=== PATIENT | female | born 1950 | race Two or more races ===

== ENCOUNTER 2023-06-07 13:20 | Outpatient (OUT) | payer MEDICARE, OTHER, SELFPAY ==
--- NOTE | 2023-06-07 13:23 | MM_ITS ---
Patient: [place] NGO Exam Date: 06/07/2023 : 1950 Gender:F Ordering : DR SUHAS RAMSAY Admission #: [id number] Family : Order #: [id number] CLICK HERE TO VIEW EXAM RADIOLOGY REPORT PROCEDURE: MM TOMOSYNTHESIS SCREENING BI COMPARISON: MG MAMM SCREEN 3D REINA CAD, 11/13/2020. MG MAMM SCREEN 3D REINA CAD, 11/16/2021. INDICATIONS: Screening Calculator Name NCI Breast Cancer Risk Assessment Tool 5 Year Breast Cancer Risk Not Reported. Lifetime Breast Cancer Risk Not Reported. Personal Breast Cancer No Personal Ovarian Cancer No Treatments None Family Cancers None LOCATION: [facility] BREAST COMPOSITION: Extremely dense, which lowers the sensitivity of mammography. FINDINGS: DIAGNOSTIC CATEGORY 1--NEGATIVE. NO CHANGE FROM COMPARISON ASSESSMENT. Scattered benign-appearing calcifications are present. Scattered benign-appearing lymph nodes are present. RIGHT BREAST: No significant suspicious finding. LEFT BREAST: No significant suspicious finding. RECOMMENDATIONS: ROUTINE MAMMOGRAM AND CLINICAL EVALUATION IN 12 MONTHS. PLEASE NOTE: A NORMAL MAMMOGRAM DOES NOT EXCLUDE THE POSSIBILITY OF BREAST CANCER. A CLINICALLY SUSPICIOUS PALPABLE LUMP SHOULD BE BIOPSIED. Dictated by: Martín Pop MD on 06/07/2023 at 15:38 Approved by: Martín Pop MD on 06/07/2023 at 15:39
--- NOTE | 2023-06-07 13:23 | XR_ITS ---
The [address] [address] Patient Name: FLOR[place] NGO MRN: [id number] date: 1950 Sex: F Assigned Patient Location: [facility] Current Patient Location: [facility] Accession/Order Number: [id number] Exam Date: 06/07/2023 13:38 Report Date: 06/07/2023 16:16 At the request of: SUHAS PURI Procedure: XR DEXA axial skeleton EXAM: XR DEXA axial skeleton HISTORY: Estrogen Deficiency E28.39 COMPARISON: 05/07/2020 and 10/06/2016. TECHNIQUE: Routine DEXA scan lumbar spine and bilateral hips. FINDINGS: L1-L4: 1. Bone mineral density 1.164 g/sq cm and T score -0.1 2. Percent change versus previous 11.3% (statistically significant change) Left femoral neck: 1. Bone mineral density 0.810 g/sq cm and T score -1.6 Left hip total: 1. Bone mineral density 0.794 g/sq cm and T score -1.7 Right femoral neck: 1. Bone mineral density 0.828 g/sq cm and T score -1.5 Right hip total: 1. Bone mineral density 0.814 g/sq cm and T score -1.5 Dual femur, Neck mean: 1. Persistent change versus previous -4.4% Dual femur, Trochanter mean: 1. Percent change versus previous 1.5% Dual femur, Total mean: 1. Percent change versus previous 0.8% XR/XR DEXA axial skeleton IMPRESSION: Osteopenia. Electronically authenticated by: GARDENIA COVINGTON Date: 06/07/2023 16:16
== END 2023-06-07 13:21 | disposition home or self-care (01) ==
LOC: MAMMO 13:20
PROVIDERS: PCP Physician Assistant; Visit Provider Physician Assistant
DX: Z12.31 Encounter for screening mammogram for malignant neoplasm of breast (principal); E28.39 Other primary ovarian failure; M85.80 Other specified disorders of bone density and structure, unspecified site
CPT/HCPCS: 77063; 77067; 77080

== ENCOUNTER 2025-03-29 08:25 | Outpatient (OUT) | payer MEDICARE, OTHER, SELFPAY ==
--- NOTE | 2025-03-29 08:31 | MM_ITS ---
Patient Name: FLOR[place] NGO MR#: [id number] : 1950 Exam Date: 03/29/2025 Ordering Doctor: DR SUHAS RAMSAY RADIOLOGY REPORT PROCEDURE: MM TOMOSYNTHESIS SCREENING BI COMPARISON: MM TOMOSYNTHESIS SCREENING BI, 06/07/2023. MG MAMM SCREEN 3D REINA CAD, 11/16/2021. MG MAMM SCREEN 3D REINA CAD, 11/13/2020. MG MAMM SCREEN REINA W CAD, 10/05/2016. INDICATIONS: Screening Calculator Name NCI Breast Cancer Risk Assessment Tool 5 Year Breast Cancer Risk Not Reported. Lifetime Breast Cancer Risk Not Reported. Personal Breast Cancer No Personal Ovarian Cancer No Treatments None Family Cancers None LOCATION: [facility] BREAST COMPOSITION: The breasts are extremely dense, which lowers the sensitivity of mammography. FINDINGS: DIAGNOSTIC CATEGORY 1--NEGATIVE. RIGHT BREAST: No significant suspicious finding. LEFT BREAST: No significant suspicious finding. RECOMMENDATIONS: ROUTINE MAMMOGRAM AND CLINICAL EVALUATION IN 12 MONTHS. Dictated by: Haile Pearson DO on 03/29/2025 at 15:38 Approved by: Haile Pearson DO on 03/29/2025 at 15:40
--- OUTSIDE RECORDS SUMMARY | 2025-03-29 08:31 | XMS_ITS | CCD ---
Author Organization [facility] Care Team Providers Care Business Intelligence Engineer Name Role Phone JAXSON, DR PERLA Chiu Admitting Unavailable HEMMER, DR PERLA Chiu Attending Unavailable ZIEBER, DR JARON Miramontes Consulting Unavailable HEMMER, DR PERLA Chiu Consulting Unavailable RANDY RICHARD Primary Care Physician [phone] Jose, Paulino Leos Attending Unavailable Garcia, Paulino Leos Referring Unavailable Garcia, Paulino Leos Admitting Unavailable Garcia, Paulino Leos Admitting Unavailable Garcia, Paulino Leos Attending Unavailable Garcia, Paulino Leos Attending Unavailable Garcia, Paulino Leos Referring Unavailable Garcia, Paulino Leos Admitting Unavailable Garcia, Paulino Leos Referring Unavailable Garcia, Paulino Leos Admitting Unavailable Garcia, Paulino Leos Attending Unavailable Randy Richard MD Primary Care Provider [phone] Zay INSPECTOR SEMICONDUCTOR WAFER, Christine Unavailable Randy Richard MD Unavailable Charlotte INSPECTOR SEMICONDUCTOR WAFER, Regina Unavailable Unavailable Charlotte INSPECTOR SEMICONDUCTOR WAFER, Regina Unavailable HAZEL FALLON Attending Unavailable HEMNATALEE, PERLA Chiu Attending Unavailable JOSE, PAULINO Leos Referring Unavailable HAZEL FALLON Attending Unavailable HAZEL FALLON Attending Unavailable JOSE, PAULINO Leos Attending Unavailable HEMNATALEE, PERLA Chiu Attending Unavailable HEMNATALEE, PERLA Chiu Attending Unavailable HAZEL FALLON Attending Unavailable JOSE, PAULINO Leos Referring Unavailable JOSE, PAULINO Leos Attending Unavailable Allergies Allergy Classification Reported Allergen(s) Allergy Type Date of Onset Reaction(s) Facility (5 sources) Sulfonamides (Antibiotic); Translations: [sulfa drugs] Drug allergy bad headache [facility] (20 sources) Sulfonamides (Antibiotic) Drug Allergy 02-02-2023 Other [facility] Medications Current Medications Medication Drug Class(es) Dates Sig (Normalized) Sig (Original) acetaminophen 500 mg oral tablet (20 sources) take 1 tablet by mouth every four hours as needed for pain acetaminophen (Tylenol Extra Strength) 500 MG tablet Take 1 tablet by mouth every 4 (four) hours if needed for mild pain. Active acetaminophen 500 mg / diphenhydrAMINE hydrochloride 25 mg oral tablet (4 sources) Histamine-1 Receptor Antagonist Start: 12-30-2021 take 1 tablet by mouth once daily at bedtime as needed for sleep Tylenol Extra Strength PM oral tablet 1 tab(s), Oral, Once a day (at bedtime) as needed for sleep Start Date: 12/30/21 Status: Ordered alendronic acid 70 mg oral tablet (20 sources) Bisphosphonate Start: 03-21-2024 End: 02-25-2026 alendronate (Fosamax) 70 MG tablet Indications: Osteopenia of multiple sites Take 1 tablet (70 mg) by mouth every 7 (seven) days 12 tablet 3 02/25/2025 02/25/2026 Active Start: 12-30-2021 take 1 tablet by cora th every week alendronate 70 mg Tab 70 mg = 1 tab(s), Oral, qWeek, Refills(s) 0, Other (see comment) Start Date: 12/30/21 Status: Ordered amLODIPine 5 mg oral tablet (20 sources) Dihydropyridine Calcium Channel Tara Start: 03-21-2024 End: 03-21-2025 take 1 tablet by mouth once daily amLODIPine (Norvasc) 5 MG tablet Indications: Benign hypertension Take 1 tablet (5 mg) by mouth Daily 90 tablet 3 03/21/2024 03/21/2025 Active Start: 12-30-2021 take 1 tablet by cora th once daily amLODIPine 5 mg Tab 5 mg = 1 tab(s), Oral, Daily, Refills(s) 0, High blood pressure Start Date: 12/30/21 Status: Ordered ascorbic acid 500 mg oral capsule (20 sources) Vitamin C take 1 capsule by mouth once daily Ascorbic Acid (Vitamin C) 500 MG capsule Take 1 capsule by mouth 1 (one) time each day. Active aspirin 325 mg oral tablet (20 sources) Platelet Aggregation Inhibitor, Nonsteroidal Anti-inflammatory Drug Start: 07-29-2022 End: 08-28-2022 take 1 tablet by mouth twice daily aspirin 325 mg Tab 325 mg = 1 tab(s), Oral, BID, X 30 day(s), # 60 tab(s), Refills(s) 0, Pharmacy: [id number], 160, cm, 12/30/21 12:25:00 EDT, Height/Length Dosing, 81.5, kg, 12/30/21 12:25:00 EDT, Weight Dosing Start Date: 07/29/22 Stop Date: 08/28/22 Status: Ordered Start: 01-15-2022 End: 02-14-2022 take 1 tablet by mouth once daily aspirin 325 mg Tab 325 mg = 1 tab(s), Oral, Daily, X 30 day(s), # 30 tab(s), Refills(s) 0 Start Date: 01/15/22 Stop Date: 02/14/22 Status: Ordered Start: 12-30-2021 take 1 capsule by mo [facility] once daily aspirin 81 mg oral capsule 81 mg = 1 cap(s), Oral, Daily, Blood Thinner Start Date: 12/30/21 Status: Ordered take 1 tablet by cora once daily BABY ASPIRIN PO Take 1 tablet by mouth 1 (one) time each day. Active calcium carbonate 1500 mg / cholecalciferol 200 unt oral tablet (6 sources) Vitamin D take 1 tablet by mouth every twelve hours calcium citrate 600 mg and vitamin D3 (Citrical & Minerals + Vit D) 600-200 MG-UNIT tablet Take 1 tablet by mouth every 12 (twelve) hours. Active calcium citrate 950 mg / cholecalciferol 250 unt oral tablet (4 sources) Vitamin D Start: 12-31-19 take 1 tablet by mouth once daily calcium-vitamin D 200 mg-250 intl units oral tablet 1 tab(s), Oral, Daily, Prophylaxis Start Date: 12/30/21 Status: Ordered calcium citrate 600 mg and vitamin D3 (Citrical & Minerals + Vit D) 600-200 MG-UNIT tablet (18 sources) take 1 tablet by mouth every twelve hours calcium citrate 600 mg and vitamin D3 (Citrical & Minerals + Vit D) 600-200 MG-UNIT tablet Take 1 tablet by mouth every 12 (twelve) hours. Active Celebrate Multivitamin oral capsule (4 sources) Start: 12-31-19 take 1 tablet by mouth once daily Celebrate Multivitamin oral capsule 1 tab, Oral, Daily, Prophylaxis Start Date: 12/30/21 Status: Ordered cephalexin 500 mg oral capsule (20 sources) Cephalosporin Antibacterial Start: 11-13-19 cephalexin (Keflex) 500 MG capsule Indications: Presence of both artificial knee joints Take two caps evening prior to appointment, take two caps one hour prior to appointment 4 capsule 2 11/12/2024 Active Start: 03-20-2024 End: 10-29-2024 cephalexin (Keflex) 500 MG c apsule Indications: Presence of both artificial knee joints Take two caps evening prior to appointment, take two caps one hour prior to appointment 4 capsule 2 03/20/2024 10/29/2024 Discontinued (Therapy completed) Start: 07-29-2022 End: 08-08-2022 take 1 capsule by mouth four times daily Keflex 500 mg Cap 500 mg = 1 cap(s), Oral, QID, X 10 day(s), # 40 cap(s), Refills(s) 0, Pharmacy: [id number], 160, cm, 12/30/21 12:25:00 EDT, Height/Length Dosing, 81.5, kg, 12/30/21 12:25:00 EDT, Weight Dosing Start Date: 07/29/22 Stop Date: 08/08/22 Status: Ordered Start: 01-15-2022 End: 01-20-2022 take 1 capsule by mouth four times daily Keflex 500 mg Cap 500 mg = 1 cap(s), Oral, QID, X 5 day(s), # 20 cap(s), Refills(s) 0 Start Date: 01/15/22 Stop Date: 01/20/22 Status: Ordered docosahexaenoic acid 120 mg / eicosapentaenoic acid 180 mg oral capsule (20 sources) take 2 capsules by mouth once daily omega-3 (Fish Oil) 1000 MG capsule Take 2 capsules by mouth 1 (one) time each day at the same time. Active docusate sodium 100 mg oral capsule (3 sources) Start: 07-29-2022 take 1 capsule by mouth twice daily Colace 100 mg Cap 100 mg = 1 cap(s), Oral, BID, # 20 cap(s), Refills(s) 0, Pharmacy: [id number], 160, cm, 12/30/21 12:25:00 EDT, Height/Length Dosing, 81.5, kg, 12/30/21 12:25:00 EDT, Weight Dosing Start Date: 07/29/22 Status: Ordered Start: 01-15-2022 take 1 capsule by mo [facility] twice daily Colace 100 mg Cap 100 mg = 1 cap(s), Oral, BID, Refills(s) 0 Start Date: 01/15/22 Status: Ordered Fish Oils (4 sources) Start: 12-30-2021 take 1 capsule by mouth once daily Fish Oil 1000 mg oral capsule 1,000 mg = 1 cap(s), Oral, Daily, Prophylaxis Start Date: 12/30/21 Status: Ordered lisinopril 10 mg oral tablet (20 sources) Angiotensin Converting Enzyme Inhibitor Start: 04-16-2024 take 1 tablet by mouth once daily lisinopril 10 MG tablet Indications: Benign hypertension Take 1 tablet (10 mg) by mouth Daily 100 tablet 3 04/16/2024 Active rosuvastatin calcium 20 mg oral tablet (20 sources) HMG-CoA Reductase Inhibitor Start: 04-16-2024 take 1 tablet by mouth once daily rosuvastatin (Crestor) 20 MG tablet Indications: Hypercholesteremia Take 1 tablet (20 mg) by mouth Daily 100 tablet 3 04/16/2024 Active Start: 12-30-2021 take 1 tablet by [facility] once daily rosuvastatin 20 mg Tab 20 mg = 1 tab(s), Oral, Daily, Refills(s) 0, High cholesterol Start Date: 12/30/21 Status: Ordered Vitamin B-12 1000 mcg oral tablet (3 sources) Start: 12-30-2021 take 1 tablet by mouth once daily Vitamin B-12 1000 mcg oral tablet 1,000 mcg = 1 tab(s), Oral, Daily, Prophylaxis Start Date: 12/30/21 Status: Ordered vitamin b12 1 mg oral tablet (20 sources) Vitamin B12 Start: 12-30-2021 take 1 tablet by mouth once daily Vitamin B-12 1000 mcg oral tablet 1,000 mcg = 1 tab(s), Oral, Daily, Prophylaxis Start Date: 12/30/21 Status: Ordered take 1 tablet by mouth once zackary y cyanocobalamin (Vitamin B-12) 100 MCG tablet Take 1 tablet by mouth 1 (one) time each day. Active vitamin b6 100 mg oral tablet (20 sources) take 1 tablet by mouth every twelve hours Pyridoxine HCl (Vitamin B6) 100 MG tablet Take 1 tablet by mouth every 12 (twelve) hours. Active Vitamin B6 100 mg Tab (4 sources) Start: 12-30-2021 take 1 tablet by mouth once daily Vitamin B6 100 mg Tab 100 mg = 1 tab(s), Oral, Daily, Prophylaxis Start Date: 12/30/21 Status: Ordered Vitamin C 1000 mg oral tablet (4 sources) Start: 12-30-2021 take 1 tablet by mouth once daily Vitamin C 1000 mg oral tablet 1,000 mg = 1 tab(s), Oral, Daily, Prophylaxis Start Date: 12/30/21 Status: Ordered vitamin e d-alpha 400 unt oral capsule (20 sources) take 1 capsule by mouth once daily alpha tocopherol (Vitamin E) 400 units capsule Take 1 capsule by mouth 1 (one) time each day at the same time. Active Completed/Discontinued Medications Medication Drug Class(es) Dates Sig (Normalized) Sig (Original) acetaminophen 325 mg / oxyCODONE hydrochloride 5 mg oral tablet (7 sources) Opioid Agonist Start: 07-29-2022 Percocet 5 mg-325 mg oral tablet See Instructions, 50 tab(s), Refill(s) 0, Take one to two every 4 hours for major orthopedic knee replacement surgical pain Z96/M17.11, [id number], 160, cm, 12/30/21 12:25:00 EDT, Height/Length Dosing, 81.5, kg, 12/30/21 12:25:00 EDT, W... Start Date: 07/29/22 Status: Ordered Start: 01-15-2022 Percocet 325 m g-5 mg Tab 1 tab(s), Oral, q4hr Pain 4-7, Refill(s) 0 Start Date: 01/15/22 Status: Ordered Start: 01-15-2022 Percocet 325 m g-5 mg Tab 2 tab(s), Oral, q4hr Pain 4-7, Refill(s) 0 Start Date: 01/15/22 Status: Ordered Start: 01-15-2022 Percocet 325 m g-5 mg Tab 1 tab(s), Oral, q4hr Pain 4-7, Refill(s) 0 Start Date: 01/15/22 Status: Ordered Vitamin E 400 unit(s) Cap (4 sources) Start: 12-30-2021 take 1 capsule by mouth once daily Vitamin E 400 unit(s) Cap 400 International_Unit = 1 cap(s), Oral, Daily, Prophylaxis Start Date: 12/30/21 Status: Ordered Problems Active Problems Problem Classification Problem Date Documented Date Episodic/Chronic Acquired foot deformities (4 sources) Hammer toe; Translations: [Other hammer toe(s) (acquired), right foot] 08-27-2024 Chronic Administrative/soci al admission (2 sources) Patient encounter status; Translations: [Other specified counseling] 04-30-2024 Episodic Disorders of lipid metabolism (20 sources) Hypercholesterolemia; Translations: [Pure hypercholesterolemia, unspecified] Onset: 3 01-18-2022 Chronic Essential hypertension (20 sources) Hypertensive disorder; Translations: [Benign hypertension] Onset: 3 12-30-2021 Chronic Menopausal disorders (20 sources) Primary ovarian failure; Translations: [Other primary ovarian failure] Onset: 3 04-25-2023 Chronic Mycoses (8 sources) Onychomycosis; Translations: [Tinea unguium] 05-24-2024 Episodic Osteoarthritis (20 sources) Osteoarthritis of knee; Translations: [Unilateral primary osteoarthritis, left knee] Onset: Chronic Other connective tissue disease (20 sources) Artificial knee joint present; Translations: [Presence of unspecified artificial knee joint] Onset: 3 04-25-2023 Chronic Other connective tissue disease (8 sources) Pain in both feet; Translations: [Pain in right foot] 05-24-2024 Episodic Other connective tissue disease (2 sources) Capsulitis; Translations: [Other enthesopathies, not elsewhere classified] 08-27-2024 Episodic Other ear and sense organ disorders (4 sources) Impacted cerumen of bilateral ears; Translations: [Impacted cerumen, bilateral] 05-14-2024 Episodic Other nervous system disorders (20 sources) Difficulty walking; Translations: [Difficulty in walking, not elsewhere classified] Onset: 3 04-25-2023 Chronic Other nervous system disorders (20 sources) Chronic pain; Translations: [Other chronic pain] Onset: 3 04-25-2023 Chronic Other nervous system disorders (2 sources) Neuroma; 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] 08-27-2024 Chronic Other nutritional; endocrine; and metabolic disorders (20 sources) Obesity; Translations: [Class 1 obesity without serious comorbidity with body mass index (BMI) of 32.0 to 32.9 in adult] Onset: 10-25-2023 Chronic Other nutritional; endocrine; and metabolic disorders (4 sources) History of hypercholesterolemia 12-30-2021 Episodic Other screening for suspected conditions (not mental disorders or infectious disease) (6 sources) Encounter for screening mammogram for malignant neoplasm of breast; Translations: [Patient encounter status] Onset: 2 Episodic Unclassified (4 sources) Pain of knee region 12-30-2021 Past or Other Problems Problem Classification Problem Date Documented Da te Episodic/Chronic Fever of unknown origin (20 sources) Fever; Translations: [Fever, unspecified] Onset: 01-23-2024 Resolved: 04-30-2024 04-30-2024 Episodic Mood disorders (20 sources) Mood disorders Onset: 04-26-2023 Resolved: 04-30-2024 04-30-2024 Other bone disease and musculoskeletal deformities (20 sources) Osteopenia; Translations: [Other specified disorders of bone density and structure, multiple sites] Onset: 04-25-2023 04-25-2023 Episodic Other nervous system disorders (20 sources) Paresthesia of hand ; Translations: [Paresthesia of skin] Onset: 04-25-2023 04-25-2023 Episodic Other non-traumatic joint disorders (20 sources) Pain in left knee; Translations: [Pain in joint, lower leg] Onset: 04-25-2023 Resolved: 04-26-2023 04-26-2023 Episodic Other non-traumatic joint disorders (20 sources) Pain in right knee; Translations: [Pain in joint, lower leg] Onset: 04-25-2023 Resolved: 04-26-2023 04-26-2023 Episodic Other nutritional; endocrine; and metabolic disorders (20 sources) Body mass index 25-29 - overweight; Translations: [Overweight] Onset: 04-25-2023 Resolved: 10-25-2023 10-25-2023 Episodic Residual codes; unclassified (20 sources) Acquired absence of cervix and uterus; Translations: [Acquired absence of both cervix and uterus] Onset: 04-25-2023 04-25-2023 Episodic Urinary tract infections (20 sources) Acute urinary tract infection; Translations: [Urinary tract infection, site not specified] Onset: 01-23-2024 Resolved: 04-30-2024 04-30-2024 Episodic Results Test Name Value Interpretation Reference Range Facility No Panel Informationon 08-15 Radiology Study observation (narrative) [facility] XR Knee - left 3 [facility] Result: Xrays taken in the office today saved to the permanent record, bilateral AP , sunrise and lateral weightbearing films, show stable position and alignment of the staggered bilateral TKA prosthesis. No sign of loosening, fracture or infection. [facility] XR Knee - right 3 [facility] Result: Xrays taken in the office today saved to the permanent record, bilateral AP , sunrise and lateral weightbearing films, show stable position and alignment of the staggered bilateral TKA prosthesis. No sign of loosening, fracture or infection. [facility] CBC (INCLUDES DIFF/PLT)on Basophils (Bld) [#/Vol] 0.032 10*3/uL Normal 0-200 [facility] Comment on above: Performed By: #### 6 399, [id number] #### [facility] [address] [place], [place] [id number] Auto [employer] Counselor: Indira Chan #### 7600 #### [facility] [address], [address] [place] [address] [employer] Counselor: Hosea Madrigal MD Basophils/100 WBC (Bld) 0.6 % Normal [facility] Comment on above: Performed By: #### 6 399, [id number] #### [facility] [address] [place] [address] [employer] Counselor: Indira Chan #### 7600 #### [facility] [address], [address] [place], [place] [id number] [employer] Counselor: Hosea Madrigal MD Eosinophils (Bld) [#/Vol] 0.117 10*3/uL Normal 15-500 [facility] Comment on above: Performed By: #### 6 399, [id number] #### [facility] [address] [place] [address] Auto [employer] Counselor: Indira Chan #### 7600 #### [facility] [address], [address] [place] [address] [employer] Counselor: Hosea Madrigal MD Eosinophils/100 WBC (Bld) 2.2 % Normal [facility] Comment on above: Performed By: #### 6 399, 64213 #### [facility] [address] [place], [place] [id number] [employer] Counselor: Indira Chan #### 7600 #### [facility] [place] [address] [employer] Counselor: Hosea Madrigal MD Erythrocyte distribution width (RBC) [Ratio] 13.2 % Normal 11.0-15.0 [facility] Comment on above: Performed By: #### 6 399, 91519 #### [facility] [address] [place], [place] [id number] [employer] Counselor: Indira Chan #### 7600 #### [facility] [place] [address] Auto [employer] Counselor: Hosea Madrigal MD Hematocrit (Bld) [Volume fraction] 43.5 % Normal 35.0-45.0 [facility] Comment on above: Performed By: #### 6 399, 30656 #### [facility] [address] [place] [address] Auto [employer] Counselor: Indira Chan #### 7600 #### [facility] [address], [address] [place] [address] Auto Travel Counselor: Hosea Madrigal MD Hemoglobin (Bld) [Mass/Vol] 14.5 g/dL Normal 11.7-15.5 [facility] Comment on above: Performed By: #### 6 399, 50994 #### [facility] [address] [address] Auto Travel Counselor: Indira Chan #### 7600 #### [facility] [address], [address] [place] [address] Auto [employer] Counselor: Hosea Madrigal MD Lymphocytes (Bld) [#/Vol] 1.102 10*3/uL Normal 850-3900 [facility] Comment on above: Performed By: #### 6 399, 79012 #### [facility] [address] [place] [address] Auto Travel Counselor: Indira Chan #### 7600 #### [facility] [address], [address] [place] [address] Auto Travel Counselor: Hosea Madrigal MD Lymphocytes/100 WBC (Bld) 20.8 % Normal [facility] Comment on above: Performed By: #### 6 399, 40982 #### [facility] [address] Auto Travel Counselor: Indira Chan #### 7600 #### [facility] [address], [address] [place] [address] Auto [employer] Counselor: Hosea Madrigal MD MCH (RBC) [Entitic mass] 29.2 pg Normal 27.0-33.0 [facility] Comment on above: Performed By: #### 6 399, 18104 #### [facility] [address] Auto Travel Counselor: Indira Chan #### 7600 #### [facility] of [address], [address] [place] [address] Auto Travel Counselor: Hosea Madrigal MD MCHC (RBC) [Mass/Vol] 33.3 g/dL Normal 32.0-36.0 [facility] Comment on above: Result Comment: For adults, a slight decrease in the calculated MCHC value (in the range of 30 to 32 g/dL) is most likely not clinically significant; however, it should be interpreted with caution in correlation with other red cell parameters and the patient's clinical condition. Performed By: #### 6 399, 26525 #### [facility] [address] [employer] Counselor: Indira Chan #### 7600 #### [facility] [place] [address] Auto Travel Counselor: Hosea Madrigal MD MCV (RBC) [Entitic vol] 87.5 fL Normal 80.0-100.0 [facility] Comment on above: Performed By: #### 6 399, 32447 #### [facility] [address] Auto Travel Counselor: Indira Chan #### 7600 #### [facility] [place] [address] Auto Travel Counselor: Hosea Madrigal MD Monocytes (Bld) [#/Vol] 0.509 10*3/uL Normal 200-950 [facility] Comment on above: Performed By: #### 6 399, 47938 #### [facility] [address] Auto Travel Counselor: Indira Chan #### 7600 #### [facility] [place] [address] Auto Travel Counselor: Hosea Madrigal MD Monocytes/100 WBC (Bld) 9.6 % Normal [facility] Comment on above: Performed By: #### 6 399, 66468 #### [facility] [address] Auto Travel Counselor: Indira Chan #### 7600 #### [facility] [address], [address] [place] [address] Auto Travel Counselor: Hosea Madrigal MD Neutrophils (Bld) [#/Vol] 3.54 10*3/uL Normal 0110-0225 [facility] Comment on above: Performed By: #### 6 399, 96267 #### [facility] [id number] Auto [employer] Counselor: Indira Chan #### 7600 #### [facility] of [place] [address] [place] , [address] [place] [address] Auto Travel Counselor: Hosea Madrigal MD Neutrophils/100 WBC (Bld) 66.8 % Normal [facility] Comment on above: Performed By: #### 6 399, 39542 #### [facility] Auto Travel Counselor: Indira Chan #### 7600 #### [facility] [place] [address] [place] , [address] [place] [address] Auto Travel Counselor: Hosea Madrigal MD Platelet mean volume (Bld) [Entitic vol] 9.9 fL Normal 7.5-12.5 [facility] Comment on above: Performed By: #### 6 399, 90166 #### [facility] [id number] [employer] Counselor: Indira Chan #### 7600 #### [facility] [place] [address] [place] , [address] [place] [address] Auto Travel Counselor: Hosea Madrigal MD Platelets (Bld) [#/Vol] 266 10*3/uL Normal 140-400 [facility] Comment on above: Performed By: #### 6 399, 87850 #### [facility] [address] [place], [place] [address] [employer] Counselor: Indira Chan #### 7600 #### [facility] [place] [address] [place] , [address] [place] [address] Auto Travel Counselor: Hosea Madrigal MD RBC (Bld) [#/Vol] 4.97 10*6/uL Normal 3.80-5.10 [facility] Comment on above: Performed By: #### 6 399, 74120 #### [facility] [address] [place] [address] [employer] Counselor: Indira Chan #### 7600 #### [facility] [place] [address] [place] , [address] [place], [place] [id number] [employer] Counselor: Hosea Madrigal MD WBC (Bld) [#/Vol] 5.3 10*3/uL Normal 3.8-10.8 [facility] Comment on above: Performed By: #### 6 399, 03945 #### [facility] [address] Auto Travel Counselor: Indira Chan #### 7600 #### [facility] [address], [address] [place] [address] [employer] Travel Counselor: Hosea Madrigal MD [facility] 06-02-2024 Albumin [Mass/Vol] 4.2 g/dL Normal 3.6-5.1 [facility] Comment on above: Performed By: #### 6 399, 33535 #### [facility] [address] Auto [employer] Counselor: Indira Chan #### 7600 #### [facility] [address], [address] [place] [address] Auto Travel Counselor: Hosea Madrigal MD Albumin/Globulin [Mass ratio] 1.9 {ratio} Normal 1.0-2.5 [facility] Comment on above: Performed By: #### 6 399, 18782 #### [facility] [address] [employer] Counselor: Indira Chan #### 7600 #### [facility] [address], [address] [place] [address] Auto Travel Counselor: Hosea Madrigal MD ALP [Catalytic activity/Vol] 49 U/L Normal 37-153 [facility] Comment on above: Performed By: #### 6 399, 33015 #### [facility] [address] [place] [address] [employer] Counselor: Indira Chan #### 7600 #### [facility] [address] , [address] [place] [address] Auto Travel Counselor: Hosea Madrigal MD ALT [Catalytic activity/Vol] 20 U/L Normal 6-29 [facility] Comment on above: Performed By: #### 6 399, 82564 #### [facility] [address] [place], [place] [id number] [employer] Counselor: Indira Chan #### 7600 #### [facility] [address], [address] [place] [address] Auto Travel Counselor: Hosea Madrigal MD AST [Catalytic activity/Vol] 23 U/L Normal 10-35 [facility] Comment on above: Performed By: #### 6 399, 82841 #### [facility] Auto Travel Counselor: Indira Chan #### 7600 #### [facility] [place] [address] [employer] Counselor: Hosea Madrigal MD Bilirubin [Mass/Vol] 0.6 mg/dL Normal 0.2-1.2 [facility] Comment on above: Performed By: #### 6 399, 66115 #### [facility] [address] [employer] Travel Counselor: Indira Chan #### 7600 #### [facility] [place] [address] [employer] Counselor: Hosea Madrigal MD BUN/CREATININE RATIO SEE NOTE: Normal 6-22 [facility] Comment on above: Result Comment: Not Reported: BUN and Creatinine are within reference range. Performed By: #### 6 399, 61580 #### [facility] [address] [place], [place] [id number] [employer] Counselor: Indira Chan #### 7600 #### [facility] [place] [address] [employer] Counselor: Hosea Madrigal MD Calcium [Mass/Vol] 9.4 mg/dL Normal 8.6-10.4 [facility] Comment on above: Performed By: #### 6 399, 98350 #### [facility] [address] [place] [address] Auto Travel Counselor: Indira Chan #### 7600 #### [facility] [address], [address] [place] [address] Auto [employer] Counselor: Hosea Madrigal MD Chloride [Moles/Vol] 106 mmol/L Normal 98-110 [facility] Comment on above: Performed By: #### 6 399, 72434 #### [facility] [address] [place] [address] Auto Travel Counselor: Indira Chan #### 7600 #### [facility] [address], [address] [place] [address] Auto Travel Counselor: Hosea Madrigal MD CO2 [Moles/Vol] 28 mmol/L Normal 20-32 [facility] Comment on above: Performed By: #### 6 399, 33688 #### [facility] [address] [employer] Counselor: Indira Chan #### 7600 #### [facility] [address], [address] [place] [address] Auto Travel Counselor: Hosea Madrigal MD Creatinine [Mass/Vol] 0.90 mg/dL Normal 0.60-1.00 [facility] Comment on above: Performed By: #### 6 399, 40069 #### [facility] [address] [employer] Counselor: Indira Chan #### 7600 #### [facility] [address], [address] [place] [address] Auto Travel Counselor: Hosea Madrigal MD GFR/1.73 sq M.predicted among non-blacks MDRD (S/P/Bld) [Vol rate/Area] 68 mL/min/{1.73_m2} Normal > OR = 60 [facility] Comment on above: Performed By: #### 6 399, 13665 #### [facility] [address] [place] [address] [employer] Counselor: Indira Chan #### 7600 #### [facility] of [address], [address] [place], [place] [id number] [employer] Counselor: Hosea Madrigal MD Globulin (S) [Mass/Vol] 2.2 g/dL Normal 1.9-3.7 [facility] Comment on above: Performed By: #### 6 399, 12277 #### [facility] [address] [place] [address] Auto Travel Counselor: Indira Chan #### 7600 #### [facility] [address], [address] [place], [place] [id number] [employer] Counselor: Hosea Madrigal MD Glucose [Mass/Vol] 95 mg/dL Normal 65-99 [facility] Comment on above: Result Comment: Fasting reference interval Performed By: #### 6 399, 77753 #### [facility] [address] [employer] Counselor: Indira Chan #### 7600 #### [facility] [address], [address] [place] [address] Auto Travel Counselor: Hosea Madrigal MD Potassium [Moles/Vol] 4.4 mmol/L Normal 3.5-5.3 [facility] Comment on above: Performed By: #### 6 399, 57454 #### [facility] [address] [place], [place] [id number] Auto [employer] Counselor: Indira Chan #### 7600 #### [facility] [address], [address] [place], [place] [phone] Auto [employer] Counselor: Hosea Madrigal MD Protein [Mass/Vol] 6.4 g/dL Normal 6.1-8.1 [facility] Comment on above: Performed By: #### 6 399, 96725 #### [facility] [address] [place] [id number] [employer] Counselor: Indira Chan #### 7600 #### [facility] [address], [address] [place] [address] Auto Travel Counselor: Hosea Madrigal MD Sodium [Moles/Vol] 140 mmol/L Normal 135-146 [facility] Comment on above: Performed By: #### 6 399, 75265 #### [facility] [address] [place] [address] Auto Travel Counselor: Indira Chan #### 7600 #### [facility] [address], [address] [place] [address] Auto Travel Counselor: Hosea Madrigal MD Urea nitrogen [Mass/Vol] 18 mg/dL Normal 7-25 [facility] Comment on above: Performed By: #### 6 399, 95856 #### [facility] [address] [place] [address] Auto Travel Counselor: Indira Chan #### 7600 #### [facility] [address], [address] [place] [address] Auto Travel Counselor: Hosea Madrigal MD LIPID PANEL, [address] Cholesterol [Mass/Vol] 168 mg/dL Normal <200 [facility] Comment on above: Order Comment: FASTI NG:YES FASTING: YES Performed By: #### 6 399, 11536 #### [facility] [address] [place] [address] Auto Travel Counselor: Indira Chan #### 7600 #### [facility] [address], [address] [place] [address] Auto Travel Counselor: Hosea Madrigal MD Cholesterol in HDL [Mass/Vol] 81 mg/dL Normal > OR = 50 [facility] Comment on above: Order Comment: FASTI NG:YES FASTING: YES Performed By: #### 6 399, 64513 #### [facility] [address] [place] [address] Auto Travel Counselor: Indira Chan #### 7600 #### [facility] [address], [address] [place] [address] Auto Travel Counselor: Hosea Madrigal MD Cholesterol in LDL [Mass/Vol] 69 mg/dL Normal [facility] Comment on above: Order Comment: FASTI NG:YES FASTING: YES Result Comment: Refe rence range: <100 Desirable range <100 mg/dL for primary prevention; <70 mg/dL for patients with CHD or diabetic patients with > or = 2 CHD risk factors. LDL-C is now calculated using the Jm calculation, which is a validated novel method providing better accuracy than the Friedewald equation in the estimation of LDL-C. Kojo SS et al. GEOVANNY. 2013;310(19): 5940-3379 (http://education.Digital Map Products/faq/AHA028) Performed By: #### 6 399, 77583 #### [facility] [address] [place] [address] Auto Travel Counselor: Indira Chan #### 7600 #### [facility] [address], [address] [place] [address] Auto Travel Counselor: Hosea Madrigal MD Cholesterol.total/Ch olesterol in HDL [Mass ratio] 2.1 {ratio} Normal <5.0 [facility] Comment on above: Order Comment: FASTI NG:YES FASTING: YES Performed By: #### 6 399, 80691 #### [facility] [address] [place], [place] [id number] [employer] Counselor: Indira Chan #### 7600 #### [facility] [address], [address] [place] [address] Auto Travel Counselor: Hosea Madrigal MD NON HDL CHOLESTEROL 87 mg/dL (calc) Normal <130 [facility] Comment on above: Order Comment: FASTI NG:YES FASTING: YES Result Comment: For patients with diabetes plus 1 major ASCVD risk factor, treating to a non-HDL-C goal of <100 mg/dL (LDL-C of <70 mg/dL) is considered a therapeutic option. Performed By: #### 6 399, 37509 #### [facility] [address] [place], [place] [id number] Auto [employer] Counselor: Indira Chan #### 7600 #### [facility] [address], [address] [place] [address] [employer] Counselor: Hosea Madrigal MD Triglyceride [Mass/Vol] 92 mg/dL Normal <150 [facility] Comment on above: Order Comment: FASTI NG:YES FASTING: YES Performed By: #### 6 399, 89944 #### [facility] [place] [address] [employer] Counselor: Indira Chan #### 7600 #### [facility] [address], [address] [place] [address] [employer] Counselor: Hosea Madrigal MD No Panel Informationon 05-14 DEVENDRA Castro 05/14/2024 10:03 AM Ear Cerumen Removal Date/Time: 05/14/2024 10:00 AM Performed by: DEVENDRA Castro Authorized by: DEVENDRA Castro Consent: Consent obtained: Verbal Consent given by: Patient Risks, benefits, and alternatives were discussed: yes Risks discussed: Bleeding, dizziness, infection, incomplete removal, pain and TM perforation Alternatives discussed: Alternative treatment and no treatment Procedure details: Location: L ear and R ear Procedure type: curette Procedure type comment: And irrigation with hydrogen peroxide and warm water Procedure outcomes: cerumen removed (Minimal remaining on right) Post-procedure details: Inspection: TM intact Hearing quality: Improved Procedure completion: Tolerated (Had mild pain on right) [facility] Proceduralon 08-11-2022 Operative Report Patient: ABRIL NGO Age: 71 years Sex: Female : 1950 Associated Diagnoses: None Author: Chivo Paredes MD Procedure Nerve Block Block Type: Adductor canal block. Laterality: Right. Informed consent for anesthesia management: Anesthesia options discussed including nerve block, Description of the procedure, risks, benefits, and alternatives was provided, The patient's questions were addressed. Time out. Time: Date/Time 08/02/2022 08:01:00. Indication: Block for postoperative pain management as requested by surgeon. Anesthesia Method: IV Sedation with monitored anesthesia care, The patient remained awake and able to interact in a meaningful way throughout the procedure. Preparation: The patient was placed in the following position Supine, Continuous pulse oximetry applied, Using maximal sterile barrier technique per current [facility] guidelines including hand hygeine, Guidance (Ultrasound used to identify anatomical landmarks, Using sterile gel and probe covers, Permanent image retained), The site was prepped with ChloraPrep. Procedure: Anesthetic Agent ropivicaine 0.5% 20 ml, Needle was inserted without pain or parasthesia in the conscious patient, Number of attempts 1, Medial and lateral spread of the anesthestic was observed, Periodic negative attempts at aspiration of blood were made as the local was injected, No pain or parathesia were elicited with injection of the anesthetic in the conscious patient, It was idetified that the correct anesthetic agent was administered to the correct site. Complications: None, The patient tolerated the procedure as expected. changed to operative note [facility] Comment on above: Result Comment: Elec tronically Signed By: Chivo Paredes MD\.br\Date and Time Signed: 08/11/22 14:14 EST Operative Report Patient: ABRIL NGO Age: 71 years Sex: Female : 1950 Associated Diagnoses: None Author: Chivo Paredes MD Procedure Nerve Block Block Type: Adductor canal block. Informed consent for anesthesia management: Anesthesia options discussed including nerve block, Description of the procedure, risks, benefits, and alternatives was provided, The patient's questions were addressed. Indication: Block for postoperative pain management as requested by surgeon. Anesthesia Method: IV Sedation with monitored anesthesia care, The patient remained awake and able to interact in a meaningful way throughout the procedure. Preparation: The patient was placed in the following position Supine, Continuous pulse oximetry applied, Using maximal sterile barrier technique per current CMS guidelines including hand hygeine, Guidance (Ultrasound used to identify anatomical landmarks, Using sterile gel and probe covers), The site was prepped with ChloraPrep. changed to operative note [facility] Comment on above: Result Comment: Elec tronically Signed By: Chivo Paredes MD\.br\Date and Time Signed: 08/11/22 14:13 EST Progress Note-Physicianon Progress Note-Physician Patient: OSIRIS NGO Age: 71 years Sex: Female : 1950 Associated Diagnoses: None Author: Chivo Paredes MD Postoperative Information Postoperative disposition: Postoperative disposition: To PACU. Anesthetic utilized: General. Health Status Problem list: All Problems Hypercholesteremia / SNOMED CT 32309660 / Confirmed Hypertension / SNOMED CT 6051154220 / Confirmed Knee pain, left / SNOMED CT 3117984487 / Confirmed Resolved: H/O hypercholesterolemia / SNOMED CT 3562284509 Resolved: Hypertension / SNOMED CT 0031955299 Physical Examination VS/Measurements Pain Assessment: Absent facial, vocal or non-verbal evidence of pain, Controlled. General: Awake, Alert, Appropriate. Respiratory: Adequate air exchange. Cardiovascular: Stable. Neurological: Normal sensory function, Normal motor function. Assessment Anesthetic outcome No anesthetic complications noted. Adequate pain relief. Review / Management Condition: Stable. Plan Transfer/Discharge: Transfer/Discharge Discharge when meets criteria ( From PACU to Ambulatory Surgery Unit ). [facility] Comment on above: Result Comment: Elec tronically Signed By: Reggie STEVE, Chivo Perez\.br\Date and Time Signed: 08/10/22 09:51 EST Coding Summary.on 08-05-2022 Coding Summary. CD:[id number] Gh0 bWw+PGhlYWQ+NJ0WLDYeP00 vyAFmfD8TG2dKWO0FSQQJLP GHDD3ZEX2zqLU6IFgfP9Aoe iAv PngvaYUkBJ83VQv6FEX1qWy uZHnxsE5gqQHvL9t6VkYmDA 93hR31TIjhLGZwTgI8RvNls jsgbWFy Z0dxWaSloEWiNnm+PHRhYmx lIHdpZHRoPScxMDAlJyBzdH zlKU6iAp6uZQOpGIBwpWwny HNlOiBj t3eqMLUsAJnjWI5gbFwgD6W ykMW1RDViu6o3Uz57yGM+PH AxMTZ1nKgoFAnri265HfAti 1reZIG1 tAFvBVkcTHP1S65yx7I9VYY sDCBpVRC7eNV5fB8ibJsyuy xiL7VtzIUzGiA2GPJ4kPKmn U3mtGzv zozxeD7pGja+U31NVD6YPEE QMM0EVba2V0LeYepamES+PC 43EVDfJW76cEBfzAOgg1ntd Gm1ZgVu AAIvLYT4zYkyEEfkz9BiUIW oW07krHWiz1L7KMPzsDuzqC NvIeXytDD1wZ2uDHmopdysq 2hvdzsn Hpxyt8jgwr85aM39E99yOZj tWLMoRHL0WRMcILWwbOremq 2uqY6mMa4+IEvkn4ujm3kow Vj2KcUm FDCjmuBemFhpLKB6n1EzVd5 5I3TntAict5GbUze8en76fB Thf5G3mQL3IXfmVJMpqT9pV WxlZnQ6 DAHwZnNfyS03gVPgPKhpDc5 icOdplIfkVQ3bEVPomxaiMS IlvE0gADZqpJIibFzlWG9rG TBpbjtm z839YbSiUFZ0WXFssVHiK0N fvU9sTzImNAHtDYCmS2EnoS WaRCohP171DHcjJaI7ORJyu nFfZ3Vo WFGcnOnzEgU5t0H1Pr0Jj2R ntctqKFJ7GGpyLOBcOqW2Es KuNhD6T9NrElj5OUTciKoxQ C3dK2Of EBThxetnrkolqBQ2WLNoTCO ylK97mZGtVDzvWr9jq5K7b2 53CTDmLTOpgT05Pm9bgXfrG TBwdCBU rJ3rfyscm4nxfuquJeWfOJJ wWVj3IGg5OKRfsLlqIsKcXJ A1SrN5UUI2hFMyjD6fhKbcn ckevL8q Oyc+A90moA8tYRN3AUR0phx xIIQogsHeLC37IJ12U6YyIw wvdGFibGU+PGRpdiBzdHlsZ V8mYxAy f6kee6AxRZcoG1QsNYCeEIa sEce2VVWjAJR7zYK5sF8kKP BdZVjmb4V9eWA2X9DwatEsq w5wv8yd DZQlORnvY52igJHfc8H7UEF tjSL6OKZoeMbyAlSapY41Uk c+TVZkyMnor3TzUuzjt5sci 9xvqPl3 PnRgACSlxkFmoTfsAVO9a7M aTf54Y38yRUcjVMVoPWIyTY KcWVIefCktei4loF2yFj6+P GNvbCB3 kWO2kF1yOOFaYpZ1DZlrO49 9ZoSvhAQyNgnwt6dlg3bwhO j5HaQlPJHjnvBhiTqaFDF6g 6LvWg21 X32zCMfnXTJyGAUtKJNoTTG gcBtqnh3hpB8fYb6+PC9jb2 fxpe68iC23hDT+GSFtATK5p WxlPSdw ZSWnpS4oYLtsYnP9WEYbWeX jvH12iPYdOSsdPb5wlUspdD beHY6sMSQyevjcn001WxCrs 2xkIDEw rDViRKynVKF0X56it0I7ZYA dWDVvDYM8wFC1eV4npPqmlc ogbGVmdDsgdmVydGljYWwtY YonZ684 IHRvcDsnPlBhdGllbnQgTmF fNYm4P5DiHvl6UCVusIlvGQ 0hoSJwJLhaRw8bfZcssSwrS N4dNVJk bxzfw229SpRcx1gyAQOvbOR fBJboAWB5O12ms3F3ONGkII UgDUN2pOK0pR0fqFojngzom GVmdDsg jpWssDkmVLccMDuuG993CVW lvDtgUyRpwzHlGTYmjFE4GG 41LG30kROwi4A5gGI6X8GrT GRpbmct fhckbIH9MGXfVSDpaH68Ze9 xvSeeAq8qPNIgDUO5IRQcdH XbO2MakB7fNaOwAHVqWGSfH 3RleHQt CLrzK556UXevAiN6NDNjejI pS5ImJILbpJopPoY6z7I7Lq 9KY6X1NL19CH44xWYei1X8a DK7C7Nv UFMkkavkbcqreMV4ZSSmRCL hnQ05Ms1jxKibXu7hAETkXJ Q7HUMhdJQjR2SfbP5bEdFgI DAwMDAw D4JsmCZwUSnyZ425WBtbIqK 3JIQolgQuL0BiVUNnkMavIk G0q1I1Nu4OZHi8NZ04YX67b DYok5W4 iZH5X6BpWMAewlvmjcqvwIJ 2VDZkNVGloC50Jr1zhKamYv 2mKLWsBQA4ZJBgvUAjB0Kfq C7mTmUc FKBrLEToQ9OfzEDjIOpxO51 5ISemZhD4NEGcpoRiM7IpYQ MwpLbxPnY2r6T8Yi6PSCKmX K90GJK5 qCT2BT53YC59M2PnZrpkyYD ibGU+PHRhYmxlIHdpZHRoPS gkIEIbFbLezHizEC6wYy2iL GVyLWNv cAoqbYPmYwIry8ewJKXnUKq pEL7orChpG4EmpZV6RDCyy3 m2Qp96T51yX4KgkEG+PGNvb IG7wRX8 lX3pSuNqXiP9TVptA500VuS fnLIgNcite8yxj4djfSg2Kr E2RRJnfaXjhYscPRX8t6ByI k73P81x IHdpZHRoPSIxNSUiIHZhbGl jil8baJ6eVt5+JCLshVU4jV B9wB2oXoCrSaB6GDzmC754Z nRvcCIv Vogui2oat3klzAz0TbZhHUE qfpTyjWplAOF1h8GqQw50N2 KtxVdzc9BkEro1nv86eCJuv 2P7uQN4 Q7JtTPIrqwhmyJXzyKwdQW4 hLRAtezwlVFQmdT4dTGSvW6 u2TwAmKvE9VXyvA3FelgC9K DEwcHQg SCkcVTU5J45dv4D2OBJiWTP oDGK6cNW5jZ6tzCjlfbqbhJ VmdDsgdmVydGljYWwtYWxpZ 246IHRv iVrlBTXvlX7tGVBvvUTcpEb vHF4jLRNrbputKcJAG0aSXc MfFMoTByF4G2DgHty0DIMpx MmpXP2l hTBrECopHz2woLavkOyzAR1 zXHZjdihmQRCfmR1jOQAeeH DayVidKE0uGFUgfkywl257N iAxMHB0 SXNlyKDgR8QmbR4dEuThHBR bHZKpI3ItaNUaZXxqO645RH baOyG0XMKqgcVdU7DyIFBdn WduOiB0 u0J4Yz8yEU3qNM4iRGWaEA1 3FR19rHGno3S9qYR4Y9VoGP UdamfnwmmogON3UKHqTAXbv Y36dGAt OEyvZp9ql4E4v011XDTqZNI irU65Pw9ifCqiMPPvlVFEcN 5fcabxb8tqrndcVkKxAJUqU Zp7KUu3 NOXibAqrIeFtNDI2RkF7PSU 5fENvuN3zwEjetxtmzI6pSa c+LwbhKARlmfP5K8ThReo9Y CBzdHls TR2clTZbFQweRj0wyNckzHv xXX5wHAXqplwmUVUfzG6rCI AiiYPnsYnzUY7fHDXpydbuo 250OiAx AZN5GIXrvNNoU8JgkQ7zHnW fDCQlCLDyE8XgpNDzOGweL8 95JXheEuB0TEWylbZdW8ViR WFsaWdu KwQ0c7B4Xx0GRA1gsFU4D7F oSqs6YWMexKyaUN3otACcLE mnJh6zwOtljXovPE0iTTXzp jtwYWRk cY8rZJIkhXUzdKibXU5fWCC hipxit238FtXxRIH4VYJvzH DaJ7FztD5gKeGdDFQlPCTaO 3RleHQt LSevT982JWmaFuH8KWMaqbB lB4IsTRQopEaaAcS8r7M5Zx 0FhWQ8sBR9n8F9F8UwmZOrN OQ6VYT8 qbwcxgs9K4BnElhhyPQ+PC9 3YKPtMF98uIQeuUAjd9kvlV l1RwMvGLXzBAF1rCseKVxyt 3JkZXIt K72hiOZyj6Z6CZElzQzyhWL pSsGinPA3jI2eZZnlnsdjo1 zulwyyNlenn4asjq38sL32B 29sIHdp ZHRoPSIzMCUiIHZhbGlnbj0 owL2xKf8+KEZzdGZ4kRD1lS 4dFjRtRyA8FQzcY132NpGdq CIvPjxj o9vbj2dzbJt1IyCfOQTymoX rqIjhLBG6h9XaAo29K84oXC dpZHRoPSIyMCUiIHZhbGlnb e2plQ9n Ii8+IV1ad6ninw93lR06jMO +NZFoREC3pNugUJymPEJuvV 2hFXfpQbV0AVMeFfKvnU44o GFkZGlu Fi1gwIcmuIxoCQ6bFJTkktp hi123MpWwn9rbZXLcjJObPS lqUTT5F76zp1V5EPUdPHIvY DR0mQJ8 dX4qvNduytlpiTAppBrrqiA zgSmxLOvaNMeiC506ONVocC gyWjAhqBRoW2rpnoPQPS6uA jwvdGQ+ ZJQiOKL4tWiaRLgwLRVfbH4 pLEVxD9h2TjFcEaU3FTwhZ1 GpsqB5ODZmmCTkHVUeuDHOs A2wugcw z1rkxdteZiCaJGAnEXa0ATd 7ZACcgWvwZqEjGBZ7XnO6HA V2oUVryR9khOivxfwqaQ9tI yc+RklO OjwvdGQ+DKMbWDK0pTfcJVt kTCWcvG0gSJShR1y3YhBnFf H2RFqnH6EsxtP5XWDhwKStY TBwdCBU rC3hunnps9ujdegvGlXhSKV nQHg3FBl7EUQauOnqNcRfSM S9OaY0TMQ3pRSrzE0ugYyub dwvpB9o Oyc+TVJOOjwvdGQ+PHRkIHN 0pOeeLMvjNXHbmA0uXSRnJ0 r6AaPaSdE2XIpaC2XybeP7N GJvbGQg ASWgsPUZhL8kyiszz7kcnwg vKpWeFHUcAYq8MKf2BANklD vdUbUfWNN5HsO0AMX1bCZbn G6ddMfp hixkwG0bBky+WKS9VYT2DS1 6NY90R8SzHakamWBvxSI+PH RhYmxlIHdpZHRoPScxMDAlJ yBzdHls ZT0n (more content not included)... Normal [facility] IntraOperative Documentson 0 08-05-2022 IntraOperative Documents [id number]#1.00C D:[address] [facility] Blood Bank Slipon 08-03-2022 Blood Bank Slip [id number]#1.00 CD:127 [facility] Consent for Anesthesiaon Consent for Anesthesia [id number]#1.00 CD:127 [facility] Discharge Instructionson Discharge Instructions [id number]#1.00 CD:[address] [facility] IntraOperative Documentson 0 08-03-2022 IntraOperative Documents [id number]#1.00 CD:[address] [facility] IntraOperative Documents [id number]#1.00 CD:[address] [facility] Operative Reporton Operative Report SURGERY DATE: 08/02/2022 ZINC FURNACE CHARGER: Rissa Nagel CST PREOPERATIVE DIAGNOSIS: Right knee end-stage osteoarthritis with varus deformity, failure of conservative injection care POSTOPERATIVE DIAGNOSIS: Right knee end-stage osteoarthritis with varus deformity, failure of conservative injection care OPERATION: Right total knee arthroplasty ANESTHESIA: General/block ESTIMATED BLOOD LOSS: Zero SPECIMEN: Bone IMPLANTS: The DePuy PFC Knee System with a #4 narrow cemented right femur, a #3 fixed cemented tray, a 15 mm PS polyethylene, and a 35 mm cemented patellar button HISTORY AND INDICATIONS: Osiris is a 71-year-old female with progressive bilateral knee pain with varus deformity. She is approximately six months out from her contralateral knee replacement, doing much better. She has ytne-lp-kjho disease of the right knee treated today. She has tried conservative care with physical therapy, ice, bracing, Tylenol, aspirin, cortisone as well as viscosupplementation injection with continued activities of daily living as well as night disruption. She has severe grade 4 degenerative changes of the medial patellofemoral joint. The pros, cons, risks, benefits, reasonable expectations of above procedure were discussed. Total knee arthroplasty is indicated. Request to the Anesthesia Department was made for adductor block to help with intraoperative and postoperative pain. Antibiotics provided weight-based per protocol. PROCEDURE: Osiris is taken to the Operating Room and placed in supine position. Anesthesia provided. A well-padded tourniquet was placed on the right upper thigh. The leg was prepped and draped in sterile fashion. A time-out procedure occurred consistent with the consent form, History and Physical, preoperative marked site. Landmarks were identified. The leg was exsanguinated with a sterile Esmarch. Tourniquet was inflated to 300 mmHg. Once time-out was confirmed, midline incision was made of six inches. Medial parapatellar arthrotomy was performed and the patella was everted. End-stage tricompartmental degenerative changes were noted in the medial patellofemoral joint with varus deformity. The patella was appropriately cut and retracted. Irrisept antibiotic solution was allowed to soak per protocol. Copious irrigation was performed throughout the procedure with a pulse lavage director housekeeping. Intramedullary drill and jig device was placed in the femur and a 5 degree valgus cut taking off 11 mm was performed. This was sized at a #4 narrow. Anterior, posterior chamfer cuts as well as posterior stabilized box cut was performed. Anterior cruciate ligament and posterior cruciate ligament were resected. Collateral ligaments were protected and balanced. Meniscal remnants removed. Intramedullary drill and jig device was placed to the tibia. The tibia was cut. Gaps were symmetrical. Posterior gutters were cleaned and free. Tibia was prepared for a #3 fixed tray. Trial components were placed with full extension, excellent flexion. Patellofemoral tracking and height were appropriate with a 15 mm insert. The patella was sized and drilled at a 35. All trial components were removed. The Irrisept was allowed to soak per protocol followed by 100 cc of Exparel along the capsule, gutter and subcutaneous tissues. after pulse lavage irrigation, the [place] Simplex cement was mixed. All components were cemented in place and allowed to harden for 16 minutes. All cement osteophytes were removed. It was taken through an arc of motion and deemed stable. After copious irrigation, 2 gm of tranexamic acid was placed subfascially. The fascial layer was closed with #2 Quill suture in a running fashion, 2-0 Quill suture closed the subcutaneous tissues and mitesh were applied with a 10-inch Mepilex dressing. Soft roll wrap was provided. The tourniquet was deflated. The patient was awakened from anesthesia and transferred to the Recovery Room in stable and satisfactory condition. CASE: Clean and elective COUNTS: Sponge and needle count correct SPECIMEN: Bone CONDITION: The patient's condition satisfactory Isidra Antunez Dictated: 08/02/2022 [id number] Transcribed: 08/03/2022 cc:Randy Richard M.D. [facility] Comment on above: Result Comment: Elec tronically Signed By: Paulino Garcia DO\.br\Date and Time Signed: 08/03/22 17:58 EST Preoperative Documentson Preoperative Documents [id number] CD:[address] [facility] Proceduralon 08-03-2022 Procedural Patient: ABRIL NGO Age: 71 years Sex: Female : 1950 Associated Diagnoses: None Author: Chivo Paredes MD Procedure Nerve Block Block Type: Adductor canal block. Informed consent for anesthesia management: Anesthesia options discussed including nerve block, Description of the procedure, risks, benefits, and alternatives was provided, The patient's questions were addressed. Indication: Block for postoperative pain management as requested by surgeon. Anesthesia Method: IV Sedation with monitored anesthesia care, The patient remained awake and able to interact in a meaningful way throughout the procedure. Preparation: The patient was placed in the following position Supine, Continuous pulse oximetry applied, Using maximal sterile barrier technique per current [facility] guidelines including hand hygeine, Guidance (Ultrasound used to identify anatomical landmarks, Using sterile gel and probe covers), The site was prepped with ChloraPrep. Normal [facility] ABO/Rhon 08-02-2022 ABO/Rh Positive Invalid Interpretation Code [facility] Comment on above: Performed By: #### 1 [id number], [id number], [id number] ####[facility] [address] [place] [address] ABO/Rh History Checkon 08-02 ABO/Rh History Check Verified Hx Blood Type Normal [facility] Comment on above: Performed By: #### 1 [id number] ####[facility] [address] [place] [address] ABSCon 08-02-2022 ABSC Gel Interp Negative Normal [facility] Comment on above: Performed By: #### 1 [id number], [id number], [id number], [id number] ####[facility] [address] [place] [address] BLOOD BANKOrdered By: Elida Thomas on 08-02-2022 ABO/Rh Interp Positive Invalid Interpretation Code [facility] BB Subsection ABSC Gel Interp Negative (08/02/22 6:43 AM) Normal [facility] BB Subsection Blood Bank ID#on 08-02-2022 BBID# [id number] Invalid Interpretation Code [facility] Comment on above: Performed By: #### 1 [id number], [id number], [id number] ####[facility] [address] [place] [address] Consent for Treatmenton Consent for Treatment [id number] D:[address] [facility] H&P Updateon 08-02-2022 H&P Update [id number] CD:[address] [facility] Inpatient Patient Summaryon 08-02-2022 Inpatient Patient Summary [facility] [address], [place] [id number] [facility] Clinical Discharge Instructions PERSON INFORMATION Name: OSIRIS NGO PHYSICIANS Admitting Physician: Paulino Garcia DO Attending Physician: Paulino Garcia DO PCP: RANDY RICHARD MD Discharge Diagnosis: Localized osteoarthritis of right knee Comment: PATIENT EDUCATION INFORMATION Instructions: Knee Cryocuff Patient Instructions - FT (CUSTOM); Post Op Patient Instructions - FT (CUSTOM); How to Use an Incentive Spirometer; Garcia - Total Knee Arthroplasty (CUSTOM) Medication Leaflets: Follow up: With: Address: When: Paulino Garcia [address] [place] [address] [facility] () 09/02/2022 9:00 AM Comments: Keep scheduled appointment Appointment has already been scheduled Call for any problems. MEDICATION LIST Medications [facility] with [facility] [address] [place] [phone], [phone] acetaminophen-oxycodone (Percocet 5 mg-325 mg oral tablet) Take one to two every 4 hours for major orthopedic knee replacement surgical pain Z96/M17.11. Refills: 0. aspirin (aspirin 325 mg Tab) 1 Tablets By Mouth 2 times a day for 30 Days. Refills: 0. cephalexin (Keflex 500 mg Cap) 1 Capsules By Mouth 4 times a day for 10 Days. Refills: 0. docusate (Colace 100 mg Cap) 1 Capsules By Mouth 2 times a day. Refills: 0. Other Medications acetaminophen-diphenhyd rAMINE (Tylenol Extra Strength PM oral tablet) 1 Tablets By Mouth once a day (at bedtime) as needed as needed for sleep. acetaminophen-oxycodone (Percocet 325 mg-5 mg Tab) 2 Tablets By Mouth every 4 hours as needed Pain 4-7. acetaminophen-oxycodone (Percocet 325 mg-5 mg Tab) 1 Tablets By Mouth every 4 hours as needed Pain 4-7. alendronate (alendronate 70 mg Tab) 1 Tablets By Mouth every week., bones amlodipine (amLODIPine 5 mg Tab) 1 Tablets By Mouth every day. ascorbic acid (Vitamin C 1000 mg oral tablet) 1 Tablets By Mouth every day. calcium-vitamin D (calcium-vitamin D 200 mg-250 intl units oral tablet) 1 Tablets By Mouth every day. cyanocobalamin (Vitamin B-12 1000 mcg oral tablet) 1 Tablets By Mouth every day. multivitamin with minerals (Celebrate Multivitamin oral capsule) 1 tab By Mouth every day. omega-3 polyunsaturated fatty acids (Fish Oil 1000 mg oral capsule) 1 Capsules By Mouth every day. pyridoxine (Vitamin B6 100 mg Tab) 1 Tablets By Mouth every day. rosuvastatin (rosuvastatin 20 mg Tab) 1 Tablets By Mouth every day. vitamin E (Vitamin E 400 unit(s) Cap) 1 Capsules By Mouth every day. Comment: Normal [facility] Main OR Intraoperative Recor don 08-02-2022 Main OR Intraoperative Record IntraOp Document Type FT Summary Primary Physician: Paulino Garcia DO Finalized Date/Time: 08/05/22 08:32:59 Pt. Name: OSIRIS NGO/Sex: 1950 Female Med Rec #: [id number] Physician: Paulino Garcia DO Financial #: [id number] Pt. Type: A Room/Bed: 11/29 Admit/Disch: 08/02/22 06:02:31 - 08/02/22 14:15:00 Institution: Case Times FT Entry 1 Patient Times In Room 08/02/22 08:30:00 Out Room 08/02/22 09:58:00 Procedure Times Start 08/02/22 08:54:00 Stop 08/02/22 09:54:00 Anesthesia Times Start 08/02/22 08:30:00 Stop 08/02/22 09:58:00 Block Timeout w08/02/22 07:50:00 Anesthesia Last Modified By: Britt Mccain 08/02/22 09:58:10 General Comments: block time out at 0750 with and supriya garcia,marianna, assisiting, heart rate was 89 bpm and 98% spo2 on room air, patient tolerated well,marianna chu. 08/05/22 Chart opened to review and send charges LRoth CSFA Case Attendance FT Entry 1 Entry 2 Entry 3 Case Attendee Reggie STEVE, Paulino Crawford DO, CST, Rissa Rothman Role Performed Anesthesiologist of Surgeon - Primary CD REACTOR OPERATOR/SA Record Time In 08/02/22 08:30:00 08/02/22 08:30:00 08/02/22 08:30:00 Time Out 08/02/22 09:58:00 08/02/22 09:37:00 08/02/22 09:58:00 Procedure KNEE TOTAL KNEE TOTAL KNEE TOTAL ARTHROPLASTY(Right) ARTHROPLASTY(Right) ARTHROPLASTY(Right) Comments Last Modified By: Britt Mccain Kelsie E Sayler, Kelsie E 08/02/22 09:58:19 08/02/22 09:58:19 08/02/22 09:58:19 Entry 4 Entry 5 Entry 6 Case Attendee Tea Reece CST, Krystal Yates Role Performed Staff - Other Staff - Other Scrub - Primary Time In 08/02/22 08:30:00 08/02/22 08:30:00 08/02/22 08:30:00 Time Out 08/02/22 09:58:00 08/02/22 09:58:00 08/02/22 09:58:00 Procedure KNEE TOTAL KNEE TOTAL KNEE TOTAL ARTHROPLASTY(Right) ARTHROPLASTY(Right) ARTHROPLASTY(Right) Comments 2nd scrub 3rd scrub orientation Last Modified By: Britt Mccain Kelsie E Sayler, Kelsie E 08/02/22 09:58:19 08/02/22 09:58:19 08/02/22 09:58:19 Entry 7 Entry 8 Entry 9 Case Attendee Mireille CARTER, Britt Nava RN, Jayjay Castillo Role Performed Scrub - Primary Mainframe Analyst - Primary Mainframe Analyst - Primary Time In 08/02/22 08:30:00 08/02/22 08:30:00 08/02/22 08:30:00 Time Out 08/02/22 09:58:00 08/02/22 09:58:00 08/02/22 09:58:00 Procedure KNEE TOTAL KNEE TOTAL KNEE TOTAL ARTHROPLASTY(Right) ARTHROPLASTY(Right) ARTHROPLASTY(Right) Comments preceptor orientation Last Modified By: Britt Mccain Kelsie E Sayler, Kelsie E 08/02/22 09:58:19 08/02/22 09:58:19 08/02/22 09:58:19 Entry 10 Case Attendee Osorio CABRAL, Gabrielle Shi Role Performed Mainframe Analyst - Primary Time In 08/02/22 08:30:00 Time Out 08/02/22 09:58:00 Procedure KNEE TOTAL ARTHROPLASTY(Right) Comments preceptor, in and out assisting as needed Last Modified By: Britt Mccain 08/02/22 09:58:19 General Comments: zohra bang rep in attendance.marianna chu. Perioperative Protocols FT Pre-Care Text: Implements protective measures prior to operative or invasive procedure, confirms identity before the operative or invasive procedure, verifies operative procedure, surgical site, and laterality Entry 1 Procedure(s) KNEE TOTAL Patient Identity Birthday, ID Band ARTHROPLASTY(Right) Verified (select at Check, Patient least 2): Participation Consents / H and P Anesthesia Consent, Operative Site Present Verified HandP, Surgery/Procedure Marking Verified Consent, Transfusion Consent Surgical Site Yes Laterality Verified Yes Verified Procedure Verified Yes Correct Patient Yes Position Verified Availability Equipment, Implant, Prep Dry n/a Verified (If Medication Applicable) PreOp Antibiotic Yes Time Out Reggie STEVE, Chivo Perez, Given Participants Paulino Garcia DO, Robe CD REACTOR OPERATOR, Rissa Rothman, Ashtyn CD REACTOR OPERATOR, Shanell Whitehead Shelby R, Kipp, Jessica D, McClain CST, Jessica Castillo, Britt Mccain, Ester CABRAL, Jayjay Castillo Time Out Complete 08/02/22 08:50:00 Outcomes Met? Yes Last Modified By: Britt Mccain 08/02/22 08:59:36 Post-Care Text: The patient is free from signs and symptoms of injury caused by extraneous objects Allergy Information FT Pre-Care Text: Verifies allergies Entry 1 Allergies Reviewed? Yes Allergies Reviewed Self/Patient With Outcomes Met? Yes Last Modified By: Britt Mccain 08/02/22 07:58:56 Post-Care Text: The patient received appropriate medication(s) safely administered during the perioperative period Surgical Procedures FT Entry 1 Procedure Description Procedure KNEE TOTAL ARTHROPLASTY Modifiers Right Surgeon Description RIGHT TOTAL KNEE ARTHROPLASTY Primary Procedure Yes Primary Surgeon Paulino Garcia DO Start 08/02/22 08:54:00 Stop 08/02/22 09:54:00 Anesthesia Type General Surgical Service Orthopedics Wound Class 1 - Clean Last Modified By: Britt Mccain 08/02/22 09:58: (more content not included)... Normal [facility] Main OR PACU I Recordon Main OR PACU I Record PACU Phase I Document Type FT Summary Primary Physician: Paulino Garcia DO Finalized Date/Time: 08/02/22 11:06:52 Pt. Name: OSIRIS NGO/Sex: 1950 Female Med Rec #: [id number] Physician: Paulino Garcia DO Financial #: [id number] Pt. Type: A Room/Bed: Admit/Disch: 08/02/22 06:02:31 - Institution: Case Times PACU I FT Pre-Care Text: Identifies barriers to communication and implements measures to provide psychological support Develops individualized plan of care, and ensures continuity of care Maintains patient's dignity and privacy, and maintains patient confidentiality Identifies and reports philosophical, cultural, and spiritual beliefs and values Identifies individual values and wishes concerning care Implements aseptic technique, and administers prescribed antibiotic therapy and immunizing agents as ordered Evaluates postoperative tissue perfusion Implements thermoregulation measures, and monitors body temperature Evaluates postoperative respiratory status Evaluates postoperative cardiac status Evaluates postoperative neurological status Assesses pain control, collaborated in initiating patient-controlled analgesia and implements alternative methods of pain control Verifies allergies, administers prescribed medications and solutions, evaluates response to medications Entry 1 In PACU I 08/02/22 09:59:00 Discharge from PACU 08/02/22 10:50:00 I Outcomes Met? Yes Last Modified By: Starr Ocampo RN 08/02/22 11:06:26 Post-Care Text: The patient demonstrates knowledge of the expected response to the operative or invasive procedure The patient's care is consistent with the individualized perioperative plan of care The patient's right to privacy is maintained The patient's value system, lifestyle, ethnicity, and culture are considered, respected, and incorporated into the perioperative plan of care The patient participates in decisions affecting his or her perioperative plan of care The patient is free from signs and symptoms of infection The patient has wound/tissue perfusion consistent with or improved from baseline levels established preoperatively The patient is at or returning to normothermia at the conclusion of the immediate postoperative period The patient's respiratory function is consistent with or improved from baseline levels established preoperatively The patient's cardiovascular status is consistent with or improved from baseline levels established preoperatively The patient's cardiovascular status is consistent with or improved from baseline levels established preoperatively The patient demonstrates and/or reports adequate pain control throughout the perioperative period The patient received appropriate medication(s), safely administered during the perioperative period Acuity Level PACU I FT Entry 1 Start Time 08/02/22 09:59:00 Stop Time 08/02/22 10:50:00 Acuity Level Acuity Level I Last Modified By: Starr Ocampo RN 08/02/22 11:06:43 Finalized By: Starr Ocampo RN Document Signatures Signed By: Satrr Ocampo RN 08/02/22 11:06 Starr Ocampo RN 08/02/22 11:06 [facility] Main OR PACU II Recordon Main OR PACU II Record PACU Phase II Document Type FT Summary Primary Physician: Paulino Garcia DO Finalized Date/Time: 08/02/22 14:24:22 Pt. Name: OSIRIS NGO /Sex: 1950 Female Med Rec #: [id number] Physician: Paulino Garcia DO Financial #: [id number] Pt. Type: A Room/Bed: 11/29 Admit/Disch: 08/02/22 06:02:31 - Institution: Case Times PACU II FT Pre-Care Text: Identifies barriers to communication and implements measures to provide psychological support and determines knowledge level Develops individualized plan of care, and ensures continuity of care Maintains patient's dignity and privacy, and maintains patient confidentiality Identifies and reports philosophical, cultural, and spiritual beliefs and values Identifies individual values and wishes concerning care administers prescribed antibiotic therapy and immunizing agents as ordered, Evaluates postoperative tissue perfusion Implements thermoregulation measures, and monitors body temperature Evaluates postoperative respiratory status Evaluates postoperative cardiac status Evaluates postoperative neurological status Assesses pain control, collaborated in initiating patient-controlled analgesia and implements alternative methods of pain control Verifies allergies, administers prescribed medications and solutions, evaluates response to medications Entry 1 In PACU II 08/02/22 10:55:00 Discharge from PACU 08/02/22 14:15:00 II Outcomes Met? Yes Last Modified By: Shayna Arita RN 08/02/22 14:24:17 Post-Care Text: The patient demonstrates knowledge of the expected response to the operative or invasive procedure The patient's care is consistent with the individualized perioperative plan of care The patient's right to privacy is maintained The patient's value system, lifestyle, ethnicity, and culture are considered, respected, and incorporated into the perioperative plan of care The patient participates in decisions affecting his or her perioperative plan of care. The patient is free from signs and symptoms of infection The patient has wound/tissue perfusion consistent with or improved from baseline levels established preoperatively The patient is at or returning to normothermia at the conclusion of the immediate postoperative period The patient's respiratory function is consistent with or improved from baseline levels established preoperatively The patient's cardiovascular status is consistent with or improved from baseline levels established preoperatively The patient's neurological status is consistent with or improved from baseline levels established preoperatively The patient demonstrates and/or reports adequate pain control throughout the perioperative period The patient received appropriate medication(s), safely administered during the perioperative period Finalized By: Shayna Arita RN Document Signatures Signed By: Shayna Arita RN 08/02/22 14:[address] [facility] Main OR Preoperative Recordo n 08-02-2022 Main OR Preoperative Record PreOp Document Type FT Summary Primary Physician: Paulino Garcia DO Finalized Date/Time: 08/02/22 08:58:12 Pt. Name: OSIRIS NGO /Sex: 1950 Female Med Rec #: [id number] Physician: Paulino Garcia DO Financial #: [id number] Pt. Type: A Room/Bed: Admit/Disch: 08/02/22 06:02:31 - Institution: Case Times PreOp FT Pre-Care Text: Verifies consent for planned procedure, identifies individual values and wishes concerning care, includes family members in perioperative teaching Entry 1 Patient Times. In Pre Surgery 08/02/22 06:05:00 Out Pre Surgery 08/02/22 08:28:00 Outcomes Met? Yes Last Modified By: Britt Mccain 08/02/22 08:58:10 Post-Care Text: The patient participates in decisions affecting his or her perioperative plan of care Finalized By: rBitt Mccain Document Signatures Signed By: Britt Mccain 08/02/22 08:[address] [facility] Monitor Recordon 08-02-2022 Monitor Record [id number] CD:[address] [facility] Outpatient Surgery Discharge Instructionon 08-02-2022 Outpatient Surgery Discharge Instruction [address] [address] Patient Discharge Instructions PERSON INFORMATION Name: OSIRIS NGO Date of : 1950 Current Date: 08/02/2022 09:51:55 PHYSICIANS Admitting Physician: Paulino Garcia DO Discharge Diagnosis: Localized osteoarthritis of right knee OSIRIS NGO has been given the following list of follow-up instructions, prescriptions, and patient education materials: PATIENT FOLLOW-UP INFORMATION Diet: Regular, Drink liquids and eat a light meal Discharge Activity: Ambulate as tolerated, Arrange for a responsible adult supervision for 24 hours, Expect mild pain, Expect minimal amount of drainage and/or bleeding, Do not lift more than 5 lbs Discharge Restrictions: No driving, Do not operate machinery or tools, Do not make important decisions for 24 hours, Do not drink alcoholic beverages for 24 hours Call Your Doctor For: Persistent or heavy bleeding, Temperature above 101.5 degrees, Redness, swelling, or pus at operative site, Severe pain at the operative site, Persistent vomiting Wound Care Instructions: Remove dressing as instructed Remove Your Dressing In 10 Days IF UNABLE TO CONTACT YOUR PHYSICIAN AND YOU FEEL IT IS AN EMERGENCY, GO TO THE NEAREST EMERGENCY ROOM OR CALL 911 HUBER Danielson JANE, have received the attached patient education materials/instructions and have verbalized understanding: May we do a follow up call? Yes No I was present when discharge instructions were given Patient Signature Date Clinican/Nurse Signature _ Date Follow up: With: Address: When: Paulino Garcia [address] [place], [place] [id number] [facility] (1) 09/02/2022 9:00 AM Comments: Keep scheduled appointment Appointment has already been scheduled Call for any problems. Pharmacy Information: Other: [facility] You may receive a survey from [employer] asking you to rate your care experience. Your feedback is important and will help us understand what we do well and how we can improve the quality of care we provide to you, your loved ones and our community. It?s an honor to serve you. Thank you for choosing [facility] HERE ARE THE MEDICATION CHANGES THAT OCCURRED DURING YOUR HOSPITAL STAY Medications to Continue with No Changes [facility] [address] [place] [phone], [phone] acetaminophen-oxycodone (Percocet 5 mg-325 mg oral tablet) Take one to two every 4 hours for major orthopedic knee replacement surgical pain Z96/M17.11. Refills: 0. aspirin (aspirin 325 mg Tab) 1 Tablets By Mouth 2 times a day for 30 Days. Refills: 0. cephalexin (Keflex 500 mg Cap) 1 Capsules By Mouth 4 times a day for 10 Days. Refills: 0. docusate (Colace 100 mg Cap) 1 Capsules By Mouth 2 times a day. Refills: 0. Other Medications acetaminophen-diphenhyd rAMINE (Tylenol Extra Strength PM oral tablet) 1 Tablets By Mouth once a day (at bedtime) as needed as needed for sleep. acetaminophen-oxycodone (Percocet 325 mg-5 mg Tab) 2 Tablets By Mouth every 4 hours as needed Pain 4-7. acetaminophen-oxycodone (Percocet 325 mg-5 mg Tab) 1 Tablets By Mouth every 4 hours as needed Pain 4-7. alendronate (alendronate 70 mg Tab) 1 Tablets By Mouth every week., bones amlodipine (amLODIPine 5 mg Tab) 1 Tablets By Mouth every day. ascorbic acid (Vitamin C 1000 mg oral tablet) 1 Tablets By Mouth every day. calcium-vitamin D (calcium-vitamin D 200 mg-250 intl units oral tablet) 1 Tablets By Mouth every day. cyanocobalamin (Vitamin B-12 1000 mcg oral tablet) 1 Tablets By Mouth every day. multivitamin with minerals (Celebrate Multivitamin oral capsule) 1 tab By Mouth every day. omega-3 polyunsaturated fatty acids (Fish Oil 1000 mg oral capsule) 1 Capsules By Mouth every day. pyridoxine (Vitamin B6 100 mg Tab) 1 Tablets By Mouth every day. rosuvastatin (rosuvastatin 20 mg Tab) 1 Tablets By Mouth every day. vitamin E (Vitamin E 400 unit(s) Cap) 1 Capsules By Mouth every day. PATIENT EDUCATION INFORMATION Instructions: How To Use an Incentive Spirometer An incentive spirometer is a tool that measures how well you are filling your lungs with each breath. Learning to take long, deep breaths using this tool can help you keep your lungs clear and active. This may help to reverse or lessen your chance of developing breathing (pulmonary) problems, especially infection. You may be asked to use a spirometer: ? After a surgery. ? If y (more content not included)... Normal [facility] Patient Education - Texton 0 08-02-2022 Patient Education - Text Pulmonary Medicine How To Use an Incentive Spirometer An incentive spirometer is a tool that measures how well you are filling your lungs with each breath. Learning to take long, deep breaths using this tool can help you keep your lungs clear and active. This may help to reverse or lessen your chance of developing breathing (pulmonary) problems, especially infection. You may be asked to use a spirometer: ? After a surgery. ? If you have a lung problem or a history of smoking. ? After a long period of time when you have been unable to move or be active. If the spirometer includes an indicator to show the highest number that you have reached, your health care provider or respiratory therapist will help you set a goal. Keep a list (log) of your progress as told by your health care provider. What are the risks? ? Breathing too quickly may cause dizziness or cause you to pass out. Take your time so you do not get dizzy or light-headed. ? If you are in pain, you may need to take pain medicine before doing incentive spirometry. It is harder to take a deep breath if you are having pain. How to use your incentive spirometer 1. Sit up on the edge of your bed or on a chair. 2. Hold the incentive spirometer so that it is in an upright position. 3. Before you use the spirometer, breathe out normally. 4. Place the mouthpiece in your mouth. Make sure your lips are closed tightly around it. 5. Breathe in slowly and as deeply as you can through your mouth, causing the piston or the ball to rise toward the top of the chamber. 6. Hold your breath for 3?5 seconds, or for as long as possible. ? If the spirometer includes a girls tennis coach indicator, use this to guide you in breathing. Slow down your breathing if the indicator goes above the marked areas. 7. Remove the mouthpiece from your mouth and breathe out normally. The piston or ball will return to the bottom of the chamber. 8. Rest for a few seconds, then repeat the steps 10 or more times. ? Take your time and take a few normal breaths between deep breaths so that you do not get dizzy or light-headed. ? Do this every 1?2 hours when you are awake. 9. If the spirometer includes a goal marker to show the highest number you have reached (best effort), use this as a goal to work toward during each repetition. 10. After each set of 10 deep breaths, cough a few times. This will help to make sure that your lungs are clear. ? If you have an incision on your chest or abdomen from surgery, place a pillow or a rolled-up towel firmly against the incision when you cough. This can help to reduce pain from coughing. General tips ? When you become able to get out of bed, walk around often and continue to cough to help clear your lungs. ? Keep using the incentive spirometer until your health care provider says it is okay to stop using it. If you have been in the hospital, you may be told to keep using the spirometer at home. Contact a health care provider if: ? You are having difficulty using the spirometer. ? You have trouble using the spirometer as often as instructed. ? Your pain medicine is not giving enough relief for you to use the spirometer as told. ? You have a fever. ? You develop shortness of breath. Get help right away if: ? You develop a cough with bloody mucus from the lungs (bloody sputum). ? You have fluid or blood coming from an incision site after you cough. Summary ? An incentive spirometer is a tool that can help you learn to take long, deep breaths to keep your lungs clear and active. ? You may be asked to use a spirometer after a surgery, if you have a lung problem or a history of smoking, or if you have been inactive for a long period of time. ? Use your incentive spirometer as instructed every 1?2 hours while you are awake. ? If you have an incision on your chest or abdomen, place a pillow or a rolled-up towel firmly against your incision when you cough. This will help to reduce pain. This information is not intended to replace advice given to you by your health care provider. Make sure you discuss any questions you have with your health care provider. Document Released: 11/28/2007 Document Revised: 08/10/2018 Document Reviewed: 05/31/2018 [employer] Patient Education ? 2019 [employer] [facility]. [place], [place] [facility] DISCHARGE INSTRUCTIONS TOTAL KNEE ARTHROPLASTY INCISION CARE: Mepilex dressing can get wet with showers. Please remove 10 days after surgery per instruction sheet. If mitesh present, please coordinate removal 21 days after surgery with office staff. Please notify the office if any increase in redness, tenderness, drainage, fever, or wound separation is noted beyond this point. Compression stockings may be helpful if any significant or uncomfor (more content not included)... Normal [facility] Proceduralon 08-02-2022 Progress Note-Physician Patient: OSIRIS NGO Age: 71 years Sex: Female : 1950 Associated Diagnoses: None Author: Chivo Paredes MD Preoperative Information Anesthesia Preop Info: Time patient last ate or drank 08/01/2022 06:54:00. Anesthesia history: Patient history: None. Family history+: Nausea and vomiting with anesthesia. Informed consent: Signed by patient. Including risks, benefits, and alternatives related to the: Anesthetic plan, Postoperative pain management plan. Review of Systems Eye: Negative. Ear/Nose/Mouth/Throat: Negative. Respiratory: Negative. Cardiovascular: Negative. Gastrointestinal: Negative. Genitourinary: Negative. Hematology/Lymphatics: Negative. Endocrine: Negative. Musculoskeletal: Negative. Neurologic: Negative. Health Status Allergies: Allergic Reactions (Selected) Severity Not Documented Sulfa drugs- Bad headache., Allergies (1) Active Reaction sulfa drugs bad headache Current medications: (Selected) Inpatient Medications Ordered Arixtra 2.5 mg/0.5 mL Injection: 2.5 mg = 0.5 mL, Injection, SubCutaneous, qAM for 10 day(s), Stop date 08/13/22 6:29:00 EST, Routine, Start date 08/03/22 6:30:00 EST, Start AM postop day 1, 08/03/22 6:30:00 EST Colace 100 mg Cap: 100 mg = 1 cap(s), Cap, Oral, BID, Routine, Start date 08/02/22 21:00:00 EST Dulcolax 5 mg Tab-EC: 10 mg = 2 tab(s), Tab-EC, Oral, Daily PRN Constipation, Routine, Start date 08/04/22 8:45:00 EST, 08/04/22 8:45:00 EST HYDROmorphone 1 mg/mL injectable solution: 1 mg = 1 mL, Injection, IV Push, q2hr PRN Pain 8-10 for 5 day(s), Stop date 08/07/22 8:44:00 EST, Routine, Start date 08/02/22 8:45:00 EST, 08/02/22 8:45:00 EST Lactated Ringers IV Cate 1000 mL 1,000 mL: 1,000 mL, IV, 150 mL/hr, Routine, Start date 08/02/22 6:00:00 EST, 6.7 hour(s), Total volume (mL): 1,000 Lactated Ringers IV Cate 1000 mL 1,000 mL: 1,000 mL, IV, 80 mL/hr, Routine, Start date 08/02/22 8:45:00 EST, 12.5 hour(s), Total volume (mL): 1,000 Milk of Magnesia 8% Susp-Oral: 30 mL, Susp-Oral, Oral, BID PRN Constipation, Routine, Start date 08/02/22 8:45:00 EST Nozin 62% Bottle - POSTOP: 6 drop(s), Soln-Nasal, Nasal, BID, Routine, Start date 08/02/22 21:00:00 EST Pantoprazole [address] Tab: 40 mg = 1 tab(s), Tab-DR, Oral, Daily, Routine, Start date 08/03/22 9:00:00 EST Zofran 4 mg/2 mL Injection: 4 mg = 2 mL, Injection, IV Push, q6hr PRN Nausea/Vomiting, Routine, Start date 08/02/22 8:45:00 EST, 08/02/22 8:45:00 EST acetaminophen-oxycodone 325 mg-5 mg Tab: 1 tab(s), Tab, Oral, q4hr PRN Pain 4-7 for 5 day(s), Stop date 08/07/22 8:44:00 EST, Routine, Start date 08/02/22 8:45:00 EST acetaminophen-oxycodone 325 mg-5 mg Tab: 2 tab(s), Tab, Oral, q4hr PRN Pain 4-7 for 5 day(s), Stop date 08/07/22 8:44:00 EST, Routine, Start date 08/02/22 8:45:00 EST amLODIPine 5 mg Tab: 5 mg = 1 tab(s), Tab, Oral, Daily, Routine, Start date 08/03/22 9:00:00 EST atorvastatin 40 mg Tab: 40 mg = 1 tab(s), Tab, Oral, Daily, Routine, Start date 08/03/22 9:00:00 EST cefazolin additive + Sodium Chloride 0.9% intravenous solution 50 mL: 2 gram = 1 EA, IV Piggyback, q8hr for 2 dose(s), Stop date 08/03/22 0:59:00 EST, Routine, Start date 08/02/22 9:00:00 EST, 100 mL/hr, Infuse over 30 minute(s), 08/02/22 8:45:00 EST cefazolin additive + Sodium Chloride 0.9% intravenous solution 50 mL: 2 gram = 1 EA, Powder-Inj, IV Piggyback, PREOP, Routine, Start date 08/02/22 6:00:00 EST, 100 mL/hr, Infuse over 30 minute(s) morphine 2 mg/mL Inj: 2 mg = 1 mL, Injection, IV, q4hr PRN Pain 8-10 for 5 day(s), Stop date 08/07/22 8:44:00 EST, Routine, Start date 08/02/22 8:45:00 EST, 08/02/22 8:45:00 EST Prescriptions Prescribed Colace 100 mg Cap: 100 mg = 1 cap(s), Oral, BID, # 20 cap(s), Refills(s) 0, Pharmacy: [id number], 160, cm, 12/30/21 12:25:00 EDT, Height/Length Dosing, 81.5, kg, 12/30/21 12:25:00 EDT, Weight Dosing Keflex 500 mg Cap: 500 mg = 1 cap(s), Oral, QID, X 10 day(s), # 40 cap(s), Refills(s) 0, Pharmacy: [facility], 160, cm, 12/30/21 12:25:00 EDT, Height/Length Dosing, 81.5, kg, 12/30/21 12:25:00 EDT, Weight Dosing Percocet 5 mg-325 mg oral tablet: See Instructions, 50 tab(s), Refill(s) 0, Take one to two every 4 hours for major orthopedic knee replacement surgical pain Z96/M17.11, [facility], 160, cm, 12/30/21 12:25:00 EDT, Height/Length Dosing, 81.5, kg, 12/30/21 12:25:00 EDT, W... aspirin 325 mg Tab: 325 mg = 1 tab(s), Oral, BID, X 30 day(s), # 60 tab(s), Refills(s) 0, Pharmacy: [facility], 160, cm, 12/30/21 12:25:00 EDT, Height/Length Dosing, 81.5, kg, 12/30/21 12:25:00 EDT, Weight Dosing Documented Medications Documented Celebrate Multivitamin oral capsule: 1 tab, Oral, Daily, Prophylaxis Colace 100 mg Cap: 100 mg = 1 cap(s), Oral, BID, Refills(s) 0 Fish Oil 1000 mg oral capsule: 1,000 mg = 1 cap(s), Oral, Daily, Prophylaxis Percocet 325 mg-5 mg Tab: 1 tab(s), Oral, q4hr Pain 4-7, Refill(s) 0 Percocet (more content not included)... Normal [facility] Comment on above: Result Comment: Elec tronically Signed By: Chivo Paredes MD\.br\Date and Time Signed: 08/02/22 15:33 EST Procedural Patient: ABRIL NGO Age: 71 years Sex: Female : 1950 Associated Diagnoses: None Author: Chivo Paredes MD Procedure Nerve Block Block Type: Adductor canal block. Laterality: Right. Informed consent for anesthesia management: Anesthesia options discussed including nerve block, Description of the procedure, risks, benefits, and alternatives was provided, The patient's questions were addressed. Time out. Time: Date/Time 08/02/2022 08:01:00. Indication: Block for postoperative pain management as requested by surgeon. Anesthesia Method: IV Sedation with monitored anesthesia care, The patient remained awake and able to interact in a meaningful way throughout the procedure. Preparation: The patient was placed in the following position Supine, Continuous pulse oximetry applied, Using maximal sterile barrier technique per current [facility] guidelines including hand hygeine, Guidance (Ultrasound used to identify anatomical landmarks, Using sterile gel and probe covers, Permanent image retained), The site was prepped with ChloraPrep. Procedure: Anesthetic Agent ropivicaine 0.5% 20 ml, Needle was inserted without pain or parasthesia in the conscious patient, Number of attempts 1, Medial and lateral spread of the anesthestic was observed, Periodic negative attempts at aspiration of blood were made as the local was injected, No pain or parathesia were elicited with injection of the anesthetic in the conscious patient, It was idetified that the correct anesthetic agent was administered to the correct site. Complications: None, The patient tolerated the procedure as expected. Normal [facility] Procedural Patient: ABRIL NGO Age: 71 years Sex: Female : 1950 Associated Diagnoses: None Author: Chivo Paredes MD Preoperative Information Anesthesia Preop Info: Time patient last ate or drank 08/01/2022 06:54:00. Anesthesia history: Patient history: None. Family history+: Nausea and vomiting with anesthesia. Informed consent: Signed by patient. Including risks, benefits, and alternatives related to the: Anesthetic plan, Postoperative pain management plan. Review of Systems Eye: Negative. Ear/Nose/Mouth/Throat: Negative. Respiratory: Negative. Cardiovascular: Negative. Gastrointestinal: Negative. Genitourinary: Negative. Hematology/Lymphatics: Negative. Endocrine: Negative. Musculoskeletal: Negative. Neurologic: Negative. Health Status Allergies: Allergic Reactions (Selected) Severity Not Documented Sulfa drugs- Bad headache., Allergies (1) Active Reaction sulfa drugs bad headache Current medications: (Selected) Inpatient Medications Ordered Arixtra 2.5 mg/0.5 mL Injection: 2.5 mg = 0.5 mL, Injection, SubCutaneous, qAM for 10 day(s), Stop date 08/13/22 6:29:00 EST, Routine, Start date 08/03/22 6:30:00 EST, Start AM postop day 1, 08/03/22 6:30:00 EST Colace 100 mg Cap: 100 mg = 1 cap(s), Cap, Oral, BID, Routine, Start date 08/02/22 21:00:00 EST Dulcolax 5 mg Tab-EC: 10 mg = 2 tab(s), Tab-EC, Oral, Daily PRN Constipation, Routine, Start date 08/04/22 8:45:00 EST, 08/04/22 8:45:00 EST HYDROmorphone 1 mg/mL injectable solution: 1 mg = 1 mL, Injection, IV Push, q2hr PRN Pain 8-10 for 5 day(s), Stop date 08/07/22 8:44:00 EST, Routine, Start date 08/02/22 8:45:00 EST, 08/02/22 8:45:00 EST Lactated Ringers IV Cate 1000 mL 1,000 mL: 1,000 mL, IV, 150 mL/hr, Routine, Start date 08/02/22 6:00:00 EST, 6.7 hour(s), Total volume (mL): 1,000 Lactated Ringers IV Cate 1000 mL 1,000 mL: 1,000 mL, IV, 80 mL/hr, Routine, Start date 08/02/22 8:45:00 EST, 12.5 hour(s), Total volume (mL): 1,000 Milk of Magnesia 8% Susp-Oral: 30 mL, Susp-Oral, Oral, BID PRN Constipation, Routine, Start date 08/02/22 8:45:00 EST Nozin 62% Bottle - POSTOP: 6 drop(s), Soln-Nasal, Nasal, BID, Routine, Start date 08/02/22 21:00:00 EST Pantoprazole [address] Tab: 40 mg = 1 tab(s), Tab-DR, Oral, Daily, Routine, Start date 08/03/22 9:00:00 EST Zofran 4 mg/2 mL Injection: 4 mg = 2 mL, Injection, IV Push, q6hr PRN Nausea/Vomiting, Routine, Start date 08/02/22 8:45:00 EST, 08/02/22 8:45:00 EST acetaminophen-oxycodone 325 mg-5 mg Tab: 1 tab(s), Tab, Oral, q4hr PRN Pain 4-7 for 5 day(s), Stop date 08/07/22 8:44:00 EST, Routine, Start date 08/02/22 8:45:00 EST acetaminophen-oxycodone 325 mg-5 mg Tab: 2 tab(s), Tab, Oral, q4hr PRN Pain 4-7 for 5 day(s), Stop date 08/07/22 8:44:00 EST, Routine, Start date 08/02/22 8:45:00 EST amLODIPine 5 mg Tab: 5 mg = 1 tab(s), Tab, Oral, Daily, Routine, Start date 08/03/22 9:00:00 EST atorvastatin 40 mg Tab: 40 mg = 1 tab(s), Tab, Oral, Daily, Routine, Start date 08/03/22 9:00:00 EST cefazolin additive + Sodium Chloride 0.9% intravenous solution 50 mL: 2 gram = 1 EA, IV Piggyback, q8hr for 2 dose(s), Stop date 08/03/22 0:59:00 EST, Routine, Start date 08/02/22 9:00:00 EST, 100 mL/hr, Infuse over 30 minute(s), 08/02/22 8:45:00 EST cefazolin additive + Sodium Chloride 0.9% intravenous solution 50 mL: 2 gram = 1 EA, Powder-Inj, IV Piggyback, PREOP, Routine, Start date 08/02/22 6:00:00 EST, 100 mL/hr, Infuse over 30 minute(s) morphine 2 mg/mL Inj: 2 mg = 1 mL, Injection, IV, q4hr PRN Pain 8-10 for 5 day(s), Stop date 08/07/22 8:44:00 EST, Routine, Start date 08/02/22 8:45:00 EST, 08/02/22 8:45:00 EST Prescriptions Prescribed Colace 100 mg Cap: 100 mg = 1 cap(s), Oral, BID, # 20 cap(s), Refills(s) 0, Pharmacy: [facility], 160, cm, 12/30/21 12:25:00 EDT, Height/Length Dosing, 81.5, kg, 12/30/21 12:25:00 EDT, Weight Dosing Keflex 500 mg Cap: 500 mg = 1 cap(s), Oral, QID, X 10 day(s), # 40 cap(s), Refills(s) 0, Pharmacy: [facility], 160, cm, 12/30/21 12:25:00 EDT, Height/Length Dosing, 81.5, kg, 12/30/21 12:25:00 EDT, Weight Dosing Percocet 5 mg-325 mg oral tablet: See Instructions, 50 tab(s), Refill(s) 0, Take one to two every 4 hours for major orthopedic knee replacement surgical pain Z96/M17.11, [facility], 160, cm, 12/30/21 12:25:00 EDT, Height/Length Dosing, 81.5, kg, 12/30/21 12:25:00 EDT, W... aspirin 325 mg Tab: 325 mg = 1 tab(s), Oral, BID, X 30 day(s), # 60 tab(s), Refills(s) 0, Pharmacy: [facility], 160, cm, 12/30/21 12:25:00 EDT, Height/Length Dosing, 81.5, kg, 12/30/21 12:25:00 EDT, Weight Dosing Documented Medications Documented Celebrate Multivitamin oral capsule: 1 tab, Oral, Daily, Prophylaxis Colace 100 mg Cap: 100 mg = 1 cap(s), Oral, BID, Refills(s) 0 Fish Oil 1000 mg oral capsule: 1,000 mg = 1 cap(s), Oral, Daily, Prophylaxis Percocet 325 mg-5 mg Tab: 1 tab(s), Oral, q4hr Pain 4-7, Refill(s) 0 Percocet (more content not included)... [facility] XR Knee 1 or 2 Views Righton 08-02-2022 XR Knee 1 or 2 Views Right Exam Date/Time: 08/02/2022 10:17 EST Reason for Exam: Post-op evaluation;Other (please specify) Report IMPRESSION: Postoperative changes without complication. EXAMINATION/TECHNIQUE: XR Knee 1 or 2 Views Right HISTORY: Postop right knee COMPARISON: 05/19/2022. RESULT: Interval right total knee arthroplasty with patellar resurfacing. Hardware appears intact. Soft tissue gas and edema about the knee from the recent procedure. Skin mitesh anteriorly. No other significant abnormality. FINAL REPORT Dictated: 08/02/2022 10:38 am Vinny Barfield MD Signed (Electronic Signature): 08/02/2022 10:38 am Signed by: Vinny Barfield MD Transcribed by: WENDY Technologist: [facility] Consent for Procedure/Surger yon 07-28-2022 Consent for Procedure/Surgery [id number]#1.00C D:127 [facility] Immunization Recordson 07-28 Immunization Records [id number]#1.00C D:127 [facility] Coding Summary.on 06-30-2022 Coding Summary. [id number] Gh0 bWw+PGhlYWQ+ES5JTPNuQ42 rmXZrqO8UA3wCXI3JVWRKFM PEBR1NHG7zsHV3YWzjN8Efz iAv SrccaNCySH84IIr8NPX5dHo jVQqgyT3kfHLcM7a9FaTeYK 51pL28WVeiITUlKtE6QrAwk jsgbWFy A1xjPzNgcESuAhx+PHRhYmx lIHdpZHRoPScxMDAlJyBzdH doMY8lRc2vZSWrIBQtfWxij HNlOiBj n6gpPXEwIPuoDZ4syYoqF2X nhGL6GQPtt3h6Hf06zLH+PH PcVBQ7iXfsSYsyq561UzKuq 7erINJ6 bASgMNxrELR6N64qe2K5VXX pWRTzSNF9bAO2rL5bbAknix ycU0GbjKPaRmR2OQS1oKPsm I2hmFqb mfuqhS0hKov+G54OWV1FBRX OMI6YBwl9R2TgHnxrxNH+PC 43QBDhQD03dHUoiHJma5gwy Vi0FoEg CMWvYJH5zNckQGrmi2MyEDS pV71amVQsc0G1GKCthCjmtX CoUmJpjGP4vT2fXIyldolpx 2hvdzsn Biihz6hzho75dH63D75wGNh vCOMaLBC2GDHsCCIcdRgcei 8huS9pCo1+YYxhv1fpm9hpn Bm8TsSi GLQtczKxsZjkJKW2p9HzUr0 8X9QwvBopj0FpKey7wu48vG Nkr2H1rMF5VUxfTZRevJ4xE WxlZnQ6 MXWfMhIleY17nZMgWNlkSa3 cgGagdSfeQB9cHRKdzychTE RmaT2kNVWspUHxfRqhXX5vF TBpbjtm v346KjXsPXR7JBBliNHaR2F ojA4fYzGzDLJiINSpM6PtiF WxENlmT866NHbmSjA1MVGwn jSiE6Zt ETWhcOdhOiM9z4O3Yf0Fi1X efymkYZN1EGsjGTYmShEgOg WdJyS0F2XyDup7FLMczLgoI J9rO2Ei OXVjtwlnicispKH1CGLrQJG rxC02nLJsHAmuKn3rc3B6m6 25VBEePJRtgH90Bv1svJjaZ TBwdCBU lR1mlfphg0dsmoghRbObIQT yJWm9AZo5HLSvxNoqKoNmJG Y7WmB9CJF4cRKiuA2eoKonc twpfN8o Oyc+H26meX7eHKR4GJR9qca hRJMfzhYyUM16UP32X0JgAn wvdGFibGU+PGRpdiBzdHlsZ K6qGaLk s7cea0TcPPumY9YwRFHbMNp zFqu8WTNtLCI2iXS5aM9qGM EhLMajw5P8iGF9Y1JhexIys a4pl6jp PDYyOSyvT46dhGGrd3W3MEO hsSQ2FKKpkPyiXoXkhT79Yy c+QAPygXqzt8BdMueiz0mbf 6srmZq5 XbCsKDQqjzKumFdtUBB9r5F uQl12H17jNUjxLJDiGWJoLY VuLIDliNpbfy7wxX9mRt1+P GNvbCB3 tEG7cQ6pMZXzTfO2FYmtT29 5ZyLeoYWaOrxmy3pvg1zydT n7AbJuQLOmngFpuYzhSPE8h 1ZiDm66 V01oVIunICSpPFZlSZDyLCO oaPwdvy0ulW1nVu9+PC9jb2 exlc53kR81sOC+ODAtEKS4u WxlPSdw NDHmjN6wIIyeRjZ4JARrTnM qvR50zPKvPWtfOe3pgUxvlJ nzGS8fJYEepqgpb560JuMig 2xkIDEw gNSlQCbvKTS7L60pa8J7FVJ lWDTdFYL1dPC4nF3awAafqu ogbGVmdDsgdmVydGljYWwtY MogZ248 IHRvcDsnPlBhdGllbnQgTmF sQDx7F7HqUsv8DYBkgGfmRK 4cgMWuMYpsUn9jdSrlaYxkF C2yYSCy vgpuv073JeBrq4qvLSClzBQ wNPmnRKR3M41my7Z8FDJoUZ ImPJO4rBK6cF3mqJjpldlsr GVmdDsg cxThmZuiAJewZTyhP349JCH pqXruPnIjjcYyTGMfzCE4EI 14GQ16dMFvm6B8aQP0M7KlG GRpbmct esltvEC8PHFaNCPqyX23Ag7 lvXhoMy9aLNHlSPN2RSAwfL HvP0CyoZ0nVbEtQTFiRUQtW 3RleHQt EXacY020LNuoQeC5AKKnqeU iV6YcAHJhdZoeDqY0e8X5Wc 5YZ4T6TZ92WY05mKXmv0Z2e XQ7N3Pq VXAccdrwfbdgbEU6VSHjOWZ vbS77Dl4fwQqhBe5yOZKxSA M8TCPzlBOuA0OyhG8tZdFpS DAwMDAw S3YxzVFyRLqoM550AHzmYnV 9RFBxlzGtY4HiSXTnkPciFa R6t6T9Fn0SDEb2ZF64ID76q KNtq0G3 nJV8S2DxDQDfuvdnktrvhJZ 1LOYlBNLfzG17Ri2dlTxbHo 6cZFOcFVN6VXWvkGLuL2Sza B2kUhOe QYDpSRMoP1NtnWEcMAsfF98 5ONseCnH4ZHGrglAxU7GfRL WdtEjqQyK2n5C2Fq8UOFXbO X30HUM9 uCG3IK07WZ25N0EbMdllpZP ibGU+PHRhYmxlIHdpZHRoPS ddLKVsGqWweYjmVW2xRf0dG GVyLWNv vAgmgCJeXjQju1lbQFOpQEf hJL7tdNmvL4RtnDI0KZMlx9 j9Sh55Q06qP7UksZN+PGNvb WU9xFE0 rD8aVgWbOdQ3FZtdJ426ZxU xeTKpPdsms6vif1onnUb7Vv L1GTJuyfTsgRbxLFR9x8IbP k95X82o IHdpZHRoPSIxNSUiIHZhbGl two4zzG8fNc1+PSGxoMS0uE U0rH7bMwUyAsN2PIizV777Z nRvcCIv Qavke8yax4riyFs8ElUuUZP xwlAxdJktVXV2j5EzWv57G3 DxdXfcz1GxXmk0km90oISeu 1E6rQJ1 N1SoWZUyqiapqPZmhRrtOW8 rQVYivdikLILgzY2cQUXwM1 e4LxZoEwW9LPihO4EmanR2S DEwcHQg KCrkZHZ6R12ts6H8JAGpSHO oCJY5rGP2yT1ukHsffdkafA VmdDsgdmVydGljYWwtYWxpZ 246IHRv pZnlRPOfbA0dROScmEHlnPs pTR4dFAWshevuDzCDI6bNQj RjJKzACnY0L0ChFss9MCXec PltYV0k lAXlZRphZp1dbKkbqEkqTZ4 iQKKwbeihOEXsxQ8dKEBycH WokCjrPQ3hGTMmdegws048O iAxMHB0 BOTxcBHcI0NycP9gBdIbXQO jDMUwG9RutOLdJMkdF925AH ocRxH4PLGiloUhH5JoRLLjm WduOiB0 c6Y5Ci2kJL9dVJ2nPAVnMJ6 9US20oGWua4O1vOV9B7UyCW XopijelchdyZV8PBJkMJPqb M94fLGy EYqdDk8gj0D8o011JZHpXBO efB50Ed4egLlsLKEstNPMcD 5rngeqt6priihlBqQdAFAfW Hn0JHp0 IXWshYvrDhYlUAK3HcZ8AJQ 8iABabG2ulZagubilhB5dZx c+IvugNEQupfN4S3VaPaa3Z CBzdHls YC1mnABoTNajKf1pzTtpqSz pIA8fKAPevajyDZKryZ9rMQ IvoTEbtIgpGE1iNXWrsevks 250OiAx YAT7JYFagJWxS8HplI2jLrS aEUPyLHCpY8JvwNAxFNxiE4 88VRfmBbS0JDVaznEfA8AtU WFsaWdu AeP1d7V0Iy1SPE3fgWH9E7Y bUkw4RRZfbKyoZR2txLAdEL wgZg0iqXejqIgjPS7rKAPrl jtwYWRk zU6kRPYunEZudGwvYB9dQUV pxxecg519ItPsLSZ9IUOfxA BaN1TsyY2qZgBsSEGqGODxG 3RleHQt ZGlvX056LTxnAfS4ODGnyeK rN2DkMOAflHfoZvX2s3N0Pp 1EkOIlSEXbRY54MV91ZR90V 3RyPjwv dGFibGU+PHRhYmxlIHdpZHR ePPkrYGLvFwWkwVaqXP5oNp 9yZGVyLWNvbGxhcHNlOiBjb 2xsYXBz WDygDN6viGsrY4PstWT6COJ ok1h6Jb91U30rA7UvfCG+PG QgaEI3vNW8rJ0lBrAhIqA2K KncK970 FzKmnLGbVtcvu5ypg1kxvSk 7IvCkJZZbltWzqJfwRQT3q2 MtUg37B01gESnvKDOcLZUxO CUiIHZh lFpyfv3ohV5bMs0+PGNvbCB 8yEN9zF9tKuGfHdR6QXeiT6 47CuIuhMIxBcmcW65jQ9Jub XA+PHRy Uau6KDHabQxfER3pzKNnAQm zNb5zMEL0WaEvEcOkKPjkQ2 OoGOEmzyzovhpwuQE8XTSaQ DUwaW47 Je9wzRsiNw2nMHOpBJU0SXV gsVXcW9WraQ6nQmWgMHBqQL AlL6GhaATcUGijB313CEtdZ rT2TILb orLlF3PtEFZhlFoeAjR3z5F 8Rf0CvNzieWAxAE7kFfHyMQ o8U2GfHuf7KOYnzWliSX6gf GFkZGlu Ny3qzVfhgXknFL6ePGTcndw nl596IaWkj4biIHXbtIQuMS ecQAC1B97wv6A9BYDuZZRjB RC4sYI3 mY9toQhdmfqwePKzsMhwneN peIswTMzyRMqgF118KNQevG xaReMLYxp8U8UkWqg5FPPix HwsYI7x zZGpEWcrWj1mjDiyhTbwVJ1 tFMTbqxigy782EuXum1vcVL DdzOKiPCpcJQE1J28uw4V9D CMwMDAw DTQ6uFR8lK6sdNychcbhsZV mdDsgdmVydGljYWwtYWxpZ2 58YEZhbCedBk7XKlb6N4NbE sh4NBYr pYtqJY8zpHUfMVfnIm0noEm aqXcpPG5fNYXsjperv609Ii Cbf3njLYWvtNOfNAtcWRT0H 32vb7Q8 VYEwNAYrBFJ2gIG9gR1rxTc nbjogbGVmdDsgdmVydGljYW crCKinF399IUFooNycSaOxt WVyOjwv dGQ+NQ04ju03J7OgZlugLan 9GRGuQGU9pQL6rQ1pIFUhEB tal9W0nKZ8K9XmklRqzl2ss 2xsYXBz ZTog (more content not included)... Normal [facility] BMPon 06-28-2022 Anion gap [Moles/Vol] 12 mmol/L Normal 6-16 [facility] Comment on above: Performed By: #### 1 [id number], [id number], [id number] #### [facility] [address] [place] [address] Calcium [Mass/Vol] 10.2 mg/dL Normal 8.9-11.1 [facility] Comment on above: Performed By: #### 1 [id number], [id number], [id number] #### [facility] [address] [place] [address] Chloride [Moles/Vol] 103 mmol/L Normal 101-111 [facility] Comment on above: Performed By: #### 1 [id number], [id number], [id number] #### [facility] [address] [place] [address] CO2 [Moles/Vol] 28 mmol/L Normal 21-31 [facility] Comment on above: Performed By: #### 1 [id number], [id number], [id number] #### [facility] [address] [place] [address] Creatinine [Mass/Vol] 0.8 mg/dL Normal 0.5-1.3 [facility] Comment on above: Performed By: #### 1 [id number], [id number], [id number] #### [facility] [address] [place] [address] Glucose [Mass/Vol] 94 mg/dL Normal 55-199 [facility] Comment on above: Result Comment: If t his glucose result represents a fasting glucose, interpretation should refer to the following reference range: 55-99 mg/dL Performed By: #### 1 [id number], [id number], [id number] #### [facility] [address] [place] [address] Potassium [Moles/Vol] 3.9 mmol/L Normal 3.5-5.3 [facility] Comment on above: Performed By: #### 1 [id number], [id number], [id number] #### [facility] [address] [place] [address] Sodium [Moles/Vol] 139 mmol/L Normal 135-145 [facility] Comment on above: Performed By: #### 1 [id number], 0240059, [id number] #### [facility] [address] [place] [address] Urea nitrogen [Mass/Vol] 20 mg/dL Normal 5-21 [facility] Comment on above: Performed By: #### 1 [id number], [id number], [id number] #### [facility] [address] [place] [address] Urea nitrogen/Creatinine [Mass ratio] 25 No Units High 10-20 [facility] Comment on above: Performed By: #### 1 [id number], [id number], [id number] #### [facility] [address] [place] [address] CBC w/Indiceson 06-28-2022 Erythrocyte distribution width (RBC) [Ratio] 14.3 % High 10.9-14.2 [facility] Comment on above: Performed By: #### 1 [id number], [id number], [id number] #### [facility] [address] [place] [address] Hematocrit (Bld) [Volume fraction] 41.1 % Normal 34.0-46.0 [facility] Comment on above: Performed By: #### 1 [id number], 7944702, [id number] #### [facility] [address] [place] [address] Hemoglobin (Bld) [Mass/Vol] 14.3 g/dL Normal 12.0-16.0 [facility] Comment on above: Performed By: #### 1 [id number], 5847514, 8413896 #### [facility] [address] [place] [address] MCH (RBC) [Entitic mass] 28.6 pg Normal 27.0-34.0 [facility] Comment on above: Performed By: #### 1 [id number], 5684138, 8746189 #### [facility] [address] [place] [address] MCHC (RBC) [Mass/Vol] 34.8 g/dL Normal 31.4-36.0 [facility] Comment on above: Performed By: #### 1 [id number], 4055229, [id number] #### [facility] [address] [place] [address] MCV (RBC) [Entitic vol] 82.3 fL Normal 80.0-100.0 [facility] Comment on above: Performed By: #### 1 [id number], 5431861, [id number] #### [facility] [address] [place] [address] Platelet mean volume (Bld) [Entitic vol] 7.7 fL Normal 6.4-10.8 [facility] Comment on above: Performed By: #### 1 [id number], [id number], [id number] #### [facility] [address] [place] [address] Platelets (Bld) [#/Vol] 249.0 E9/L Normal 150.0-500.0 [facility] Comment on above: Performed By: #### 1 [id number], [id number], [id number] #### [facility] [address] [place] [address]23 RBC (Bld) [#/Vol] 5.0 E12/L Normal 4.3-5.9 [facility] Comment on above: Performed By: #### 1 [id number], [id number], [id number] #### [facility] [address] [place] [address]3945 WBC corrected for nucl RBC Auto (Bld) [#/Vol] 6.8 E9/L Normal 4.0-11.0 [facility] Comment on above: Performed By: #### 1 [id number], [id number], [id number] #### [facility] [address] [place] [address] CHEMISTRYOrdered By: SYSTEM SYSTEM on 06-28-2022 Anion gap [Moles/Vol] 12 mmol/L Normal 6 - 16 mEq/L [facility] Calcium [Mass/Vol] 10.2 mg/dL Normal 8.9 - 11. 1 mg/dL [facility] Chloride [Moles/Vol] 103 mmol/L Normal 101 - 1 11 mmol/L [facility] CO2 [Moles/Vol] 28 mmol/L Normal 21 - 31 mmol/L [facility] Creatinine [Mass/Vol] 0.8 mg/dL Normal 0.5 - 1.3 mg/dL [facility] GFR/1.73 sq M.predicted among blacks MDRD (S/P/Bld) [Vol rate/Area] mL/min/1.73 m2 Normal >=59mL/min/1 .73 m2 [facility] Chem S GFR/1.73 sq M.predicted among non-blacks MDRD (S/P/Bld) [Vol rate/Area] mL/min/1.73 m2 Normal >=59mL/min/1 .73 m2 [facility] Chem S Glucose [Mass/Vol] 94 mg/dL Normal 55 - 199 mg/dL [facility] Potassium [Moles/Vol] 3.9 mmol/L Normal 3.5 - 5.3 mmol/L [facility] Sodium [Moles/Vol] 139 mmol/L Normal 135 - 145 mmol/L [facility] Urea nitrogen [Mass/Vol] 20 mg/dL Normal 5 - 21 mg/dL [facility] Remisol Urea nitrogen/Creatinine [Mass ratio] 25 mg/mg High 10 - 20 [facility] Consent for Treatmenton 06-02 Consent for Treatment [id number]#1.00C D:[address] [facility] HEMATOLOGYOrdered By: Patti Collier on 06-28-2022 Erythrocyte distribution width (RBC) [Ratio] 14.3 % High 10.9 - 14.2 % FT HemeAutoSS Hematocrit (Bld) [Volume fraction] 41.1 % Normal 34.0 - 46.0 % FT HemeAutoSS Hemoglobin (Bld) [Mass/Vol] 14.3 g/dL Normal 12.0 - 16.0 gm/dL [facility] HemeAutoSS MCH (RBC) [Entitic mass] 28.6 pg Normal 27.0 - 34.0 pg [facility] HemeAutoSS MCHC (RBC) [Mass/Vol] 34.8 g/dL Normal 31.4 - 36.0 gm/dL [facility] HemeAutoSS MCV (RBC) [Entitic vol] 82.3 fL Normal 80.0 - 100.0 fL [facility] HemeAutoSS Platelet mean volume (Bld) [Entitic vol] 7.7 fL Normal 6.4 - 10.8 fL [facility] HemeAutoSS Platelets (Bld) [#/Vol] 249.0 E9/L Normal 150.0 - 500.0 E9/L [facility] HemeAutoSS RBC (Bld) [#/Vol] 5.0 E12/L Normal 4.3 - 5.9 E12/L [facility] HemeAutoSS WBC corrected for nucl RBC Auto (Bld) [#/Vol] 6.8 E9/L Normal 4.0 - 11.0 E9/L [facility] HemeAutoSS Physician Orderon 06-28-2022 Physician Order [id number]#1.00 CD:[address] [facility] UA With Cult Reflexon 2021 Bacteria LM Ql (Urine sed) 1+ /HPF Abnormal Trace [facility] Comment on above: Performed By: #### 1 [id number] ####[facility] [address] [place] [address] Bilirubin Ql (U) Negative Normal Negative [facility] Comment on above: Performed By: #### 1 [id number] ####[facility] [address] [place] [address] Clarity (U) SL CLOUDY Abnormal Clear [facility] Comment on above: Performed By: #### 1 [id number] ####[facility] [address] [place] [address] Color (U) YELLOW Normal Yellow [facility] Comment on above: Performed By: #### 1 [id number] ####[facility] [address] [place] [address] Crystals LM Ql (Urine sed) Present Normal [facility] Comment on above: Performed By: #### 1 [id number] ####[facility] [address] [place] [address] Epithelial cells.squamous LM.HPF (Urine sed) [#/Area] 0-2 Normal 0-2 [facility] Comment on above: Performed By: #### 1 [id number] ####[facility] [address] [place] [address] Glucose Test strip (U) [Mass/Vol] Negative Normal Negative [facility] Comment on above: Performed By: #### 1 [id number] ####[facility] [address] [place] [address] Hemoglobin Ql (U) 1+ Abnormal Negative [facility] Comment on above: Performed By: #### 1 [id number] ####[address] [address] Ketones (U) [Mass/Vol] Negative Normal Negative [facility] Comment on above: Performed By: #### 1 [id number] ####[address] [address] [place].plasma/Lithi um.RBC (Bld) [Mass ratio] 4-20 Normal 0-3 [facility] Comment on above: Performed By: #### 1 [id number] ####[address] [address] Nitrite Ql (U) Negative Normal Negative [facility] Comment on above: Performed By: #### 1 [id number] ####[facility] [address] [place] [address] pH (U) 7.5 [pH] Invalid Interpretation Code 5.0-9.0 [facility] Comment on above: Performed By: #### 1 [id number] ####[address] [address] Protein (U) [Mass/Vol] TRACE Abnormal Negative [facility] Comment on above: Performed By: #### 1 [id number] ####[address] [address] Specific gravity (U) [Rel density] 1.015 Invalid Interpretation Code 1.005-1.030 [facility] Comment on above: Performed By: #### 1 [id number] ####[address] [place] [address] Type of Urine collection method Clean Catch Normal [facility] Comment on above: Performed By: #### 1 [id number] ####[place] [address] Urobilinogen Qn (U) 0.2 {Emily'U}/dL Normal 0.0-1.0 [facility] Comment on above: Performed By: #### 1 [id number] ####[place] [address] WBC Auto Ql (U) Negative Normal Negative [facility] Comment on above: Performed By: #### 1 [id number] ####[place] [address] WBC LM.HPF (Urine sed) [#/Area] 0-5 Normal 0-5 [facility] Comment on above: Performed By: #### 1 [id number] ####[place] [address] URINALYSISOrdered By: Monica ellington on 06-28-2022 Bacteria LM Ql (Urine sed) 1+ /HPF Invalid Interpretation Code Trace/HPF FT UA Auto SS Bilirubin Ql (U) Negative (06/28/22 9:43 AM) Normal Negative FT UA Auto SS Clarity (U) Slightly Cloudy *ABN* (06/28/22 9:43 AM) Invalid Interpretation Code Clear FT UA Auto SS Color (U) Yellow (06/28/22 9:43 AM) Normal Yellow FT UA Auto SS Crystals LM Ql (Urine sed) Present (06/28/22 9:43 AM) Normal FT UA Auto SS Epithelial cells.squamous LM.HPF (Urine sed) [#/Area] 0-2 /HPF Normal 0-2/HPF FT UA Auto SS Glucose Test strip (U) [Mass/Vol] Negative (06/28/22 9:43 AM) Normal Negative [facility] UA Auto SS Hemoglobin Ql (U) 1+ *ABN* (06/28/22 9:43 AM) Invalid Interpretation Code Negative [facility] UA Auto SS Ketones (U) [Mass/Vol] Negative (06/28/22 9:43 AM) Normal Negative [facility] UA Auto SS [place].plasma/Lithi um.RBC (Bld) [Mass ratio] 4-20 /HPF Normal 0-3/HPF [facility] UA Auto SS Nitrite Ql (U) Negative (06/28/22 9:43 AM) Normal Negative [facility] UA Auto SS pH (U) 7.5 *NA* (06/28/22 9:43 AM) Invalid Interpretation Code 5.0 - 9.0 [facility] UA Auto SS Protein (U) [Mass/Vol] Trace *ABN* (06/28/22 9:43 AM) Invalid Interpretation Code Negative [facility] UA Auto SS Specific gravity (U) [Rel density] 1.015 *NA* (06/28/22 9:43 AM) Invalid Interpretation Code 1.005 - 1.030 [facility] UA Auto SS UA Spec Desc Clean Catch (06/28/22 9:43 AM) Normal [facility] UA Auto SS Urobilinogen Qn (U) 0.0282822 {Emily'U}/dL Normal 0.0 - 1.0 EU/dL [facility] UA Auto SS WBC Auto Ql (U) Negative (06/28/22 9:43 AM) Normal Negative [facility] UA Auto SS WBC LM.HPF (Urine sed) [#/Area] 0-5 /HPF Normal 0-5/HPF [facility] UA Auto SS eGFRon 06-28-2022 GFR/1.73 sq M.predicted among blacks MDRD (S/P/Bld) [Vol rate/Area] mL/min/{1.73_m2} Normal >=59 [facility] Comment on above: Order Comment: Order added by Discern Expert. Result Comment: eGFR is race adjusted. AA=. Performed By: #### 1 [id number], [id number], [id number] #### [facility] [address] [place] [address] GFR/1.73 sq M.predicted among non-blacks MDRD (S/P/Bld) [Vol rate/Area] mL/min/{1.73_m2} Normal >=59 [facility] Comment on above: Order Comment: Order added by Discern Expert. Result Comment: Clinical Analyst casa kidney disease could be indicated at eGFR's of less than 60 mL/min/1.73m2. Kidney failure is indicated at less than 15 mL/min/1.73m2. Performed By: #### 1 [id number], [id number], [id number] #### [facility] [address] [place] [address] Coding Summary.on 01-26-2022 Coding Summary. CD:[id number] Gh0 bWw+PGhlYWQ+SA5KVZGoR73 duLFyvP4AC6yTMY6DHLUSFX HSOB0PDU5onLF2AIgiX5Jjs iAv SvoajPYpST79JYg6MEX8nEp vUJdthF2qdYYhU1y8IrCfHB 69mW75WHrsRDOoRpI1YcJre jsgbWFy L6slBuLfjBLlHuo+PHRhYmx lIHdpZHRoPScxMDAlJyBzdH quFT6uAr0gKBDiIKIrxKdmb HNlOiBj f7miMHVtLZxuOA7juNhgM9Y gaEA3SUAwb1j1Zt71oHO+PH UyZPI9uHroEDizt148RsZuh 0ptXRL7 jLSpYCusQNH4X15jp4N3AGF gOBNuJAD9uKO8iM1qlMzydb zaY1AnyWHzXgS1TXT7yQOwa V3ukNqq lhpfwK6qWen+T25XRA8ESDX VCD8VEpe5J2CqXgpcfSX+PC 52FMDfPC12oAIdpRGvx4mpz Ez6EsQy PGWoHNT6gMikYFvsz7ErWFN cA47boLCyx7Y8ECWyyAjzaM KeRhBioFL8kN2sOEczpacea 2hvdzsn Dplig3wluz64jI74D66sWPj iRDPpWMY9BIBoKYThzEsibk 3hpX2cLt6+SWcdb7xuo0auq Ye8MxGf EHRrokGizDxmQJC7b0AcLz5 3C7RxgGepo8OsRdq3wl30hJ Fbx3H3lZB2JRvfRJGrcR3iF WxlZnQ6 YKHuQgQzeA92oLHtPBxlAw1 wrChuoLguKI2vXEOzafmmRQ IhwD5fUZRqoUWsqJhkUL2iF TBpbjtm v125WcRiQZA1MWHgcYZqE6I hzA2hCpGtFPQiBDFeN6UauA AxSZytO373HDvtQgD4UKQjf cEeL1Yp GCOtwNoxHrN4q2Q2Rs7Rj4R ppjciQHE1JVvhBAS6ZxB7Nj WcClH3Y7NnFgf1HJLjkCtnA D7qP9Rb NQYussvrqnpldYO1PLBgVQL efO43nCNzJBcqGh5lj1A2h2 94ONZkWTFfjZ58Qd5mmYndU TBwdCBU rG9habrnz3ujowqcSaVoLJE qAGu4PRh4RLZawPrpFkEvBX J3YpX9CXE8tJBvqQ0ojFwbz ehntU3x Oyc+Y94rbX1mCPP0KSA6zms iNXKhzxKqKS89HS80K8MgHn wvdGFibGU+PGRpdiBzdHlsZ F6qEkEc o9cmr0EfDIvrZ7AbIDKdMJw uGtf9QDTyVYR3fEW4wG1zAQ XuIZaqv1N1bCF2J1MsozUia a5pc6se XOWuIPqqP19nmCTip5Z2YMO seRM2SUUymBpaKiCqdR43Jd c+FVKgkVpcn2LiEnyki8oef 1pvcXt5 OaAuBFMkonSeyVzwSRI1r4F sYv79G48nLVzqOXNpYMHrKY AkXIFijHaxfp7awQ0vVv4+P GNvbCB3 hHE0hQ8xRHGqMaL2NPidH83 5IhJhpXTaHlypg8viu3gxyU x3CbGpYDYcqlEsbOqpJDF8q 0QlPt46 P30gFRtfJYUtPSEfQENhXKC jqPmmzw4zgU2wGk5+PC9jb2 ttgf89aN42bCU+HRNaCTA3w WxlPSdw PWZxpU2nFHgbLcZ2DZYvTpD uyP94vLPiSVkwSi1biIebwC vvDJ5pNKEtgnnel239ZkDcb 2xkIDEw bAQgXDoiSCY9G60xf5Z2KCA fGBGcMQZ7nFY7qW6hfRepik ogbGVmdDsgdmVydGljYWwtY OtqL024 IHRvcDsnPlBhdGllbnQgTmF tDVs2G0YlUiv0OBDzqPrbQX 4gdCRfOEpwDt9lzLispYgrT J7eSDIz kshtx777SmGwj5wtAAYofSG dOKmvEMX7O22ml1G4RLEiKK OaYZL3lKZ6fV9iiLacnbckp GVmdDsg vsUboJoaXVcmXCrrU091KIS yzHahXdAizeHdSOPbvTS9RW 34ZY85ePJtp6U9xCJ3M9OnR GRpbmct ejaseYE6ZWQqYUScpJ66Ul3 krWpnVj3vNWUsXGL5LOKqzI XnK3ZukE9qYpGaHIMmXGSvS 3RleHQt BUzeM840EQioUzW0CBVlasP jV0KoFYUcuMrbHuJ3k2H8Fl 5HF1Y4XZ64KQ40xMOow5M7k AB2T7St ZSGfiwkpmqyncAL2QCOwCMG jdL29Ee5rdGjsXb0uZUNoPF M1KPGodZNjT1JzhM5uDxUcT DAwMDAw C1JfkZGgHFahW000AHkuBuW 8BANzidMjO8BxKDYhuRbkJz H1b0V8Bm5HONl6RX47LT58m ENmv1B5 zBS6I2SoFQGtnsrytpxliCZ 5UXGyAVFhrO79Ex1nbMrdWt 7rVEMzCCU8WAPrrGShG3Krx R5qXtZj RIYmEGGyG4NgiGXzFVtmN63 2GPcxGwP9RERmafZtU4TwTA AmoJnnAxJ7e9X7Tz8GSPWhE Z68PCT8 mOC0CN81JO22N6PdGvsbpGC ibGU+PHRhYmxlIHdpZHRoPS dgYDEtTsDwiHygMO7cCg6zM GVyLWNv mRnjoODlReKjz3ssHJFqNWj pFB5uwBloE7TotTV3SXVjr0 u2Yx07I93mC9NgsLF+PGNvb PU4eMM3 lT6dJcQcVmT3QYssF735NuU cmFYmBagsh9mrm2xjrXr2Cs L0TVYyjsDjhJeqSYU6q4EdS x24A43i IHdpZHRoPSIxNSUiIHZhbGl ixq2gmJ1tFk3+SOBxeMJ0rX J5zO4sKfPmIyJ6MRiaP486Z nRvcCIv Idjly4fst4dpdTo2RvMwHVY plpJcgEcmYDH8c6CtGy97I1 IprFxhf1JyJjh5ve91cXBmr 3O5iOA7 B6KxHYQajvcyfLCoaSmdRZ0 bJUKgiprwIFYpcW0mFGMeO8 q9XwVjVqT3LPqmR3QbaeV5X DEwcHQg TIdyMBJ1Q61lk9Z0TWEyJMR dHTG7jGF8wF8ajUxhnvyhxF VmdDsgdmVydGljYWwtYWxpZ 246IHRv kPhqKSOnlT2dTHBicEHffMu bOY6gUCHajwbjJjJUA4sWMt YlMUyOFxU5J7AwOml8TBPvp OklJN0e dQWtWPhqGr6ucBugyYgkLV2 tZQVwncjrEQOhnD1pAMVnfB TunKnvOD4qKYAplcupa046T iAxMHB0 FFQxxBWmH5EexI5qDnApMLT rBCKtC0FtdIWnMKghG315ZZ rxZkL5DZWgsgEaP2LpKNKtb WduOiB0 h8B4Ir6uHV6nQA1kDDAeJB7 4BL19cLYzv4B6nCN1J9DfTN IsmtwmksbxaWN0EQPxIJAzt Z02pHAj KHwyIj8lv9L2f386CLIuEVX yrG80Pk5rcXhmEVStmFSFyY 1nfliiw3pshoxjEnFwDNBiC Td8OGi6 XSNegTtuZhHzWJP2VdA5ZBY 0lLQlkT1ksTdgvcrsrF2iMk c+HvswTBPbogW6X2HqRmo1O CBzdHls PK7vkKWdGTmeVx0ahSiddMg kTB6fZYBnxtuiWJYogU8gWI VmnNQxjNcdGL2rNQQovmepf 250OiAx MCQ9NSLaqVKgA6GlgX5tBuW xMARyKSCeU6PjnSNkMKgzS3 41VJbvSzU8FYGtahEhL5UqY WFsaWdu EwW7o5K6Wl8RQA4heRO6P5M vDic0NQAjkIhhWT1cqDRfCJ jcWs1eaImrxHrzKF9nTPDip jtwYWRk aU8cBIHfiCBolYlqII9gJDA ijcoqt816EiWqOFS2CNDduH MgI2MjdL1cPvTmALCxUYBzJ 3RleHQt CKtjJ147OGgsSsH2KDOuawT yF3UwSFTjgUvzXiN5f3R7Bo 4VlMK6zOF7f7V8M2YguEZgT OZ0BDV7 rbvmnfx0B1YvVknbjUG+PC9 4AKWnIR11yAFudOXks1dksY j6BhWoIDWmLIM2xFcmILmww 3JkZXIt X92hqKXon7B6JEGidWrvjCL sZrZqfTI2rK4eJKnwjtafw1 lfigitBxqac0tipe86zV76Q 29sIHdp ZHRoPSIzMCUiIHZhbGlnbj0 jfE3yWg3+PZAqhCY7tXC1gJ 6sZuInByQ8HDboV571QzHyc CIvPjxj v0jdh9xtzVi2HfKpLFHdvdJ saYmaHXA9u7WoHv26O08lGY dpZHRoPSIyMCUiIHZhbGlnb g0muL2z Ii8+ER4rw1nfsx75dG20qNT +ZMDpRBS7fXncBJwbEDDadA 0hVVoyQoR9AZJpFzAmuA23h GFkZGlu Dm6edEhrlIcqNV3bAATpuus pu793RoAhv4owCETunKHwFX knNRP3G67dj6D2RUNmGJDvE JH4uPZ6 kN0ezSmfnxrolJVzuUdgoeE bsOlmBMsjHRhlK355ZQAvvI wsRkGqoXXdL3ivamQSDY2jI jwvdGQ+ LQPsNKF4xVfdVPyaUXYoaC9 rNGZvS4h2AyAaEqW0SHiwG7 KfqtZ5QGVnfMJeQNTxvBBEs Q8ipoeq l0grdvfcZiJpCCUzMQi2SCd 7NKFfrMxeBdBhLHV0RtL2EZ S3tNMwcD2wySyjcryysX2xX yc+RklO OjwvdGQ+GWBiSTQ7qZapENb xDXLvzY7qTTYkG3a5RjWlOs M4QWunR6RtpfG1YJRppDHyM TBwdCBU eG6bofphi5bxxyjiHfEbEFN dDQi8HLh5WHCxqBhhFrOlJR U0QdL2TKA2qPMrzN6qfFjyu fiyiN4z Oyc+TVJOOjwvdGQ+PHRkIHN 8yQnnWKspINKmjH5lJGYjK1 e5CxRhAsD5RQvkZ3JjpwQ3M GJvbGQg CRFacBHSvW3ggznxk0viigt gAaXnGJPaGDl6HDm1MWCcmJ cjVkCmONB7OeC1PRP2rKXjl P3ziBvv cegvoL6cHyw+QBX5CMO1PZ6 0TL04D0FnAstebSBkmJO+PH RhYmxlIHdpZHRoPScxMDAlJ yBzdHls ZT0n (more content not included)... Normal [facility] IntraOperative Documentson 0 01-26-2022 IntraOperative Documents [id number]#1.00C D:[address] [facility] Physician Orderon 01-25-2022 Physician Order [id number]#1.00 CD:[address] [facility] Operative Reporton Operative Report SURGERY DATE: 01/18/2022 PREOPERATIVE DIAGNOSIS: Postoperative pain control requested by patient and surgeon POSTOPERATIVE DIAGNOSIS: Postoperative pain control requested by patient and surgeon OPERATION: Left adductor canal block utilizing ultrasound guidance ANESTHESIA: Local with monitored anesthesia care PROCEDURE: The patient was interviewed and examined. The anesthesia options were discussed including adductor canal block for postoperative analgesia. The discussion included the procedure, risks and benefits and alternatives to the procedure. The patient's questions were all answered and the patient elected to proceed with the adduction canal block for postoperative pain relief. The patient was placed on the monitors, electrocardiogram, noninvasive blood pressure machine and pulse oximetry. I.V. sedation was then administered with a total of 2 mg IV Versed. The mid thigh was prepped with ChloraPrep and sterilely draped. The anatomy was identified with ultrasound and then under ultrasound guidance, the femoral nerve was identified with a 21-gauge 100 mm needle. After attempted aspiration for blood, a solution of 30 mL of 0.25% ropivacaine was slowly injected with frequent aspirations without signs or symptoms of intravascular injection. The patient tolerated the procedure well. There were signs and symptoms of a block within minutes after completion of the procedure. The patient then proceeded to undergo general anesthesia for the proposed procedure. MERLIN Delgado Dictated: 01/18/2022 [id number] Transcribed: 01/18/[address] [facility] Comment on above: Result Comment: Elec tronically Signed By: Luis Manuel Moss CRNA\.br\Date and Time Signed: 01/20/22 06:54 EDT Blood Bank Slipon 01-19-2022 Blood Bank Slip [id number]#1.00 CD:[address] [facility] Consent for Anesthesiaon Consent for Anesthesia [id number]#1.00C D:[address] [facility] IntraOperative Documentson 0 01-19-2022 IntraOperative Documents [id number]#1.00C D:[address] [facility] Preoperative Documentson Preoperative Documents [id number]#1.00C D:[address] [facility] ABO/Rhon 01-18-2022 ABO/Rh Positive Invalid Interpretation Code [facility] Comment on above: Performed By: #### 1 [id number], [id number], [id number], [id number] ####[facility] [address] [place] [address] ABO/Rh History Checkon 01-18 ABO/Rh History Check Verified Hx Blood Type Normal [facility] Comment on above: Performed By: #### 1 [id number], [id number], [id number], [id number] ####[facility] [address] [facility] [place] [address] ABSCon 01-18-2022 ABSC Gel Interp Negative Normal [facility] Comment on above: Performed By: #### 1 [id number], [id number], [id number], [id number] ####[facility] [address] [place] [address] BLOOD BANKOrdered By: Monica ellington on 01-18-2022 ABO/Rh Interp Positive Invalid Interpretation Code [facility] BB Subsection ABSC Gel Interp Negative (01/18/22 7:24 AM) Normal [facility] BB Subsection Blood Bank ID#on 01-18-2022 BBID# [id number] Invalid Interpretation Code [facility] Comment on above: Performed By: #### 1 [id number], [id number], [id number], [id number] ####[facility] [address] [place] [address] Consent for Treatmenton 12-31 Consent for Treatment [id number]#1.00C D:[address] [facility] H&P Updateon 01-18-2022 H&P Update [id number]#1.00C D:[address] [facility] Inpatient Patient Summaryon 01-18-2022 Inpatient Patient Summary [address] [address] [facility] Clinical Discharge Instructions PERSON INFORMATION Name: [employer] Admitting Physician: Paulino Garcia DO Attending Physician: Paulino Garcia DO PCP: RANDY RICHARD MD Discharge Diagnosis: Localized osteoarthritis of left knee Comment: PATIENT EDUCATION INFORMATION Instructions: Knee Cryocuff Patient Instructions - FT (Custom); Post Op Patient Instructions - FT (Custom); Jose - Total Knee Arthroplasty (CUSTOM) Medication Leaflets: Follow up: With: Address: When: Paulino Garcia [address] [place] [address] [facility] (1) Comments: Keep scheduled appointment MEDICATION LIST Medications to Continue with No Changes Printed Prescriptions aspirin (aspirin 325 mg Tab) 1 Tablets By Mouth every day for 30 Days. Refills: 0. cephalexin (Keflex 500 mg Cap) 1 Capsules By Mouth 4 times a day for 5 Days. Refills: 0. Other Medications acetaminophen-diphenhyd rAMINE (Tylenol Extra Strength PM oral tablet) 1 Tablets By Mouth once a day (at bedtime) as needed as needed for sleep. acetaminophen-oxycodone (Percocet 325 mg-5 mg Tab) 2 Tablets By Mouth every 4 hours as needed Pain 4-7. acetaminophen-oxycodone (Percocet 325 mg-5 mg Tab) 1 Tablets By Mouth every 4 hours as needed Pain 4-7. alendronate (alendronate 70 mg Tab) 1 Tablets By Mouth every week., bones amlodipine (amLODIPine 5 mg Tab) 1 Tablets By Mouth every day. ascorbic acid (Vitamin C 1000 mg oral tablet) 1 Tablets By Mouth every day. calcium-vitamin D (calcium-vitamin D 200 mg-250 intl units oral tablet) 1 Tablets By Mouth every day. cyanocobalamin (Vitamin B-12 1000 mcg oral tablet) 1 Tablets By Mouth every day. docusate (Colace 100 mg Cap) 1 Capsules By Mouth 2 times a day. multivitamin with minerals (Celebrate Multivitamin oral capsule) 1 tab By Mouth every day. omega-3 polyunsaturated fatty acids (Fish Oil 1000 mg oral capsule) 1 Capsules By Mouth every day. pyridoxine (Vitamin B6 100 mg Tab) 1 Tablets By Mouth every day. rosuvastatin (rosuvastatin 20 mg Tab) 1 Tablets By Mouth every day. vitamin E (Vitamin E 400 unit(s) Cap) 1 Capsules By Mouth every day. Comment: Normal [facility] Interdisciplinary Note - Keith n 01-18-2022 Interdisciplinary Note - OT OT six clicks score: =Home with no OT needs. Pt completes full body dressing setup A with no AE required. All ADL functional transfers close supervision. Pt is setup with ortho 360 and reports no issues or concerns with going home safely and independently. Normal [facility] Main OR Intraoperative Recor don 01-18-2022 Main OR Intraoperative Record IntraOp Document Type FT Summary Primary Physician: Paulino Garcia DO Finalized Date/Time: 01/20/22 14:28:49 Pt. Name: OSIRIS NGO/Sex: 1950 Female Med Rec #: [id number] Physician: Paulino Garcia DO Financial #: [id number] Pt. Type: A Room/Bed: Admit/Disch: 01/18/22 06:49:36 - 01/18/22 18:20:00 Institution: Case Times FT Entry 1 Patient Times In Room 01/18/22 09:49:00 Out Room 01/18/22 11:23:00 Procedure Times Start 01/18/22 10:16:00 Stop 01/18/22 11:20:00 Anesthesia Times Start 01/18/22 09:49:00 Stop 01/18/22 11:23:00 Block Timeout w01/18/22 09:17:00 Anesthesia Last Modified By: Randee RN, Jina 01/18/22 11:23:34 General Comments: patient taken to block room by MARIANNA Galindo. Block completed by MERLIN Rodrigues with MARIANNA Galindo assisting. Patient tolerated well. HR 89, [id number]. Patient then taken back to asu and connected to pulse ox before moving back to OR.-MARIANNA Galindo 01/20/22 Chart opened to review and send charges [facility] Case Attendance FT Entry 1 Entry 2 Entry 3 Case Attendee Luis Manuel Moss CRNA, DO, Michael T Kinsley CST, Stephanie Chiu Role Performed REGULATORY COMPLIANCE MANAGER Surgeon - Primary Scrub - Primary Time In 01/18/22 09:49:00 01/18/22 10:08:00 01/18/22 09:49:00 Time Out 01/18/22 11:23:00 01/18/22 11:01:00 01/18/22 11:23:00 Procedure KNEE TOTAL KNEE TOTAL KNEE TOTAL ARTHROPLASTY(Left) ARTHROPLASTY(Left) ARTHROPLASTY(Left) Comments Last Modified By: Randee RN, Jina 01/18/22 Randee RN, Jina 01/18/22 Randee RN, Jina 01/18/22 11:27:01 11:27:01 11:27:01 Entry 4 Entry 5 Entry 6 Case Attendee Jeremy Gomez CD REACTOR OPERATOR, Rissa Jeff RN, Jina Role Performed Staff - Other CD REACTOR OPERATOR/SA Mainframe Analyst - Primary Time In 01/18/22 09:49:00 01/18/22 09:49:00 01/18/22 09:49:00 Time Out 01/18/22 11:00:00 01/18/22 11:23:00 01/18/22 11:23:00 Procedure KNEE TOTAL KNEE TOTAL KNEE TOTAL ARTHROPLASTY(Left) ARTHROPLASTY(Left) ARTHROPLASTY(Left) Comments 2nd scrub Last Modified By: Randee CABRAL, Jina 01/18/22 Randee RN, Jina 01/18/22 Randee RN, Jina 01/18/22 11:27:01 11:27:01 11:27:01 General Comments: Conrado Carey Zohra rep present for case.-MARIANNA Galindomotion study technician Protocols FT Pre-Care Text: Implements protective measures prior to operative or invasive procedure, confirms identity before the operative or invasive procedure, verifies operative procedure, surgical site, and laterality Entry 1 Procedure(s) KNEE TOTAL Patient Identity Birthday, ID Band ARTHROPLASTY(Left) Verified (select at Check, Patient least 2): Participation Consents / H and P Anesthesia Consent, Operative Site Present Verified HandP, Surgery/Procedure Marking Verified Consent, Transfusion Consent Surgical Site Yes Laterality Verified Yes Verified Procedure Verified Yes Correct Patient Yes Position Verified Availability Equipment, Implant, Prep Dry n/a Verified (If Medication Applicable) PreOp Antibiotic Yes Time Out Luis Manuel Moss CRNA, Given Participants Paulino Garcia DO, Kinsley CD REACTOR OPERATOR, Jason Howell Kyle, Roth CD REACTOR OPERATOR, Randee Sharma RN, Abby Time Out Complete 01/18/22 10:12:00 Outcomes Met? Yes Last Modified By: Jina Jeff RN 01/18/22 10:22:30 Post-Care Text: The patient is free from signs and symptoms of injury caused by extraneous objects Allergy Information FT Pre-Care Text: Verifies allergies Entry 1 Allergies Reviewed? Yes Allergies Reviewed Self/Patient With Outcomes Met? Yes Last Modified By: Jina Jeff RN 01/18/22 10:22:38 Post-Care Text: The patient received appropriate medication(s) safely administered during the perioperative period Surgical Procedures FT Entry 1 Procedure Description Procedure KNEE TOTAL ARTHROPLASTY Modifiers Left Surgeon Description LEFT TOTAL KNEE ARTHROPLASTY Primary Procedure Yes Primary Surgeon Paulino Garcia DO Start 01/18/22 10:16:00 Stop 01/18/22 11:20:00 Anesthesia Type General Surgical Service Orthopedics Wound Class 1 - Clean Last Modified By: Jina Jeff RN 01/18/22 11:27:05 General Case Data FT Pre-Care Text: Classifies surgical wound, implements aseptic technique, initiates traffic control Entry 1 Case Information OR OR 7 FT Case Level Level 6 Wound Class 1 - Clean Specialty Orthopedics ASA Class 2 Preop Diagnosis LEFT KNEE OSTEOARTHRITIS Postop Same As Preop Yes Postop Diagnosis LEFT KNEE OSTEOARTHRITIS Outcomes Met? Yes Last Modified By: Rissa Nagel CST 01/20/22 14:28:43 Post-Care Text: The patient is free from signs and symptoms of infection Skin Assessment (Pre Procedure) FT Pre-Care Text: Implements protective measures to prevent skin/ tissue injury due to thermal or mechanical sources Evaluates for signs and symptoms of physical injury to skin and tissue Entry 1 Skin Integrity Intact, [place], Warm, and Skin Abnormality No Dry Outcomes Met? Yes Last Modified By: Jina Jeff RN 01/18/22 10:23:26 Post-Care Text: The patient is free (more content not included)... Normal [facility] Main OR PACU I Recordon 12-31 Main OR PACU I Record PACU Phase I Document Type FT Summary Primary Physician: Paulino Garcia DO Finalized Date/Time: 01/18/22 13:01:43 Pt. Name: HUBER OSIRISStephan Lazar/Sex: 1950 Female Med Rec #: [id number] Physician: Paulino Garcia DO Financial #: [id number] Pt. Type: A Room/Bed: 01/29 Admit/Disch: 01/18/22 06:49:36 - Institution: Case Times PACU I FT Pre-Care Text: Identifies barriers to communication and implements measures to provide psychological support Develops individualized plan of care, and ensures continuity of care Maintains patient's dignity and privacy, and maintains patient confidentiality Identifies and reports philosophical, cultural, and spiritual beliefs and values Identifies individual values and wishes concerning care Implements aseptic technique, and administers prescribed antibiotic therapy and immunizing agents as ordered Evaluates postoperative tissue perfusion Implements thermoregulation measures, and monitors body temperature Evaluates postoperative respiratory status Evaluates postoperative cardiac status Evaluates postoperative neurological status Assesses pain control, collaborated in initiating patient-controlled analgesia and implements alternative methods of pain control Verifies allergies, administers prescribed medications and solutions, evaluates response to medications Entry 1 In PACU I 01/18/22 11:24:00 Discharge from PACU 01/18/22 12:35:00 I Outcomes Met? Yes Last Modified By: DAYAN SAM RN 01/18/22 13:01:10 Post-Care Text: The patient demonstrates knowledge of the expected response to the operative or invasive procedure The patient's care is consistent with the individualized perioperative plan of care The patient's right to privacy is maintained The patient's value system, lifestyle, ethnicity, and culture are considered, respected, and incorporated into the perioperative plan of care The patient participates in decisions affecting his or her perioperative plan of care The patient is free from signs and symptoms of infection The patient has wound/tissue perfusion consistent with or improved from baseline levels established preoperatively The patient is at or returning to normothermia at the conclusion of the immediate postoperative period The patient's respiratory function is consistent with or improved from baseline levels established preoperatively The patient's cardiovascular status is consistent with or improved from baseline levels established preoperatively The patient's cardiovascular status is consistent with or improved from baseline levels established preoperatively The patient demonstrates and/or reports adequate pain control throughout the perioperative period The patient received appropriate medication(s), safely administered during the perioperative period Acuity Level PACU I FT Entry 1 Start Time 01/18/22 11:24:00 Stop Time 01/18/22 12:35:00 Acuity Level Acuity Level I Last Modified By: DAYAN SAM RN 01/18/22 13:01:21 Finalized By: DAYAN SAM RN Document Signatures Signed By: DAYAN SAM RN 01/18/22 13:[address] [facility] Main OR PACU II Recordon Main OR PACU II Record PACU Phase II Document Type FT Summary Primary Physician: Paulino Garcia DO Finalized Date/Time: 01/18/22 18:23:31 Pt. Name: OSIRIS NGO/Sex: 1950 Female Med Rec #: [id number] Physician: Paulino Garcia DO Financial #: [id number] Pt. Type: A Room/Bed: Admit/Disch: 01/18/22 06:49:36 - Institution: Case Times PACU II FT Pre-Care Text: Identifies barriers to communication and implements measures to provide psychological support and determines knowledge level Develops individualized plan of care, and ensures continuity of care Maintains patient's dignity and privacy, and maintains patient confidentiality Identifies and reports philosophical, cultural, and spiritual beliefs and values Identifies individual values and wishes concerning care administers prescribed antibiotic therapy and immunizing agents as ordered, Evaluates postoperative tissue perfusion Implements thermoregulation measures, and monitors body temperature Evaluates postoperative respiratory status Evaluates postoperative cardiac status Evaluates postoperative neurological status Assesses pain control, collaborated in initiating patient-controlled analgesia and implements alternative methods of pain control Verifies allergies, administers prescribed medications and solutions, evaluates response to medications Entry 1 In PACU II 01/18/22 12:35:00 Discharge from PACU 01/18/22 18:20:00 II Last Modified By: Sunni Haynes RN 01/18/22 18:23:27 Post-Care Text: The patient demonstrates knowledge of the expected response to the operative or invasive procedure The patient's care is consistent with the individualized perioperative plan of care The patient's right to privacy is maintained The patient's value system, lifestyle, ethnicity, and culture are considered, respected, and incorporated into the perioperative plan of care The patient participates in decisions affecting his or her perioperative plan of care. The patient is free from signs and symptoms of infection The patient has wound/tissue perfusion consistent with or improved from baseline levels established preoperatively The patient is at or returning to normothermia at the conclusion of the immediate postoperative period The patient's respiratory function is consistent with or improved from baseline levels established preoperatively The patient's cardiovascular status is consistent with or improved from baseline levels established preoperatively The patient's neurological status is consistent with or improved from baseline levels established preoperatively The patient demonstrates and/or reports adequate pain control throughout the perioperative period The patient received appropriate medication(s), safely administered during the perioperative period Finalized By: Sunni Haynes RN Document Signatures Signed By: Sunni Haynes RN 01/18/22 18:[address] [facility] Main OR Preoperative Recordo n 01-18-2022 Main OR Preoperative Record PreOp Document Type FT Summary Primary Physician: Paulino Garcia DO Finalized Date/Time: 01/18/22 12:42:29 Pt. Name: OSIRIS NGO /Sex: 1950 Female Med Rec #: [id number] Physician: Paulino Garcia DO Financial #: [id number] Pt. Type: A Room/Bed: [facility] Admit/Disch: 01/18/22 06:49:36 - Institution: Case Times PreOp FT Pre-Care Text: Verifies consent for planned procedure, identifies individual values and wishes concerning care, includes family members in perioperative teaching Entry 1 Patient Times. In Pre Surgery 01/18/22 06:55:00 Out Pre Surgery 01/18/22 09:47:00 Outcomes Met? Yes Last Modified By: Jina Jeff RN 01/18/22 10:18:43 Post-Care Text: The patient participates in decisions affecting his or her perioperative plan of care Finalized By: Sunni Haynes RN Document Signatures Signed By: Sunni Haynes RN 01/18/22 12:[address] [facility] Monitor Recordon 01-18-2022 Monitor Record [id number] CD:[address] [facility] Monitor Record [id number] CD:[address] [facility] Operative Reporton Operative Report SURGERY DATE: 01/18/2022 ZINC FURNACE CHARGER: Rissa Nagel C.F.A. PREOPERATIVE DIAGNOSIS: Left knee endstage osteoarthritis with antalgic gait, failure of conservative injection care POSTOPERATIVE DIAGNOSIS: Left knee endstage osteoarthritis with antalgic gait, failure of conservative injection care OPERATION: Left total knee arthroplasty ANESTHESIA: General and block combination ANESTHESIOLOGIST: Luis Manuel Moss C.R.N.A. ESTIMATED BLOOD LOSS: Zero SPECIMEN: Bone IMPLANTS UTILIZED: [employer] knee system with a #4 narrow cemented left femur, #3 cemented fixed tibial tray, 17.5 fixed PS insert, 35 mm cemented patellar button HISTORY AND INDICATIONS: Osiris is a 71-year-old female with progressive bilateral knee pain with astj-zq-lciy disease with no relief with cortisone or viscosupplementation. She has tried conservative management with physical therapy, bracing, ice, Tylenol, antiinflammatories. She has severe grade 4 ftva-oz-nwpk disease on her x-rays. The pros, cons, risks, benefits, and reasonable expectations of above procedure were discussed, consent form signed and charted, sites marked preoperatively, all questions answered preoperatively, antibiotics provided weight based per protocol. PROCEDURE: Osiris was taken to the Operating Room and placed in supine position. Anesthesia was provided. A well-padded tourniquet was placed on the left upper thigh. The leg was prepped and draped in a sterile fashion. A time-out procedure occurred consistent with the consent form, History and Physical, preoperative marked site. Landmarks were identified. The leg was exsanguinated with a sterile Esmarch. Tourniquet was inflated to 300 mmHg. Midline incision was made of 6 inches. Medial parapatellar arthrotomy was performed, and the patella was everted. Of note, time-out procedure was performed prior to exsanguination. Medial parapatellar arthrotomy was performed. The patella had severe endstage degenerative changes that were grade 4 in nature with peripheral osteophytes. Irrisept antibiotic solution was allowed to soak per protocol. Patella was appropriately cut and retracted. Intramedullary drill and jig device placed in the femur and a 5-degree valgus cut taking off 11 mm was performed. This was sized at a #4 narrow. Anterior and posterior chamfer cuts as well as posterior stabilized box cut were performed. Anterior cruciate ligament and posterior cruciate ligament were resected, collateral ligaments protected and balanced. Intramedullary drill and jig device placed at the tibia, and tibia was cut. Gaps were symmetrical. Posterior gutters were clean and free. The tibia was prepared for a #3 tray. Trial components were placed with full extension and appropriate flexion. Patellofemoral height and tracking were appropriate with a 35 mm button. All trial components were removed. Exparel 100 cc was injected along the capsule, gutter, and subcutaneous tissue. Irrisept antibiotic solution was allowed to soak per protocol followed by copious irrigation. All instrumentation trial components were removed. The [place] Simplex cement was mixed, bone was prepared, components were cemented in place and allowed to harden for 16 minutes. All cement osteophytes were removed. The knee was taken through an arc of motion and deemed stable. Two grams of tranexamic acid were placed subfascially. The fascial layer was closed with #2 Quill suture in a running fashion, 2-0 Quill suture closed the subcutaneous tissues. [place] were applied. A 10-inch Mepilex dressing with soft roll wrap was provided. Tourniquet was deflated. The patient was awakened from anesthesia and transferred to the Recovery Room in stable and satisfactory condition. CASE: Clean and elective COUNTS: Sponge and needle count correct SPECIMEN: Bone CONDITION: The patient's condition satisfactory Paulino Garcia D.O. ca Dictated: 01/18/2022 [id number] Transcribed: 01/18/2022 cc:Randy Richard M.D. [facility] Comment on above: Result Comment: Elec tronically Signed By: Paulino Garcia DO\.br\Date and Time Signed: 01/18/22 13:49 EDT Operative Report Patient: ABRIL NGO Age: 71 years Sex: Female : 1950 Associated Diagnoses: None Author: Paulino Garcia DO Health Status Allergies: Allergic Reactions (Selected) Severity Not Documented Sulfa drugs- Bad headache. Review / Management Results review: Lab results 01/18/2022 7:24 EDT ABO/Rh Interp A POS ABSC Gel Interp Negative . Impression and Plan Diagnosis Pre-op dx-lt knee oa/pain Post-op dx-same Procedure-lt tka Frefwnffqo-ntl-kqroz EBL-0 TT-0 To Recovery Room in stable and satisfactory condition.. [facility] Comment on above: Result Comment: Elec tronically Signed By: Paulino Garcia DO\.br\Date and Time Signed: 01/18/22 11:13 EDT Outpatient Surgery Discharge Instructionon 01-18-2022 Outpatient Surgery Discharge Instruction [address] [address] Patient Discharge Instructions PERSON INFORMATION Name: OSIRIS NGO Date of : 1950 Current Date: 01/18/2022 11:24:18 PHYSICIANS Admitting Physician: Paulino Garcia DO Discharge Diagnosis: Localized osteoarthritis of left knee OSIRIS NGO has been given the following list of follow-up instructions, prescriptions, and patient education materials: PATIENT FOLLOW-UP INFORMATION Diet: Regular, Drink liquids and eat a light meal Discharge Activity: Ambulate as tolerated, Arrange for a responsible adult supervision for 24 hours, Expect mild pain, Expect minimal amount of drainage and/or bleeding, Do not lift more than 5 lbs Discharge Restrictions: No driving, Do not operate machinery or tools, Do not make important decisions for 24 hours, Do not drink alcoholic beverages for 24 hours Call Your Doctor For: Persistent or heavy bleeding, Temperature above 101.5 degrees, Redness, swelling, or pus at operative site, Severe pain at the operative site, Persistent vomiting Wound Care Instructions: Remove dressing as instructed Remove Your Dressing In 10 Days IF UNABLE TO CONTACT YOUR PHYSICIAN AND YOU FEEL IT IS AN EMERGENCY, GO TO THE NEAREST EMERGENCY ROOM OR CALL 911 HUBER Danielson JANE, have received the attached patient education materials/instructions and have verbalized understanding: May we do a follow up call? Yes No I was present when discharge instructions were given Patient Signature Date Clinican/Nurse Signature _ Date Follow up: With: Address: When: Paulino Garcia [address] [place], [place] [id number] Business (1) Comments: Keep scheduled appointment Pharmacy Information: You may receive a survey from [facility] asking you to rate your care experience. Your feedback is important and will help us understand what we do well and how we can improve the quality of care we provide to you, your loved ones and our community. It?s an honor to serve you. Thank you for choosing [facility] HERE ARE THE MEDICATION CHANGES THAT OCCURRED DURING YOUR HOSPITAL STAY Medications to Continue with No Changes Printed Prescriptions aspirin (aspirin 325 mg Tab) 1 Tablets By Mouth every day for 30 Days. Refills: 0. cephalexin (Keflex 500 mg Cap) 1 Capsules By Mouth 4 times a day for 5 Days. Refills: 0. Other Medications acetaminophen-diphenhyd rAMINE (Tylenol Extra Strength PM oral tablet) 1 Tablets By Mouth once a day (at bedtime) as needed as needed for sleep. acetaminophen-oxycodone (Percocet 325 mg-5 mg Tab) 2 Tablets By Mouth every 4 hours as needed Pain 4-7. acetaminophen-oxycodone (Percocet 325 mg-5 mg Tab) 1 Tablets By Mouth every 4 hours as needed Pain 4-7. alendronate (alendronate 70 mg Tab) 1 Tablets By Mouth every week., bones amlodipine (amLODIPine 5 mg Tab) 1 Tablets By Mouth every day. ascorbic acid (Vitamin C 1000 mg oral tablet) 1 Tablets By Mouth every day. calcium-vitamin D (calcium-vitamin D 200 mg-250 intl units oral tablet) 1 Tablets By Mouth every day. cyanocobalamin (Vitamin B-12 1000 mcg oral tablet) 1 Tablets By Mouth every day. docusate (Colace 100 mg Cap) 1 Capsules By Mouth 2 times a day. multivitamin with minerals (Celebrate Multivitamin oral capsule) 1 tab By Mouth every day. omega-3 polyunsaturated fatty acids (Fish Oil 1000 mg oral capsule) 1 Capsules By Mouth every day. pyridoxine (Vitamin B6 100 mg Tab) 1 Tablets By Mouth every day. rosuvastatin (rosuvastatin 20 mg Tab) 1 Tablets By Mouth every day. vitamin E (Vitamin E 400 unit(s) Cap) 1 Capsules By Mouth every day. PATIENT EDUCATION INFORMATION Instructions: [place], [place] [facility] DISCHARGE INSTRUCTIONS TOTAL KNEE ARTHROPLASTY INCISION CARE: Mepilex dressing can get wet with showers. Please remove 10 days after surgery per instruction sheet. If mitesh present, please coordinate removal 21 days after surgery with office staff. Please notify the office if any increase in redness, tenderness, drainage, fever, or wound separation is noted beyond this point. Compression stockings may be helpful if any significant or uncomfortable swelling in the legs is noted postoperatively. Use and removal instructions should be given by physical therapy. If the swelling is below the knee, knee high compression stockings may suffice. If this does cause swelling into the thigh region, waist high compression stockings may be radha (more content not included)... Normal [facility] Patient Education - Texton 0 01-18-2022 Patient Education - Text [place], [place] [facility] DISCHARGE INSTRUCTIONS TOTAL KNEE ARTHROPLASTY INCISION CARE: Mepilex dressing can get wet with showers. Please remove 10 days after surgery per instruction sheet. If mitesh present, please coordinate removal 21 days after surgery with office staff. Please notify the office if any increase in redness, tenderness, drainage, fever, or wound separation is noted beyond this point. Compression stockings may be helpful if any significant or uncomfortable swelling in the legs is noted postoperatively. Use and removal instructions should be given by physical therapy. If the swelling is below the knee, knee high compression stockings may suffice. If this does cause swelling into the thigh region, waist high compression stockings may be beneficial as well. These can be obtained from most pharmacies, or can be obtained from the hospital or through Home Health. The mild grade compression stockings are best used initially. MEDICATIONS: You may resume your home medications at the time of discharge. Aspirin 325 mg EC oral once a day for 4 weeks for blood clot prevention with meals. Please notify your doctor if you have a stomach sensitivity to Aspirin or history of previous stomach ulcers. Pain medication has been prescribed as well. You may continue to use the pain medication every four hours as needed. Any narcotic pain medication can cause side effects including stomach upset, constipation, or light-headedness. You should not drive or operate machinery, or use alcohol while using the narcotic pain medication. You should not use other pain medications with this prescription pain medication unless further directed by your physician. PHYSICAL THERAPY: Continue the range of motion and strengthening exercises initiated in Physical Therapy in the hospital. [facility] Discharge Instructs for TKA Page 2 Physical Therapy Cont. Continue weight bearing, as ordered, to the operated knee for four to six weeks as directed in Physical Therapy, or until your strength is improved and Physical Therapy will then allow you to progress to full weight. This will be with the use of a walker or crutches initially. After four or six weeks you may then progress to the use of one crutch, or a cane. A quad-cane is preferred as this is more stable. Physical therapy as begun in the hospital will continue at home, possible with the fire control assistant of Home Health Physical Therapy or in the hospital as an outpatient. When you have become independent with the physical therapy program, this will then be discontinued as a supervised program and you will be instructed to continue the physical therapy exercises at home. Your exercises are bernardo to successful rehabilitation. You should gain full extension first, hopefully before hospital discharge, then continue to do the exercises to maintain this, and gain 90 degrees flexion by one month post-op. Do the exercises daily, twice if preferred. DRIVING: Please do not drive for 4-6 weeks pending therapy progress. 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 It is therefore advised not to drive until after your first office visit following surgery FOLLOW-UP OFFICE VISIT: Paulino Garcia, DO [facility] [address] [place] [address] Reviewed: 11-06 [facility] Progress Note-Physicianon Progress Note-Physician Patient: OSIRIS NGO Age: 71 years Sex: Female : 1950 Associated Diagnoses: None Author: Vinny Elizabeth MD Preoperative Information Anesthesia history: Patient History: No personal or Family history of problems with anesthesia. Re-eval prior to induction: Inital eval reviewed: No significant interval change. Review of Systems Constitutional: Negative. Cardiovascular: Cardiovascular risk stratafacation reviewed, 1 FOS without difficulty, No chest pain. Respiratory: No SOB. Hematology/Lymphatics: Negative. Gastrointestinal: Negative. Musculoskeletal: OTHER. Neurologic: Negative. Psychiatric: Negative. Health Status Allergies: Allergic Reactions (Selected) Severity Not Documented Sulfa drugs- Bad headache. Current medications: (Selected) Inpatient Medications Ordered Arixtra 2.5 mg/0.5 mL Injection: 2.5 mg = 0.5 mL, Injection, SubCutaneous, qAM for 10 day(s), Stop date 01/29/22 6:29:00 EDT, Routine, Start date 01/19/22 6:30:00 EDT, Start AM postop day 1 Colace 100 mg Cap: 100 mg = 1 cap(s), Cap, Oral, BID, Routine, Start date 01/18/22 21:00:00 EDT, 01/18/22 10:00:00 EDT Dulcolax 5 mg Tab-EC: 10 mg = 2 tab(s), Tab-EC, Oral, Daily PRN Constipation, Routine, Start date 01/20/22 10:00:00 EDT, 01/20/22 10:00:00 EDT HYDROmorphone 1 mg/mL injectable solution: 0.2 mg = 0.2 mL, Injection, IV Push, q2min PRN Pain for 10 dose(s), Stop date Limited # of times, Routine, Start date 01/18/22 11:49:00 EDT, 01/18/22 11:49:00 EDT HYDROmorphone 1 mg/mL injectable solution: 0.4 mg = 0.4 mL, Injection, IV Push, q4min PRN Pain for 5 dose(s), Stop date Limited # of times, Routine, Start date 01/18/22 11:49:00 EDT, 01/18/22 11:49:00 EDT HYDROmorphone 1 mg/mL injectable solution: 1 mg = 1 mL, Injection, IV Push, q2hr PRN Pain 8-10 for 5 day(s), Stop date 01/23/22 9:59:00 EDT, Routine, Start date 01/18/22 10:00:00 EDT, 01/18/22 10:00:00 EDT Lactated Ringers IV Cate 1000 mL 1,000 mL: 1,000 mL, IV, 100 mL/hr, Routine, Start date 01/18/22 11:49:00 EDT, 10 hour(s), Total volume (mL): 1,000, 81.5 kg, 1.9, m2 Lactated Ringers IV Cate 1000 mL 1,000 mL: 1,000 mL, IV, 150 mL/hr, Routine, Start date 01/18/22 7:00:00 EDT, 6.7 hour(s), Total volume (mL): 1,000, 81.5 kg, 1.9, m2 Lactated Ringers IV Cate 1000 mL 1,000 mL: 1,000 mL, IV, 80 mL/hr, Routine, Start date 01/18/22 10:00:00 EDT, 12.5 hour(s), Total volume (mL): 1,000, 81.5 kg, 1.9, m2 Milk of Magnesia 8% Susp-Oral: 30 mL, Susp-Oral, Oral, BID PRN Constipation, Routine, Start date 01/18/22 10:00:00 EDT Pantoprazole [address] Tab: 40 mg = 1 tab(s), Tab-DR, Oral, Daily, Routine, Start date 01/19/22 9:00:00 EDT, 01/18/22 10:00:00 EDT Percocet 325 mg-5 mg Tab: 1 tab(s), Tab, Oral, q4hr PRN Pain 4-7 for 5 day(s), Stop date 01/23/22 9:59:00 EDT, Routine, Start date 01/18/22 10:00:00 EDT Percocet 325 mg-5 mg Tab: 2 tab(s), Tab, Oral, q4hr PRN Pain 4-7 for 5 day(s), Stop date 01/23/22 9:59:00 EDT, Routine, Start date 01/18/22 10:00:00 EDT Phenergan 25 mg/mL Injection: 12.5 mg = 0.5 mL, Injection, IV Push, q2min PRN Other (see comment) for 2 dose(s), Stop date Limited # of times, Routine, Start date 01/18/22 11:49:00 EDT, 01/18/22 11:49:00 EDT Zofran 4 mg/2 mL Injection: 4 mg = 2 mL, Injection, IV Push, q6hr PRN Nausea/Vomiting, Routine, Start date 01/18/22 10:00:00 EDT, 01/18/22 10:00:00 EDT amLODIPine 5 mg Tab: 5 mg = 1 tab(s), Tab, Oral, Daily, Routine, Start date 01/19/22 9:00:00 EDT atorvastatin 40 mg Tab: 80 mg = 2 tab(s), Tab, Oral, Daily, Routine, Start date 01/19/22 9:00:00 EDT cefazolin additive + premix generic diluent 100 mL: 2 gram = 100 mL, IV Piggyback, q8hr for 2 dose(s), Stop date 01/19/22 9:59:00 EDT, Routine, Start date 01/18/22 18:00:00 EDT, 200 mL/hr, Infuse over 30 minute(s) morphine 2 mg/mL Inj: 2 mg = 1 mL, Injection, IV, q4hr PRN Pain 8-10 for 5 day(s), Stop date 01/23/22 9:59:00 EDT, Routine, Start date 01/18/22 10:00:00 EDT, 01/18/22 10:00:00 EDT tranexamic acid 100 mg/mL intravenous solution: 2,000 mg = 20 mL, Injection, Misc, Once, Stop date 01/18/22 9:00:00 EDT, Routine, Start date 01/18/22 9:00:00 EDT, To be given to the field for injection into the operative site during the procedure. Prescriptions Prescribed Keflex 500 mg Cap: 500 mg = 1 cap(s), Oral, QID, X 5 day(s), # 20 cap(s), Refills(s) 0 aspirin 325 mg Tab: 325 mg = 1 tab(s), Oral, Daily, X 30 day(s), # 30 tab(s), Refills(s) 0 Documented Medications Documented Celebrate Multivitamin oral capsule: 1 tab, Oral, Daily, Prophylaxis Colace 100 mg Cap: 100 mg = 1 cap(s), Oral, BID, Refills(s) 0 Fish Oil 1000 mg oral capsule: 1,000 mg = 1 cap(s), Oral, Daily, Prophylaxis Percocet 325 mg-5 mg Tab: 1 tab(s), Oral, q4hr Pain 4-7, Refill(s) 0 Percocet 325 mg-5 mg Tab: 2 tab(s), Oral, q4hr Pain 4-7, Refill(s) 0 Tylenol Extra Strength PM oral tablet: 1 tab(s), Oral, Once a day (at bedtime) as needed for sleep Vitamin B-12 1000 mcg oral tablet: 1,000 mcg = 1 tab(s), Oral, Daily (more content not included)... Normal [facility] Comment on above: Result Comment: Elec tronically Signed By: Vinny Elizabeth MD\.br\Date and Time Signed: 01/18/22 18:05 EDT Progress Note-Physician Patient: OSIRIS NGO Age: 71 years Sex: Female : 1950 Associated Diagnoses: None Author: Vinny Elizabeth MD Postoperative Information Post Operative Note: Post Anesthesia Care Unit. Anesthetic utilized: General. Health Status Allergies: Allergic Reactions (All) Severity Not Documented Sulfa drugs- Bad headache. Problem list: All Problems Hypertension / SNOMED CT 7911329786 / Confirmed Hypercholesteremia / SNOMED CT 11312173 / Confirmed Knee pain, left / SNOMED CT 1528070800 / Confirmed Resolved: Hypertension / SNOMED CT 0122495774 Resolved: H/O hypercholesterolemia / SNOMED CT 6265769495 Physical Examination Intake and Output adequate hydration Pain assessment: Self-reports no pain. General: Alert and oriented, No acute distress. HENT: Oral mucosa is moist, dentition unchanged. Respiratory: Respirations: Are within normal limits. Pattern: Regular. Cardiovascular: Normal rate. Neurologic: Alert, Oriented. Review / Management Lines and Tubes: Peripheral catheter. ECG interpretation: Within normal limits. Condition: Stable. Assessment Anesthetic outcome No anesthetic complications noted. Adequate pain relief. No Complaint of nausea and vomiting. Plan Transfer/ Discharge: Patient can be discharged from PACU when criteria met, Patient can be discharged from anesthesia care. Condition stable. Normal [facility] Comment on above: Result Comment: Elec tronically Signed By: Glenn STEVE, Vinny\.br\Date and Time Signed: 01/18/22 18:05 EDT XR Knee 1 or 2 Views Lefton 01-18-2022 XR Knee 1 or 2 Views Left Exam Date/Time: 01/18/2022 11:40 EDT Reason for Exam: Post-op evaluation;Other (please specify) Report IMPRESSION: POSTSURGICAL CHANGES OF LEFT TOTAL KNEE ARTHROPLASTY. EXAM: XR Knee 1 or 2 Views Left HISTORY: Postoperative evaluation total knee arthroplasty TECHNIQUE: Frontal and lateral views of the knee COMPARISON: Radiographs of the knee 12/02/2021 FINDINGS: Postsurgical changes of total knee arthroplasty including soft tissue emphysema. Alignment is anatomic. No periprosthetic abnormality. FINAL REPORT Dictated: 01/18/2022 4:58 pm Chivo Mahmood DO Signed (Electronic Signature): 01/18/2022 4:58 pm Signed by: Chivo Mahmood DO Transcribed by: WENDY Technologist: BRITT [facility] Consent for Procedure/Surger yon 01-14-2022 Consent for Procedure/Surgery [id number]#1.00C D:[address] [facility] Immunization Recordson 01-14 Immunization Records [id number]#1.00C D:[address] [facility] Outside Recordson 01-14-2022 Outside Records [id number]#1.00C D:[address] [facility] Coding Summary.on 01-07-2022 Coding Summary. CD:[id number] Gh0 bWw+PGhlYWQ+FV3AHFVfW42 slZHmlE7CE0kHDV1RTOGVBM ZFKS2AJY2gtDV7ORndU1Crx iAv CovxiLIoBY85WZo8GIZ6kCh pXUympY8sqSShJ4i6CgGdML 72dE75SUbpYNEyJvT7TdAty jsgbWFy N7tgGgJinPUuGxy+PHRhYmx lIHdpZHRoPScxMDAlJyBzdH lsUE3qRw4ePVOlEBIgmQmvd HNlOiBj o6rxPWGlMTfiVL5wgOzwZ1E itDX0ATKmg4w0Ev54eHD+PH RzUKE0jCzcVDagl014UqNda 5tgKYE9 qSLcRIacDMP4A85zc7I1IDO nCQGwRGV7vCG2aV7olJnunn eoU4FtdIMiGfS7WKJ7sPLxb G9epOxv eiuanG8cEmd+Q48YEY3ORSU BHD5MDqf1T6VpVojvgZG+PC 46PJWuGM35aFEveOFwg1oqf Uz5OwVo AHSrSMF8iXxrCMsdw2OzEVH hA71iaQTzt5A0LZAhiPebhC PeDqWtyUJ5yL4bQEwxhhkvc 2hvdzsn Xcbsq5embp21rR56Q26kUSs fEPToAUI6ZFImRPImgYhzqf 3ceO4tVf0+IZyyf3skf4qil Eh4IbEw FFGxsxOfsTusLYT3m6TlAm3 3D7LoeQiqk1EsQzq3xd94uU Dwu0H9pYG8SUjrWAVwrI9sI WxlZnQ6 YHKpJaYxyT68sPViLQkdJc0 ymDxanWlvXN2qZEFkzjgfXR AqiK0hVXVtlCJsuWlwRY6bW TBpbjtm u559LnEuMJJ4TKNloFWrF4V mtL3aFvQjYODuQTTgZ5KumB CvFJqoC773KNfzUgK8CYCfy wBjV8Bm AWTavEqoYmQ2p1F1Ne5Sr4Z ornhyAPZ8MHnkMZO6XnM3Bu UrLyJ8W2TdLxs3MURvgGxbA Q8mT4Dr MSBpbxtumpveaXP0DZXgGPN tgX42oJJzYSpqYt5cq0Z7n6 53JCGpZEQswF26Qz3wqAuiC TBwdCBU vJ7npsfrd8lpnpqcJsKqIJW zBYw6FKd3JJQkoOgwVgCmLU T9YyG4SQQ7oZIqlE4jrIvbe tignE4i Oyc+H42fjC2yKDR8UAR6wzk jYSAzvqUvCV47XI95E2GoVx wvdGFibGU+PGRpdiBzdHlsZ V0vXsZf f1hpg5LgAJweQ7AjOPEfPJu sBfx0SPDfERL5vLQ9lO6tEI WaGNyzr0F6bVW8R6GuhcZoo o4rf2ti IKYpRYtmB71erRQxz1Q7UAZ shAE3ACSviUvkCuZvpM06Cs c+XXOjkCojg3PuWhtgx6vii 6hqvAw8 NnGxFULjbtDyxRdyWDE0j6O lIv72R00kORuuDJQgWNIrLT YqUVNqbCiaul8nqZ0wCz9+P GNvbCB3 oDX8eW7xFHWcBvM6FFmiR57 6MrSxvFMhKcnvc8rtk2wjxE z3FyDnBFCdkiCssPloFOX6b 7LwVt32 T49kZGfhMMLqHLFnJKKeTXR trScbws6mxG8zKz0+PC9jb2 hgbp05oC19rVH+DZRjFJW1k WxlPSdw JYTijI0fZVyrFxI8AHSpHmI elL38bZJzRBnfUj5ojWvshG jbJY5wCHLfekblm955AdNsb 2xkIDEw hWVoLPaoXIQ3T05pd2S3SXO yRKGvWVL0cSS7xM3yfUwcao ogbGVmdDsgdmVydGljYWwtY OsxG200 IHRvcDsnPlBhdGllbnQgTmF eFJq7M9OfYav3JZYasJxeYW 0ruZArMAquVx2fyUlovSawQ H7oKMBt alwct054KbLzr8jxXLValKO kVJmnYCV1X19fa8V4LXMbBX TvUTB9zPG8gO2tkJayjeisl GVmdDsg xiCnfPnsOOctGWykB067SNQ ofTsrLtPwnzAyJPColFU4VY 01ZI18sGNuj1N3uQS9T3RjC GRpbmct ilcohAZ0WXSpSLPbfU49Da1 fqPufEj4aNTIhXHH7CGGsgQ JkM9CfzL3wLlUpCIPeXKBqS 3RleHQt UGfjB222AYytLwJ5DITbrkA cW9PdGYVpkYkmKlK9a1Z3Fp 1VM3Y5WR42WZ55lWIhk7N6b BO4X7Ju GNFmdmivjcbzvSB5QUHhSPP sqK80Sr6mvNxbNo9lHECnQB P4ETXgjWHvP3FcqC8iPrIlN DAwMDAw I8GybGVbKMfuA749TFalTvQ 8PMJfbdZyY5WmKNVyyFqzMd C0l0E8Mn4RSNb2ZB88YA49m FTym9H5 lEA5U8EdAEBqtooaxlyeqZL 6BTChDDXrkZ55Pj4ltSkzCg 2sWOIzNHC2TLRdaQQpP4Xog X1tZbOe FFLiFDTnK8VilSTkEYleX01 7DCjkAsT2WSOymnYcK6CbKJ XrbTpmRnG0n4C8Hy8TXKQvK C05OLT4 gQG4UG74JA41G5SqNwqfkYV ibGU+PHRhYmxlIHdpZHRoPS ufUXBqYeCtiBpeZM9bSk4nK GVyLWNv qTragMIgRgQjv1jnWIHvVTy lSJ0sxBteS6ZwbPN6FRXpi0 r7Ya72D12bH3BnjRN+PGNvb OR4sUC0 nQ7gHeYmUnR8WSzjZ551PrK bbDFlJrord9cst0ynxEp7Ks J8FGOwvrLrcXfpOZP7s5KiO a28U70i IHdpZHRoPSIxNSUiIHZhbGl rxs5omS9bKz2+MPOykWQ4oW C0kR2wTjAzMtQ4IFtrT103I nRvcCIv Vizbp7laa5rpmBs8IjPmSXN uubSmsSsfOZF4o3RvGe47Y5 LbhBgqh7EyEbs1yn82dKGnj 2E1vZX1 R1TcBNYvlrzqhKTflRqrXP0 nNQNuziagGMSzyJ2mWNMwZ9 m8GrDfKqC2ZVkwO8WgzaL8S DEwcHQg KDgwOPS2E33qu1H6LRQqETC lLSL5gMH8wT5fyVmfilcuqQ VmdDsgdmVydGljYWwtYWxpZ 246IHRv uTuzGRMyaP2wOJHcnFXluJs jDZ2zFBRkeflmFnVCJ5cAWw FvBZlOWoD5D3HnEax9BEXaa TscBP5o gJUjOQbtSs7ohWjutQjaGK8 mLELekjffULKvmD3iKSCecS OikAapYE8eCDFsantvc547B iAxMHB0 AWGnwFKfZ0GriR2xQzHmSAA wXFNhL9RfaELfSXxxE891TG pxIlV7GGTlmgVdM0UsLPNkw WduOiB0 q2C0Ja7jKT7dTD1uXTSzSA1 2AR24tSTci0K1tYK8J8RbDX KecjbpclpwbXT0JMDvAXZey Z70rMOo ONjwId0zd6D3e496JYSiCXJ fnS46Et3qpGsfDVHxeOQEyZ 9yrejqx7optyrcXyEzZXYmB Fl8BFc9 TGNjdGlvRwLtEGT1OqD8UIG 8gHWhwH1umPexztiihR0mJc c+QbeqIKZuayG1L2DyLcr3R CBzdHls TY2huNQdAEzhOc5phVnjlRe hAW0lSRXpgpwxWYOtpT9oMS QkyMQkfLlhGL0dKXZdleums 250OiAx YHH2DFIavCSuH9WvzZ3rLjG nMYLzZRRtY7IsfDMtCGrtB4 08DHbqTsJ2XJJqgrRgA2VmO WFsaWdu XhE8l9K7Qc7WPZ1wbGT3H4Z jVfj9UAUxpIarZG3vuPGlYI hpDs1tfAadrRvxNZ9lGQLgo jtwYWRk xO1gYQUmpBTwiCduXZ8wKOI cwntvr243LiXlOSE1BCIxsW IwF0OdyE1cAgViCRTsYKInZ 3RleHQt ELyfT802JTdzZzG9PDJnrzR hN0GvATPchIqgJsU3t4W1Em 0LaNMnARKjYW07IO85YH05Z 3RyPjwv dGFibGU+PHRhYmxlIHdpZHR sTCbxCNXnOnVqxPfcZN0fDi 9yZGVyLWNvbGxhcHNlOiBjb 2xsYXBz UBbpPS2ssSdfX2YwrAP7WFA oo4n5Fy37X82pX0XviAM+PG JytDI2oCG0fJ3eLgKzJpP5K MblY129 VlQcsZBaCtvhu5kzk5dlsHs 5FyBeYVZzwiIzuOwnVEW6a0 BmQz33B56oCXpuSFSbFESbQ CUiIHZh uEunno1tjL0sSr6+PGNvbCB 5fHY6dH6bWmKfKgO9BHdwM7 25EvSohELoHqfiU61aN5Sxo XA+PHRy Gll3XEBhkSbpTB6phCGlUSk lNb7dHYZ3WfDsOsIwTWpuV8 AnOEKrejxdfyjvtFE7VIKmL DUwaW47 Oo4pqOswWl5mXCEoTSC8NQR raWSdW7ZktI0yRsYeKFUeYA PxU7SwzJMyZEzmX062XQabX jQ4FDAc czRsN0EeQRGynTsuOyN8k9G 6Pb6WaTcniENkQB1fYdIuEH q4S8SkBot8NJAbsEppCZ7sm GFkZGlu Pr8igIbtjFpqGY5sAMNfhha sc673SlYcp7zkENAxdYFgPT aeUQI5Z15ue6J5DGIpUMVuE MA6sAR4 fV7snFhhknjlwUAeaBxemuS lgQloMRbwTZtfW002LAKhtU fxGnNUDxy9Z8BhLjh7CIDuk TceJX9w oLDiRCzgCw7bsGogiOeoVE2 sIQHubqfse037QmQwm4woKX TnyVFlEHzfSRL4A80lr3U6O CMwMDAw ZNY3gSC5hD5vfUrenjahbBF mdDsgdmVydGljYWwtYWxpZ2 68QIOioNnbYm7IJdf3N9LxC ae1FQZu xGffVP1lnOHzRRgbXf9xnDg nnPysYW7cNYHdjjphd865Aw Xoo2jfIQVgsLVuRQyyZBC8I 60sl7N9 YDCfLKLyBXK1wRY4kR8enHx nbjogbGVmdDsgdmVydGljYW ipMKnpR565LBIxdTssTsQgy WVyOjwv dGQ+EN81nz83Q3OjAuzbDtr 4SCIwYBI1wYV3tD6yZOPzLT lfa2G4kYW8G7BbxlDhxq7zc 2xsYXBz ZTog (more content not included)... Normal [facility] Immunization Recordson 12-31 Immunization Records [id number]#1.00 CD:[address] [facility] ABO/Rh Retypeon 12-30-2021 ABO/Rh Retype Interp Positive Invalid Interpretation Code [facility] Comment on above: Performed By: #### 1 [id number] ####[facility] [address] [place] [address] BLOOD BANKOrdered By: Chelsi Quiors on 12-30-2021 ABO/Rh Retype Interp Positive Invalid Interpretation Code [facility] BB Subsection BUNon 12-30-2021 Urea nitrogen [Mass/Vol] 22 mg/dL High 5-21 [facility] Comment on above: Performed By: #### 2 382236, 2817325, 1146740, 6312549, 60358110, 9662102 ####[facility] [address] [place] [address] CBC w/Indiceson 12-30-2021 Erythrocyte distribution width (RBC) [Ratio] 13.4 % Normal 10.9-14.2 [facility] Comment on above: Performed By: #### 2 236582, 2603861, 0036338, 1915675, 13691624, 3758620 ####[facility] [address] [place] [address] Hematocrit (Bld) [Volume fraction] 41.9 % Normal 34.0-46.0 [facility] Comment on above: Performed By: #### 2 694206, 0625887, 5239498, 3997281, 63194865, 3606786 ####[facility] [address] [place] [address] Hemoglobin (Bld) [Mass/Vol] 14.3 g/dL Normal 12.0-16.0 [facility] Comment on above: Performed By: #### 2 601279, 9516326, 0458051, 9826327, 95805900, 3630282 ####[place] [id number] MCH (RBC) [Entitic mass] 28.7 pg Normal 27.0-34.0 [facility] Comment on above: Performed By: #### 2 444003, 4681221, 2176551, 9634412, 51578919, 2440045 ####[place] [address] MCHC (RBC) [Mass/Vol] 34.1 g/dL Normal 31.4-36.0 [facility] Comment on above: Performed By: #### 2 673962, 4503473, 0254070, 8339852, 11895353, 7268592 ####[place] [address] MCV (RBC) [Entitic vol] 84.4 fL Normal 80.0-100.0 [facility] Comment on above: Performed By: #### 2 315685, 9032348, 5560194, 0132142, 37318248, 2629637 ####[address] [address] Platelet mean volume (Bld) [Entitic vol] 8.7 fL Normal 6.4-10.8 [facility] Comment on above: Performed By: #### 2 674509, 1646171, 7307741, 2864264, 51073415, 8859151 ####[place] [address] Platelets (Bld) [#/Vol] 233.0 E9/L Normal 150.0-500.0 [facility] Comment on above: Performed By: #### 2 440892, 9964891, 1405805, 6513448, 47281636, 4692434 ####[address] [address] RBC (Bld) [#/Vol] 5.0 E12/L Normal 4.3-5.9 [facility] Comment on above: Performed By: #### 2 502396, 1944856, 6000877, 2110633, 97417042, 8904688 ####[facility] [address] [place] [address] WBC corrected for nucl RBC Auto (Bld) [#/Vol] 6.1 E9/L Normal 4.0-11.0 [facility] Comment on above: Performed By: #### 2 866600, 7566437, 7327040, 8719419, 29330758, 3409631 ####[facility] [address] [place] [address] CHEMISTRYOrdered By: SYSTEM SYSTEM on 12-30-2021 Anion gap [Moles/Vol] 13 mmol/L Normal 6 - 16 mEq/L [facility] Chloride [Moles/Vol] 104 mmol/L Normal 101 - 1 11 mmol/L [facility] CO2 [Moles/Vol] 25 mmol/L Normal 21 - 31 mmol/L [facility] Creatinine [Mass/Vol] 0.8 mg/dL Normal 0.5 - 1.3 mg/dL [facility] Remisol GFR/1.73 sq M.predicted among blacks MDRD (S/P/Bld) [Vol rate/Area] mL/min/1.73 m2 Normal >=59mL/min/1 .73 m2 [facility] Chem S GFR/1.73 sq M.predicted among non-blacks MDRD (S/P/Bld) [Vol rate/Area] mL/min/1.73 m2 Normal >=59mL/min/1 .73 m2 [facility] Chem S Glucose [Mass/Vol] 97 mg/dL Normal 55 - 199 mg/dL [facility] Potassium [Moles/Vol] 4.0 mmol/L Normal 3.5 - 5.3 mmol/L [facility] Sodium [Moles/Vol] 138 mmol/L Normal 135 - 145 mmol/L [facility] Urea nitrogen [Mass/Vol] 22 mg/dL High 5 - 21 mg/dL [facility] Consent for Treatmenton 06 Consent for Treatment [id number]#1.00C D:[address] [facility] Creatinineon 12-30-2021 Creatinine [Mass/Vol] 0.8 mg/dL Normal 0.5-1.3 [facility] Comment on above: Performed By: #### 2 846251, 3746058, 1449708, 1373820, 86187768, 4741190 ####[facility] [address] [place] [address] Glucoseon 12-30-2021 Glucose [Mass/Vol] 97 mg/dL Normal 55-199 [facility] Comment on above: Performed By: #### 2 342185, 6179255, 8171102, 2507595, 90630480, 3767467 #### [facility] [address] [place] [address] HEMATOLOGYOrdered By: Yolanda Mckeon on 12-30-2021 Erythrocyte distribution width (RBC) [Ratio] 13.4 % Normal 10.9 - 14.2 % [facility] HemeAutoSS Hematocrit (Bld) [Volume fraction] 41.9 % Normal 34.0 - 46.0 % [facility] Hemoglobin (Bld) [Mass/Vol] 14.3 g/dL Normal 12.0 - 16.0 gm/dL [facility] MCH (RBC) [Entitic mass] 28.7 pg Normal 27.0 - 34.0 pg FT [facility] MCHC (RBC) [Mass/Vol] 34.1 g/dL Normal 31.4 - 36.0 gm/dL [facility] MCV (RBC) [Entitic vol] 84.4 fL Normal 80.0 - 100.0 fL [facility] Platelet mean volume (Bld) [Entitic vol] 8.7 fL Normal 6.4 - 10.8 fL [facility] Platelets (Bld) [#/Vol] 233.0 E9/L Normal 150.0 - 500.0 E9/L [facility]eAutoSS RBC (Bld) [#/Vol] 5.0 E12/L Normal 4.3 - 5.9 E12/L [facility] HemeAutoSS WBC corrected for nucl RBC Auto (Bld) [#/Vol] 6.1 E9/L Normal 4.0 - 11.0 E9/L [facility] HemeAutoSS Lyteson 12-30-2021 Anion gap [Moles/Vol] 13 mmol/L Normal 6-16 [facility] Comment on above: Performed By: #### 2 782046, 8083047, 5554224, 7524436, 87336291, 8171672 ####[facility] [address] [place] [address] Chloride [Moles/Vol] 104 mmol/L Normal 101-111 [facility] Comment on above: Performed By: #### 2 860559, 5082419, 4662050, 1921593, 92831272, 4891481 ####[facility] [address] [place] [address] CO2 [Moles/Vol] 25 mmol/L Normal 21-31 [facility] Comment on above: Performed By: #### 2 902167, 6552187, 3320378, 4285590, 45112368, 7418015 ####[facility] [address] [place] [address] Potassium [Moles/Vol] 4.0 mmol/L Normal 3.5-5.3 [facility] Comment on above: Performed By: #### 2 014599, 4343007, 3566719, 6863900, 98264963, 9192146 ####[facility] [address] [place] [address] Sodium [Moles/Vol] 138 mmol/L Normal 135-145 [facility] Comment on above: Performed By: #### 2 219271, 3214762, 3439913, 6321123, 06655993, 5992278 ####[facility] [address] [place] [address] UA With Cult Reflexon 2021 Bilirubin Ql (U) Negative Normal Negative [facility] Comment on above: Performed By: #### 1 [id number] #### [facility] [address] [place] [address] Clarity (U) CLOUDY Abnormal Clear [facility] Comment on above: Performed By: #### 1 6430760 #### [facility] [address] [place] [address] Color (U) YELLOW Normal Yellow [facility] Comment on above: Performed By: #### 1 5072069 #### [facility] [address] [place] [address] Crystals LM Ql (Urine sed) Present Normal [facility] Comment on above: Performed By: #### 1 6048767 #### [facility] [address] [place] [address] Epithelial cells.squamous LM.HPF (Urine sed) [#/Area] 0-2 Normal 0-2 [facility] Comment on above: Performed By: #### 1 1386491 #### [facility] [address] [place] [address] Glucose Test strip (U) [Mass/Vol] Negative Normal Negative [facility] Comment on above: Performed By: #### 1 [id number] #### [facility] [address] [place] [address] Hemoglobin Ql (U) TRACE Abnormal Negative [facility] Comment on above: Performed By: #### 1 6048691 #### [facility] [address] [place] [address] Ketones (U) [Mass/Vol] Negative Normal Negative [facility] Comment on above: Performed By: #### 1 8292235 #### [facility] [address] [place] [address] [place].plasma/[place] um.RBC (Bld) [Mass ratio] 0-3 Normal 0-3 [facility] Comment on above: Performed By: #### 1 [id number] #### [facility] [address] [place] [address] Nitrite Ql (U) Negative Normal Negative [facility] Comment on above: Performed By: #### 1 2262406 #### [facility] [address] [place] [address] pH (U) 7.5 [pH] Invalid Interpretation Code 5.0-9.0 [facility] Comment on above: Performed By: #### 1 6532535 #### [facility] [address] [place] [address]376 Protein (U) [Mass/Vol] Negative Normal Negative [facility] Comment on above: Performed By: #### 1 [id number] #### [facility] [address] [place] [address] 15256 Specific gravity (U) [Rel density] 1.010 Invalid Interpretation Code 1.005-1.030 [facility] Comment on above: Performed By: #### 1 [id number] #### [facility] [address] [place] [address] 69150 Type of Urine collection method Clean Catch Normal [facility] Comment on above: Performed By: #### 1 [id number] #### [facility] [address] [place] [address] 55888 Urobilinogen Qn (U) 0.2 {Emily'U}/dL Normal 0.0-1.0 [facility] Comment on above: Performed By: #### 1 [id number] #### [facility] [address] [place] [address] 47817 WBC Auto Ql (U) Negative Normal Negative [facility] Comment on above: Performed By: #### 1 [id number] #### [facility] [address] [place] [address] 23916 WBC LM.HPF (Urine sed) [#/Area] 0-5 Normal 0-5 [facility] Comment on above: Performed By: #### 1 [id number] #### [facility] [address] [place] [address] 11275 URINALYSISOrdered By: Elida Thomas on 12-30-2021 Bilirubin Ql (U) Negative (12/30/21 10:06 AM) Normal Negative [facility] UA Auto SS Clarity (U) Cloudy *ABN* (12/30/21 10:06 AM) Invalid Interpretation Code Clear [facility] UA Auto SS Color (U) Yellow (12/30/21 10:06 AM) Normal Yellow [facility] UA Auto SS Crystals LM Ql (Urine sed) Present (12/30/21 10:06 AM) Normal [facility] UA Auto SS Epithelial cells.squamous LM.HPF (Urine sed) [#/Area] 0-2 /HPF Normal 0-2/HPF [facility] UA Auto SS Glucose Test strip (U) [Mass/Vol] Negative (12/30/21 10:06 AM) Normal Negative [facility] UA Auto SS Hemoglobin Ql (U) Trace *ABN* (12/30/21 10:06 AM) Invalid Interpretation Code Negative [facility] UA Auto SS Ketones (U) [Mass/Vol] Negative (12/30/21 10:06 AM) Normal Negative [facility] UA Auto SS [place].plasma/Lithi um.RBC (Bld) [Mass ratio] 0-3 /HPF Normal 0-3/HPF [facility] UA Auto SS Nitrite Ql (U) Negative (12/30/21 10:06 AM) Normal Negative [facility] UA Auto SS pH (U) 7.5 *NA* (12/30/21 10:06 AM) Invalid Interpretation Code 5.0 - 9.0 [facility] UA Auto SS Protein (U) [Mass/Vol] Negative (12/30/21 10:06 AM) Normal Negative [facility] UA Auto SS Specific gravity (U) [Rel density] 1.010 *NA* (12/30/21 10:06 AM) Invalid Interpretation Code 1.005 - 1.030 [facility] Auto SS UA Spec Desc Clean Catch (12/30/21 10:06 AM) Normal [facility] UA Auto SS Urobilinogen Qn (U) 0.5711969 {Emily'U}/dL Normal 0.0 - 1.0 EU/dL [facility] UA Auto SS WBC Auto Ql (U) Negative (12/30/21 10:06 AM) Normal Negative [facility] UA Auto SS WBC LM.HPF (Urine sed) [#/Area] 0-5 /HPF Normal 0-5/HPF [facility] UA Auto SS XR Chest 2 Viewson 2 XR Chest 2 Views Exam Date/Time: 12/30/2021 10:31 EDT Reason for Exam: PRE OP Report IMPRESSION: NO ACTIVE LUNG DISEASE. EXAM: XR Chest 2 Views CLINICAL HISTORY: Shortness of breath PRE OP COMPARISONS: None FINDINGS: There are no previous films for comparison. Pelvis shadows are unremarkable limits of normal likely reflecting normal bronchovascular shadows. No fresh infiltrate. No overt pulmonary edema. Heart size normal. Bones intact. FINAL REPORT Dictated: 12/30/2021 11:30 am Luis Solis MD Signed (Electronic Signature): 12/30/2021 11:30 am Signed by: Lius Solis MD Transcribed by: WENDY Technologist: MATTI Ruby [facility] eGFRon 12-30-2021 GFR/1.73 sq M.predicted among blacks MDRD (S/P/Bld) [Vol rate/Area] mL/min/{1.73_m2} Normal >=59 [facility] Comment on above: Order Comment: Order added by Discern Expert. Result Comment: eGFR is race adjusted. AA=. Performed By: #### 2 [id number], [id number] ####[facility] [id number] [place] [address] GFR/1.73 sq M.predicted among non-blacks MDRD (S/P/Bld) [Vol rate/Area] mL/min/{1.73_m2} Normal >=59 [facility] Comment on above: Order Comment: Order added by Discern Expert. Result Comment: Clinical Analyst casa kidney disease could be indicated at eGFR's of less than 60 mL/min/1.73m2. Kidney failure is indicated at less than 15 mL/min/1.73m2. Performed By: #### 2 [id number], [id number] ####[facility] [address] [place] [address] Physician Orderon 12-02-2021 Physician Order [id number] CD:[address] [facility] MG MAMM SCREEN 3D REINA CADon 11-16-2021 MG MAMM SCREEN 3D REINA CAD Patient: OSIRIS [employer] Exam Date: 11/16/2021 : 1950 Gender:F Ordering : DR PERLA RAMSAY Admission #: [id number] Family : Order #: [id number] CLICK HERE TO VIEW EXAM RADIOLOGY REPORT PROCEDURE: MAMMOGRAM SCREENING 3D BILATERAL CAD COMPARISON: MG MAMM SCREEN 3D REINA CAD, 11/13/2020. MG MAMM SCREEN REINA W CAD, 09/26/2019. INDICATIONS: Screening mammography Calculator Name NCI Breast Cancer Risk Assessment Tool 5 Year Breast Cancer Risk Not Reported. Lifetime Breast Cancer Risk Not Reported. Personal Breast Cancer No Personal Ovarian Cancer No Treatments None Family Cancers None LOCATION: [facility] BREAST COMPOSITION: Extremely dense, which lowers the sensitivity of mammography. FINDINGS: DIAGNOSTIC CATEGORY 1--NEGATIVE. RIGHT BREAST: No significant suspicious finding. No significant change has occurred. LEFT BREAST: No significant suspicious finding. No significant change has occurred. RECOMMENDATIONS: ROUTINE MAMMOGRAM AND CLINICAL EVALUATION IN 12 MONTHS. PLEASE NOTE: A NORMAL MAMMOGRAM DOES NOT EXCLUDE THE POSSIBILITY OF BREAST CANCER. A CLINICALLY SUSPICIOUS PALPABLE LUMP SHOULD BE BIOPSIED. Dictated by: Jaron Gallardo M.D. on 11/16/2021 at 10:13 Approved by: Jaron Gallardo M.D. on 11/16/2021 at 10:16 Normal [facility] Vital Signs Date Time Vital Sign Value Performing Clinician Facility 10-29-2024 09:02-0400 Body height 163.8 cm Perla RAMSAY Work Phone: [facility] 10-29-2024 09:02-0400 Body mass index (BMI) [Ratio] 32.99 kg/m2 Perla RAMSAY Work Phone: [facility] 10-29-2024 09:02-0400 Body weight 88.54 kg Perla RAMSAY Work Phone: [facility] 10-29-2024 09:02-0400 Diastolic blood pressure 78 mm[Hg] Perla RAMSAY Work Phone: [facility] 10-29-2024 09:02-0400 Heart rate 63 /min Perla RAMSAY Work Phone: [facility] 10-29-2024 09:02-0400 Respiratory rate 16 /min Perla Hemmer PA Work Phone: [facility] 10-29-2024 09:02-0400 SaO2% (BldA) [Mass fraction] 99 % Perla Hemmer PA Work Phone: [facility] 10-29-2024 09:02-0400 Systolic blood pressure 136 mm[Hg] Perla Hemmer PA Work Phone: [facility] 08-15-2024 08:54-0500 Body height 163.8 cm Paulino Garcia DO Work Phone: [facility] 08-15-2024 08:54-0500 Body mass index (BMI) [Ratio] 32.95 kg/m2 Paulino Garcia DO Work Phone: [facility] 08-15-2024 08:54-0500 Body weight 88.45 kg Paulino Garcia DO Work Phone: [facility] 05-14-2024 09:32-0400 Body height 163.8 cm Perla Hemmer PA Work Phone: [facility] 05-14-2024 09:32-0400 Body mass index (BMI) [Ratio] 33.02 kg/m2 Perla Hemmer PA Work Phone: [facility] 05-14-2024 09:32-0400 Body weight 88.63 kg Perla Hemmer PA Work Phone: [facility] 05-14-2024 09:32-0400 Diastolic blood pressure 70 mm[Hg] Perla Hemmer PA Work Phone: [facility] 05-14-2024 09:32-0400 Heart rate 69 /min Perla Hemmer PA Work Phone: [facility] 05-14-2024 09:32-0400 Respiratory rate 16 /min Perla Hemmer PA Work Phone: [facility] 05-14-2024 09:32-0400 SaO2% (BldA) [Mass fraction] 96 % Perla Hemmer PA Work Phone: [facility] 05-14-2024 09:32-0400 Systolic blood pressure 128 mm[Hg] Perla Hemmer PA Work Phone: [facility] 04-30-2024 09:10-0400 Body height 163.8 cm Perla Hemmer PA Work Phone: [facility] 04-30-2024 09:10-0400 Body mass index (BMI) [Ratio] 32.82 kg/m2 Perla Hemmer PA Work Phone: [facility] 04-30-2024 09:10-0400 Body weight 88.09 kg Perla Hemmer PA Work Phone: [facility] 04-30-2024 09:10-0400 Diastolic blood pressure 80 mm[Hg] Perla Hemmer PA Work Phone: [facility] 04-30-2024 09:10-0400 Heart rate 86 /min Perla Hemmer PA Work Phone: [facility] 04-30-2024 09:10-0400 Respiratory rate 16 /min Perla Hemmer PA Work Phone: [facility] 04-30-2024 09:10-0400 SaO2% (BldA) [Mass fraction] 96 % Perla Hemmer PA Work Phone: [facility] 04-30-2024 09:10-0400 Systolic blood pressure 132 mm[Hg] Perla Hemmer PA Work Phone: [facility] 08-02-2022 13:22-0500 Heart rate 87 /min Paulino Garcia [facility] 08-02-2022 13:22-0500 SaO2% (BldA) [Mass fraction] 98 % Paulino Garcia [facility] 08-02-2022 13:21-0500 Body temperature 98.06 [degF] Paulino Garcia [facility] 08-02-2022 13:21-0500 Diastolic blood pressure 79 mm[Hg] Paulino Garcia [facility] 08-02-2022 13:21-0500 Mean blood pressure 95 mm[Hg] Paulino Jose [facility] 08-02-2022 13:21-0500 Systolic blood pressure 125 mm[Hg] Paulino Jose [facility] 08-02-2022 13:21-0500 Respiratory rate 16 /min Paulino Jose [facility] 08-02-2022 10:55-0500 Blood Pressure Location Paulino Jose [facility] 08-02-2022 10:55-0500 Body temperature 97.16 [degF] Paulino Jose [facility] 08-02-2022 10:55-0500 Diastolic blood pressure 79 mm[Hg] Paulino Jose [facility] 08-02-2022 10:55-0500 Heart rate 83 /min Paulino Jose [facility] 08-02-2022 10:55-0500 Mean blood pressure 99 mm[Hg] Paulino Jose [facility] 08-02-2022 10:55-0500 Respiratory rate 16 /min Paulino Jose [facility] 08-02-2022 10:55-0500 SaO2% (BldA) [Mass fraction] 97 % Paulino Jose [facility] 08-02-2022 10:55-0500 Systolic blood pressure 138 mm[Hg] Paulino Garcia [facility] 08-02-2022 10:46-0500 Body temperature 97.7 [degF] Paulino Garcia [facility] 08-02-2022 10:46-0500 Diastolic blood pressure 62 mm[Hg] Paulino Garcia [facility] 08-02-2022 10:46-0500 Heart rate 80 /min Paulino Garcia [facility] 08-02-2022 10:46-0500 Mean blood pressure 86 mm[Hg] Paulino Garcia [facility] 08-02-2022 10:46-0500 Respiratory rate 11 /min Paulino Garcia [facility] 08-02-2022 10:46-0500 SaO2% (BldA) [Mass fraction] 99 % Paulino Garcia [facility] 08-02-2022 10:46-0500 Systolic blood pressure 134 mm[Hg] Paulino Garcia [facility] 08-02-2022 10:45-0500 Respiratory rate 13 /min Paulino Garcia [facility] 08-02-2022 10:40-0500 Mean blood pressure 86 mm[Hg] Paulino Garcia [facility] 08-02-2022 10:40-0500 Respiratory rate 12 /min Paulino Garcia [facility] 08-02-2022 09:59-0500 Blood Pressure Location Paulino Garcia [facility] 08-02-2022 09:59-0500 Body temperature 97.7 [degF] Paulino Garcia [facility] 08-02-2022 09:55-0500 Respiratory rate 10 /min Paulino Garcia [facility] 08-02-2022 06:29-0500 Mean blood pressure 87 mm[Hg] Paulino Garcia [facility] 08-02-2022 06:29-0500 Heart rate 84 /min Paulino Garcia [facility] 08-02-2022 06:27-0500 Mean blood pressure 97 mm[Hg] Paulino Jose [facility] 08-02-2022 06:27-0500 Body temperature 97.7 [degF] Paulino Garcia [facility] 01-18-2022 17:45-0400 Body temperature 96.98 [degF] Paulino Jose [facility] 01-18-2022 17:45-0400 Diastolic blood pressure 72 mm[Hg] Paulino Garcia [facility] 01-18-2022 17:45-0400 Heart rate 68 /min Paulino Garcia [facility] 01-18-2022 17:45-0400 Respiratory rate 16 /min Paulino Garcia [facility] 01-18-2022 17:45-0400 SaO2% (BldA) [Mass fraction] 99 % Paulino Garcia [facility] 01-18-2022 17:45-0400 Systolic blood pressure 110 mm[Hg] Paulino Garcia [facility] 01-18-2022 14:35-0400 Body temperature 96.98 [degF] Paulino Garcia [facility] 01-18-2022 14:35-0400 Diastolic blood pressure 60 mm[Hg] Paulino Garcia [facility] 01-18-2022 14:35-0400 Heart rate 68 /min Paulino Garcia [facility] 01-18-2022 14:35-0400 Respiratory rate 16 /min Paulino Garcia [facility] 01-18-2022 14:35-0400 SaO2% (BldA) [Mass fraction] 99 % Paulino Garcia [facility] 01-18-2022 14:35-0400 Systolic blood pressure 100 mm[Hg] Paulino Jose [facility] 01-18-2022 12:35-0400 Body temperature 96.98 [degF] Paulino Jose [facility] 01-18-2022 12:35-0400 Diastolic blood pressure 53 mm[Hg] Paulino Jose [facility] 01-18-2022 12:35-0400 Heart rate 53 /min Paulino Garcia [facility] 01-18-2022 12:35-0400 Respiratory rate 16 /min Paulino Garcia [facility] 01-18-2022 12:35-0400 SaO2% (BldA) [Mass fraction] 99 % Paulino Garcia [facility] 01-18-2022 12:35-0400 Systolic blood pressure 96 mm[Hg] Paulino Jose [facility] 01-18-2022 11:10-0400 Respiratory rate 12 /min Paulino Garcia [facility] 01-18-2022 11:05-0400 Respiratory rate 11 /min Paulino Jose [facility] 01-18-2022 07:09-0400 Blood Pressure Location Paulino Jose [facility] 01-18-2022 07:09-0400 Mean blood pressure 88 mm[Hg] Paulino Jose [facility] 01-18-2022 07:07-0400 Blood Pressure Location Paulino Jose [facility] 01-18-2022 07:07-0400 Body temperature 97.88 [degF] Paulino Jose [facility] 01-18-2022 07:07-0400 Mean blood pressure 92 mm[Hg] Paulino Jose [facility] 01-18-2022 07:07-0400 Heart rate 80 /min Paulino Jose [facility] 12-30-2021 09:29-0400 Blood Pressure Location Paluino Jose [facility] 12-30-2021 09:29-0400 BP/Pulse Patient Position Paulino Jose [facility] 12-30-2021 09:29-0400 Diastolic blood pressure 84 mm[Hg] Paulino Jose [facility] 12-30-2021 09:29-0400 Heart rate 99 /min Paulino Jose [facility] 12-30-2021 09:29-0400 Mean blood pressure 104 mm[Hg] Paulino Garcia [facility] 12-30-2021 09:29-0400 Systolic blood pressure 144 mm[Hg] Paulino Jose [facility] 12-30-2021 09:28-0400 Blood Pressure Location Paulino Jose [facility] 12-30-2021 09:28-0400 BP/Pulse Patient Position Paulino Jose [facility] 12-30-2021 09:28-0400 Diastolic blood pressure 84 mm[Hg] Paulino Jose [facility] 12-30-2021 09:28-0400 Heart rate 99 /min Paulino Jose [facility] 12-30-2021 09:28-0400 Mean blood pressure 104 mm[Hg] Paulino Garcia [facility] 12-30-2021 09:28-0400 SaO2% (BldA) [Mass fraction] 98 % Paulino Garcia [facility] 12-30-2021 09:28-0400 Systolic blood pressure 144 mm[Hg] Paulino Garcia [facility] 12-30-2021 09:28-0400 Body temperature 98.06 [degF] Paulino Garcia [facility] 12-30-2021 09:28-0400 Respiratory rate 16 /min Paulino Garcia [facility] Encounters Encounter Date Encounter Type Care Provider Facility Start: 02-27-2025 End: 02-27-2025 Bamboo flowsheet Hazel Fallon DPM Work Phone: [facility] Start: 02-27-2025 End: 02-27-2025 Bamboo flowsheet Hazel Fallon DPM Work Phone: [facility] Start: 02-27-2025 End: 02-27-2025 Office outpatient visit 10 minutes Hazel Fallon DPM Work Phone: [facility] Comment on above: Onychomycosis (Prima ry Dx); Pain in both feet Start: 02-27-2025 End: 02-27-2025 ambulatory HAZEL FALLON Not Available Start: 11-26-2024 End: 11-26-2024 Bamboo flowsheet Hazel Fallon DPM Work Phone: [facility] Start: 11-26-2024 End: 11-26-2024 Bamboo flowsheet Hazel Fallon DPM Work Phone: [facility] Start: 11-26-2024 End: 11-26-2024 Office outpatient visit 15 minutes Hazel Fallon DPM Work Phone: [facility] Comment on above: Onychomycosis (Prima ry Dx); Pain in both feet Start: 11-26-2024 End: 11-26-2024 ambulatory HAZEL FALLON Not Available Start: 10-29-2024 End: 10-29-2024 Bamboo flowsheet Perla RAMSAY Work Phone: [facility] Start: 10-29-2024 End: 10-29-2024 Bamboo flowsheet Perla Puri PA Work Phone: [facility] Start: 10-29-2024 End: 10-29-2024 Office outpatient visit 15 minutes Perla Puri PA Work Phone: [facility] Comment on above: Benign hypertension (CMS/HCC) (Primary Dx) Start: 10-29-2024 End: 10-29-2024 ambulatory PERLA PURI Not Available Start: 08-27-2024 End: 08-27-2024 Bamboo flowsheet Hazel Fallon DPM Work Phone: [facility] Start: 08-27-2024 End: 08-27-2024 Bamboo flowsheet Hazel Fallon DPM Work Phone: [facility] Start: 08-27-2024 End: 08-27-2024 Office outpatient visit 15 minutes Hazel Fallon DPM Work Phone: [facility] Comment on above: Onychomycosis (Prima ry Dx); Pain in both feet; Hammer toe of right foot; Neuroma digital nerve; Capsulitis of foot; Hallux valgus of right foot Start: 08-27-2024 End: 08-27-2024 ambulatory HAZEL FALLON Not Available Start: 08-15-2024 End: 08-15-2024 Patient encounter procedure Paulino Garcia DO Work Phone: [facility] Comment on above: Presence of both art ificial knee joints (Primary Dx) Start: 08-15-2024 End: 08-15-2024 ambulatory PAULINO GARCIA Not Available Start: 06-01-2024 End: 06-01-2024 Patient encounter status Perla Puri PA Work Phone: [facility] Start: 06-01-2024 End: 06-01-2024 Telephone encounter Perla RAMSAY Work Phone: [facility] Start: 05-24-2024 End: 05-24-2024 Bamboo flowsheet Hazel Fallon DPM Work Phone: [facility] Start: 05-24-2024 End: 05-24-2024 Bamboo flowsheet Hazel Fallon DPM Work Phone: [facility] Start: 05-24-2024 End: 05-24-2024 Office outpatient visit 15 minutes Hazel Fallon DPM Work Phone: [facility] Comment on above: Onychomycosis (Prima ry Dx); Pain in both feet Start: 05-24-2024 End: 05-24-2024 ambulatory HAEZL FALLON Not Available Start: 05-14-2024 End: 05-14-2024 Bamboo flowsheet Perla Puri PA Work Phone: [facility] Start: 05-14-2024 End: 05-14-2024 Bamboo flowsheet Perla Puri PA Work Phone: [facility] Start: 05-14-2024 End: 05-14-2024 Patient encounter procedure Perla Puri PA Work Phone: [facility] Comment on above: Bilateral impacted c erumen (Primary Dx) Start: 05-14-2024 End: 05-14-2024 ambulatory PERLA PURI Not Available Start: 04-30-2024 End: 04-30-2024 Bamboo flowsheet Perla Puri PA Work Phone: [facility] Start: 04-30-2024 End: 04-30-2024 Bamboo flowsheet Perla Puri PA Work Phone: [facility] Start: 04-30-2024 End: 04-30-2024 Patient encounter procedure Perla Puri PA Work Phone: [facility] Comment on above: Medicare annual well ness visit, subsequent (Primary Dx); ACP (advance care planning); Encounter for screening mammogram for malignant neoplasm of breast; Other chronic pain; Paresthesias in right hand; Benign hypertension (CMS/HCC); Acquired absence of both cervix and uterus; Presence of both artificial knee joints; Osteopenia of multiple sites; Primary osteoarthritis of both knees; Class 1 obesity without serious comorbidity with body mass index (BMI) of 32.0 to 32.9 in adult, unspecified obesity type; Other primary ovarian failure; Difficulty walking; Hypercholesteremia (CMS/HCC); Bilateral impacted cerumen Start: 04-30-2024 End: 04-30-2024 ambulatory PERLA PURI Not Available Start: 03-08-2024 End: 03-08-2024 ambulatory PAULINO GARCIA Not Available Start: 08-02-2022 End: 08-02-2022 ambulatory Paulino Garcia Facility:[facility] Start: 08-02-2022 End: 08-02-2022 Admission to same day surgery center Paulino Garcia [facility] Start: 06-28-2022 End: 06-29-2022 ambulatory Paulino Garcia Facility:[facility] Start: 06-28-2022 End: 06-28-2022 Patient encounter procedure Paulino Garcia [facility] Start: 01-18-2022 End: 01-18-2022 ambulatory Paulino Garcia Facility:[facility] Start: 01-18-2022 End: 01-18-2022 Admission to same day surgery adel Paulino Garcia [facility] Start: 12-30-2021 End: 12-31-2021 ambulatory Paulino Garcia Facility:[id number] Start: 12-30-2021 End: 12-30-2021 Patient encounter procedure Paulino Garcia [facility] Start: 11-16-2021 End: 11-17-[address] PERLA PURI Facility: Procedures Date Procedure Procedure Detail Performing Clinician Start: 08-15-2024 End: 08-15-2024 Radiologic examination knee 3 views Paulino Garcia DO Work Phone: Start: 05-14-2024 Removal impacted cerumen instrumentation unilat Perla RAMSAY Work Phone: Start: 06-07-2023 Mammography Perla RAMSAY Work Phone: Start: 04-25-2023 End: 04-30-2024 H/O: artificial joint Aftercare following joint replacement surgery Perla RAMSAY Work Phone: Start: 08-02-2022 Total knee replacement Paulino Garcia Start: 07-23-2022 Total knee replacement Paulino Garcia H/O: hysterectomy Paulino Joaquín desouza Plan of Treatment Date Care Activity Detail Author Start: 10-29-2025 Screening for malignant neoplasm of colon Colorectal Cancer Screening [facility] Comment on above: Postponed from 11/29 (Patient Refused) Start: 06-05-2025 End: 06-05-2025 Patient encounter procedure 06/05/2025 8:30 AM EST Office Visit [facility] [address] [place] [address] Hazel Fallon DPM [address] [place] [address] [facility] Start: 04-30-2025 Medicare Annual Wellness (AWV) Medicare Annual Wellness (AWV) [facility] Start: 04-30-2025 End: 04-30-2025 Patient encounter procedure [facility] Start: 04-01-2025 Influenza vaccination [facility] Start: 02-27-2025 End: 02-27-2025 Patient encounter procedure [facility] Comment on above: Arrived Start: 11-26-2024 End: 11-26-2024 Patient encounter procedure [facility] Comment on above: Arrived Start: 10-29-2024 End: 10-29-2024 Patient encounter procedure [facility] Comment on above: Arrived Start: 08-27-2024 End: 08-27-2024 Patient encounter procedure [facility] Comment on above: Arrived Start: 08-08-2024 End: 08-08-2024 Patient encounter procedure 08/08/2024 9:15 AM EST Office Visit [facility] [address] [place] [id number] Paulino Garcia, DO [address] [place] [address] [facility] Start: 06-07-2024 End: 06-30-2025 DBT Breast - bilateral screening Bilateral screening mammogram with tomosynthesis Imaging Routine Encounter for screening mammogram for malignant neoplasm of breast Expected: 06/07/2024, Expires: 06/30/2025 [facility] Work Phone: Comment on above: Expected: 06/07/2024 , Expires: 06/30/2025 Start: 06-07-2024 Screening for malignant neoplasm of breast Mammogram [facility] Start: 06-01-2024 End: 06-01-2025 CBC W Auto Differential panel - Blood CBC and differential Lab Routine Benign hypertension (CMS/HCC) Hypercholesteremia (CMS/HCC) Wellness examination Expected: 06/01/2024 (Approximate), Expires: 06/01/2025 [facility] Work Phone: Comment on above: Expected: 06/01/2024 (Approximate), Expires: 06/01/2025 Start: 06-01-2024 End: 06-01-2025 Comprehensive metabolic 2000 panel - Serum or Plasma Comprehensive metabolic panel Lab Routine Benign hypertension (CMS/HCC) Hypercholesteremia (CMS/HCC) Wellness examination Expected: 06/01/2024 (Approximate), Expires: 06/01/2025 [facility] Comment on above: Expected: 06/01/2024 (Approximate), Expires: 06/01/2025 Start: 06-01-2024 End: 06-01-2025 Lipid 1996 panel - Serum or Plasma Lipid panel Lab Routine Benign hypertension (CMS/HCC) Hypercholesteremia (CMS/HCC) Wellness examination Expected: 06/01/2024 (Approximate), Expires: 06/01/2025 [facility] Comment on above: Expected: 06/01/2024 (Approximate), Expires: 06/01/2025 Start: 05-30-2024 Screening for malignant neoplasm of colon Colorectal Cancer Screening [facility] Comment on above: Postponed from 11/29 (Other Medical Reasons) Start: 05-26-2024 Pneumococcal Vaccine : 65+ Years (1 of 1 - PCV) Pneumococcal Vaccine: 65+ Years (1 of 1 - PCV) [facility] Comment on above: Postponed from 11/29 (Patient Refused) Start: 05-24-2024 End: 05-24-2024 Patient encounter procedure [facility] Comment on above: Arrived Start: 05-14-2024 End: 05-14-2024 Patient encounter procedure [facility] Comment on above: Arrived Start: 04-30-2024 End: 04-30-2024 Patient encounter procedure 04/30/2024 9:00 AM EDT Office Visit [facility] [address] [facility] [address] [place] [address] Perla Puri PA [address] [facility] [address] [place] [address] Arrived [facility] Comment on above: Arrived Start: 04-26-2024 Medicare Annual Wellness (AWV) Medicare Annual Wellness (AWV) [facility] Start: 04-01-2024 Influenza vaccination Influenza Vacc ine (#1) [facility] Start: 2017 Pneumococcal Vaccine : 65+ Years (1 of 1 - PCV) Pneumococcal Vaccine: 65+ Years (1 of 1 - PCV) [facility] Start: 2002 Pneumococcal Vaccine : 65+ Years (1 of 1 - PCV) Pneumococcal Vaccine: 65+ Years (1 of 1 - PCV) [facility] Start: 1952 Screening for malignant neoplasm of colon [facility] Immunizations Immunization Date Immunization Notes Care Provider Fa cility 06-02-2022 SARS-COV-2 (COVID-19 ) vaccine, mRNA, spike protein, LNP, bivalent, preservative free, 30 mcg/0.3 mL dose, alia-sucrose formulation Perla RAMSAY Work Phone: [facility] Payers Date Payer Category Payer Private Health Insurance [employer] [id number] 2021 Unknown [employer] [id number] 2021-Present [address] [place] [address] [id number] 2017 Medicare [id number] 1959 Medicare [id number] 1959 Unknown [id number] 1952 Unknown [id number] 2.16.840.1.539992.3.579.2. 593 1952 Unknown [id number] 2.16.840.1.494381.3.579.2. 356 1952 Unknown [id number] 2.16.840.1.498233.3.579.2. 727 1952 Unknown [id number] 2.16.840.1.696974.3.579.2. 727 1952 Unknown [id number] 2.16.840.1.884908.3.579.2. 727 1952 Unknown [id number] 2.16.840.1.716503.3.579.2. 727 1952 Unknown [id number] 2.16.840.1.060770.3.579.2. 1259 1952 Unknown [id number] 2.16.840.1.833128.3.579.2. 1258 1952 Unknown [id number] 2.16.840.1.894808.3.579.2. 1258 1952 Unknown [id number] 2.16.840.1.471628.3.579.2. 1258 1952 Unknown [id number] 2.16.840.1.236558.3.579.2. 1258 1952 Unknown [id number] 2.16.840.1.553824.3.579.2. 1258 1952 Unknown [id number] 2.16.840.1.082426.3.579.2. 1258 1952 Unknown [id number] 2.16.840.1.526936.3.579.2. 1258 1952 Unknown [id number] 2.16.840.1.174885.3.579.2. 1258 1952 Unknown [id number] 2.16.840.1.983385.3.579.2. 1258 1952 Unknown [id number] 2.16.840.1.195499.3.579.2. 1258 1952 Unknown [id number] 2.16.840.1.858183.3.579.2. 1258 1952 Unknown [id number] 2.16.840.1.000885.3.579.2. 1259 Social History Date Type Detail Facility Tobacco smoking status Never smoker [facility] Start: 05-17-2023 End: 02-16-2024 Sex Assigned At [facility] Tobacco smoking status No Smokin g Status Entered [facility] Tobacco smoking status No Smokin g Status Entered [facility] Start: 02-02-2023 Tobacco smoking stat us VTIS Never smoked tobacco [facility] Start: 02-02-2023 Tobacco use and exposure Smokeless tobacco non-user [facility] Start: 04-30-2024 End: 02-27-2025 Alcoholic beverage intake Current drinker of alcohol (finding) [facility] Start: 05-17-2023 End: 04-30-2024 Alcoholic beverage intake [facility] Work Phone: How often do you nee d to have someone help you when you read instructions, pamphlets, or other written material from your doctor or pharmacy [SILS] Never [facility] Work Phone: Within the last year , have you been afraid of your partner or ex-partner? No [facility] Are you now , , , , never or living with a partner? [facility] How often to you hav e a drink containing alcohol? 2-4 times a month [facility] How often do you hav e 6 or more drinks on 1 occasion? Never [facility] Do you feel stress - tense, restless, nervous, or anxious, or unable to sleep at night because your mind is troubled all the time - these days [OSQ] Only a little [facility] (I/We) worried whejh er (my/our) food would run out before (I/we) got money to buy more. Never true [facility] Start: 04-25-2023 Alcohol Comment caffeine intak e:1-2 cups per day coffee, tea [facility] Start: 1950 Sex assigned at Not on file N [facility] Medical Equipment Procedure Code Equipment Code Equipment Origin al Text Equipment Identifier Dates KNEE TOTAL ARTHROPLASTY Garcia Paulino Deric 01/18/22 Non Biological Knee R [id number] FDA Start: 01-18-2022 KNEE TOTAL ARTHROPLASTY Garcia Paulino 08/02/22 Non Biological Knee R [id number] FDA Start: 08-02-2022 Functional Status Date Assessment Result Facility 07-23-2022 Functional Status No [facility] Clinical Notes 01-14-2022 to 02-27-2025 Hazel Fallon DPM - 02/27/2025 8:30 AM Dre Fallon DPM - 11/26/2024 1:45 PM Helga Puri, DEVENDRA - 10/29/2024 9:00 AM Dre Fallon DPM - 08/27/2024 8:45 AM EST Note Date & Type Note Facility 02-27-2025 History of Present illness Narrative Images from the original note were not included. HPI: Onychomycosis/Toenail Fungus: Patient presents in office today for recheck of onychomycosis. She states she is not currently using any topical medications. She has seen improvement. 71 year old female presents with c/o fungal toenails. Location: right, great Duration: years Severity of symptoms: hard to trim Onset: gradual. Characteristics: Thick, discolored Severity: 2 Previous Treatment: topical over the counter medications PCP and last visit: JAXSON 10/13/24 Exam: General Examination: GENERAL EXAMINATIONawake, aware of surroundings, in no acute distress. FOOT EXAM: Date of Last Foot Exam 02/27/25 Vascular: DORSALIS PEDIS PULSE:2/4, bilaterally. POSTERIOR TIBIAL PULSE:2/4, bilaterally. TEMPERATURE GRADIENT:warm to cool. EDEMA:none . CAPILLARY FILLING TIME(sec):capillary fill intact bilateral digits less than 3 secs. Neurologic: NEUROLOGIClight touch is intact to the plantar foot. Dermatologic: SKIN FINDINGS: normal. HYPERKERATOSIS: none. NAIL PATHOLOGY: digits 2 bilateral, 1 right are long, thickened, discolored, crumbly, brittle, dystrophic and with subungal debris. Right hallux nail does have evidence of new nail growth with clearing along the proximal nail fold. There is 0.6mm of nail growth on the right hallux. SKIN PATHOLOGY: texture, turgor, hair growth, within normal limits. Orthopedic: FOOT MORPHOLOGY: normal . JOINT RANGE OF MOTION: normal ankle, subtalar joint and 1st MPJ ROM bilateral . DEFORMITIES: hallux valgus right, mild hammertoe 2nd. PAIN ELICITED WITH PALPATION OF: Pain noted with compression of the right 2nd interspace. There is pain with distal pressure along the interspace. There is mild pain with palpation to the associated 2nd metatarsals, pain with palpation 2nd MPJ. positive Karan's sign noted with compression of distal forefoot right foot. MUSCLE STRENGTH: 5/5 for all pedal groups tested. 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 All mycotic and/or dystrophic nails were debrided in length and thickness by manual and mechanical means. 2. Advised patient of proper foot care to prevent any future complications including daily monitoring of the feet. 3. RTC: 9-12 weeks or as needed if problems arise as patient would like to continue to come in for routine nail care appointments to prevent future pain and problems developing from the overgrowth of the toenails. documented in this encounter [facility] 11-26-2024 History of Present illness Narrative Images from the original note were not included. HPI: Onychomycosis/Toenail Fungus: Patient presents in office today for recheck of onychomycosis. She states she is not currently using any topical medications. She has seen improvement. 71 year old female presents with c/o fungal toenails. Location: right, great Duration: years Severity of symptoms: hard to trim Onset: gradual. Characteristics: Thick, discolored Severity: 2 Previous Treatment: topical over the counter medications PCP and last visit: JAXSON 10/13/24 Patient is also mentioning that she has been having in pain in the right 2nd digit on and off since last fall. No other complaints. Exam: General Examination: GENERAL EXAMINATIONawake, aware of surroundings, in no acute distress. FOOT EXAM: Date of Last Foot Exam 11/26/24 Vascular: DORSALIS PEDIS PULSE:2/4, bilaterally. POSTERIOR TIBIAL PULSE:2/4, bilaterally. TEMPERATURE GRADIENT:warm to cool. EDEMA:none . CAPILLARY FILLING TIME(sec):capillary fill intact bilateral digits less than 3 secs. Neurologic: NEUROLOGIClight touch is intact to the plantar foot. Dermatologic: SKIN FINDINGS: normal. HYPERKERATOSIS: none. NAIL PATHOLOGY: digits 2 bilateral, 1 right are long, thickened, discolored, crumbly, brittle, dystrophic and with subungal debris. Right hallux nail does have evidence of new nail growth with clearing along the proximal nail fold. There is 0.6mm of nail growth on the right hallux. SKIN PATHOLOGY: texture, turgor, hair growth, within normal limits. Orthopedic: FOOT MORPHOLOGY: normal . JOINT RANGE OF MOTION: normal ankle, subtalar joint and 1st MPJ ROM bilateral . DEFORMITIES: hallux valgus right, mild hammertoe 2nd. PAIN ELICITED WITH PALPATION OF: Pain noted with compression of the right 2nd interspace. There is pain with distal pressure along the interspace. There is mild pain with palpation to the associated 2nd metatarsals, pain with palpation 2nd MPJ. positive Karan's sign noted with compression of distal forefoot right foot. MUSCLE STRENGTH: 5/5 for all pedal groups tested. 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 Affected nails were debrided in length and thickness by manual and mechanical means. 2. Instructed patient that there is clearing noted to the affected tonails. We discussed that it can take 6-9 months for a toenail to completely grow out and that they should continue to notice improvement over time. At this time the majority of the fungus has grown out. 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 3. Advised patient on continued use of the topical medication once a week to the affected toenails and conservative treatment options discussed to prevent recurrence. 4. RTC: 3-4 months for recheck. documented in this encounter [facility] 10-29-2024 History of Present illness Narrative Images from the original note were not included. Subjective Patient ID: Osiris Ngo is a 73 y.o. female who presents for hypertension. Osiris is present today for follow up hypertension. Denies chest pain, SOB, blurry vision, headaches. Does not check BP's at home. Currently on Amlodipine and Lisinopril. States her is no longer driving, so it has been more stress on her driving him around. is starting to walk more often now that the weather is getting better. States she is noticing more freckles on her arms. Current Outpatient Medications on File Prior to Visit Medication Sig Dispense Refill acetaminophen (Tylenol Extra Strength) 500 MG tablet Take 1 tablet by mouth every 4 (four) hours if needed for mild pain. alendronate (Fosamax) 70 MG tablet Take 1 tablet (70 mg) by mouth every 7 (seven) days 12 tablet 3 alpha tocopherol (Vitamin E) 400 units capsule Take 1 capsule by mouth 1 (one) time each day at the same time. amLODIPine (Norvasc) 5 MG tablet Take 1 tablet (5 mg) by mouth Daily 90 tablet 3 Ascorbic Acid (Vitamin C) 500 MG capsule Take 1 capsule by mouth 1 (one) time each day. BABY ASPIRIN PO Take 1 tablet by mouth 1 (one) time each day. calcium citrate 600 mg and vitamin D3 (Citrical & Minerals + Vit D) 600-200 MG-UNIT tablet Take 1 tablet by mouth every 12 (twelve) hours. cyanocobalamin (Vitamin B-12) 100 MCG tablet Take 1 tablet by mouth 1 (one) time each day. lisinopril 10 MG tablet Take 1 tablet (10 mg) by mouth Daily 100 tablet 3 omega-3 (Fish Oil) 1000 MG capsule Take 2 capsules by mouth 1 (one) time each day at the same time. Pyridoxine HCl (Vitamin B6) 100 MG tablet Take 1 tablet by mouth every 12 (twelve) hours. rosuvastatin (Crestor) 20 MG tablet Take 1 tablet (20 mg) by mouth Daily 100 tablet 3 [DISCONTINUED] cephalexin (Keflex) 500 MG capsule Take two caps evening prior to appointment, take two caps one hour prior to appointment 4 capsule 2 No current facility-administered medications on file prior to visit. I have reviewed and reconciled the history and medication list with the patient today. Allergies Allergen Reactions Sulfa Antibiotics Other Social History Tobacco Use Smoking status: Never Smokeless tobacco: Never Vaping Use Vaping status: Never Used Substance Use Topics Alcohol use: Yes Alcohol/week: 1.0 standard drink of alcohol Types: 1 Standard drinks or equivalent per week Comment: caffeine intake:1-2 cups per day coffee, tea Drug use: Defer Family History Problem Relation Name Age of Onset Osteoporosis Mother 05/2023 Hypertension Mother Hypertension Father Heart disease Father No Known Problems Brother No Known Problems Daughter No Known Problems Son Past Medical History: Diagnosis Date Endometriosis 1989 OA (osteoarthritis) Secondary hypertension Thyroid disease (CMS/HCC) Past Surgical History: Procedure Laterality Date JOINT REPLACEMENT Bilateral knees MO TOTAL ABDOM HYSTERECTOMY 1989 TONSILLECTOMY 1972 TOTAL KNEE ARTHROPLASTY Left 12/2021 TOTAL KNEE ARTHROPLASTY Right 08/02/2022 Visit Vitals BP 136/78 Pulse 63 Resp 16 Ht 5' 4.5 Wt 195 lb 3.2 oz SpO2 99% BMI 32.99 kg/m Smoking Status Never BSA 2.01 m Review of Systems Constitutional: Negative for chills, fatigue and fever. Respiratory: Negative for cough, shortness of breath and wheezing. Cardiovascular: Negative for chest pain, palpitations and leg swelling. Gastrointestinal: Negative for abdominal pain, constipation, diarrhea, nausea and vomiting. Skin: Negative for rash. Objective Physical Exam Constitutional: General: She is not in acute distress. Appearance: She is well-developed. She is obese. HENT: Head: Normocephalic and atraumatic. Eyes: General: No scleral icterus. Conjunctiva/sclera: Conjunctivae normal. Cardiovascular: Rate and Rhythm: Normal rate and regular rhythm. Heart sounds: Normal heart sounds. No murmur heard. Pulmonary: Effort: Pulmonary effort is normal. No respiratory distress. Breath sounds: Normal breath sounds. No wheezing, rhonchi or rales. Skin: General: Skin is warm and dry. Comments: Many scattered medium brown, hyperpigmentation spots, macular, likely benign nevi, BUE Neurological: General: No focal deficit present. Mental Status: She is alert and oriented to person, place, and time. Psychiatric: Mood and Affect: Mood normal. Behavior: Behavior normal. Assessment/Plan Diagnoses and all orders for this visit: Benign hypertension (CMS/HCC) Patient's blood pressure is currently stable. Continue with current medications and I will continue to monitor. Advised hyperpigmentation appears to be normal age-related skin changes. Would recommend she follow up with Dermatology, has seen Diana Hammonds CNP, yearly for skin checks. She has seen Diana in the past. Follow up in about 6 months (around 04/30/2025) for Medicare Wellness Visit. documented in this encounter [facility] 08-27-2024 History of Present illness Narrative Images from the original note were not included. HPI: Onychomycosis/Toenail Fungus: Patient presents in office today for recheck of onychomycosis. She states she is not currently using any topical medications. She has seen improvement. 71 year old female presents with c/o fungal toenails. Location: right, great Duration: years Severity of symptoms: hard to trim Onset: gradual. Characteristics: Thick, discolored Severity: 2 Previous Treatment: topical over the counter medications PCP and last visit: HEMMER 05/14/24 Patient is also mentioning that she has been having in pain in the right 2nd digit on and off since last fall. No other complaints. Exam: General Examination: GENERAL EXAMINATIONawake, aware of surroundings, in no acute distress. FOOT EXAM: Date of Last Foot Exam 08/20/24 Vascular: DORSALIS PEDIS PULSE:2/4, bilaterally. POSTERIOR TIBIAL PULSE:2/4, bilaterally. TEMPERATURE GRADIENT:warm to cool. EDEMA:none . CAPILLARY FILLING TIME(sec):capillary fill intact bilateral digits less than 3 secs. Neurologic: NEUROLOGIClight touch is intact to the plantar foot. Dermatologic: SKIN FINDINGS: normal. HYPERKERATOSIS: none. NAIL PATHOLOGY: digits 2 bilateral, 1 right are long, thickened, discolored, crumbly, brittle, dystrophic and with subungal debris. Right hallux nail does have evidence of new nail growth with clearing along the proximal nail fold. There is 0.6mm of nail growth on the right hallux. SKIN PATHOLOGY: texture, turgor, hair growth, within normal limits. Orthopedic: FOOT MORPHOLOGY: normal . JOINT RANGE OF MOTION: normal ankle, subtalar joint and 1st MPJ ROM bilateral . DEFORMITIES: hallux valgus right, mild hammertoe 2nd. PAIN ELICITED WITH PALPATION OF: Pain noted with compression of the right 2nd interspace. There is pain with distal pressure along the interspace. There is mild pain with palpation to the associated 2nd metatarsals, pain with palpation 2nd MPJ. positive Karan's sign noted with compression of distal forefoot right foot. MUSCLE STRENGTH: 5/5 for all pedal groups tested. 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 Affected nails were debrided in length and thickness by manual and mechanical means. 2. Instructed patient that there is clearing noted to the affected tonails. We discussed that it can take 6-9 months for a toenail to completely grow out and that they should continue to notice improvement over time. At this time the majority of the fungus has grown out. 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 3. Advised patient on continued use of the topical medication once a week to the affected toenails and conservative treatment options discussed to prevent recurrence. 4. RTC: 3-4 months for recheck. Capsulitis: 1. Reviewed the radiographs with the patient and discussed conservative options for treatment. 2. Discussed splinting the second digit with tape versus use of a Budin splint. A Budin splint was dispensed and patient instructed on use on the right second digit. I did also dispense taping and metatarsal pads to use for offloading. 3. Patient was given a prescription for anti-inflammatory medications. Also encouraged use of supportive shoe gear as much as tolerated and icing and elevation as needed to improve symptoms. 4. RTC: 3 weeks for recheck. Discussed the possibility of further treatment with steroid injections or more aggressive immobilization and definitive treatment with surgery if further deformity in the toe occurs. documented in this encounter [facility] 08-27-2024 Instructions Hazel Fallon DPM - 08/27/2024 8:45 AM EST Images from the original note were not included. Capsulitis What is Capsulitis? Ligaments surrounding the joint at the base of the toe form a capsule, which helps the joint to function properly. Capsulitis is a condition in which these ligaments have become inflamed. Although capsulitis can also occur in the joints of the third or fourth toes, it most commonly affects the second toe. This inflammation causes considerable discomfort and, if left untreated, can eventually lead to a weakening of surrounding ligaments that can cause dislocation of the toe. Capsulitis--also referred to as predislocation syndrome--is a common condition that is seen with people who also have a bunion deformity. Causes It is generally believed that capsulitis of the toe is a result of abnormal foot mechanics, where the ball of the foot beneath the toe joint takes an excessive amount of weight-bearing pressure. Certain conditions or characteristics can make a person prone to experiencing excessive pressure on the ball of the foot. These most commonly include a severe bunion deformity, a second toe longer than the big toe, an arch that is structurally unstable, and a tight calf muscle. Symptoms Because capsulitis is a progressive disorder and usually worsens if left untreated, early recognition and treatment are important. In the earlier stages--the best time to seek treatment--the symptoms may include: Pain, particularly on the ball of the foot. It can feel like there's a marble in the shoe or a sock is bunched up Swelling in the area of pain, including the base of the toe Difficulty wearing shoes Pain when walking barefoot In more advanced stages, the supportive ligaments weaken leading to failure of the joint to stabilize the toe. The unstable toe drifts toward the big toe and eventually crosses over and lies on top of the big toe--resulting in crossover toe, the end stage of capsulitis. The symptoms of crossover toe are the same as those experienced during the earlier stages. Although the crossing over of the toe usually occurs over a period of time, it can appear more quickly if caused by injury or overuse. Diagnosis An accurate diagnosis is essential because the symptoms of capsulitis can be similar to those of a condition called Posada's neuroma, which is treated differently from capsulitis. In arriving at a diagnosis, the foot and ankle surgeon will examine the foot, press on it, and maneuver it to reproduce the symptoms. The surgeon will also look for potential causes and test the stability of the joint. X-rays are usually ordered, and other imaging studies are sometimes needed. Non-surgical Treatment The best time to treat capsulitis of the second toe is during the early stages, before the toe starts to drift toward the big toe. At that time, non-surgical approaches can be used to stabilize the joint, reduce the symptoms, and address the underlying cause of the condition. The foot and ankle surgeon may select one or more of the following options for early treatment of capsulitis: Rest and ice. Staying off the foot and applying ice packs help reduce the swelling and pain. Apply an ice pack, placing a thin towel between the ice and the skin. Use ice for 20 minutes and then wait at least 40 minutes before icing again. Oral medications. Nonsteroidal anti-inflammatory drugs (NSAIDs), such as ibuprofen, may help relieve the pain and inflammation. Taping/splinting. It may be necessary to tape the toe so that it will stay in the correct position. This helps relieve the pain and prevent further drifting of the toe. Stretching. Stretching exercises may be prescribed for patients who have tight calf muscles. Shoe modifications. Supportive shoes with stiff soles are recommended because they control the motion and lessen the amount of pressure on the ball of the foot. Orthotic devices. Custom shoe inserts are often very beneficial. These include arch supports or a metatarsal pad that distributes the weight away from the joint. When is Surgery Needed? Once the second toe starts moving toward the big toe, it will never go back to its normal position unless surgery is performed. The foot and ankle surgeon will select the procedure or combination of procedures best suited to the individual patient. Neuroma What Is a Neuroma? A neuroma is a thickening of nerve tissue that may develop in various parts of the body. The most common neuroma in the foot is a Posada's neuroma, which occurs between the third and fourth toes. It is sometimes referred to as an intermetatarsal neuroma. Intermetatarsal describes its location in the ball of the foot between the metatarsal bones. Neuromas may also occur in other locations in the foot. The thickening, or enlargement, of the nerve that defines a neuroma is the result of compression and irritation of the nerve. This compression creates enlargement of the nerve, eventually leading to permanent nerve damage. Causes Anything that causes compression or irritation of the nerve can lead to the development of a neuroma. One of the most common offenders is wearing shoes that have a tapered toe box, or high-heeled shoes that cause the toes to be forced into the toe box. People with certain foot deformities - bunions, hammertoes, flatfeet, or more flexible feet - are at higher risk for developing a neuroma. Other potential causes are activities that involve repetitive irritation to the ball of the foot, such as running or court sports. An injury or other type of trauma to the area may also lead to a neuroma. Symptoms If you have a neuroma, you may have one or more of these symptoms where the nerve damage is occurring: Tingling, burning or numbness Pain A feeling that something is inside the ball of the foot A feeling that there's something in the shoe or a sock is bunched up The progression of a Posada's neuroma often follows this pattern: The symptoms begin gradually. At first they only occur occasionally, when wearing narrow-toed shoes or performing certain aggravating activities. The symptoms may go away temporarily by removing the shoe, massaging the foot, or by avoiding aggravating shoes or activities. Over time the symptoms progressively worsen and may persist for several days or weeks. The symptoms become more intense as the neuroma enlarges and the temporary changes in the nerve become permanent. Diagnosis To arrive at a diagnosis, the foot and ankle surgeon will obtain a thorough history of your symptoms and examine your foot. During the physical examination, the doctor attempts to reproduce your symptoms by manipulating your foot. Other tests or imaging studies may be performed. The best time to see your foot and ankle surgeon is early in the development of symptoms. Early diagnosis of a Posada's neuroma greatly lessens the need for more invasive treatments and may avoid surgery. Non-surgical Treatment In developing a treatment plan, your foot and ankle surgeon will first determine how long you've had the neuroma and evaluate its stage of development. Treatment approaches vary according to the severity of the problem. Treatment options may include: Padding: Padding techniques provide support for the metatarsal arch, thereby lessening the pressure on the nerve and decreasing the compression when walking. Orthotic devices: Custom orthotic devices provided by your foot and ankle surgeon provide the support needed to reduce pressure and compression on the nerve. Activity modifications: Activities that put repetitive pressure on the neuroma should be avoided until the condition improves. Shoe modifications: Wear shoes with a wide toe box and avoid narrow-toed shoes or shoes with high heels. Medications: Oral non-steroidal anti-inflammatory drugs (NSAIDs), such as ibuprofen, may be recommended to reduce pain and inflammation. Injection therapy: Treatment may include injections of cortisone, local anesthetics or other agents. When Is Surgery Needed? Surgery may be considered in patients who have not responded adequately to non-surgical treatments. The length of the recovery period will vary, depending on the procedure performed. Regardless of whether you've undergone surgical or non-surgical treatment, your surgeon will recommend long-term measures to help keep your symptoms from returning. These include appropriate footwear and modification of activities to reduce the repetitive pressure on the foot. documented in this encounter [facility] 06-01-2024 Telephone encounter Note Lab order. [facility] 06-01-2024 Miscellaneous Notes Lab order. documented in this encounter [facility] 05-24-2024 History of Present illness Narrative Images from the original note were not included. HPI: Onychomycosis/Toenail Fungus: Patient presents in office today for recheck of onychomycosis. She states she is not currently using any topical medications. She has seen improvement. 71 year old female presents with c/o fungal toenails. Location: right, great Duration: years Severity of symptoms: hard to trim Onset: gradual. Characteristics: Thick, discolored Severity: 2 Previous Treatment: topical over the counter medications PCP and last visit: [facility] 05/14/24 Exam: General Examination: GENERAL EXAMINATIONawake, aware of surroundings, in no acute distress. FOOT EXAM: Date of Last Foot Exam 05/24/24 Vascular: DORSALIS PEDIS PULSE:2/4, bilaterally. POSTERIOR TIBIAL PULSE:2/4, bilaterally. TEMPERATURE GRADIENT:warm to cool. EDEMA:none . CAPILLARY FILLING TIME(sec):capillary fill intact bilateral digits less than 3 secs. Neurologic: NEUROLOGIClight touch is intact to the plantar foot. Dermatologic: SKIN FINDINGS: normal. HYPERKERATOSIS: none. NAIL PATHOLOGY: digits 2 bilateral, 1 right are long, thickened, discolored, crumbly, brittle, dystrophic and with subungal debris. Right hallux nail does have evidence of new nail growth with clearing along the proximal nail fold. There is 0.6mm of nail growth on the right hallux . SKIN PATHOLOGY: texture, turgor, hair growth, within normal limits. Orthopedic: FOOT MORPHOLOGY: normal . JOINT RANGE OF MOTION: normal ankle, subtalar joint and 1st MPJ ROM bilateral . DEFORMITIES: none . PAIN ELICITED WITH PALPATION OF: none . MUSCLE STRENGTH: 5/5 for all pedal groups tested. Assessments: Onychomycosis Bilateral foot pain Plan: Onychomycosis: 1. Affected nails were debrided in length and thickness by manual and mechanical means. 2. Instructed patient that there is clearing noted to the affected tonails. We discussed that it can take 6-9 months for a toenail to completely grow out and that they should continue to notice improvement over time. At this time the majority of the fungus has grown out. 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 3. Advised patient on continued use of the topical medication once a week to the affected toenails and conservative treatment options discussed to prevent recurrence. 4. RTC: 3-4 months for recheck. documented in this encounter [facility] 05-14-2024 History of Present illness Narrative Associated Order(s): Ear Cerumen Removal Images from the original note were not included. Subjective Patient ID: Osiris Ngo is a 73 y.o. female who presents for bilateral ear irrigation. Osiris is present today for follow up ear irrigation. She has been using debrox for about 2 weeks. Current Outpatient Medications on File Prior to Visit Medication Sig Dispense Refill acetaminophen (Tylenol Extra Strength) 500 MG tablet Take 1 tablet by mouth every 4 (four) hours if needed for mild pain. alendronate (Fosamax) 70 MG tablet Take 1 tablet (70 mg) by mouth every 7 (seven) days 12 tablet 3 alpha tocopherol (Vitamin E) 400 units capsule Take 1 capsule by mouth 1 (one) time each day at the same time. amLODIPine (Norvasc) 5 MG tablet Take 1 tablet (5 mg) by mouth Daily 90 tablet 3 Ascorbic Acid (Vitamin C) 500 MG capsule Take 1 capsule by mouth 1 (one) time each day. BABY ASPIRIN PO Take 1 tablet by mouth 1 (one) time each day. calcium citrate 600 mg and vitamin D3 (Citrical & Minerals + Vit D) 600-200 MG-UNIT tablet Take 1 tablet by mouth every 12 (twelve) hours. cephalexin (Keflex) 500 MG capsule Take two caps evening prior to appointment, take two caps one hour prior to appointment 4 capsule 2 cyanocobalamin (Vitamin B-12) 100 MCG tablet Take 1 tablet by mouth 1 (one) time each day. lisinopril 10 MG tablet Take 1 tablet (10 mg) by mouth Daily 100 tablet 3 omega-3 (Fish Oil) 1000 MG capsule Take 2 capsules by mouth 1 (one) time each day at the same time. Pyridoxine HCl (Vitamin B6) 100 MG tablet Take 1 tablet by mouth every 12 (twelve) hours. rosuvastatin (Crestor) 20 MG tablet Take 1 tablet (20 mg) by mouth Daily 100 tablet 3 No current facility-administered medications on file prior to visit. I have reviewed and reconciled the history and medication list with the patient today. Allergies Allergen Reactions Sulfa Antibiotics Other Social History Tobacco Use Smoking status: Never Smokeless tobacco: Never Vaping Use Vaping status: Never Used Substance Use Topics Alcohol use: Yes Alcohol/week: 1.0 standard drink of alcohol Types: 1 Standard drinks or equivalent per week Comment: caffeine intake:1-2 cups per day coffee, tea Drug use: Defer Family History Problem Relation Name Age of Onset Osteoporosis Mother 05/2023 Hypertension Mother Hypertension Father Heart disease Father No Known Problems Brother No Known Problems Daughter No Known Problems Son Past Medical History: Diagnosis Date Endometriosis 1989 OA (osteoarthritis) Secondary hypertension (CMS/HCC) Thyroid disease (CMS/HCC) Past Surgical History: Procedure Laterality Date JOINT REPLACEMENT Bilateral knees MO TOTAL ABDOM HYSTERECTOMY 1989 TONSILLECTOMY 1971 TOTAL KNEE ARTHROPLASTY Left 12/2021 TOTAL KNEE ARTHROPLASTY Right 08/02/2022 Visit Vitals BP 128/70 Pulse 69 Resp 16 Ht 5' 4.5 Wt 195 lb 6.4 oz SpO2 96% BMI 33.02 kg/m Smoking Status Never BSA 2.01 m Review of Systems Constitutional: Negative for chills, fatigue and fever. HENT: Positive for hearing loss. Respiratory: Negative for cough, shortness of breath and wheezing. Cardiovascular: Negative for chest pain, palpitations and leg swelling. Gastrointestinal: Negative for abdominal pain, constipation, diarrhea, nausea and vomiting. Skin: Negative for rash. Objective Physical Exam Constitutional: General: She is not in acute distress. Appearance: She is well-developed. She is obese. HENT: Head: Normocephalic and atraumatic. Right Ear: There is impacted cerumen. Left Ear: There is impacted cerumen. Eyes: General: No scleral icterus. Conjunctiva/sclera: Conjunctivae normal. Cardiovascular: Rate and Rhythm: Normal rate and regular rhythm. Heart sounds: Normal heart sounds. No murmur heard. Pulmonary: Effort: Pulmonary effort is normal. No respiratory distress. Breath sounds: Normal breath sounds. No wheezing, rhonchi or rales. Skin: General: Skin is warm and dry. Neurological: General: No focal deficit present. Mental Status: She is alert and oriented to person, place, and time. Psychiatric: Mood and Affect: Mood normal. Behavior: Behavior normal. Ear Cerumen Removal Date/Time: 05/14/2024 10:00 AM Performed by: DEVENDRA Castro Authorized by: DEVENDRA Castro Consent: Consent obtained: Verbal Consent given by: Patient Risks, benefits, and alternatives were discussed: yes Risks discussed: Bleeding, dizziness, infection, incomplete removal, pain and TM perforation Alternatives discussed: Alternative treatment and no treatment Procedure details: Location: L ear and R ear Procedure type: curette Procedure type comment: And irrigation with hydrogen peroxide and warm water Procedure outcomes: cerumen removed (Minimal remaining on right) Post-procedure details: Inspection: TM intact Hearing quality: Improved Procedure completion: Tolerated (Had mild pain on right) Assessment/Plan Diagnoses and all orders for this visit: Bilateral impacted cerumen - Ear Cerumen Removal Bilateral ears irrigated today with good results. Very small amount of cerumen remained on right, TM was intact. Pt did well overall. She can continue Debrox for the next 1-2 days then use only as needed. Follow up for any concerns. Follow up for Appointment As Scheduled. documented in this encounter [facility] 04-30-2024 History of Present illness Narrative Images from the original note were not included. Subjective : Chief Complaint: Osiris Ngo is an 73 y.o. female here for an annual wellness visit. I have reviewed and reconciled the history and medication list with the patient today. Current Outpatient Medications on File Prior to Visit Medication Sig Dispense Refill acetaminophen (Tylenol Extra Strength) 500 MG tablet Take 1 tablet by mouth every 4 (four) hours if needed for mild pain. alendronate (Fosamax) 70 MG tablet Take 1 tablet (70 mg) by mouth every 7 (seven) days 12 tablet 3 alpha tocopherol (Vitamin E) 400 units capsule Take 1 capsule by mouth 1 (one) time each day at the same time. amLODIPine (Norvasc) 5 MG tablet Take 1 tablet (5 mg) by mouth Daily 90 tablet 3 Ascorbic Acid (Vitamin C) 500 MG capsule Take 1 capsule by mouth 1 (one) time each day. BABY ASPIRIN PO Take 1 tablet by mouth 1 (one) time each day. calcium citrate 600 mg and vitamin D3 (Citrical & Minerals + Vit D) 600-200 MG-UNIT tablet Take 1 tablet by mouth every 12 (twelve) hours. cephalexin (Keflex) 500 MG capsule Take two caps evening prior to appointment, take two caps one hour prior to appointment 4 capsule 2 cyanocobalamin (Vitamin B-12) 100 MCG tablet Take 1 tablet by mouth 1 (one) time each day. lisinopril 10 MG tablet Take 1 tablet (10 mg) by mouth Daily 100 tablet 3 omega-3 (Fish Oil) 1000 MG capsule Take 2 capsules by mouth 1 (one) time each day at the same time. Pyridoxine HCl (Vitamin B6) 100 MG tablet Take 1 tablet by mouth every 12 (twelve) hours. rosuvastatin (Crestor) 20 MG tablet Take 1 tablet (20 mg) by mouth Daily 100 tablet 3 No current facility-administered medications on file prior to visit. Allergies Allergen Reactions Sulfa Antibiotics Other Social History Tobacco Use Smoking status: Never Smokeless tobacco: Never Vaping Use Vaping status: Unknown Substance Use Topics Alcohol use: Yes Alcohol/week: 1.0 standard drink of alcohol Types: 1 Standard drinks or equivalent per week Comment: caffeine intake:1-2 cups per day coffee, tea Drug use: Defer Family History Problem Relation Name Age of Onset Osteoporosis Mother 05/2023 Hypertension Mother Hypertension Father Heart disease Father No Known Problems Brother No Known Problems Daughter No Known Problems Son Past Medical History: Diagnosis Date Endometriosis 1989 OA (osteoarthritis) Secondary hypertension (CMS/HCC) Thyroid disease (CMS/HCC) Past Surgical History: Procedure Laterality Date MO TOTAL ABDOM HYSTERECTOMY 1989 TONSILLECTOMY 1972 TOTAL KNEE ARTHROPLASTY Left 12/2021 TOTAL KNEE ARTHROPLASTY Right 08/02/2022 Review of Systems Constitutional: Negative for chills, fatigue and fever. HENT: Negative for congestion, ear pain, rhinorrhea and sore throat. Eyes: Negative for pain, discharge and visual disturbance. Respiratory: Negative for cough, shortness of breath and wheezing. Cardiovascular: Negative for chest pain, palpitations and leg swelling. Gastrointestinal: Negative for abdominal pain, constipation, diarrhea, nausea and vomiting. Genitourinary: Negative for difficulty urinating, dysuria and frequency. Musculoskeletal: Negative for arthralgias and back pain. Skin: Negative for rash. Neurological: Negative for dizziness and numbness. Psychiatric/Behavioral: Negative for sleep disturbance. The patient is not nervous/anxious. List of current healthcare providers: Patient Care Team: Randy Richard MD as PCP - General (Family Medicine) Randy Richard MD as PCP - [facility] Tuesday, [employer] as Licensed Practical Nurse (Family Medicine) Medicare Annual Visit Over the past 2 weeks, how often have you been bothered by any of the following problems? Little interest or pleasure in doing things: Not at all Feeling down, depressed, or hopeless: Not at all Patient Health Questionnaire-2 Score: 0 Over the past 2 weeks, how often have you been bothered by any of the following problems? Trouble falling or staying asleep, or sleeping too much: Not at all Feeling tired or having little energy: Not at all Poor appetite or overeating: Not at all Feeling bad about yourself - or that you are a failure or have let yourself or your family down: Not at all Trouble concentrating on things, such as reading the newspaper or watching television: Not at all Moving or speaking so slowly that other people could have noticed? Or the opposite - being so fidgety or restless that you have been moving around a lot more than usual.: Not at all Thoughts that you would be better off or hurting yourself in some way: Not at all Patient Health Questionnaire-9 Score: 0 [place] Fall Risk History of Falling, Immediate or Within 3 Months: No Health Risk Assessment Form Do you need help eating, bathing, using the toilet, dressing, or getting around your home?: No Can you prepare your own meals?: Yes Can you do your own housework without help?: Yes Can you shop for groceries or clothes without help?: Yes Do you exercise for about 20 minutes 3 or more days a week?: Yes How confident are you that you can control and manage most of your health problems?: Very confident Can you mange your money, credit cards and accounts, pay bills and taxes?: Yes Vision Screening: Yes, no gross abnormalities Hearing Screening: Yes, no gross abnormalities Cognitive Screening Self Assessment: No overt cognitive deficiency is apparent by direct observation Three Word Registration: Leader, Season, Table Clock Drawing: Normal Clock - 2 Three Word Recall: All 3 words correct - 3 Total Score (0-5 Points): 5 Pain Assessment Pain Score: 0 - No pain Advance Care Planning Do you have a living will?: Yes Do you have a medical power of finance attorney?: Yes Objective : BP 132/80 Pulse 86 Resp 16 Ht 5' 4.5 Wt 194 lb 3.2 oz SpO2 96% BMI 32.82 kg/m No results found. Physical Exam Constitutional: General: She is not in acute distress. Appearance: She is well-developed. She is obese. HENT: Head: Normocephalic and atraumatic. Right Ear: Tympanic membrane and ear canal normal. There is impacted cerumen. Left Ear: Tympanic membrane and ear canal normal. There is impacted cerumen. Nose: Nose normal. Mouth/Throat: Mouth: Mucous membranes are moist. Pharynx: No posterior oropharyngeal erythema. Eyes: General: No scleral icterus. Extraocular Movements: Extraocular movements intact. Conjunctiva/sclera: Conjunctivae normal. Pupils: Pupils are equal, round, and reactive to light. Neck: Vascular: No carotid bruit. Cardiovascular: Rate and Rhythm: Normal rate and regular rhythm. Heart sounds: Normal heart sounds. No murmur heard. Pulmonary: Effort: Pulmonary effort is normal. No respiratory distress. Breath sounds: Normal breath sounds. No wheezing, rhonchi or rales. Abdominal: General: Bowel sounds are normal. There is no distension. Palpations: Abdomen is soft. Tenderness: There is no abdominal tenderness. There is no guarding. Musculoskeletal: General: No swelling or deformity. Normal range of motion. Cervical back: Normal range of motion and neck supple. No tenderness. Skin: General: Skin is warm and dry. Capillary Refill: Capillary refill takes less than 2 seconds. Findings: No rash. Neurological: General: No focal deficit present. Mental Status: She is alert and oriented to person, place, and time. Cranial Nerves: No cranial nerve deficit. Sensory: No sensory deficit. Motor: No weakness. Gait: Gait normal. Deep Tendon Reflexes: Reflexes normal. Psychiatric: Mood and Affect: Mood normal. Behavior: Behavior normal. Thought Content: Thought content normal. Judgment: Judgment normal. Assessment/Plan : The following health maintenance schedule was reviewed with the patient and provided in printed form in the after visit summary: Health Maintenance Topic Date Due Influenza Vaccine (1) 04/01/2024 Mammogram 06/07/2024 Pneumococcal Vaccine: 65+ Years (1 of 1 - PCV) 05/26/2024 (Originally 2017) Colorectal Cancer Screening 05/30/2024 (Originally 1950) Medicare Annual Wellness (AWV) 04/30/2025 Advance Care Planning Has ACP in place. Orders Placed This Encounter Procedures Bilateral screening mammogram with tomosynthesis Standing Status: Future Standing Expiration Date: 06/30/2025 Scheduling Instructions: PLEASE CALL PATIENT TO SCHEDULE Order Specific Question: Reason for exam: Answer: screening 1. Medicare annual wellness visit, subsequent Reviewed all relevant preventative screenings with the patient in detail. Medicare Wellness form completed and will be scanned into patient's chart. All needed testing was ordered. Will continue with yearly Medicare Wellness exams. 2. ACP (advance care planning) Patient willing to discuss ACP. Pt has Living Will and DPOA in place. 3. Encounter for screening mammogram for malignant neoplasm of breast Provided patient with an order for an updated Mammogram. If results are negative/normal, will plan to continue with routine yearly screenings. - Bilateral screening mammogram with tomosynthesis; Future 4. Other chronic pain This is a chronic medical condition that is stable since last assessment. No changes in treatment are suggested at this time. 5. Paresthesias in right hand This is a chronic medical condition that is stable since last assessment. No changes in treatment are suggested at this time. 6. Benign hypertension (CMS/HCC) Patient's blood pressure is currently well controlled. Continue with current medications and I will continue to monitor. Goal BP remains less than 130/80. 7. Acquired absence of both cervix and uterus Pt is s/p Hysterectomy. Denies concerns at this time. 8. Presence of both artificial knee joints The patient is seeing a medical imaging technician for this condition, treatment is deferred to that specialist. Correspondence from that specialist and any available testing were reviewed during today's visit. 9. Osteopenia of multiple sites This is a chronic medical condition that is stable since last assessment. No changes in treatment are suggested at this time. 10. Primary osteoarthritis of both knees The patient is seeing a medical imaging technician for this condition, treatment is deferred to that specialist. Correspondence from that specialist and any available testing were reviewed during today's visit. 11. Class 1 obesity without serious comorbidity with body mass index (BMI) of 32.0 to 32.9 in adult, unspecified obesity type Encouraged portion control, decrease simple sugars and carbohydrates, gradually increase activity level. Aim for gradual steady weight loss. 12. Other primary ovarian failure This is a chronic medical condition that is stable since last assessment. No changes in treatment are suggested at this time. 13. Difficulty walking This is a chronic medical condition that is stable since last assessment. No changes in treatment are suggested at this time. 14. Hypercholesteremia (CMS/HCC) This is a chronic medical condition that is stable since last assessment. No changes in treatment are suggested at this time. Will continue to monitor with routine labs. 15. Bilateral cerumen impaction Attempted to irrigate bilateral ears today without success. Will have patient use Debrox drops daily for the next two weeks then return to office for irrigation. Follow up in about 6 months (around 10/28/2024) for Hypertension. 2 weeks for ear irrigation. Electronically signed by Perla Puri PA-C on April 30, 2024 documented in this encounter [facility] 08-02-2022 Note PT evaluation comple marga with an AM-PAC six clicks score of 18/24. Pt. requires min A for bed mobility of R LE positioning. Pt. able to complete transfers and level surface ambulation x63 ft. with CGA progressing to close supervision. No loss of balance or safety concerns noted. Pt. able to negotiate 4 stairs with single hand rail and SPC with CGA. No knee buckling noted with this. Pt. would be functionally safe to return home once medically stable with family support and ortho [address] [facility] 08-02-2022 Evaluation + Plan note Extrac marga from: Title:ANES Pre-operative Note Author:Reggie STEVE, R maurice S. Date:08/02/22 Patient: OSIRIS NGO Age: 71 years Sex: Female : 1950 Associated Diagnoses: None Author: Chivo Paredes MD Preoperative Information Anesthesia Preop Info: Time patient last ate or drank 08/01/2022 06:54:00. Anesthesia history: Patient history: None. Family history+: Nausea and vomiting with anesthesia. Informed consent: Signed by patient. Including risks, benefits, and alternatives related to the: Anesthetic plan, Postoperative pain management plan. Review of Systems Eye: Negative. Ear/Nose/Mouth/Throat: Negative. Respiratory: Negative. Cardiovascular: Negative. Gastrointestinal: Negative. Genitourinary: Negative. Hematology/Lymphatics: Negative. Endocrine: Negative. Musculoskeletal: Negative. Neurologic: Negative. Health Status Allergies: Allergic Reactions (Selected) Severity Not Documented Sulfa drugs- Bad headache., Allergies (1) ActiveReaction sulfa drugsbad headache Current medications: (Selected) Inpatient Medications Ordered Arixtra 2.5 mg/0.5 mL Injection: 2.5 mg = 0.5 mL, Injection, SubCutaneous, qAM for 10 day(s), Stop date 08/13/22 6:29:00 EST, Routine, Start date 08/03/22 6:30:00 EST, Start AM postop day 1, 08/03/22 6:30:00 EST Colace 100 mg Cap: 100 mg = 1 cap(s), Cap, Oral, BID, Routine, Start date 08/02/22 21:00:00 EST Dulcolax 5 mg Tab-EC: 10 mg = 2 tab(s), Tab-EC, Oral, Daily PRN Constipation, Routine, Start date 08/04/22 8:45:00 EST, 08/04/22 8:45:00 EST HYDROmorphone 1 mg/mL injectable solution: 1 mg = 1 mL, Injection, IV Push, q2hr PRN Pain 8-10 for 5 day(s), Stop date 08/07/22 8:44:00 EST, Routine, Start date 08/02/22 8:45:00 EST, 08/02/22 8:45:00 EST Lactated Ringers IV Cate 1000 mL 1,000 mL: 1,000 mL, IV, 150 mL/hr, Routine, Start date 08/02/22 6:00:00 EST, 6.7 hour(s), Total volume (mL): 1,000 Lactated Ringers IV Cate 1000 mL 1,000 mL: 1,000 mL, IV, 80 mL/hr, Routine, Start date 08/02/22 8:45:00 EST, 12.5 hour(s), Total volume (mL): 1,000 Milk of Magnesia 8% Susp-Oral: 30 mL, Susp-Oral, Oral, BID PRN Constipation, Routine, Start date 08/02/22 8:45:00 EST Nozin 62% Bottle - POSTOP: 6 drop(s), Soln-Nasal, Nasal, BID, Routine, Start date 08/02/22 21:00:00 EST Pantoprazole [address] Tab: 40 mg = 1 tab(s), Tab-DR, Oral, Daily, Routine, Start date 08/03/22 9:00:00 EST Zofran 4 mg/2 mL Injection: 4 mg = 2 mL, Injection, IV Push, q6hr PRN Nausea/Vomiting, Routine, Start date 08/02/22 8:45:00 EST, 08/02/22 8:45:00 EST acetaminophen-oxycodone 325 mg-5 mg Tab: 1 tab(s), Tab, Oral, q4hr PRN Pain 4-7 for 5 day(s), Stop date 08/07/22 8:44:00 EST, Routine, Start date 08/02/22 8:45:00 EST acetaminophen-oxycodone 325 mg-5 mg Tab: 2 tab(s), Tab, Oral, q4hr PRN Pain 4-7 for 5 day(s), Stop date 08/07/22 8:44:00 EST, Routine, Start date 08/02/22 8:45:00 EST amLODIPine 5 mg Tab: 5 mg = 1 tab(s), Tab, Oral, Daily, Routine, Start date 08/03/22 9:00:00 EST atorvastatin 40 mg Tab: 40 mg = 1 tab(s), Tab, Oral, Daily, Routine, Start date 08/03/22 9:00:00 EST cefazolin additive + Sodium Chloride 0.9% intravenous solution 50 mL: 2 gram = 1 EA, IV Piggyback, q8hr for 2 dose(s), Stop date 08/03/22 0:59:00 EST, Routine, Start date 08/02/22 9:00:00 EST, 100 mL/hr, Infuse over 30 minute(s), 08/02/22 8:45:00 EST cefazolin additive + Sodium Chloride 0.9% intravenous solution 50 mL: 2 gram = 1 EA, Powder-Inj, IV Piggyback, PREOP, Routine, Start date 08/02/22 6:00:00 EST, 100 mL/hr, Infuse over 30 minute(s) morphine 2 mg/mL Inj: 2 mg = 1 mL, Injection, IV, q4hr PRN Pain 8-10 for 5 day(s), Stop date 08/07/22 8:44:00 EST, Routine, Start date 08/02/22 8:45:00 EST, 08/02/22 8:45:00 EST Prescriptions Prescribed Colace 100 mg Cap: 100 mg = 1 cap(s), Oral, BID, # 20 cap(s), Refills(s) 0, Pharmacy: [id number], 160, cm, 12/30/21 12:25:00 EDT, Height/Length Dosing, 81.5, kg, 12/30/21 12:25:00 EDT, Weight Dosing Keflex 500 mg Cap: 500 mg = 1 cap(s), Oral, QID, X 10 day(s), # 40 cap(s), Refills(s) 0, Pharmacy: [id number], 160, cm, 12/30/21 12:25:00 EDT, Height/Length Dosing, 81.5, kg, 12/30/21 12:25:00 EDT, Weight Dosing Percocet 5 mg-325 mg oral tablet: See Instructions, 50 tab(s), Refill(s) 0, Take one to two every 4 hours for major orthopedic knee replacement surgical pain Z96/M17.11, [id number], 160, cm, 12/30/21 12:25:00 EDT, Height/Length Dosing, 81.5, kg, 12/30/21 12:25:00 EDT, W... aspirin 325 mg Tab: 325 mg = 1 tab(s), Oral, BID, X 30 day(s), # 60 tab(s), Refills(s) 0, Pharmacy: [id number], 160, cm, 12/30/21 12:25:00 EDT, Height/Length Dosing, 81.5, kg, 12/30/21 12:25:00 EDT, Weight Dosing Documented Medications Documented Celebrate Multivitamin oral capsule: 1 tab, Oral, Daily, Prophylaxis Colace 100 mg Cap: 100 mg = 1 cap(s), Oral, BID, Refills(s) 0 Fish Oil 1000 mg oral capsule: 1,000 mg = 1 cap(s), Oral, Daily, Prophylaxis Percocet 325 mg-5 mg Tab: 1 tab(s), Oral, q4hr Pain 4-7, Refill(s) 0 Percocet 325 mg-5 mg Tab: 2 tab(s), Oral, q4hr Pain 4-7, Refill(s) 0 Tylenol Extra Strength PM oral tablet: 1 tab(s), Oral, Once a day (at bedtime) as needed for sleep Vitamin B-12 1000 mcg oral tablet: 1,000 mcg = 1 tab(s), Oral, Daily, Prophylaxis Vitamin B6 100 mg Tab: 100 mg = 1 tab(s), Oral, Daily, Prophylaxis Vitamin C 1000 mg oral tablet: 1,000 mg = 1 tab(s), Oral, Daily, Prophylaxis Vitamin E 400 unit(s) Cap: 400 International_Unit = 1 cap(s), Oral, Daily, Prophylaxis alendronate 70 mg Tab: 70 mg = 1 tab(s), Oral, qWeek, Refills(s) 0, Other (see comment) amLODIPine 5 mg Tab: 5 mg = 1 tab(s), Oral, Daily, Refills(s) 0, High blood pressure calcium-vitamin D 200 mg-250 intl units oral tablet: 1 tab(s), Oral, Daily, Prophylaxis rosuvastatin 20 mg Tab: 20 mg = 1 tab(s), Oral, Daily, Refills(s) 0, High cholesterol, Home Medications (18) Active alendronate 70 mg Tab 70 mg = 1 tab(s), Oral, qWeek amLODIPine 5 mg Tab 5 mg = 1 tab(s), Oral, Daily aspirin 325 mg Tab 325 mg = 1 tab(s), Oral, BID calcium-vitamin D 200 mg-250 intl units oral tablet 1 tab(s), Oral, Daily Celebrate Multivitamin oral capsule 1 tab, Oral, Daily Colace 100 mg Cap 100 mg = 1 cap(s), Oral, BID Colace 100 mg Cap 100 mg = 1 cap(s), Oral, BID Fish Oil 1000 mg oral capsule 1,000 mg = 1 cap(s), Oral, Daily Keflex 500 mg Cap 500 mg = 1 cap(s), Oral, QID Percocet 325 mg-5 mg Tab 1 tab(s), PRN, Oral, q4hr Percocet 325 mg-5 mg Tab 2 tab(s), PRN, Oral, q4hr Percocet 5 mg-325 mg oral tablet See Instructions rosuvastatin 20 mg Tab 20 mg = 1 tab(s), Oral, Daily Tylenol Extra Strength PM oral tablet 1 tab(s), PRN, Oral, Once a day (at bedtime) Vitamin B-12 1000 mcg oral tablet 1,000 mcg = 1 tab(s), Oral, Daily Vitamin B6 100 mg Tab 100 mg = 1 tab(s), Oral, Daily Vitamin C 1000 mg oral tablet 1,000 mg = 1 tab(s), Oral, Daily Vitamin E 400 unit(s) Cap 400 International_Unit = 1 cap(s), Oral, Daily , Medications (17) Active Scheduled: (8) amLODIPine 5 mg Tab [F] 5 mg 1 tab(s), Oral, Daily atorvastatin 40 mg Tab [F] 40 mg 1 tab(s), Oral, Daily ceFAZolin + Sodium Chloride 0.9% Minibag 50 mL 2 gram 1 EA, IV Piggyback, PREOP ceFAZolin + Sodium Chloride 0.9% Minibag 50 mL 2 gram 1 EA, IV Piggyback, q8hr docusate sodium 100 mg Cap [F] 100 mg 1 cap(s), Oral, BID fondaparinux 2.5 mg/0.5 mL SubQ Cate [F] 2.5 mg 0.5 mL, SubCutaneous, qAM Nozin Nasal [employer] Bottle - POSTOP [F] 6 drop(s), Nasal, BID pantoprazole [address] Tab [F] 40 mg 1 tab(s), Oral, Daily Continuous: (2) Lactated Ringers 1,000 mL 1,000 mL, IV, 150 mL/hr Lactated Ringers 1,000 mL 1,000 mL, IV, 80 mL/hr PRN: (7) acetaminophen-oxycodone 325 mg-5 mg Tab [F] 1 tab(s), Oral, q4hr acetaminophen-oxycodone 325 mg-5 mg Tab [F] 2 tab(s), Oral, q4hr bisacodyl 5 mg Oral EC Tab [F] 10 mg 2 tab(s), Oral, Daily HYDROmorphone 1 mg/mL SOLN [F] 1 mg 1 mL, IV Push, q2hr magnesium hydroxide 8% Oral Susp 30 mL [F] 30 mL, Oral, BID morphine 2 mg/mL preservative-free SOLN [F] 2 mg 1 mL, IV, q4hr ondansetron 2 mg/mL Inj [F] 4 mg 2 mL, IV Push, q6hr Problem list: All Problems Hypercholesteremia / SNOMED CT 27223064 / Confirmed Hypertension / SNOMED CT 9374719331 / Confirmed Knee pain, left / SNOMED CT 0989052298 / Confirmed, Active Problems (3) Hypercholesteremia Hypertension Knee pain, left Histories Past Medical History: No active or resolved past medical history items have been selected or recorded. Family History: No family history items have been selected or recorded. Procedure history: Total knee arthroplasty ([id number]) on 07/23/2022 at 71 Years. History of hysterectomy ([id number]). Social History Social & Psychosocial Habits Alcohol 2Risk Assessment: Denies Alcohol Use Substance Abuse 2Risk Assessment: Denies Substance Abuse Tobacco 2Risk Assessment: Denies Tobacco Use . Physical Examination Vital Signs 08/02/2022 6:29 EST Heart Rate Monitored 87 bpm Systolic Blood Pressure 112 mmHg Diastolic Blood Pressure 75 mmHg Mean Arterial Pressure, Monitered 87 mmHg 08/02/2022 6:29 EST Apical Heart Rate 84 bpm 08/02/2022 6:28 EST Heart Rate Monitored 94 bpm SpO2 96 % 08/02/2022 6:27 EST Respiratory Rate 20 br/min 08/02/2022 6:27 EST Temperature Axillary 36.5 DegC 08/02/2022 6:27 EST Systolic Blood Pressure 134 mmHg Diastolic Blood Pressure 79 mmHg Mean Arterial Pressure, Monitered 97 mmHg Vital Signs (last 24 hrs) Last Charted Temp Xffmhpzp63.5 DegC (AUG 02 06:27) Heart Rate Npvaze07 bpm (AUG 02:) WGM497 mmHg (AUG 02:) DBP75 mmHg (AUG 02:) NqX230 % (AUG 02 06:28) Avhgov09.7 kg (AUG 02:43) BMI30.54 (AUG 02:) Measurements from flowsheet : Measurements 08/02/2022 6:43 EST Height/Length Measured 159.5 cm Height/Length Dosing 159.5 cm Weight Dosing 77.7 kg Regina Body Weight Calculated 51.929 kg BSA Measured 1.86 m2 Body Mass Index Measured 30.54 kg/m2 Weight Measured 77.7 kg Review / Management Results review: No qualifying data available . Plan [employer] Anesthesiologists (ASA) physical status classification: Class III. general block for pain control Addendum by Chivo Paredes MD on 2022 15:33 EST changed work type [facility]12-29-2022 Hospital Discharge instructions Patient Education 07/29/2022 17:40:35 Garcia - Total Knee Arthroplasty (CUSTOM) [place], [place] [facility] DISCHARGE INSTRUCTIONS TOTAL KNEE ARTHROPLASTY INCISION CARE: Mepilex dressing can get wet with showers. Please remove 10 days after surgery per instruction sheet. If mitesh present, please coordinate removal 21 days after surgery with office staff. Please notify the office if any increase in redness, tenderness, drainage, fever, or wound separation is notedbeyond this point. Compression stockings may be helpful if any significant or uncomfortable swelling in the legs is noted postoperatively. Use and removal instructions should be given by physical therapy. If the swelling is below the knee, knee high compression stockings may suffice. If this does cause swelling into the thigh region, waist high compression stockings may be beneficial as well. These can be obtained from most pharmacies, or can be obtained from the hospital or through Home Health. The mild grade compression stockings are best used initially. MEDICATIONS: You may resume your home medications at the time of discharge. Aspirin 325 mg EC oral once a day for 4 weeks for blood clot prevention with meals. Please notify your doctor if you have a stomach sensitivity to Aspirin or history of previous stomach ulcers. Pain medication has been prescribed as well. You may continue to use the pain medication every fourhours as needed. Any narcotic pain medication can cause side effects including stomach upset, constipation, or light-headedness. You should not drive or operate machinery, or use alcohol while using the narcotic pain medication. You should not use other pain medications with this prescription pain medication unless further directed by your physician. PHYSICAL THERAPY: Continue the range of motion and strengthening exercises initiated in Physical Therapy in the hospital. [facility] Discharge Instructs for TKAPage 2 Physical Therapy Cont. Continue weight bearing, as ordered, to the operated knee for four to six weeks as directed in Physical Therapy, or until your strength is improved and Physical Therapy will then allow you to progress to full weight. This will be with the use of a walker or crutches initially. After four or six weeks you may then progress to the use of one crutch, or a cane. A quad-cane is preferred as this is more stable. Physical therapy as begun in the hospital will continue at home, possible with the fire control assistant of Home Health Physical Therapy or in the hospital as an outpatient. When you have become independent withthe physical therapy program, this will then be discontinued as a supervised program and you will be instructed to continue the physical therapy exercises at home. Your exercises are bernardo to successful rehabilitation. You should gain full extension first, hopefully before hospital discharge, then continue to do the exercises to maintain this, and gain 90 degreesflexion by one month post-op. Do the exercises daily, twice if preferred. DRIVING: Please do not drive for 4-6 weeks pending therapy progress. 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 It is therefore advised not to drive until after yourfirst office visit following surgery FOLLOW-UP OFFICE VISIT: Paulino Garcia, DO [facility] [address] [place] [address] [phone] Reviewed: 408 08/02/2022 09:51:53 Knee Cryocuff Patient Instructions - FT (CUSTOM) 08/02/2022 09:51:53 Post Op Patient Instructions - FT (CUSTOM) 08/02/2022 09:51:53 How to Use an Incentive Spirometer How To Use an Incentive Spirometer An incentive spirometer is a tool that measures how well you are filling your lungs with each breath. Learning to take long, deep breaths using this tool can help you keep your lungs clear and active. This may help to reverse or lessen your chance of developing breathing (pulmonary) problems, especially infection. You may be asked to use a spirometer: After a surgery. If you have a lung problem or a history of smoking. After a long period of time when you have been unable to move or be active. If the spirometer includes an indicator to show the highest number that you have reached, your health care provider or respiratory therapist will help you set a goal. Keep a list (log) of your progress as told by your health care provider. What are the risks? Breathing too quickly may cause dizziness or cause you to pass out. Take your time so you do not get dizzy or light-headed. If you are in pain, you may need to take pain medicine before doing incentive spirometry. It is harder to take a deep breath if you are having pain. How to use your incentive spirometer 1.Sit up on the edge of your bed or on a chair. 2.Hold the incentive spirometer so that it is in an upright position. 3.Before you use the spirometer, breathe out normally. 4.Place the mouthpiece in your mouth. Make sure your lips are closed tightly around it. 5.Breathe in slowly and as deeply as you can through your mouth, causing the piston or the ball to rise toward the top of the chamber. 6.Hold your breath for 3 5 seconds, or for as long as possible. If the spirometer includes a girls tennis coach indicator, use this to guide you in breathing. Slow down your breathing if the indicator goes above the marked areas. 7.Remove the mouthpiece from your mouth and breathe out normally. The piston or ball will return tothe bottom of the chamber. 8.Rest for a few seconds, then repeat the steps 10 or more times. Take your time and take a few normal breaths between deep breaths so that you do not get dizzy or light-headed. Do this every 1 2 hours when you are awake. 9.If the spirometer includes a goal marker to show the highest number you have reached (best effort), use this as a goal to work toward during each repetition. 10.After each set of 10 deep breaths, cough a few times. This will help to make sure that your lungs are clear. If you have an incision on your chest or abdomen from surgery, place a pillow or a rolled-up towel firmly against the incision when you cough. This can help to reduce pain from coughing. General tips When you become able to get out of bed, walk around often and continue to cough to help clear your lungs. Keep using the incentive spirometer until your health care provider says it is okay to stop using it. If you have been in the hospital, you may be told to keep using the spirometer at home. Contact a health care provider if: You are having difficulty using the spirometer. You have trouble using the spirometer as often as instructed. Your pain medicine is not giving enough relief for you to use the spirometer as told. You have a fever. You develop shortness of breath. Get help right away if: You develop a cough with bloody mucus from the lungs (bloody sputum). You have fluid or blood coming from an incision site after you cough. Summary An incentive spirometer is a tool that can help you learn to take long, deep breaths to keep your lungs clear and active. You may be asked to use a spirometer after a surgery, if you have a lung problem or a history of smoking, or if you have been inactive for a long period of time. Use your incentive spirometer as instructed every 1 2 hours while you are awake. If you have an incision on your chest or abdomen, place a pillow or a rolled-up towel firmly against your incision when you cough. This will help to reduce pain. This information is not intended to replace advice given to you by your health care provider. Make sure you discuss any questions you have with your health care provider. Document Released: 11/28/2007 Document Revised: 08/10/2018 Document Reviewed: 05/31/2018 [employer] Patient Education 2020 [employer] Follow Up Care 05/31/2022 10:02:51 With:Paulino Garcia Address: [address] [place], [place] [id number] [facility] (1) When:09/02/2022 09:00:00 Comments:Keep scheduled appointmentAppointment has already been scheduledCall for any problems. [facility]12-28-2022 Note [id number]:127[facility] 01-18-2022 NotePT Evaluation completed with an [facility] 6 clicks score of 18/24. Pt was able to perform bed mobility with Min A and transfers with CGA. Pt was able to ambulate 80 feet with FWW and CGA to perform stepswith CGA Pt would be functionally safe to return home with caregiver assist and Ortho [address] [facility]06-20-2022 Evaluation + Plan noteExtracted from: Title:ZZZpostop GA Author:Vinny Elizabeth MD Date :01/18/22 Plan Transfer/ Discharge: Patient can be discharged from PACU when criteria met, Patient can be discharged from anesthesia care. Condition stable. Extracted from: Title:Anesthesia Pre-Op GA/block Author:Vinny Arevalo Date:01/18/22 Plan [employer] An[employer]hesiologists (ASA) physical status classification: Class II. Anesthetic Preoperative Plan Anesthesia: General. , Regional block for post op pain control., discussed the benefits of obstaining from tobacco products. Anesthetic plan, risks, benefits, and alternatives discussed with the patient and/or family. Patient verbalized understanding. Pt agrees with anesthetic plan and accepts all risks including but not limited to; Bleeding, infection(including Covid-19), nerve injury, dental injury, eye injury, headache, low blood pressure, serious problems with the heart and lungs, allergic reactions, failed block and .. Extracted from: Title:Op Note skeleton Author:Paulino Garcia DO Date:01/18/22 Impression and Plan Diagnosis Pre-op dx-lt knee oa/pain Post-op dx-same Procedure-lt tka [id number] EBL-0 TT-0 To Recovery Room in stable and satisfactory condition.. [facility]06-20-2022 Hospital Discharge instructions Patient Education 01/18/2022 11:24:16 Knee Cryocuff Patient Instructions - FT (Custom) 01/18/2022 11:24:16 Post Op Patient Instructions - FT (Custom) 01/15/2022 12:53:13 Garcia - Total Knee Arthroplasty (CUSTOM) [place], [place] [facility] DISCHARGE INSTRUCTIONS TOTAL KNEE ARTHROPLASTY INCISION CARE: Mepilex dressing can get wet with showers. Please remove 10 days after surgery per instruction sheet. If mitesh present, please coordinate removal 21 days after surgery with office staff. Please notify the office if any increase in redness, tenderness, drainage, fever, or wound separation is notedbeyond this point. Compression stockings may be helpful if any significant or uncomfortable swelling in the legs is noted postoperatively. Use and removal instructions should be given by physical therapy. If the swelling is below the knee, knee high compression stockings may suffice. If this does cause swelling into the thigh region, waist high compression stockings may be beneficial as well. These can be obtained from most pharmacies, or can be obtained from the hospital or through Home Health. The mild grade compression stockings are best used initially. MEDICATIONS: You may resume your home medications at the time of discharge. Aspirin 325 mg EC oral once a day for 4 weeks for blood clot prevention with meals. Please notify your doctor if you have a stomach sensitivity to Aspirin or history of previous stomach ulcers. Pain medication has been prescribed as well. You may continue to use the pain medication every fourhours as needed. Any narcotic pain medication can cause side effects including stomach upset, constipation, or light-headedness. You should not drive or operate machinery, or use alcohol while using the narcotic pain medication. You should not use other pain medications with this prescription pain medication unless further directed by your physician. PHYSICAL THERAPY: Continue the range of motion and strengthening exercises initiated in Physical Therapy in the hospital. [facility] Discharge Instructs for TKAPage 2 Physical Therapy Cont. Continue weight bearing, as ordered, to the operated knee for four to six weeks as directed in Physical Therapy, or until your strength is improved and Physical Therapy will then allow you to progress to full weight. This will be with the use of a walker or crutches initially. After four or six weeks you may then progress to the use of one crutch, or a cane. A quad-cane is preferred as this is more stable. Physical therapy as begun in the hospital will continue at home, possible with the fire control assistant of Home Health Physical Therapy or in the hospital as an outpatient. When you have become independent withthe physical therapy program, this will then be discontinued as a supervised program and you will be instructed to continue the physical therapy exercises at home. Your exercises are bernardo to successful rehabilitation. You should gain full extension first, hopefully before hospital discharge, then continue to do the exercises to maintain this, and gain 90 degreesflexion by one month post-op. Do the exercises daily, twice if preferred. DRIVING: Please do not drive for 4-6 weeks pending therapy progress. 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 It is therefore advised not to drive until after yourfirst office visit following surgery FOLLOW-UP OFFICE VISIT: Paulino Garcia, DO [facility] [address] [place] [id number] Reviewed: 11-06 Follow Up Care 12/02/2021 09:27:31 With:Paulino Garcia Address: [address] [place] [address]- Business (1) When: Unknown Comments:Keep scheduled appointment [facility]06-16-2022 Note [id number]:127[facility] Evaluation + Plan note Future Appointments Appointment Date:01/18/2022 10:00:00 AM Scheduled Provider: Location:[facility] Future Appointments Appointment Date:08/02/2022 08:45:00 AM Scheduled Provider: Location:[facility] Diagnosis Bilateral impacted cerumen- Primary Impacted cerumen documented in this encounter [facility]* Diagnosis Onychomycosis- Primary Dermatophytosis of nail Pain in both feet documented in this encounter [facility] note* Diagnosis Benign hypertension (CMS/HCC)- Primary Essential hypertension, benign Hypercholesteremia (CMS/HCC) Pure hypercholesterolemia Wellness examination documented in this encounter [facility] note* Diagnosis Medicare annual wellness visit, subsequent- Primary ACP (advance care planning) Other specified counseling Encounter for screening mammogram for malignant neoplasm of breast Other chronic pain Paresthesias in right hand Disturbance of skin sensation Benign hypertension (CMS/HCC) Essential hypertension, benign Acquired absence of both cervix and uterus Presence of both artificial knee joints Osteopenia of multiple sites Primary osteoarthritis of both knees Class 1 obesity without serious comorbidity with body mass index (BMI) of 32.0 to 32.9 in adult, unspecified obesity type Other primary ovarian failure Difficulty walking Difficulty in walking Hypercholesteremia (CMS/HCC) Pure hypercholesterolemia Bilateral impacted cerumen Impacted cerumen documented in this encounter [facility] note* Diagnosis Presence of both artificial knee joints- Primary documented in this encounter [facility] note* Diagnosis Onychomycosis- Primary Dermatophytosis of nail Pain in both feet Hammer toe of right foot Neuroma digital nerve Capsulitis of foot Hallux valgus of right foot documented in this encounter [facility] note* Diagnosis Benign hypertension (CMS/HCC)- Primary Essential hypertension, benign documented in this encounter [facility] note* Diagnosis Onychomycosis- Primary Dermatophytosis of nail Pain in both feet documented in this encounter [facility] HealthcareHistory of Present illness Narrative* Paulino Garcia DO - 08/15/2024 9:15 AM EST Post op TKA bilateral staggered annual visit: The patient is seen and evaluated for annual bilateral staggered total knee arthroplasty visit. Pain is appropriately controlled. Denies chest pain or shortness of breath or palpitations. Continues to be consistent and diligent with home exercise program as well as physical therapy modalities. Physical therapy modalities were instructed. Happy with progress made. Physical Exam: The total knee incisions are both clean, dry and intact. Mild swelling as expected. Has a stable arc of motion without mechanical symptoms. No instability of the bilateral knee prosthesis. No rash, infection or DVT. The calf is supple. Gait is assisted with stiffness with mild antalgic component. Image Results: Xrays taken in the office today saved to the permanent record, bilateral AP , sunrise and lateral weightbearing films, show stable position and alignment of the staggered bilateral TKA prosthesis. Nosign of loosening, fracture or infection. Assessment: S/P bilateral staggered total knee arthroplasty-annual post-operative visit Treatment Plan: The nature of the findings were discussed at length. Continuance of regular exercise, weight management and fall precautions reviewed. halfway antibiotic prophylaxis for dental or invasive work were reviewed. Numerous questions were answered. Follow-up in 1 year for repeat xray and exam, sooner if concerned. The patient is discharged in stable condition. [facility] Narrative No data available for this section [facility] No data available for this section [facility] No data available for this section [facility] Summary Purpose Family History No Family History Records FoundNo Family History Records FoundNo Family History Records FoundNo Family History Records FoundNo Family History Records Found Advance Directives No Advanced Directives Records FoundNo Advanced Directives Records FoundNo Advanced Directives Records FoundNo Advanced Directives Records FoundNo Advanced Directives Records Found Additional Source Comments INFORMATION SOURCE (unrecogn ized section and content) DATE CREATED AUTHOR 11/20/2021 [facility] DATE CREATED AUTHOR AUTHOR'S ORGANIZ ATION 07/07/2022 [facility] DATE CREATED AUTHOR AUTHOR'S ORGANIZ ATION 08/12/2022 [facility] DATE CREATED AUTHOR AUTHOR'S ORGANIZ ATION 06/04/2024 [facility] DATE CREATED AUTHOR AUTHOR'S ORGANIZ ATION 03/01/2025 [facility] EPIC Care Team (unrecognized sect ion and content) Business Intelligence Engineer Relationship Specialty Start Date End Date Randy Richard MD [address] [facility] [address] [place] [address] PCP - General Family Medicine 02/02/23 Randy Richard MD [address] [place] [address] PCP - ACO Reach 11/30/23Tuesday, Christine, INSPECTOR SEMICONDUCTOR WAFER [address] [place] [address] Licensed Practical Nurse Family Medicine 05/17/23 Business Intelligence Engineer Relationship Specialty Start Date End Date Randy Richard MD [address] [place] [address] PCP - General Family Medicine 02/02/23 Randy Richard MD [address] [place] [address] PCP - ACO Reach 11/30/23Tuesday, Christine, INSPECTOR SEMICONDUCTOR WAFER [address] [place] [address] Licensed Practical Nurse Family Medicine 05/17/23 Business Intelligence Engineer Relationship Specialty Start Date End Date Randy Richard MD [address] [place] [address] PCP - General Family Medicine 02/02/23 Randy Richard MD [address] [place] [address] PCP - ACO Reach 11/30/23Tuesday, Christine, INSPECTOR SEMICONDUCTOR WAFER [address] [place] [address] Licensed Practical Nurse Family Medicine 05/17/23 Business Intelligence Engineer Relationship Specialty Start Date End Date Randy Richard MD [address] [place] [address] PCP - General Family Medicine 02/02/23 Randy Richard MD [address] [place] [address] PCP - ACO Reach 11/30/23Tuesday, Christine, INSPECTOR SEMICONDUCTOR WAFER [address] [place] [address] Licensed Practical Nurse Family Medicine 05/17/23 Business Intelligence Engineer Relationship Specialty Start Date End Date Randy Richard MD [address] [place] [address] PCP - General Family Medicine 02/02/23 Randy Richard MD [address] [place] [address] PCP - ACO Reach 11/30/23Tuesday, Christine, INSPECTOR SEMICONDUCTOR WAFER [address] [place] [address] Licensed Practical Nurse Family Medicine 05/17/23 Business Intelligence Engineer Relationship Specialty Start Date End Date Randy Richard MD [address] [place] [address] PCP - General Family Medicine 02/02/23 Randy Richard MD [address] [place] [address] PCP - ACO Reach 11/30/23Tuesday, Christine, INSPECTOR SEMICONDUCTOR WAFER [address] [place] [address] Licensed Practical Nurse Family Medicine 05/17/23 Business Intelligence Engineer Relationship Specialty Start Date End Date Randy Richard MD [address] [place] [address] PCP - General Family Medicine 02/02/23 Randy Richard MD [address] [place] [address] PCP - ACO Reach 11/30/23TueZay, Christine, INSPECTOR SEMICONDUCTOR WAFER [address] [place] [address] Licensed Practical Nurse Family Medicine 05/17/23 Business Intelligence Engineer Relationship Specialty Start Date End Date Randy Richard MD [address] [place] [address] PCP - General Family Medicine 02/02/23 Randy Richard MD [address] [place] [address] PCP - ACO Reach 11/30/23Tuesday, Christine, INSPECTOR SEMICONDUCTOR WAFER [address] [place] [address] Licensed Practical Nurse Family Medicine 05/17/23 Business Intelligence Engineer Relationship Specialty Start Date End Date Randy Richard MD [address] [place] [address] PCP - General Family Medicine 02/02/23 Randy Richard MD [address] [place] [address] PCP - ACO Reach 11/30/23 Regina Matt LPN 10/19/24 Business Intelligence Engineer Relationship Specialty Start Date End Date Randy Richard MD [address] [place] [address] PCP - General Family Medicine 02/02/23 Randy Richard MD [address] [place] [address] PCP - ACO Reach 11/30/23 Regina Matt LPN 10/19/24 Business Intelligence Engineer Relationship Specialty Start Date End Date Randy Richard MD [address] [place] [address] PCP - General Family Medicine 02/02/23 Randy Richard MD [address] [place] [address] PCP - ACO Reach 11/30/23 Regina Matt LPN 10/19/24 Business Intelligence Engineer Relationship Specialty Start Date End Date Randy Richard MD [address] [place] [address] PCP - General Family Medicine 02/02/23 Randy Richard MD [address] [place] [address] PCP - ACO Reach 11/30/23 Regina Matt LPN [address] [place] [address] 10/19/24 Business Intelligence Engineer Relationship Specialty Start Date End Date Randy Richard MD [address] [place] [address] PCP - General Family Medicine 02/02/23 Randy Richard MD [address] [place] [address] PCP - ACO Reach 11/30/23 Regina Matt LPN [address] [place] [address] 10/19/24 Reason for Visit (unrecogniz ed section and content) Reason Comments Follow-up FOR RECORDS PERTAINING TO PATIENTS WHO ARE OR HAVE BEEN ENROLLED IN A CHEMICAL DEPENDENCY/SUBSTANCEABUSE PROGRAM, SOME INFORMATION MAY BE OMITTED. This clinical summary was aggregated from multiple sources. Caution should be exercised in using it in the provision of clinical care. This summary normalizes information from multiple sources, and as a consequence, information in this document may materially change the coding, format and clinical context of patient data. In addition, data may be omitted in some cases. CLINICAL DECISIONS SHOULD BE BASED ON THE PRIMARY CLINICAL RECORDS. [facility]. provides no warranty or guarantee of the accuracy or completeness of information in this document.
== END 2025-03-29 08:26 | disposition home or self-care (01) ==
LOC: MAMMO 08:25
PROVIDERS: PCP Physician Assistant; Visit Provider Physician Assistant
DX: Z12.31 Encounter for screening mammogram for malignant neoplasm of breast (principal)
CPT/HCPCS: 77063; 77067

== ENCOUNTER 2025-06-02 12:48 | Emergency (ER) | payer MEDICARE, OTHER, SELFPAY ==
[2025-06-02 12:54] VITALS: BP 140/87; PULSE 93; TEMP 36.6; O2SAT 96; BMI 32.8
--- OUTSIDE RECORDS SUMMARY | 2025-06-02 12:56 | XMS_ITS | CCD ---
Author Organization [facility] Care Team Providers Care Saturator Operator Name Role Phone JAXSON, DR PERLA Chiu Admitting Unavailable HEMMER, DR PERLA Chiu Attending Unavailable ZIEBER, DR JARON Miramontes Consulting Unavailable HEMNATALEE, DR PERLA Chiu Consulting Unavailable RANDY RICHARD Primary Care Physician Paulino Garcia Attending Unavailable Garcia, Paulino Leos Referring Unavailable Garcia, Paulino Leos Admitting Unavailable Garcia, Paulino Leos Admitting Unavailable Garcia, Paulino Leos Attending Unavailable Garcia, Paulino Leos Attending Unavailable Garcia, Paulino Leos Referring Unavailable Garcia, Paulino Leos Admitting Unavailable Garcia, Paulino Leos Referring Unavailable Garcia, Paulino Leos Admitting Unavailable Garcia, Paulino Leos Attending Unavailable Randy Richard MD Primary Care Provider Zay QUILLER OPERATOR, Christine Unavailable Randy Richard MD Unavailable Matt QUILLER OPERATOR, Regina Unavailable Unavailable [place] QUILLER OPERATOR, Regina Unavailable HAZEL FALOLN Attending Unavailable PERLA PURI Attending Unavailable HAZEL FALLON Attending Unavailable HAZEL FALLON Attending Unavailable PERLA PURI Attending Unavailable HEMPERLA ALBRIGHT Attending Unavailable HEMPERLA ALBRIGHT Attending Unavailable HAZEL FALLON Attending Unavailable PAULINO GARCIA Referring Unavailable JOSE, PAULINO Leos Attending Unavailable Allergies Allergy ClassificationReported Allergen(s)Allergy TypeDate of OnsetReaction(s) Facility (5 sources)Sulfonamides (Antibiotic); Translations: [sulfa drugs][facility] ([facility] sources)Sulfonamides (Antibiotic)Drug Tscxtsp61-91-2911KurlvPJCV Healthcare Medications Current Medications MedicationDrug Class(es)DatesSig (Normalized)Sig (Original)acetaminophen 500 mg oral tablet (20 sources)take 1 tablet by mouth every four hours as needed for pain acetaminophen (Tylenol Extra Strength) 500 MG tablet Take 1 tablet by mouth every 4 (four) hours ifneeded for mild pain. Activeacetaminophen 500 mg / diphenhydrAMINE hydrochloride 25 mg oral tablet (4 sources)Histamine-1 Receptor AntagonistStart: 93-27-6036mliu 1 tablet by mouth once daily at bedtime as needed for sleepTylenol Extra Strength PM oral tablet 1 tab(s), Oral, Once a day (at bedtime) as needed for sleep Start Date: 12/30/21 Status: Orderedalendronic acid 70 mg oral tablet (20 sources)BisphosphonateStart: 03-21-2024 End: 58-83-9418kdqixtpoazo (Fosamax) 70 MG tablet Indications: Osteopenia of multiple sites Take 1 tablet (70 mg) by mouth every 7 (seven) days 12 tablet 3 02/25/2025 02/25/2026 ActiveStart: 55-64-1026icri 1 tablet by mouth every week alendronate 70 mg Tab 70 mg = 1 tab(s), Oral, qWeek, Refills(s) 0, Other (see comment) Start Date: 12/30/21 Status: OrderedamLODIPine 5 mg oral tablet (20 sources)Dihydropyridine Calcium Channel BlockerStart: 03-21-2024 End: 56-94-0394beon 1 tablet by mouth once dailyamLODIPine (Norvasc) 5 MG tablet Indications: Benign hypertension Take 1 tablet (5 mg) by mouth Daily 100 tablet 3 04/02/2025 ActiveStart: 47-50-8709euvm 1 tablet by mouth once dailyamLODIPine 5 mg Tab 5 mg = 1 tab(s), Oral, Daily, Refills(s) 0, High blood pressure Start Date: 12/30/21 Status: Orderedascorbic acid 500 mg oral capsule (20 sources)Vitamin Ctake 1 capsule by mouth once dailyAscorbic Acid (Vitamin C) 500 MG capsule Take 1 capsule by mouth 1 (one) time each day. Activeaspirin 325 mg oral tablet (20 sources)Platelet Aggregation Inhibitor, Nonsteroidal Anti-inflammatory Drug Start: 07-29-2022 End: 85-46-8232aipl 1 tablet by mouth twice dailyaspirin 325 mg Tab 325 mg = 1 tab(s), Oral, BID, X 30 day(s), # 60 tab(s), Refills(s) 0, Pharmacy: [id number], 160, cm, 12/30/21 12:25:00 EDT, Height/Length Dosing, 81.5, kg, 12/30/21 12:25:00 EDT, Weight Dosing Start Date: 07/29/22 Stop Date: 08/28/22 Status: OrderedStart: 01-15-2022 End: 01-58-2039hvbi 1 tablet by mouth once dailyaspirin 325 mg Tab 325 mg = 1 tab(s), Oral, Daily, X 30 day(s), # 30 tab(s), Refills(s) 0 Start Date: 01/15/22 Stop Date: 02/14/22 Status: OrderedStart: 09-45-1653ntoy 1 capsule by mouth once dailyaspirin 81 mg oral capsule 81 mg = 1 cap(s), Oral, Daily, Blood Thinner Start Date: 12/30/21 Status: Orderedtake 1 tablet by mouth once dailyBABY ASPIRIN PO Take 1 tablet by mouth 1 (one) time each day. Activecalcium carbonate 1500 mg / cholecalciferol 200 unt oral tablet (12 sources)Vitamin Dtake 1 tablet by mouth every twelve hourscalcium citrate 600 mg and vitamin D3 (Citrical & Minerals + Vit D) 600-200 MG-UNIT tablet Take1 tablet by mouth every 12 (twelve) hours. Activecalcium citrate 950 mg / cholecalciferol 250 unt oral tablet (4 sources)Vitamin DStart: 35-57-6728fclh 1 tablet by mouth once dailycalcium- vitamin D 200 mg-250 intl units oral tablet 1 tab(s), Oral, Daily, Prophylaxis Start Date: 12/30/21 Status: Orderedcalcium citrate 600 mg and vitamin D3 (Citrical & Minerals + Vit D) 600-200 MG-UNIT tablet (18 sources)take 1 tablet by mouth every twelve hourscalcium citrate 600 mg and vitamin D3 (Citrical & Minerals + Vit D) 600-200 MG-UNIT tablet Take1 tablet by mouth every 12 (twelve) hours. ActiveCelebrate Multivitamin oral capsule (4 sources)Start: 21-90-7092hnqe 1 tablet by mouth once dailyCelebrate Multivitamin oral capsule 1 tab, Oral, Daily, Prophylaxis Start Date: 12/30/21 Status: Orderedcephalexin 500 mg oral capsule (20 sources)Cephalosporin AntibacterialStart: 04-02-2025 End: 91-81-3020dbmg 1 capsule by mouth in the morningcephalexin (Keflex) 500 MG capsule Indications: Acute cystitis with hematuria Take 1 capsule (500 mg) by mouth in the morning and 1 capsule (500 mg) before bedtime. Do all this for 7 days. 14 mwxslkm9004/02/2025 04/09/2025 ActiveStart: 11-12-2024 End: 49-09-4018zzfnpqsblx (Keflex) 500 MG capsule Indications: Presence of both artificial knee joints Take two caps evening prior to appointment, take two caps one hour prior to appointment 4 capsule 2 11/12/2024 04/30/2025 Discontinued (Therapy completed)Start: 03-20-2024 End: 48-43-7385xqrlcdonls (Keflex) 500 MG capsule Indications: Presence of both artificial knee joints Take two caps evening prior to appointment, take two caps one hour prior to appointment 4 capsule 2 03/20/2024 10/29/2024 Discontinued (Therapy completed)Start: 07-29-2022 End: 76-08-5628iinx 1 capsule by mouth four times dailyKeflex 500 mg Cap 500 mg = 1 cap(s), Oral, QID, X 10 day(s), # 40 cap(s), Refills(s) 0, Pharmacy: [id number], 160, cm, 12/30/21 12:25:00 EDT, Height/Length Dosing, 81.5, kg, 12/30/21 12:25:00 EDT, Weight Dosing Start Date: 07/29/22 Stop Date: 08/08/22 Status: OrderedStart: 01-15-2022 End: 46-62-9256ucrd 1 capsule by mouth four times dailyKeflex 500 mg Cap 500 mg = 1 cap(s), Oral, QID, X 5 day(s), # 20 cap(s), Refills(s) 0 Start Date: 01/15/22 Stop Date: 01/20/22 Status: Ordereddocosahexaenoic acid 120 mg / eicosapentaenoic acid 180 mg oral capsule (20 sources)take 2 capsules by mouth once dailyomega-3 (Fish Oil) 1000 MG capsule Take 2 capsules by mouth 1 (one) time each day at the same time.Active docusate sodium 100 mg oral capsule (3 sources)Start: 91-24-7462xcpd 1 capsule by mouth twice dailyColace 100 mg Cap 100 mg = 1 cap(s), Oral, BID, # 20 cap(s), Refills(s) 0, Pharmacy: [id number], 160, cm, 12/30/21 12:25:00 EDT, Height/Length Dosing, 81.5, kg, 12/30/21 12:25:00 EDT, Weight Dosing Start Date: 07/29/22 Status: OrderedStart: 46-75-5281ofxi 1 capsule by mouth twice dailyColace 100 mg Cap 100 mg = 1 cap(s), Oral, BID, Refills(s) 0 Start Date: 01/15/22 Status: OrderedFish Oils (4 sources)Start: 50-83-0002pfxd 1 capsule by mouth once dailyFish Oil 1000 mg oral capsule 1,000 mg = 1 cap(s), Oral, Daily, Prophylaxis Start Date: 12/30/21 Status: Orderedlisinopril 10 mg oral tablet (20 sources)Angiotensin Converting Enzyme InhibitorStart: 04-16-2024 End: 24-08-4452agcj 1 tablet by mouth once dailylisinopril 10 MG tablet Indications: Benign hypertension Take 1 tablet (10 mg) by mouth Daily 100 tablet 3 04/02/2025 Activephenazopyridine hydrochloride 200 mg delayed release oral tablet (2 sources)Start: 04-02-2025 End: 51-04-0849ulhk 1 tablet by mouth three times daily as needed for muscle spasmsphenazopyridine (Pyridium) 200 MG tablet Indications: Acute cystitis with hematuria Take 1 tablet (200 mg) by mouth 3 (three) times a day as needed for bladder spasms for up to 2 days 6 tablet 04/02/2025 04/04/2025 Active rosuvastatin calcium 20 mg oral tablet (20 sources)HMG-CoA Reductase InhibitorStart: 04-16-2024 End: 07-71-3620mkqv 1 tablet by mouth once dailyrosuvastatin (Crestor) 20 MG tablet Indications: Hypercholesteremia Take 1 tablet (20 mg) by mouth Daily 100 tablet 3 04/02/2025 ActiveStart: 87-25-0820oonl 1 tablet by mouth once daily rosuvastatin 20 mg Tab 20 mg = 1 tab(s), Oral, Daily, Refills(s) 0, High cholesterol Start Date: 12/30/21 Status: OrderedVitamin B-12 1000 mcg oral tablet (3 sources)Start: 08-39-3510uelv 1 tablet by mouth once dailyVitamin B-12 1000 mcg oral tablet 1,000 mcg = 1 tab(s), Oral, Daily, Prophylaxis Start Date: 12/30/21Status: Orderedvitamin b12 1 mg oral tablet (20 sources)Vitamin T06Mmxjg: 42-41-4048buvo 1 tablet by mouth once dailyVitamin B-12 1000 mcg oral tablet 1,000 mcg = 1 tab(s), Oral, Daily, Prophylaxis Start Date: 12/30/21Status: Orderedtake 1 tablet by mouth once dailycyanocobalamin (Vitamin B-12) 100 MCG tablet Take 1 tablet by mouth 1 (one) time each day. Activevitamin b6 100 mg oral tablet (20 sources)take 1 tablet by mouth every twelve hoursPyridoxine HCl (Vitamin B6) 100 MG tablet Take 1 tablet by mouth every 12 (twelve) hours. ActiveVitamin B6 100 mg Tab (4 sources)Start: 35-61-5398fcno 1 tablet by mouth once dailyVitamin B6 100 mg Tab 100 mg = 1 tab(s), Oral, Daily, Prophylaxis Start Date: 12/30/21 Status: OrderedVitamin C 1000 mg oral tablet (4 sources)Start: 75-40-8158cdbg 1 tablet by mouth once dailyVitamin C 1000 mg oral tablet 1,000 mg = 1 tab(s), Oral, Daily, Prophylaxis Start Date: 12/30/21 Status: Orderedvitamin e d-alpha 400 unt oral capsule (20 sources)take 1 capsule by mouth once dailyalpha tocopherol (Vitamin E) 400 units capsule Take 1 capsule by mouth 1 (one) time each day at thesame time. Active Completed/Discontinued Medications MedicationDrug Class(es)DatesSig (Normalized)Sig (Original)acetaminophen 325 mg / oxyCODONE hydrochloride 5 mg oral tablet (7 sources)Opioid AgonistStart: 77-78-3736Fgcwmdrp 5 mg-325 mg oral tablet See Instructions, 50 tab(s), Refill(s) 0, Take one to two every 4 hours for major orthopedic knee replacement surgical pain Z96/M17.11, [id number], 160,cm, 12/30/21 12:25:00 EDT, Height/Length Dosing, 81.5, kg, 12/30/21 12:25:00 EDT, W... Start Date: 07/29/22 Status: OrderedStart: 37-78-1054Wwuvstka 325 mg-5 mg Tab 1 tab(s), Oral, q4hr Pain 4-7, Refill(s) 0 Start Date: 01/15/22 Status: OrderedStart: 45-25-0968Nqoacoae 325 mg-5 mg Tab 2 tab(s), Oral, q4hr Pain 4-7, Refill(s) 0 Start Date: 01/15/22 Status: OrderedStart: 48-74-8208Amsduqps 325 mg- 5 mg Tab 1 tab(s), Oral, q4hr Pain 4-7, Refill(s) 0 Start Date: 01/15/22 Status: OrderedVitamin E 400 unit(s) Cap (4 sources)Start: 98-36-9631qunb 1 capsule by mouth once dailyVitamin E 400 unit(s) Cap 400 International_Unit = 1 cap(s), Oral, Daily, Prophylaxis Start Date: 12/30/21 Status: Ordered Problems Active Problems Problem ClassificationProblemDateDocumented DateEpisodic/ChronicAcquired foot deformities (4 sources)Hammer toe; Translations: [Other hammer toe(s) (acquired), right foot]87-91-9850WtvmzfyHghhzmotmmjzwx/social admission (4 sources)Patient encounter status; Translations: [Other specified counseling] 93-92-7646LfsuvbugNxjtfiqav of lipid metabolism (20 sources)Hypercholesterolemia; Translations: [Pure hypercholesterolemia, unspecified]Onset: 360966-81-7566GxcnvqhZuvydpoux hypertension (20 sources)Hypertensive disorder; Translations: [Benign hypertension]Onset: 339777-22-0225FlnesusYxqshtqjqhfys symptoms and ill-defined conditions (2 sources)Increased frequency of urination; Translations: [Frequency of micturition]75-88-8729KgmtihjmNmwunofvjb disorders (20 sources)Primary ovarian failure; Translations: [Other primary ovarian failure]Onset: 970946-80-5840QietlokNsqrarr (8 sources)Onychomycosis; Translations: [Tinea unguium]96-44-9717Mfojeret Osteoarthritis (20 sources)Osteoarthritis of knee; Translations: [Unilateral primary osteoarthritis, left knee]Onset: 00-88-4044IsxqrtaCzfsr bone disease and musculoskeletal deformities (20 sources)Osteopenia; Translations: [Other specified disorders of bone density and structure, multiple sites]Onset: 959638-84-3691ZbgdjxhyKalge connective tissue disease (20 sources)Artificial knee joint present; Translations: [Presence of unspecified artificial knee joint]Onset: 263937-45-3160AwlhwhvTkskb connective tissue disease (8 sources)Pain in both feet; Translations: [Pain in right foot]05-24-2024 EpisodicOther connective tissue disease (2 sources)Capsulitis; Translations: [Other enthesopathies, not elsewhere classified]21-22-9019XxcljyiaZnppt ear and sense organ disorders (4 sources)Impacted cerumen of bilateral ears; Translations: [Impacted cerumen, bilateral]44-45-9744FflnvhbtHxeqa nervous system disorders (20 sources)Difficulty walking; Translations: [Difficulty in walking, not elsewhere classified]Onset: 337707-23-4361JjmhumoFcvve nervous system disorders (20 sources)Chronic pain; Translations: [Other chronic pain]Onset: 04-25-2023 56-82-0606XypoihjSnfma nervous system disorders (2 sources)Neuroma; 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]08-27-2024 ChronicOther nervous system disorders (20 sources)Paresthesia of hand ; Translations: [Paresthesia of skin]Onset: 310613-43-4878ItpbgwhfAgraj nutritional; endocrine; and metabolic disorders (20 sources)Obesity; Translations: [Class 1 obesity without serious comorbidity with body mass index (BMI) of 32.0 to 32.9 in adult]Onset: ChronicOther nutritional; endocrine; and metabolic disorders (4 sources)History of uokvyxhqmqxcevoasqka54-09-1380LcsgxpuaGweay nutritional; endocrine; and metabolic disorders (2 sources)Weight increased; Translations: [Abnormal weight gain]04-30-2025 EpisodicOther screening for suspected conditions (not mental disorders or infectious disease) (6 sources)Encounter for screening mammogram for malignant neoplasm of breast; Translations: [Patient encounter status]Onset: 56-76-5157SovhncfnCmcoqwuu codes; unclassified (20 sources)Acquired absence of cervix and uterus; Translations: [Acquired absence of both cervix and uterus]Onset: 486211-05-6235Dwtfvrug Unclassified (4 sources)Pain of knee xwmmet96-73-1995 Past or Other Problems Problem ClassificationProblemDateDocumented DateEpisodic/ChronicFever of unknown origin (20 sources)Fever; Translations: [Fever, unspecified]Onset: 01-23-2024 Resolved: 778327-56-8394ErhkjbjbKxor disorders (20 sources)Mood disordersOnset: 04-30-2024 Resolved: Other non-traumatic joint disorders (20 sources)Pain in left knee; Translations: [Pain in joint, lower leg]Onset: 04-25-2023 Resolved: 327858-72-2680JzujkwzmQnbdg non-traumatic joint disorders (20 sources)Pain in right knee; Translations: [Pain in joint, lower leg]Onset: 04-25-2023 Resolved: 197499-35-1082WkullagkBjrph nutritional; endocrine; and metabolic disorders (20 sources)Body mass index 25-29 - overweight; Translations: [Overweight]Onset: 04-25-2023 Resolved: 024148-79-6201EppzvpbiAvtiyfj tract infections (20 sources)Acute urinary tract infection; Translations: [Urinary tract infection, site not specified]Onset: 01-23-2024 Resolved: 991821-08-7718Ahzjlddr Results Test NameValueInterpretationReference RangeFacilityUrinalysis macro (dipstick) panel (U)on 65-57-6132Rcaqfbtiq, UANegativeNegative - 4(70) +++ mg/dLNOMS HealthcareBlood, UAPositiveNegative - 50 Navin/mcLNOMS HealthcareComment on above: largeClarity, UACloudyNOMS HealthcareColor, UALight YellowNOMS Healthcare Glucose, UANegativeNegative - 2000(110) ++++ mg/dLNOMS HealthcareInterpretation and review of laboratory resultsAbnormalNOMS HealthcareKetones, UANegative Negative - 160(16) ++++ mg/dLNOMS HealthcareLeukocytes, UAPositiveNegative - 500+++ Milvia/mcLNOMS HealthcareComment on above:largeNitrite, UAPositiveNegative - PositiveNOMS HealthcarepH, UA65 - 9NOMS HealthcareProtein, UA3+Negative - 2000(20) ++++ mg/dLNOMS HealthcareSpec Grav, UA1.011 - 1.03N[facility]S Healthcare Urobilinogen, UA1.00.2 - 12 mg/dLNOMS HealthcareNOMS HealthcareMM TOMOSYNTHESIS SCREENING BIon 01-81-24[place] [address] Mammography Report Signed Patient: OSIRIS MORALES MR#: [id number] : 1950 Acct:[id number] Age/Sex: 74 / F ADM Date: 03/29/25 Loc: MAMMO Attending Dr: PERLA PURI Ordering Physician: PERLA PURI Results: Date of Service: 03/29/25 Follow Up: Procedure(s): MM tomosynthesis screening BI Accession Number(s): [id number] cc: PERLA PURI Patient Name: OSIRIS MORALES MR#: [id number] : 1950 Exam Date: 03/29/2025 Ordering Doctor: DR PERLA PURI PA RADIOLOGY REPORT PROCEDURE: MM TOMOSYNTHESIS SCREENING BI COMPARISON: MM TOMOSYNTHESIS SCREENING BI, 06/07/2023. MG MAMM SCREEN 3D REINA CAD, 11/16/2021. MG MAMM SCREEN 3D REINA CAD, 11/13/2020. MG MAMM SCREEN REINA W CAD, 10/05/2016. INDICATIONS: Screening Calculator Name NCI Breast Cancer Risk Assessment Tool 5 Year Breast Cancer Risk Not Reported. Lifetime Breast Cancer Risk Not Reported. Personal Breast Cancer No Personal Ovarian Cancer No Treatments None Family Cancers None LOCATION: [facility] BREAST COMPOSITION: The breasts are extremely dense, which lowers the sensitivity of mammography. FINDINGS: DIAGNOSTIC CATEGORY 1--NEGATIVE. RIGHT BREAST: No significant suspicious finding. LEFT BREAST: No significant suspicious finding. RECOMMENDATIONS: ROUTINE MAMMOGRAM AND CLINICAL EVALUATION IN 12 MONTHS. Dictated by: Haile Pearson DO on 03/29/2025 at 15:38 Approved by: Haile Pearson DO on 03/29/2025 at 15:40 Dictated By: Haile Pearson M.D. Signed By: 03/29/25 1541 DD/ 1540 TD/TT: Catcher Filter Tip:TBHRadiology, Radiologist, MD - 03/29/2025 [place] [address] Mammography Report Signed Patient: OSIRIS MORALES MR#: [id number] : 1950 Acct:[id number] Age/Sex: 74 / F ADM Date: 03/29/25 Loc: MAMMO Attending Dr: PERLA PURI Ordering Physician: PERLA PURI Results: Date of Service: 03/29/25 Follow Up: Procedure(s): MM tomosynthesis screening BI Accession Number(s): [id number] cc: PERLA PURI Patient Name: OSIRIS MORALES MR#: [id number] : 1950 Exam Date: 03/29/2025 Ordering Doctor: DR PERLA RAMSAY RADIOLOGY REPORT PROCEDURE: MM TOMOSYNTHESIS SCREENING BI COMPARISON: MM TOMOSYNTHESIS SCREENING BI, 06/07/2023. MG MAMM SCREEN 3D REINA CAD, 11/16/2021. MG MAMM SCREEN 3D REINA CAD, 11/13/2020. MG MAMM SCREEN REINA W CAD, 10/05/2016. INDICATIONS: Screening Calculator Name NCI Breast Cancer Risk Assessment Tool 5 Year Breast Cancer Risk Not Reported. Lifetime Breast Cancer Risk Not Reported. Personal Breast Cancer No Personal Ovarian Cancer No Treatments None Family Cancers None LOCATION: [facility] BREAST COMPOSITION: The breasts are extremely dense, which lowers the sensitivity of mammography. FINDINGS: DIAGNOSTIC CATEGORY 1--NEGATIVE. RIGHT BREAST: No significant suspicious finding. LEFT BREAST: No significant suspicious finding. RECOMMENDATIONS: ROUTINE MAMMOGRAM AND CLINICAL EVALUATION IN 12 MONTHS. Dictated by: Haile Pearson DO on 03/29/2025 at 15:38 Approved by: Haile Pearson DO on 03/29/2025 at 15:40 Dictated By: Haile Pearson M.D. Signed By: 03/29/25 154 DD/ 154 TD/TT: Catcher Filter Tip: [facility] HospitalRadiology Study observation (narrative)[facility] TOMOSYNTHESIS SCREENING BIOrdered By: Radiologist Radiology on 89-29-2919XMXHKindred Hospital Work Phone: No [facility] Informationon 93-80-1661Akbavvycl Study observation (narrative)[facility]red HospitalXR Knee - left 3 Viewson 80-47-9735Ccuzsvs Result: Xrays taken in the office today saved to the permanent record, bilateral AP , sunrise and lateral weightbearing films, show stable position and alignment of the staggered bilateral TKA prosthesis. No sign of loosening, fracture or infection.Critical access hospitalXR Knee - right 3 Viewson 73-19-7571Lqwgnbm Result: Xrays taken in the office today saved to the permanent record, bilateral AP , sunrise and lateral weightbearing films, show stable position and alignment of the staggered bilateral TKA prosthesis. No sign of loosening, fracture or infection.Critical access hospitalCBC (INCLUDES DIFF/PLT)on 66-14-8350Fsvvuwjzx (Bld) [#/Vol]0.032 10*3/uLNormal0-200Quest DiagnosticsComment on above:Performed By: #### 8199, 64355 #### [facility] [address] [place] [address] Cna: Indira Chan #### 7600 #### [facility] [address] [place] [address], [address] [place] [address] Cna: Hosea Madrigal MDBasophils/100 WBC (Bld)0.6 %NormalQuest DiagnosticsComment on above:Performed By: #### 6399, 42904 #### [facility] [address] [place], [place] [id number] Cna: Indira Chan #### 7600 #### [facility] [address], [address] [place] [address] Cna: Hosea Madrigal MDEosinophils (Bld) [#/Vol]0.117 10*3/uLNormal 15-500Quest DiagnosticsComment on above:Performed By: #### 6399, 93195 #### [facility] [address] [place] [address] Cna: Indira Chan #### 7600 #### [facility] [address], [address] [place] [address] Cna: Hosea Madrigal MDEosinophils/100 WBC (Bld)2.2 %NormalQuest DiagnosticsComment on above:Performed By: #### 6399, 29915 #### [facility] [address] [place] [address] Cna: Indira Chan #### 7600 #### [facility] [place] [address] Cna: Hosea Madrigal MDErythrocyte distribution width (RBC) [Ratio] 13.2 %Ncncfc25.0-15.0Quest DiagnosticsComment on above:Performed By: #### 6399, 04098 #### [facility] [address] [place] [address] Cna: Indira Chan #### 7600 #### [facility] [address], [address] [place] [address] Cna: Hosea Madrigal MDHematocrit (Bld) [Volume fraction]43.5 %Normal 35.0-45.0Quest DiagnosticsComment on above:Performed By: #### 6399, 18053 #### [facility] [address] [place] [address] Cna: Indira Chan #### 7600 #### [facility] [address], [address] [place] [address] Cna: Hosea Madrigal MDHemoglobin (Bld) [Mass/Vol]14.5 g/dLNormal 11.7-15.5Quest DiagnosticsComment on above:Performed By: #### 6399, 15360 #### [facility] [address] [place], [place] [id number] Cna: Indira Chan #### 7600 #### [facility] [address], [address] [place] [address] Cna: Hosea Madrigal MDLymphocytes (Bld) [#/Vol]1.102 10*3/uLNormal 850-3900Quest DiagnosticsComment on above:Performed By: #### 6399, 39532 #### [facility] [address] [place] [address] Cna: Indira Chan #### 7600 #### [facility] [place] [address] Cna: Hosea Madrigal MDLymphocytes/100 WBC (Bld)20.8 %NormalQuest DiagnosticsComment on above:Performed By: #### 6399, 81137 #### [facility] [address] [place], [place] [address] Cna: Indira Chan #### 7600 #### [facility] [address], [address] [place] [address] Cna: Hosea Madrigal MDMCH (RBC) [Entitic mass]29.2 vzDqitsd62.0-33.0 Quest DiagnosticsComment on above:Performed By: #### 6399, 87786 #### [facility] [address] [place], [place] [address] Cna: Indira Chan #### 7600 #### [facility] [place] [address], [address] [place] [address] Cna: Hosea Madrigal MDMCHC (RBC) [Mass/Vol]33.3 g/kWPryqpi91.0-36.0 Quest DiagnosticsComment on above:Result Comment: For adults, a slight decrease in the calculated MCHC value (in the range of 30 to 32 g/dL) is most likely not clinically significant; however, it should be interpreted with caution in correlation with other red cell parameters and the patient's clinical condition.Performed By: #### 6399, 19018 #### [place] [address] Cna: Indira Chan #### 7600 #### [facility] [address], [address] [place] [address] Cna: Hosea Madrigal MDMCV (RBC) [Entitic vol]87.5 xGGfyfwa45.0-100.0 [facility] DiagnosticsComment on above:Performed By: #### 6399, 51787 #### [facility] [address] [place] [address] Cna: Indira Chan #### 7600 #### [facility] [address], [address] [place] [address] Cna: Hosea Madrigal MDMonocytes (Bld) [#/Vol]0.509 10*3/uLNormal 200-950Quest DiagnosticsComment on above:Performed By: #### 6399, 46719 #### [facility] [address] [place] [address] Cna: Indira Chan #### 7600 #### [facility] [address], [address] [place] [address] Cna: Hosea Madrigal MDMonocytes/100 WBC (Bld)9.6 %NormalQuest DiagnosticsComment on above:Performed By: #### 6399, 00574 #### [facility] [address] [place] [address] Cna: Indira Chan #### 7600 #### [facility] [address], [address] [place] [address] Cna: Hosea Madrigal MDNeutrophils (Bld) [#/Vol]3.54 10*3/uLNormal 1500-7800Quest DiagnosticsComment on above:Performed By: #### 6399, 80614 #### [facility] [address] [place] [address] Cna: Indira Chan #### 7600 #### [facility] [address], [address] [place] [address] Cna: Hosea Madrigal MDNeutrophils/100 WBC (Bld)66.8 %NormalQuest DiagnosticsComment on above:Performed By: #### 6399, 99115 #### [facility] [address] [place] [address] Cna: Indira Chan #### 7600 #### [facility] [address], [address] [place] [address] Cna: Hosea Madrigal MDPlatelet mean volume (Bld) [Entitic vol]9.9 fL Normal7.5-12.5Quest DiagnosticsComment on above:Performed By: #### 6399, 84926 #### [facility] [address] [place] [phone] Cna: Indira Chan #### 7600 #### [facility] [address], [address] [place] [address] Cna: Hosea Madrigal MDPlatelets (Bld) [#/Vol]266 10*3/uLNormal 140-400Quest DiagnosticsComment on above:Performed By: #### 6399, 27425 #### [facility] [address] [place] [phone] Cna: Indira Chan #### 7600 #### [facility] [address], [address] [place] [address] Cna: Hosea Madrigal [facility] ([facility]) [#/Vol]4.97 10*6/uLNormal3.80-5.10 Quest DiagnosticsComment on above:Performed By: #### 6399, 67863 #### [facility] [address] [place] [phone] Cna: Indira Chan #### 7600 #### [facility] [address], [address] [place] [address] Cna: Hosea Madrigal [employer] ([facility]) [#/Vol]5.3 10*3/uLNormal3.8-10.8 [facility] DiagnosticsComment on above:Performed By: #### 6399, 99404 #### [facility] [address] [place] [phone] Cna: Indira Chan #### 7600 #### [facility] [address], [address] [place] [address] Cna: Hosea Madrigal MDCOMPREHENSIVE METABOLIC PANELon 06-02-2024 Albumin [Mass/Vol]4.2 g/dLNormal3.6-5.1Quest DiagnosticsComment on above: Performed By: #### 6399, 15692 #### [facility] [address] [place] [address] Cna: Indira Chan #### 7600 #### [facility] [address], [address] [place] [address] Cna: Hosea Madrigal MDAlbumin/Globulin [Mass ratio]1.9 {ratio}Normal 1.0-2.5Quest DiagnosticsComment on above:Performed By: #### 6399, 90815 #### [facility] [address] [place], [place] [phone] Cna: Indira Chan #### 7600 #### [facility] of [address] , [address] [place] [address] Cna: Hosea Madrigal MDALP [Catalytic activity/Vol]49 U/INwhtsl09-500 Quest DiagnosticsComment on above:Performed By: #### 6399, 84025 #### [facility] [address] [place] [address] Cna: Indira Chan #### 7600 #### [facility] [address], [address] [place] [address] Cna: Hosea Madrigal MDALT [Catalytic activity/Vol]20 U/LNormal6-29 Quest DiagnosticsComment on above:Performed By: #### 6399, 81353 #### [facility] [address] Cna: Indira Chan #### 7600 #### [facility] [address], [address] [place] [address] Cna: Hosea Madrigal MDAST [Catalytic activity/Vol]23 U/CHincqe12-95 Quest DiagnosticsComment on above:Performed By: #### 6399, 93691 #### [facility] [address] [place] [address] Cna: Indira Chan #### 7600 #### [facility] of [place] [address] [address] , [address] [place] [address] Cna: Hosea Madrigal MDBilirubin [Mass/Vol]0.6 mg/dLNormal0.2-1.2 Quest DiagnosticsComment on above:Performed By: #### 6399, 19904 #### [facility] [address] [place], [place] [address] Cna: Indira Chan #### 7600 #### [facility] [place] [address] [address] , [address] [place] [address] Cna: Hosea Madrigal MDBUN/CREATININE RATIOSEE NOTE:Normal6-22Quest DiagnosticsComment on above:Result Comment: Not Reported: BUN and Creatinine are within reference range.Performed By: #### 6399, 49897 #### [facility] [address] [place] [address] Cna: Indira Chan #### 7600 #### [facility] [place] [address] [address] , [address] [place] [address] Cna: Hosea Madrigal MDCalcium [Mass/Vol]9.4 mg/dLNormal8.6-10.4Quest DiagnosticsComment on above:Performed By: #### 6399, 72115 #### [facility] [address] [place] [address] Cna: Indira Chan #### 7600 #### [facility] [address], [address] [place] [address] Cna: Hosea Madrigal MDChloride [Moles/Vol]106 mmol/PVqsurs26-591 Quest DiagnosticsComment on above:Performed By: #### 6399, 66940 #### [facility] [address] [place] [address] Cna: Indira Chan #### 7600 #### [facility] [address] , [address] [place] [address] Cna: Hosea Madrigal MDCO2 [Moles/Vol]28 mmol/FQgbkfi12-49Tvhaj DiagnosticsComment on above:Performed By: #### 6399, 48881 #### [facility] [address] [place] [address] Cna: Indira Chan #### 7600 #### [facility] [address] , [address] [place] [address] Cna: Hosea WOLFFreatinine [Mass/Vol]0.90 mg/dLNormal0.60-1.00 Quest DiagnosticsComment on above:Performed By: #### 6399, 68941 #### [facility] [address] [place] [address] Cna: Indira Chan #### 7600 #### [facility] [address], [address] [place] [address] Cna: Hosea Madrigal MDGFR/1.73 sq M.predicted among non-blacks MDRD (S/P/Bld) [Vol rate/Area]68 mL/min/{1.73_m2}Normal> OR = 60[facility] Comment on above:Performed By: #### 6399, 62665 #### [facility] [address] Cna: Indira Chan #### 7600 #### [facility] [address], [address] [place] [address] Cna: Hosea Madrigal MDGlobulin (S) [Mass/Vol]2.2 g/dLNormal1.9-3.7 [facility] DiagnosticsComment on above:Performed By: #### 6399, 25103 #### [facility] [address] Cna: Indira Chan #### 7600 #### [facility] [address], [address] [place] [address] Cna: Hosea Madrigal MDGlucose [Mass/Vol]95 mg/nSLvagbe40-67Zunsr DiagnosticsComment on above:Result Comment: Fasting reference intervalPerformed By: #### 6399, 46776 #### [facility] [address] [place] [address] Cna: Indira Chan #### 7600 #### [facility] [address], [address] [place] [address] Cna: Hosea Merati MDPotassium [Moles/Vol]4.4 mmol/LNormal3.5-5.3 Quest DiagnosticsComment on above:Performed By: #### 6399, 87909 #### [facility] [address] [place] [address] Cna: Indira Chan #### 7600 #### [facility] [address], [address] [place] [address] Cna: Hosea Madrigal MDProtein [Mass/Vol]6.4 g/dLNormal6.1-8.1Quest DiagnosticsComment on above:Performed By: #### 6399, 08237 #### [facility] [address] Cna: Indira Chan #### 7600 #### [facility] [address], [address] [place] [address] Cna: Hosea Madrigal MDSodium [Moles/Vol]140 mmol/RYmxlcg302-803Euxpo DiagnosticsComment on above:Performed By: #### 6399, 40772 #### [facility] [address] Cna: Indira Chan #### 7600 #### [facility] [address], [address] [place] [address] Cna: Hosea Madrigal MDUrea nitrogen [Mass/Vol]18 mg/dLNormal7-25 Quest DiagnosticsComment on above:Performed By: #### 6399, 06984 #### [facility] [address] [place] [address] Cna: Indira Chan #### 7600 #### [facility] [address], [address] [place] [address] Cna: Hosea Madrigal MDLIPID PANEL, STANDARDon 62-21-3779Dqoeeusacho [Mass/Vol]168 mg/dLNormal<200Quest DiagnosticsComment on above:Order Comment: FASTING:YES FASTING: YESPerformed By: #### 6399, 26481 #### [facility] [place] [address] Cna: Indira Chan #### 7600 #### [facility] [address], [address] [place] [address] Cna: Hosea Madrigal MDCholesterol in HDL [Mass/Vol]81 mg/dLNormal> OR = 50Quest DiagnosticsComment on above:Order Comment: FASTING:YES FASTING: YESPerformed By: #### 6399, 33094 #### [facility] [address] [place] [phone] Cna: Indira Chan #### 7600 #### [facility] [address], [address] [place] [address] Cna: Hosea Madrigal MDCholesterol in LDL [Mass/Vol]69 mg/dLNormal Quest DiagnosticsComment on above:Order Comment: FASTING:YES FASTING: YESResult Comment: Reference range: <100 Desirable range <100 mg/dL for primary prevention; <70 mg/dL for patients with CHD or diabetic patients with > or = 2 CHD risk factors. LDL-C is now calculated using the Kojo-Home calculation, which is a validated novel method providing better accuracy than the Friedewald equation in the estimation of LDL-C. Kojo DEJESUS et al. GEOVANNY. 2013;310(19): 1959-8121 (http://education.HD Fantasy Football/faq/KMJ245)Performed By: #### 6399, 65096 #### [facility] [place] [address] Cna: Indira Chan #### 7600 #### [facility] [address], [address] [place] [address] Cna: Hosea WOLFFholestindira.total/Cholesterol in HDL [Mass ratio]2.1 {ratio}Normal<5.0Quest DiagnosticsComment on above:Order Comment: FASTING:YES FASTING: YESPerformed By: #### 6399, 07948 #### [facility] [address] [place], [place] [address] Cna: Indira Chan #### 7600 #### [facility] [address], [address] [place] [address] Cna: Hosea PENNINGTON HDL DSHQFWXDWKT02 mg/dL (calc)Normal<130 Quest DiagnosticsComment on above:Order Comment: FASTING:YES FASTING: YESResult Comment: For patients with diabetes plus 1 major ASCVD risk factor, treating to a non-HDL-C goal of <100 mg/dL (LDL-C of <70 mg/dL) is considered a therapeutic option.Performed By: #### 6399, 87782 #### [facility] [address] [place] [address] Cna: Indira Chan #### 7600 #### [facility] [address], [address] [place] [address] Cna: Hosea Madrigal MDTriglyceride [Mass/Vol]92 mg/dLNormal<150Quest DiagnosticsComment on above:Order Comment: FASTING:YES FASTING: YESPerformed By: #### 6399, 74284 #### [facility] [address] [place], [place] [address] Cna: Indira Chan #### 7600 #### [facility] [address], [address] [place] [address] Cna: Hosea Madrigal MDAtrium Health Cleveland Informationon 25-46-1080UhftcDEVENDRA Castro 05/14/2024 10:03 AM Ear Cerumen Removal [...] Procedure completion: Tolerated (Had mild pain on right)[facility][note 3]on 52-99-2454Nogqdzrtz ReportPatient: OSIRIS MORALES Age: 71 years Sex: Female : 1950 [...] Using maximal sterile barrier technique per current [facility] guidelines including hand hygeine, Guidance (Ultrasound used to identify anatomical landmarks, Using sterile gel and probe covers, Permanent image retained), The site was prepped with ChloraPrep. Procedure: Anesthetic Agent ropivicaine 0.5% 20 ml, Needle was inserted without pain or parasthesiain the conscious patient, Number of attempts 1, [...] the procedure as expected. changed to operative noteNormalTrihealth Bethesda North HospitalComment on above: Result Comment: Electronically Signed By: Chivo Paredes MD\.br\Date and Time Signed: 08/11/22 14:14 ESTOperative ReportPatient: OSIRIS MORALES Age: 71 years Sex: Female : 1950 [...] Using maximal sterile barrier technique per current [facility] guidelines including hand hygeine, Guidance (Ultrasound used to identify anatomical landmarks, Using sterile gel and probe covers), The site was prepped with ChloraPrep. changed to operative noteNoSelect Medical Specialty Hospital - ColumbusComment on above: Result Comment: Electronically Signed By: Chivo Paredes MD\.br\Date and Time Signed: 08/11/22 14:13 ESTProgress Note-Physicianon 78-43-5877Hfeoaxwo Note-PhysicianPatient: OSIRIS MORALES Age: 71 years Sex: Female : 1950 Associated Diagnoses: None Author: Chivo Paredes MD Postoperative Information Postoperative disposition: Postoperative disposition: To PACU. Anesthetic utilized: General. Health Status Problem list: All Problems Hypercholesteremia / SNOMED CT 44144288 / Confirmed Hypertension / SNOMED CT 8589079124 / Confirmed Knee pain, left / SNOMED CT 9433413699 / Confirmed Resolved: H/O hypercholesterolemia / SNOMED CT 5793923295 Resolved: Hypertension / SNOMED CT 9889063523 Physical Examination VS/Measurements Pain Assessment: Absent facial, vocal or non-verbal evidence of pain, Controlled. General: Awake, Alert, Appropriate. Respiratory: Adequate air exchange. Cardiovascular: Stable. Neurological: Normal sensory function, Normal motor function. Assessment Anesthetic outcome No anesthetic complications noted. Adequate pain relief. Review / Management Condition: Stable. Plan Transfer/Discharge: Transfer/Discharge Discharge when meets criteria ( From PACU to Ambulatory Surgery Unit ).[facility] CompanyComment on above: Result Comment: Electronically Signed By: Chivo Paredes MD\.br\Date and Time Signed: 08/10/22 09:51 ESTCoding Summary.on 67-83-6485Pdklce Summary. CD:[id number]:[id number]+PGhlYWQ+HM8CZWCcR44vgCFukT6QF8aUMP6ODYSVHPYYXZ8VBV9cw AM4FHorS7MjcfKa [file] ZT0n (more content not included)...[facility] IntraOperative Documentson 03-20-2598AokgbTlsmumhlb Documents [id number]#1.00CD:[address] [place], [place] [address]Blood Bank Slipon 80-61-2881Lgjyn Bank Slip [id number]#1.00CD:[address] [place], [place] [address]Consent for Anesthesiaon 30-11-7139Dyacwmp for Anesthesia [id number]#1.00CD:[address] [place], [place] [address]Discharge Instructionson 58-39-6079Ujkmvjrtv Instructions [id number]#1.00CD:[address] [place], [place] [address]IntraOperative Documentson 55-23-9439OidqyOkrbokbqb Documents [id number]#1.00CD:[address] [place], [place] [address]IntraOperative Documents [id number]#1.00CD:[address] [place], [place] [address]Operative Reporton 89-70-4526Zchhahuua ReportSURGERY DATE: 08/02/2022 HOSPITALIST: Rissa Nagel CST PREOPERATIVE DIAGNOSIS: Right knee [...] knee replacement, doing much better. She has mlwz-se-zhyg disease of the right knee treated today. She has tried conservative care with physical therapy, ice, bracing, Tylenol, aspirin, cortisone as well as viscosupplementationinjection with continued activities of daily living as [...] was confirmed, midline incision was made of sixinches. Medial parapatellar arthrotomy was performed and the patella was everted. End-stage tricompartmental degenerative changes were noted in the medial patellofemoral joint with varus deformity. The patella was appropriately cut and retracted. Irrisept antibiotic solution was allowed to soak perprotocol. Copious irrigation was performed throughout the procedure with a pulse lavage land leveler. Intramedullary drill and jig device was placed in the femur and a 5 degree valgus cut taking off 11 mm was performed. This was sized at a #4 narrow. Anterior, posterior chamfer cuts as well as posterior stabilized box cut was performed. Anterior cruciate ligament and posterior cruciate ligament wereresected. Collateral ligaments were protected and balanced. Meniscal remnants removed. Intramedullary drill and jig device was placed to the tibia. The tibia was cut. Gaps were symmetrical. Posteriorgutters were cleaned and free. Tibia was prepared for a #3 fixed tray. Trial components were placedwith full extension, excellent flexion. Patellofemoral tracking and height were appropriate with a 15 mm insert. The patella was sized and drilled at a 35. All trial components were removed. The Irrisept was allowed to soak per protocol followed by 100 cc of Exparel along the capsule, gutter and sub cutaneous tissues. after pulse lavage irrigation, the Mario Simplex cement was mixed. All components were [...] tourniquet was deflated. The patient was awakened fromanesthesia and transferred to the Recovery Room in stable and satisfactory condition. CASE: Clean and elective COUNTS: Sponge and needle count correct SPECIMEN: Bone CONDITION: The patient's condition satisfactory Isidra Antunez Dictated: 08/02/2022 [id number] Transcribed: 08/03/2022 cc:Randy Richard M.D.[facility] CompanyComment on above:Result Comment: Electronically Signed By: Paulino Garcia DO\.br\Date and Time Signed: 08/03/22 17:58 ESTPreoperative Documentson 04-33-6762Vnbddxncxukb [id number]#1.00CD:127NoSelect Medical Specialty Hospital - ColumbusProceduralon 81-99-9156ObogapbtslQzsdtlw: OSIRIS MORALES Age: 71 years Sex: Female : 1950 [...] Using maximal sterile barrier technique per current [facility] guidelines including hand hygeine, Guidance (Ultrasound used to identify anatomical landmarks, Using sterile gel and probe covers), The site was prepped with ChloraPrep.[facility] Hospital CompanyABO/Rhon 51-89-6059IXR/Rh PositiveInvalid Interpretation [facility]CMC Healthcare SystemComment on above: Performed By: #### [id number], [id number], [id number], [id number] ####[facility] [address] [place], [place] [address]QKC/Rh History Checkon 14-72-8578CQY/Rh History CheckVerified Hx Blood TypeNormalTrihealth Bethesda North HospitalComment on above:Performed By: #### [id number], [id number], [id number], [id number] ####[place] [address] [place], [place] [address]GYDB on 75-54-0358YGYG Gel InterpNegativeNoSelect Medical Specialty Hospital - ColumbusComment on above:Performed By: #### [id number], [id number], [id number], [id number] ####[place] [address] [place], [place] [address]QDLNX BANKOrdered By: Elida Thomas on 97-33-9682UCT/Rh InterpPositiveInvalid Interpretation [facility] SubsectionABSC Gel InterpNegative (08/02/22 6:43 AM)[facility] BB SubsectionBlood Bank ID#on [id number] Invalid Interpretation [facility] Healthcare SystemComment on above:Performed By: #### [id number], [id number], [id number], [id number] ####[place] [address] [place], [place] [address]Jewetgi for Treatmenton 08-02-2022 Consent for [id number]#1.00CD:127Normal [facility] North HospitalH&P Updateon 08-02-2022H&P Update [id number]#1.00CD:127Nathan [facility] CenterInpatient Patient Summaryon 67-81-7159Kafllocff Patient Summary [facility] [address] [place] [address], [place] [id number] [facility] Clinical Discharge Instructions PERSON INFORMATION Name: OSIRIS MORALES PHYSICIANS Admitting Physician: Paulino Garcia DO Attending Physician: Paulino Garcia DO PCP: RANDY RICHARD MD Discharge Diagnosis: Localized osteoarthritis of right knee Comment: PATIENT EDUCATION INFORMATION Instructions: Knee Cryocuff Patient Instructions - FT (CUSTOM); Post Op Patient Instructions - FT (CUSTOM); How to Use an Incentive Spirometer; Garcia - Total Knee Arthroplasty (CUSTOM) Medication Leaflets: Follow up: With: Address: When: Paulino Garcia [address] [place], [place] [id number] [facility] (1) 09/02/2022 9:00 AM Comments: Keep scheduled appointment Appointment has already been scheduled Call for any problems. MEDICATION LIST Medications to Continue with No Changes [facility] [place], [place] [id number], [phone] acetaminophen-oxycodone (Percocet 5 mg-325 mg oral tablet) [...] times a day. Refills: 0. Other Medications acetaminophen-diphenhydrAMINE (Tylenol Extra Strength PM oral tablet) 1 Tablets By Mouth once a day(at bedtime) as needed as needed for sleep. [...] Cap) 1 Capsules By Mouth every day. Comment:[facility] CompanyMain OR Intraoperative Recordon 73-27-1357Zsju OR Intraoperative RecordIntraOp Document Type FT Summary Primary Physician: Paulino Garcia DO Finalized Date/Time: 08/05/22 08:32:59 Pt. Name: OSIRIS MORALES/Sex: 1950 Female Med Rec #: [id number] Physician: Paulino Garcia DO Financial #: [id number] Pt. Type: A Room/Bed: [facility] Admit/Disch: 08/02/22 06:02:31 - 08/02/22 14:15:00 Institution: Case Times FT Entry 1 Patient Times In Room 08/02/22 08:30:00 Out Room 08/02/22 09:58:00 Procedure Times Start 08/02/22 08:54:00 Stop 08/02/22 09:54:00 Anesthesia Times Start 08/02/22 08:30:00 Stop 08/02/22 09:58:00 Block Timeout w/ 08/02/22 07:50:00 Anesthesia Last Modified By: Britt Mccain 08/02/22 09:58:10 General Comments: block time out at 0750 with and supriya garcia,rn, assisiting, heart rate was 89 bpm and 98%spo2 on room air, patient tolerated well,marianna chu. 08/05/22 Chart opened to review and send charges LRoth CSFA Case Attendance FT Entry 1 Entry 2 Entry 3 Case Attendee Reggie STEVE, Chivo Garcai DO, Paulino Nagel PROCUREMENT FORESTER, Rissa Rothman Role Performed Anesthesiologist of Surgeon - Primary PROCUREMENT FORESTER/SA Record Time In 08/02/22 08:30:00 08/02/22 08:30:00 [...] Jayjay Castillo Role Performed Scrub - Primary Consulting Business Developer - Primary Consulting Business Developer - Primary Time In 08/02/22 08:30:00 08/02/22 08:30:00 08/02/22 08:30:00 Time Out 08/02/22 09:58:00 08/02/22 09:58:00 08/02/22 09:58:00 Procedure KNEE TOTAL KNEE TOTAL KNEE TOTAL ARTHROPLASTY(Right) ARTHROPLASTY(Right) ARTHROPLASTY(Right) Comments preceptor orientation Last Modified By: Britt Mccain Kelsie E Sayler, Kelsie E 08/02/22 09:58:19 08/02/22 09:58:19 08/02/22 09:58:19 Entry 10 Case Attendee Osorio CABRAL, Gabrielle Shi Role Performed Consulting Business Developer - Primary Time In 08/02/22 08:30:00 Time Out 08/02/22 09:58:00 Procedure KNEE TOTAL ARTHROPLASTY(Right) Comments preceptor, in and out assisting as needed Last Modified By: Britt Mccain 08/02/22 09:58:19 General Comments: bruce castellanos,depuy rep in attendance.marianna chu. Perioperative Protocols FT [...] Out Reggie STEVE, Chivo Perez, Given Participants Jose DO, Paulino Leos, Robe PROCUREMENT FORESTER, Ashtyn Sharma CST, Shanell Whitehead Shelby R, Kipp, Jessica D, McClain CST, Kalyn Harris Kelsie E, Cantal RN, Jayjay Castillo Time Out Complete 08/02/22 08:50:00 [...] Britt Mccain 08/02/22 09:58: (more content not included)...[facility] Main OR PACU I Recordon 85-97-0430Tujj OR PACU I RecordPACU Phase I Document Type FT Summary Primary Physician: Paulino Garcia DO Finalized Date/Time: 08/02/22 11:06:52 Pt. Name: OSIRIS MORALES/Sex: 1950 Female Med Rec #: [id number] Physician: Paulino Garcia DO Financial #: [id number] Pt. Type: A Room/Bed: 11/29 Admit/Disch: 08/02/22 [...] individualized perioperative plan of care The patient's rightto privacy is maintained The patient's value system, [...] with or improved from baseline levels established preoperativelyThe patient's cardiovascular status is consistent with or improved from baseline levels established preoperatively The patient's cardiovascular status is consistent with or improved from baseline levels established preoperatively The patient demonstrates and/or reports adequate pain control throughout the perioperative period The patient received appropriate medication(s), safely administered during the perioperativeperiod Acuity Level PACU I FT Entry 1 Start Time 08/02/22 09:59:00 Stop Time 08/02/22 10:50:00 Acuity Level Acuity Level I Last Modified By: Starr Ocampo RN 08/02/22 11:06:43 Finalized By: Starr Ocampo RN Document Signatures Signed By: Starr Ocampo RN 08/02/22 11:06 Starr Ocampo RN 08/02/22 11:06[facility] PAC[facility] II Recordon [id number] OR PACU II Record PACU Phase II Document Type FT Summary Primary Physician: Paulino Garcia DO Finalized Date/Time: 08/02/22 14:24:22 Pt. Name: OSIRIS MORALES/Sex: 1950 Female Med Rec #: [id number] Physician: Paulino Garcia DO Financial #: [id number] Pt. Type: A Room/Bed: Admit/Disch: 08/02/22 06:02:31 [...] and monitors body temperature Evaluates postoperative respiratory statusEvaluates postoperative cardiac status Evaluates postoperative neurological status [...] individualized perioperative plan of care The patient's rightto privacy is maintained The patient's value system, [...] with or improved from baseline levels established preoperativelyThe patient's cardiovascular status is consistent with or improved from baseline levels established preoperatively The patient's neurological status is consistent with or improved from baseline levels established preoperatively The patient demonstrates and/or reports adequate pain control throughout the perioperative period The patient received appropriate medication(s), safely administered during the perioperativeperiod Finalized By: Shayna Arita RN Document Signatures Signed By: Shayna Arita RN 08/02/22 14:24[facility] Preoperative Recordon [id number] OR Preoperative RecordPreOp Document Type FT Summary Primary Physician: Paulino Garcia DO Finalized Date/Time: 08/02/22 08:58:12 Pt. Name: OSIRIS MORALES/Sex: 1950 Female Med Rec #: [id number] Physician: Paulino Garcia DO Financial #: [id number] Pt. Type: A Room/Bed: Admit/Disch: 08/02/22 06:02:31 [...] her perioperative plan of care Finalized By: Britt Mccain Document Signatures Signed By: Britt Mccain 08/02/22 08:58NoSelect [facility] Specialty Hospital - ColumbusMonitor Recordon [id number] [id number]:127 [facility] Discharge Instructionon [id number] Surgery Discharge Instruction [place] [address] Patient Discharge Instructions PERSON INFORMATION Name: OSIRIS MORALES Date of : 1950 Current Date: 08/02/2022 09:51:55 PHYSICIANS Admitting Physician: Paulino Garcia DO Discharge Diagnosis: Localized osteoarthritis of right knee OSIRIS MORALES has been given the following list of [...] THE NEAREST EMERGENCY ROOM OR CALL 911 Jagjit MORALES, OSIRIS, have received the attached patient education materials/instructions and have verbalized understanding: May we do a follow up call? Yes No I was present when discharge instructions were given Patient Signature Date Clinican/Nurse Signature Date Follow up: With: Address: When: Paulino Garcia [address] [place] [address] [facility] () 09/02/2022 9:00 AM Comments: Keep scheduled appointment Appointment has already been scheduled Call for any problems. Pharmacy Information: Other: [facility] You may receive a survey from Zunilda Kern asking you to rate your care experience. Your feedback is important and will help us understand what we do well and how we can improve the quality of care we provide to you, your loved ones and our community. It?s an honor to serve you. Thank you for choosing [facility] HERE ARE THE MEDICATION CHANGES THAT OCCURRED DURING YOUR HOSPITAL STAY Medications to Continue with No Changes [facility], [address] [place], [place] [id number], [phone] acetaminophen-oxycodone (Percocet 5 mg-325 mg oral tablet) [...] times a day. Refills: 0. Other Medications acetaminophen-diphenhydrAMINE (Tylenol Extra Strength PM oral tablet) 1 Tablets By Mouth once a day(at bedtime) as needed as needed for sleep. [...] surgery. ? If y (more content not included)...[facility] CompanyPatient Education - Texton 25-85-1757Bhhojgj Education - Text Pulmonary Medicine How To [...] mouth, causing the piston or the ball torise toward the top of the chamber. 6. Hold your breath for 3?5 seconds, or for as long as possible. ? If the spirometer includes a public speaking coach indicator, use this to guide you [...] so that you do not get dizzy orlight-headed. ? Do this every 1?2 hours when [...] provider says it is okay to stop usingit. If you have been in the hospital, [...] to take long, deep breaths to keep yourlungs clear and active. ? You may be [...] or abdomen, place a pillow or a rolled- up towel firmly against your incision when you cough. This will help to reduce pain. This information is not intended to replace advice given to you by your health care provider. Make sure you discuss any questions you have with your health care provider. Document Released: 11/28/2007 Document Revised: 08/10/2018 Document Reviewed: 05/31/2018 Elsevier Patient Education ? 2020 [facility]. [place], [place] [facility] DISCHARGE INSTRUCTIONS TOTAL KNEE [...] any significant or uncomfor (more content not included)...[facility] CompanyProceduralon 08-02-2022 Progress Note-PhysicianPatient: OSIRIS MORALES Age: 71 years Sex: Female : 1950 [...] 6:30:00 EST, Start AM postop day 1, :30:00 EST Colace 100 mg Cap: 100 mg [...] Routine, Start date 08/02/22 8:45:00 EST, 08/02/22 8:45:00EST Lactated Ringers IV Cate 1000 mL 1,000 [...] Soln-Nasal, Nasal, BID, Routine, Start date 08/02/22 21:00:00EST Pantoprazole [address] Tab: 40 mg [...] mL: 2 gram = 1 EA, Powder-Inj, IVPiggyback, PREOP, Routine, Start date 08/02/22 6:00:00 EST, [...] BID, # 20 cap(s), Refills(s) 0, Pharmacy: [facility], 160, cm, 12/30/21 12:25:00 EDT, Height/Length Dosing, 81.5, kg, 12/30/21 12:25:00 EDT, Weight Dosing Keflex 500 mg Cap: 500 mg = 1 cap(s), Oral, QID, X 10 day(s), # 40 cap(s), Refills(s) 0, Pharmacy: [facility], 160, cm, 12/30/21 12:25:00 EDT, Height/Length Dosing, 81.5, kg, 12/30/21 12:25:00 EDT, Weight Dosing Percocet 5 mg-325 mg oral tablet: See Instructions, 50 tab(s), Refill(s) 0, Take one to two every 4hours for major orthopedic knee replacement surgical pain Z96/M17.11, [facility], 160, cm, 12/30/21 12:25:00 EDT, Height/Length Dosing, 81.5, kg, 12/30/21 12:25:00 EDT, W... aspirin 325 mg Tab: 325 mg = 1 tab(s), Oral, BID, X 30 day(s), # 60 tab(s), Refills(s) 0, Pharmacy:[facility], 160, cm, 12/30/21 12:25:00 [...] 4-7, Refill(s) 0 Percocet (more content not included)...[facility] CompanyComment on above:Result Comment: Electronically Signed By: Chivo Paredes MD\.br\Date and Time Signed: 08/02/22 15:33 ESTProceduralPatient: OSIRIS MORALES Age: 71 years Sex: Female : 1950 [...] Using maximal sterile barrier technique per current [facility] guidelines including hand hygeine, Guidance (Ultrasound used to identify anatomical landmarks, Using sterile gel and probe covers, Permanent image retained), The site was prepped with ChloraPrep. Procedure: Anesthetic Agent ropivicaine 0.5% 20 ml, Needle was inserted without pain or parasthesiain the conscious patient, Number of attempts 1, [...] None, The patient tolerated the procedure as expected.Normal [facility] HospitalProceduralPatient: OSIRIS MORALES Age: 71 years Sex: Female : 1950 [...] 6:30:00 EST, Start AM postop day 1, :30:00 EST Colace 100 mg Cap: 100 mg [...] Routine, Start date 08/02/22 8:45:00 EST, 08/02/22 8:45:00EST Lactated Ringers IV Cate 1000 mL 1,000 [...] Soln-Nasal, Nasal, BID, Routine, Start date 08/02/22 21:00:00EST Pantoprazole [address] Tab: 40 mg [...] mL: 2 gram = 1 EA, Powder-Inj, IVPiggyback, PREOP, Routine, Start date 08/02/22 6:00:00 EST, [...] BID, # 20 cap(s), Refills(s) 0, Pharmacy: [facility], 160, cm, 12/30/21 12:25:00 EDT, Height/Length Dosing, 81.5, kg, 12/30/21 12:25:00 EDT, Weight Dosing Keflex 500 mg Cap: 500 mg = 1 cap(s), Oral, QID, X 10 day(s), # 40 cap(s), Refills(s) 0, Pharmacy: [facility], 160, cm, 12/30/21 12:25:00 EDT, Height/Length Dosing, 81.5, kg, 12/30/21 12:25:00 EDT, Weight Dosing Percocet 5 mg-325 mg oral tablet: See Instructions, 50 tab(s), Refill(s) 0, Take one to two every 4hours for major orthopedic knee replacement surgical pain Z96/M17.11, [facility], 160, cm, 12/30/21 12:25:00 EDT, Height/Length Dosing, 81.5, kg, 12/30/21 12:25:00 EDT, W... aspirin 325 mg Tab: 325 mg = 1 tab(s), Oral, BID, X 30 day(s), # 60 tab(s), Refills(s) 0, Pharmacy:[facility], 160, cm, 12/30/21 12:25:00 [...] 4-7, Refill(s) 0 Percocet (more content not included)...[facility] CompanyXR Knee 1 or 2 Views Righton 48-49-2053RW Knee 1 or 2 Views RightExam Date/Time: 08/02/2022 10:17 EST Reason for Exam: [...] Vinny Barfield MD Transcribed by: WENDY Technologist: [facility] SouthConsent for Procedure/Surgeryon 35-59-2216Xujgwni for Procedure/Surgery [id number]#1.00CD:[address] [place], [place] [address]Immunization Recordson 19-39-5936Wqtqlcxtxahg Records [id number]#1.00CD:[address] [place], [place] [address]Coding Summary.on 74-83-5083[place] Summary. CD:[id number]+PGhlYWQ+VU1AFLDmR44nkOYhzR9UT0mOXY4YUCWWNYZWTB2CHO3mb BS7OOcyW8JobuWs [file] ZTog (more content not included)...NormalTrihealth Bethesda North HospitalBMPon 37-59-9067Tfmbi gap [Moles/Vol]12 mmol/LNormal6-16[facility] Comment on above:Performed By: #### [id number], [id number], [id number] #### Saul [facility] [address] [place] [address]Ibchmxx [Mass/Vol]10.2 mg/dLNormal8.9-11.1FThe Christ HospitalComment on above:Performed By: #### [id number], [id number], 5624179 #### [facility] [address] [place], [place] [address]Khxezfvb [Moles/Vol]103 mmol/CEmnymv065-034BvnxraTrihealth Bethesda North HospitalComment on above:Performed By: #### [id number], 5585239, 6676613 #### [facility] [address] [place], [place] [address]MI9 [Moles/Vol]28 mmol/GJloskp64-87WcttdsTrihealth Bethesda North Hospital Comment on above:Performed By: #### [id number], 4509801, 2011269 #### [facility] [address] [place], [place] [address]Viqnawbhxs [Mass/Vol]0.8 mg/dLNormal0.5-1.3FThe Christ HospitalComment on above:Performed By: #### [id number], 6186535, 7634965 #### [facility] [address] [place], [place] [address]Lpfupcd [Mass/Vol]94 mg/mHBtuexn21-108OkpqltTrihealth Bethesda North HospitalComment on above:Result Comment: If this glucose result represents a fasting glucose, interpretation should refer tothe following reference range: 55-99 mg/dLPerformed By: #### [id number], 4219737, 5198520 #### [facility] [address] [place], [place] [address]Uwqohmlvy [Moles/Vol]3.9 mmol/LNormal3.5-5.3FThe Christ HospitalComment on above:Performed By: #### [id number], 2964096, 1818580 #### [facility] [address] [place], [place] [address]Llnvco [Moles/Vol]139 mmol/GCwrgoz532-416OlitqbTrihealth Bethesda North HospitalComment on above:Performed By: #### 49960355, 2895391, 6701453 #### [facility] [address] [place], [place] [address]Lipt nitrogen [Mass/Vol]20 mg/dLNormal5-21[facility] North HospitalComment on above:Performed By: #### [id number], 8509015, 0877569 #### Saul [facility] [address] [place], [place] [address]Deso nitrogen/Creatinine [Mass ratio]25 No SgqzcWiru79-98JletwgTrihealth Bethesda North HospitalComment on above:Performed By: #### [id number], 7117724, 7610265 #### [facility] [address] [place], [place] [address]VAY w/Indiceson 59-81-0128Owivxyhqnan distribution width (RBC) [Ratio]14.3 %High10.9-14.2FThe Christ HospitalComment on above:Performed By: #### [id number], 8186703, 1240346 #### [facility] [address] [place] [address]Hpjwaqodnw (Bld) [Volume fraction]41.1 %Fqleqf01.0-46.0[facility] North HospitalComment on above:Performed By: #### [id number], 0825771, 4221765 #### [facility] [address] [place], [place] [address]Snftbriuue (Bld) [Mass/Vol]14.3 g/kUZzqpgo84.0-16.0[facility] North HospitalComment on above:Performed By: #### [id number], 3970575, 6227073 #### [facility] [address] [place], [place] [address]GGC (RBC) [Entitic mass]28.6 mxCuwske57.0-34.0[facility] North HospitalComment on above:Performed By: #### [id number], 6081240, 4285838 #### [facility] [address] [place], [place] [address]YIZP (RBC) [Mass/Vol]34.8 g/dJOldljp40.4-36.0[facility] North HospitalComment on above:Performed By: #### [id number], 8080309, 0771730 #### [facility] [address] [place] [address]EJX (RBC) [Entitic vol]82.3 dFTmtubz43.0-100.0[facility] North HospitalComment on above:Performed By: #### [id number], 5283845, 6983452 #### [facility] [address] [place] [address]Kcndklsy mean volume (Bld) [Entitic vol]7.7 fLNormal6.4-10.8 [facility] North HospitalComment on above:Performed By: #### 65060704, 9255409, 0045764 #### [facility] [address] [place] [address]Hmyzifxyn (Bld) [#/Vol]249.0 E9/GVazxxv747.0-500.0[facility] North HospitalComment on above:Performed By: #### [id number], 3184348, 8492508 #### [facility] [address] [place] [address]QQA (Bld) [#/Vol]5.0 E12/LNormal4.3-5.9[facility] North HospitalComment on above:Performed By: #### [id number], 0700128, 6723155 #### [facility] [address] [place] [address]ZHG corrected for nucl RBC Auto (Bld) [#/Vol]6.8 E9/LNormal 4.0-11.0[facility] North HospitalComment on above:Performed By: #### [id number], 1223180, 2953450 #### [facility] [address] [place] [address]JWSKPNSITWzrmvrr By: SYSTEM SYSTEM on 36-06-1454Vhjqv gap [Moles/Vol]12 mmol/LNormal6 - 16 mEq/LFTMC RemisolCalcium [Mass/Vol]10.2 mg/dL Normal8.9 - 11.1 mg/dLFTMC RemisolChloride [Moles/Vol]103 mmol/FZhrzgb871 - 111 mmol/LFTMC RemisolCO2 [Moles/Vol]28 mmol/TWwujcc59 - 31 mmol/LFTMC Remisol Creatinine [Mass/Vol]0.8 mg/dLNormal0.5 - 1.3 mg/dLFT RemisolGFR/1.73 sq M.predicted among blacks MDRD (S/P/Bld) [Vol rate/Area]mL/min/1.73 u8Xyevfq >=59mL/min/1.73 m2[facility] Chem SGFR/1.73 sq M.predicted among non-blacks MDRD (S/P/Bld) [Vol rate/Area]mL/min/1.73 y8Vvhjyv>=59mL/min/1.73 m2[facility] Chem S Glucose [Mass/Vol]94 mg/pNObpovn62 - 199 mg/dLWAGONER COMMUNITY [facility] RemisolPotassium [Moles/Vol] 3.9 mmol/LNormal3.5 - 5.3 mmol/LFTMC RemisolSodium [Moles/Vol]139 mmol/LNormal 135 - 145 mmol/LFTMC RemisolUrea nitrogen [Mass/Vol]20 mg/dLNormal5 - 21 mg/dL [facility] RemisolUrea nitrogen/Creatinine [Mass ratio]25 mg/lpWili93 - 20FT Remisol Consent for Treatmenton 45-69-5611Oyvxgxw for Treatment [id number]#1.00CD:127[facility] CompanyHEMATOLOGYOrdered By: Tiny Collier on 04-02-9006Vslihudqqgd distribution width (RBC) [Ratio]14.3 %High10.9 - 14.2 %[facility] HemeAutoSSHematocrit (Bld) [Volume fraction]41.1 %Wdzcma39.0 - 46.0 %[facility] HemeAutoSSHemoglobin (Bld) [Mass/Vol]14.3 g/sDVqkzha42.0 - 16.0 gm/dLFTMC HemeAutoSSMCH (RBC) [Entitic mass]28.6 vjVhclqm86.0 - 34.0 pgFTMC HemeAutoSSMCHC (RBC) [Mass/Vol]34.8 g/dL Wcxzxn00.4 - 36.0 gm/dLWAGONER [facility] HemeAutoSSMCV (RBC) [Entitic vol]82.3 hGItgiip60.0 - 100.0 [facility] HemeAutoSSPlatelet mean volume (Bld) [Entitic vol]7.7 fLNormal6.4 - 10.8 [facility] HemeAutoSSPlatelets (Bld) [#/Vol]249.0 E9/ABcghps422.0 - 500.0 E9/L [facility] HemeAutoSSRBC (Bld) [#/Vol]5.0 E12/LNormal4.3 - 5.9 E12/LFINTEGRIS [facility] HemeAutoSSWBC corrected for nucl RBC Auto (Bld) [#/Vol]6.8 E9/LNormal4.0 - 11.0 E9/LFC HemeAutoSSPhysician Orderon 67-39-2497Kerrudvys Order [id number]#1.00CD:127NormPremier Health [facility] Medical CenterUA With Cult Reflexon 55-97-1938Wkunkzye LM Ql (Urine sed)1+ /HPFAbnormal TraceTrihealth Bethesda North HospitalComment on above:Performed By: #### [id number] ####[address] [address] Bilirubin Ql (U)NegativeNormalNegativeTrihealth Bethesda North HospitalComment on above:Performed By: #### [id number] ####[address] [address]Rifcvgc (U)SL CLOUDYAbnormalClearFisher [facility] CenterComment on above:Performed By: #### [id number] ####[address] [address]Purbh (U)YELLOWNormal YellowTrihealth Bethesda North HospitalComment on above:Performed By: #### [id number] ####[address] [address] Crystals LM Ql (Urine sed)PresentNormPremier Health Upper Valley Medical CenterComment on above:Performed By: #### [id number] ####Saul [facility] [address] [place], [place] [address]Rjzpcoupnp cells.squamous LM.HPF (Urine sed) [#/Area]6-2Lnnofb9-7Kpzsou [facility] CenterComment on above:Performed By: #### [id number] ####Saul [facility] [address] [place], [place] [address]Ujciphj Test strip (U) [Mass/Vol]NegativeNormalNegativeTrihealth Bethesda North HospitalComment on above:Performed By: #### [id number] ####[address] [address]Pcomxxixim Ql (U)1+ AbnormalNegativeTrihealth Bethesda North HospitalComment on above:Performed By: #### [id number] ####[facility] Ig[address]ilsfoag[address] [place] [address]Vckxzya (U) [Mass/Vol]NegativeNormalNegativeTrihealth Bethesda North Hospital Comment on above:Performed By: #### [id number] ####Saul [facility] [address] [place] [address]Qgwmbwd.plasma/Mahtomedi.RBC (Bld) [Mass ratio]2-74Dxdtsv8-3Hephje [facility] CenterComment on above:Performed By: #### [id number] ####[facility] [address] [place] [address]Jynlnbo Ql (U)NegativeNormalNegativeTrihealth Bethesda North HospitalComment on above:Performed By: #### [id number] ####Saul [facility] [address] [place] [address]oX (U)7.5 [pH]Invalid Interpretation Code5.0-9.0[facility] North HospitalComment on above:Performed By: #### [id number] ####[facility] [address] [place] [address]Giabubu (U) [Mass/Vol]TRACEAbnormalNegativeTrihealth Bethesda North HospitalComment on above:Performed By: #### [id number] ####[place] [place] [address] [place], [place] [address]Yozkjobg gravity (U) [Rel density]1.015Invalid Interpretation Code1.005-1.030[facility] North HospitalComment on above:Performed By: #### [id number] ####Kg [address] [address]Bakt of Urine collection methodClean CatchNormalTrihealth Bethesda North HospitalComment on above:Performed By: #### [id number] ####Saul [address] [address]Almefxpwszox Qn (U)0.2 {Emily'U}/dLNormal0.0-1.0[facility] North HospitalComment on above:Performed By: #### [id number] ####Sual [address] [address]QTW Auto Ql (U)NegativeNormal NegativeTrihealth Bethesda North HospitalComment on above:Performed By: #### [id number] ####Kg [address] [address]VOR LM.HPF (Urine sed) [#/Area]9-7Tfwpjt1-3Gbhcpe [facility] CenterComment on above:Performed By: #### [id number] ####Kg [address] [address]QEHBJUPOKWZqfyjlv By: Monica Hinkle on 06-28-2022 Bacteria LM Ql (Urine sed)1+ /HPFInvalid Interpretation CodeTrace/HPFWAGONER [facility] UA Auto SSBilirubin Ql (U)Negative (06/28/22 9:43 AM)NormalNegativeWAGONER COMM[facility]ITY [facility]OS[facility] UA Auto SSClarity (U)Slightly Cloudy *ABN* (06/28/22 9:43 AM)Invalid Interpretation CodeClearFINTEGRIS GROVE [facility] UA Auto SSColor (U)Yellow (06/28/22 9:43 AM)NormalYellowWAGONER COMMUNITY [facility]OSPITAL [facility] UA Auto SSCrystals LM Ql (Urine sed)Present (06/28/22 9:43 AM)NormalWAGONER COMMUNITY [facility]OSPITAL [facility] UA Auto SSEpithelial cells.squamous LM.HPF (Urine sed) [#/Area]0-2 /HPFNormal0-2/HPFWAGONER COMMUNITY [facility]OSP[facility] UA Auto SSGlucose Test strip (U) [Mass/Vol]Negative (06/28/22 9:43 AM)NormalNegativeWAGONER COMMUNITY [facility]OSP[facility] UA Auto SSHemoglobin Ql (U)1+ *ABN* (06/28/22 9:43 AM)Invalid Interpretation CodeNegativeWAGONER COMM[facility]ITY [facility]OS[facility] UA Auto SSKetones (U) [Mass/Vol]Negative (06/28/22 9:43 AM)NormalNegativeWAGONER COMMUNITY [facility]OSP[facility] UA Auto SSLithium.plasma/Mahtomedi.RBC (Bld) [Mass ratio]4-20 /HPFNormal0-3/HPFWAGONER COMMUNITY [facility]OSPITAL [facility] UA Auto SSNitrite Ql (U)Negative (06/28/22 9:43 AM)NormalNegativeWAGONER COMM[facility]ITY [facility]OSPITAL [facility] UA Auto SSpH (U)7.5 *NA* (06/28/22 9:43 AM)Invalid Interpretation Code5.0 - 9.0[facility] UA Auto SSProtein (U) [Mass/Vol]Trace *ABN* (06/28/22 9:43 AM)Invalid Interpretation CodeNegativeWAGONER COMM[facility]ITY [facility] UA Auto SSSpecific gravity (U) [Rel density]1.015 *NA* (06/28/22 9:43 AM)Invalid Interpretation Code1.005 - 1.030[facility] UA Auto SSUA Spec DescClean Catch (06/28/22 9:43 AM)NormalWAGONER COMMUNITY HOSPITAL [facility] UA Auto SSUrobilinogen Qn (U)0.4217487 {Emily'U}/dLNormal0.0 - 1.0 EU/dLWAGONER COMMUNITY [facility]OSPITAL [facility] UA Auto SSWBC Auto Ql (U)Negative (06/28/22 9:43 AM)NormalNegativeWAGONER COMM[facility]ITY [facility] UA Auto SSWBC LM.HPF (Urine sed) [#/Area]0- 5 /HPFNormal0-5/HPFWAGONER COMMUNITY [facility]OSPITAL [facility] UA Auto SSeGFRon 80-09-1500TEO/1.73 sq M.predicted among blacks MDRD (S/P/Bld) [Vol rate/Area]mL/min/{1.73_m2}Normal>=59[facility] North HospitalComment on above:Order Comment: Order added by Discern Expert. Result Comment: eGFR is race adjusted. AA=.Performed By: #### [id number], [id number], [id number] #### Kg [facility] [address] [place], [place] [address]GMA/1.73 sq M.predicted among non-blacks MDRD (S/P/Bld) [Vol rate/Area]mL/min/{1.73_m2}Normal>=59[facility] North HospitalComment on above: Order Comment: Order added by Discern Expert.Result Comment: Chronic kidney disease could be indicated at eGFR's of less than 60 mL/min/1.73m2. Kidney failure is indicated at less than 15 mL/min/1.73m2.Performed By: #### [id number], [id number], [id number] #### Kg [facility] [address] [place], [place] [address]Peeudh Summary.on 77-50-8023Wmlamv Summary. CD:[id number]:[id number]+PGhlYWQ+LY8TCIPyS32zkVXodF8SI6pOUY2UXSILUOEPAF3AFE7sa MQ9UHdvO7HdbyFn [file] ZT0n (more content not included)...[facility] IntraOperative Documentson 42-72-8692YhjwuUygnukvaz Documents [id number]#1.00CD:127[facility] CompanyPhysician Orderon [id number] Order [id number]#1.00CD:127[facility] CompanyOperative Reporton 72-61-1209Tgstyktvw ReportSURGERY DATE: 01/18/2022 PREOPERATIVE DIAGNOSIS: Postoperative pain control requested by patient and surgeon POSTOPERATIVE DIAGNOSIS: Postoperative pain control requested by patient and surgeon OPERATION: Left adductor canal block utilizing ultrasound guidance ANESTHESIA: Local with monitored anesthesia care PROCEDURE: The patient was interviewed and examined. The anesthesia options were discussed including adductor canal block for postoperative analgesia. The discussion included the procedure, risks andbenefits and alternatives to the procedure. The patient's questions were all answered and the patient elected to proceed with the adduction canal block for postoperative pain relief. The patient was placed on the monitors, electrocardiogram, noninvasive blood pressure machine and pulse oximetry. I.V. sedation was then administered with a total of 2 mg IV Versed. The mid thigh wasprepped with ChloraPrep and sterilely draped. The anatomy [...] the proposed procedure. MERLIN Delgado Dictated: 01/18/2022 [id number] Transcribed: 01/18/2022NoSelect Medical Specialty Hospital - ColumbusComment on above:Result Comment: Electronically Signed By: Luis Manuel Moss CRNA\.br\Date and Time Signed: 01/20/2206:54 EDTBlood Bank Slipon 21-48-7787Jeyig Bank Slip [id number]#1.00CD:127[facility] CompanyConsent for Anesthesiaon 23-36-4318Hutfdsz for Anesthesia [id number]#1.00CD:127[facility] CompanyIntraOperative Documentson 87-94-1794IlkxgWbgbpsajr Documents [id number]#1.00CD:127[facility] CompanyPreoperative Documentson 98-15-6778Rzhxrmigweyw Documents [id number]#1.00CD:[address] [place], [place] [address]ABO/Rhon 93-53-6935OEA/RhPositiveInvalid Interpretation CodeTrihealth Bethesda North HospitalComment on above:Performed By: #### [id number], 4800875, 96939307, 08058490 ####[facility] [address] [place], [place] [address]BTF/Rh History Checkon 94-09-9794HFO/Rh History CheckVerified Hx Blood Type NormalTrihealth Bethesda North HospitalComment on above:Performed By: #### [id number], 6088122, 63165552, 38227468 ####[facility] [address] [place], [place] [address]LGBHbi 74-39-8030CDZX Gel InterpNegativeNormal [facility] North HospitalComment on above:Performed By: #### 50004898, 3546619, 28596470, 81366906 ####[facility] [address] [place], [place] [address]EJKZB BANKOrdered By: Monica Hinkle on 01-18-2022 ABO/Rh InterpPositiveInvalid Interpretation [facility] BB SubsectionABSC Gel InterpNegative (01/18/22 7:24 AM)[facility] BB SubsectionBlood Bank ID#on [id number]#[id number] Invalid Interpretation [facility] Healthcare SystemComment on above:Performed By: #### [id number], 9533986, 14255795, 73988947 ####[facility] [address] [place], [place] [address]Rawizbw for Treatmenton 01-18-2022 Consent for [id number]#1.00CD:127Normal [facility] North HospitalH&P Updateon 01-18-2022H&P Update [id number]#1.00CD:127NormalTrihealth Bethesda North HospitalInpatient Patient Summaryon 26-73-3519Xenvorewp Patient Summary [address] [address] [facility] Clinical Discharge Instructions PERSON INFORMATION Name: OSIRIS MORALES [facility]#:[id number] PHYSICIANS Admitting Physician: Paulino Garcia DO Attending Physician: Paulino Garcia DO PCP: RANDY RICHARD MD Discharge Diagnosis: Localized osteoarthritis of left knee Comment: PATIENT EDUCATION INFORMATION Instructions: Knee Cryocuff Patient Instructions - FT (Custom); Post Op Patient Instructions - FT (Custom); Garcia - Total Knee Arthroplasty (CUSTOM) Medication Leaflets: Follow up: With: Address: When: Paulino Jose [address] [place] [address] [employer] (1) Comments: Keep scheduled appointment MEDICATION LIST Medications to Continue with No Changes Printed Prescriptions aspirin (aspirin 325 mg Tab) 1 Tablets By Mouth every day for 30 Days. Refills: 0. cephalexin (Keflex 500 mg Cap) 1 Capsules By Mouth 4 times a day for 5 Days. Refills: 0. Other Medications acetaminophen-diphenhydrAMINE (Tylenol Extra Strength PM oral tablet) 1 Tablets By Mouth once a day(at bedtime) as needed as needed for sleep. [...] Cap) 1 Capsules By Mouth every day. Comment:[facility] CompanyInterdisciplinary Note - OTon 41-53-3862Ivrrkmlijsczxgbfb Note - OTOT six clicks score: 22/24=Home with no OT needs. Pt completes full body dressing setup A with no AE required. All ADL functional transfers close supervision. Pt is setup with ortho 360 and reports no issues or concerns with going home safely and independently.[facility] CompanyMain OR Intraoperative Recordon 67-99-6909Njen OR Intraoperative RecordIntraOp Document Type FT Summary Primary Physician: Paulino Garcia DO Finalized Date/Time: 01/20/22 14:28:49 Pt. Name: OSIRIS MORALES /Sex: 1950 Female Med Rec #: [id number] Physician: Paulino Garcia DO Financial #: [id number] Pt. Type: A Room/Bed: [place] [address] Admit/Disch: 01/18/22 06:49:36 - 01/18/22 18:20:00 Institution: Case Times FT Entry 1 Patient Times In Room 01/18/22 09:49:00 Out Room 01/18/22 11:23:00 Procedure Times Start 01/18/22 10:16:00 Stop 01/18/22 11:20:00 Anesthesia Times Start 01/18/22 09:49:00 Stop 01/18/22 11:23:00 Block Timeout w/ 01/18/22 09:17:00 Anesthesia Last Modified By: Jina Jeff RN 01/18/22 11:23:34 General Comments: patient taken to block room by MARIANNA Galindo. Block completed by MERLIN Rodrigues with MARIANNA Galindo assisting. Patient tolerated well. HR 89, HYK790%RA. Patient then taken back to asu and connected to pulse ox before moving back to OR.-MARIANNA Galindo 01/20/22 Chart opened to review and send charges LRoth CSFA Case Attendance FT Entry 1 Entry 2 Entry 3 Case Attendee Luis Manuel Moss CRNA, DO, Michael T Kinsley CST, Allison M Role Performed MERLIN Surgeon - Primary Scrub - Primary Time In 01/18/22 09:49:00 01/18/22 10:08:00 01/18/22 09:49:00 Time Out 01/18/22 11:23:00 01/18/22 11:01:00 01/18/22 11:23:00 Procedure KNEE TOTAL KNEE TOTAL KNEE TOTAL ARTHROPLASTY(Left) ARTHROPLASTY(Left) ARTHROPLASTY(Left) Comments Last Modified By: Randee RN, Jina 01/18/22 Randee RN, Jina 01/18/22 Randee RN, Jina 01/18/22 11:27:01 11:27:01 11:27:01 Entry 4 Entry 5 Entry 6 Case Attendee Jeremy Gomez CST, Rissa Jeff RN, Jina Role Performed Staff - Other PROCUREMENT FORESTER/[employer] Consulting Business Developer - Primary Time In 01/18/22 09:49:00 01/18/22 09:49:00 01/18/22 09:49:00 Time Out 01/18/22 11:00:00 01/18/22 11:23:00 01/18/22 11:23:00 Procedure KNEE TOTAL KNEE TOTAL KNEE TOTAL ARTHROPLASTY(Left) ARTHROPLASTY(Left) ARTHROPLASTY(Left) Comments 2nd scrub Last Modified By: Randee RN, Jina 01/18/22 Randee RN, Jina 01/18/22 Randee RN, Jina 01/18/22 11:27:01 11:27:01 11:27:01 General Comments: Bruce ahmadi present for case.-MARIANNA 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 [...] and tissue Entry 1 Skin Integrity Intact, [place], Warm, and Skin Abnormality No Dry Outcomes Met? Yes Last Modified By: Jina Jeff RN 01/18/22 10:23:26 Post-Care Text: The patient is free (more content not included)...[facility] CompanyMain OR PACU I Recordon 66-87-6275Ivha OR PACU I RecordPACU Phase I Document Type FT Summary Primary Physician: Paulino Garcia DO Finalized Date/Time: 01/18/22 13:01:43 Pt. Name: OSIRIS MORALES/Sex: 1950 Female Med Rec #: [id number] Physician: Paulino Garcia DO Financial #: [id number] Pt. Type: A Room/Bed: Admit/Disch: 01/18/22 06:49:36 [...] individualized perioperative plan of care The patient's rightto privacy is maintained The patient's value system, [...] with or improved from baseline levels established preoperativelyThe patient's cardiovascular status is consistent with or improved from baseline levels established preoperatively The patient's cardiovascular status is consistent with or improved from baseline levels established preoperatively The patient demonstrates and/or reports adequate pain control throughout the perioperative period The patient received appropriate medication(s), safely administered during the perioperativeperiod Acuity Level PACU I FT Entry 1 Start Time 01/18/22 11:24:00 Stop Time 01/18/22 12:35:00 Acuity Level Acuity Level I Last Modified By: DAYAN SAM RN 01/18/22 13:01:21 Finalized By: DAYAN SAM RN Document Signatures Signed By: DAYAN SAM RN 01/18/22 13:01[facility] CompanyMain OR PACU II Recordon 37-22-8040Vlrh OR PACU II RecordPACU Phase II Document Type FT Summary Primary Physician: Paulino Garcia DO Finalized Date/Time: 01/18/22 18:23:31 Pt. Name: JOSE MORALESStephan Negrete./Sex: 1950 Female Med Rec #: [id number] Physician: Paulino Garcia DO Financial #: [id number] Pt. Type: A Room/Bed: [facility] Admit/Disch: 01/18/22 06:49:36 - Institution: Case Times [...] and monitors body temperature Evaluates postoperative respiratory statusEvaluates postoperative cardiac status Evaluates postoperative neurological status [...] individualized perioperative plan of care The patient's rightto privacy is maintained The patient's value system, [...] with or improved from baseline levels established preoperativelyThe patient's cardiovascular status is consistent with or improved from baseline levels established preoperatively The patient's neurological status is consistent with or improved from baseline levels established preoperatively The patient demonstrates and/or reports adequate pain control throughout the perioperative period The patient received appropriate medication(s), safely administered during the perioperativeperiod Finalized By: Sunni Haynes RN Document Signatures Signed By: Sunni Haynes RN 01/18/22 18:23NormPremier Health Upper Valley Medical CenterMain OR Preoperative Recordon 87-21-6092Ujoj OR Preoperative RecordPreOp Document Type FT Summary Primary Physician: Paulino Garcia DO Finalized Date/Time: 01/18/22 12:42:29 Pt. Name: JOSE MORALESStephan Negrete./Sex: 1950 Female Med Rec #: [id number] Physician: Paulino Garcia DO Financial #: [id number] Pt. Type: Room/Bed: [place] [address] Admit/Disch: 01/18/22 06:49:36 - Institution: Case Times [...] Signatures Signed By: Sunni Haynes RN 01/18/22 12:42NormPremier Health Upper Valley Medical CenterMonitor Recordon 30-59-5476Cqqjzwm Record [id number]#1.00CD:127NoSelect Medical Specialty Hospital - ColumbusMonitor [id number]#1.00CD:127Noramon [facility] North HospitalOperative Reporton 90-41-0694Ppazgvikt ReportSURGERY DATE: 01/18/2022 HOSPITALIST: Rissa Nagel C.F.A. PREOPERATIVE DIAGNOSIS: Left knee [...] #4 narrow cemented left femur, #3 cemented fixedtibial tray, 17.5 fixed PS insert, 35 mm cemented patellar button HISTORY AND INDICATIONS: Osiris is a 71-year-old female with progressive bilateral knee pain with wnxg-dl-cgcb disease with no relief with cortisone or viscosupplementation. She has tried conservative management with physical therapy, bracing, ice, Tylenol, antiinflammatories. She has severe grade 4 b one-on-bone disease on her x-rays. The pros, cons, [...] was everted. Of note, time-out procedure was performedprior to exsanguination. Medial parapatellar arthrotomy was performed. [...] cruciate ligament and posterior cruciate ligament were resected,collateral ligaments protected and balanced. Intramedullary drill and [...] All instrumentation trial components were removed. The Mario Simplex cement was mixed, bone was prepared, components were cemented in place and allowed to harden for 16 minutes. All cement osteophytes were removed. The knee was taken through an arc of motion and deemed stable. Two grams of tranexamic acid were placed martinez bfascially. The fascial layer was closed with #2 Quill suture in a running fashion, 2-0 Quill suture closed the subcutaneous tissues. [place] were applied. A 10-inch Mepilex dressing with soft roll wrap was provided. Tourniquet was deflated. The patient was awakened from anesthesia and transferred to the Recovery Room in stable and satisfactory condition. CASE: Clean and elective COUNTS: Sponge and needle count correct SPECIMEN: Bone CONDITION: The patient's condition satisfactory Isidra Antunez Dictated: 01/18/2022 [id number] Transcribed: 01/18/2022 cc:Randy Richard M.D.[facility] CompanyComment on above:Result Comment: Electronically Signed By: Paulino Garcia DO\.br\Date and Time Signed: 01/18/22 13:49 EDTOperative ReportPatient: OSIRIS MORALES Age: 71 years Sex: Female : 1950 Associated Diagnoses: None Author: Paulino Garcia DO Health Status Allergies: Allergic Reactions (Selected) Severity Not Documented Sulfa drugs- Bad headache. Review / Management Results review: Lab results 01/18/2022 7:24 EDT ABO/Rh Interp A POS ABSC Gel Interp Negative . Impression and Plan Diagnosis Pre-op dx-lt knee oa/pain Post-op dx-same Procedure-lt tka Fnhnhxgvrf-ffx-crnwg EBL-0 TT-0 To Recovery Room in stable and satisfactory condition..[facility] CompanyComment on above:Result Comment: Electronically Signed By: Paulino Garcia DO\.br\Date and Time Signed: 01/18/22 11:13 EDTOutpatient Surgery Discharge Instructionon 74-20-8287Hjjmegtflv Surgery Discharge Instruction [place] [id number] Patient Discharge Instructions PERSON INFORMATION Name: OSIRIS MORALES Date of : 1950 Current Date: 01/18/2022 11:24:18 PHYSICIANS Admitting Physician: Paulino Garcia DO Discharge Diagnosis: Localized osteoarthritis of left knee ANDREWOSIRIS has been given the following list of [...] THE NEAREST EMERGENCY ROOM OR CALL 911 ANDREW Danielson JANE, have received the attached patient education materials/instructions and have verbalized understanding: May we do a follow up call? Yes No I was present when discharge instructions were given Patient Signature Date Clinican/Nurse Signature Date Follow up: With: Address: When: Paulino Garcia [address] [place] [address] Business (1) Comments: Keep scheduled appointment Pharmacy Information: You may receive a survey from [employer] asking you to rate your care experience. Your feedback is important and will help us understand what we do well and how we can improve the quality of care we provide to you, your loved ones and our community. It?s an honor to serve you. Thank you for choosing [facility] HERE ARE THE MEDICATION CHANGES THAT OCCURRED DURING YOUR HOSPITAL STAY Medications to Continue with No Changes Printed Prescriptions aspirin (aspirin 325 mg Tab) 1 Tablets By Mouth every day for 30 Days. Refills: 0. cephalexin (Keflex 500 mg Cap) 1 Capsules By Mouth 4 times a day for 5 Days. Refills: 0. Other Medications acetaminophen-diphenhydrAMINE (Tylenol Extra Strength PM oral tablet) 1 Tablets By Mouth once a day(at bedtime) as needed as needed for sleep. [...] Mouth every day. 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 It is therefore advised not to drive until after yourfirst office visit following surgery FOLLOW-UP OFFICE VISIT: Paulino Garcia, DO [facility] [address] [place] [address] Reviewed: 11-06[facility] CompanyProess Note-Physicianon 61-61-7046Fcpodaea Note-PhysicianPatient: OSIRIS MORALES Age: 71 years Sex: Female : 1950 [...] 1 tab(s), Oral, Daily (more content not included)...[facility] CompanyComment on above:Result Comment: Electronically Signed By: Glenn STEVE, Vinny\.br\Date and Time Signed: 01/18/22 18:05 EDTProgress Note-PhysicianPatient: MORALESOSIRIS PEREA Age: 71 years Sex: Female : 1950 Associated Diagnoses: None Author: Vinny Elizabeth MD Postoperative Information Post Operative Note: Post Anesthesia Care Unit. Anesthetic utilized: General. Health Status Allergies: Allergic Reactions (All) Severity Not Documented Sulfa drugs- Bad headache. Problem list: All Problems Hypertension / SNOMED CT 6879192216 / Confirmed Hypercholesteremia / SNOMED CT 48653229 / Confirmed Knee pain, left / SNOMED CT 9774796641 / Confirmed Resolved: Hypertension / SNOMED CT 2422517849 Resolved: H/O hypercholesterolemia / SNOMED CT 5138829606 Physical Examination Intake and Output adequate hydration [...] can be discharged from anesthesia care. Condition stable.[facility] Hospital CompanyComment on above:Result Comment: Electronically Signed By: Vinny Elizabeth MD\.br\Date and Time Signed: 01/18/22 18:05 EDTXR Knee 1 or 2 Views Lefton 93-32-1262IL Knee 1 or 2 Views LeftExam Date/Time: 01/18/2022 11:40 EDT Reason for Exam: [...] Chivo Mahmood DO Transcribed by: WENDY Technologist: [facility] HospitalConsent for Procedure/Surgeryon 10-01-9556Bpkzoys for Procedure/Surgery [id number]#1.00CD:127[facility] CompanyImmunization Recordson 24-55-2996Chtihxtuzhfz Records [id number]#1.00CD:127[facility] CompanyOutside Recordson 03-69-2619Kdcukyc Records [id number]#1.00CD:[address] [place], [place] [address]Coding Summary.on 82-65-2339Flxpji Summary. CD:[id number]:[id number]+PGhlYWQ+MX3AELScA58hgNWagC4BV2lVZD4ZXIILVRJBQO3YPF9kv UY0TAdrL5SkreVb [file] ZTog (more content not included)...NormalTrihealth Bethesda North HospitalImmunization Recordson 48-86-6616Zrphfamcotly Records [id number]#1.00CD:127NormalTrihealth Bethesda North HospitalABO/Rh Retypeon 38-18-0952HIU/Rh Retype InterpPositiveInvalid Interpretation [facility] Healthcare SystemComment on above:Performed By: #### [id number] ####Saul [facility] [address] [place], [place] [address]HMOIV BANKOrdered By: Chelsi Quiros on 36-15-1713WDI/Rh Retype InterpPositiveInvalid Interpretation [facility] BB SubsectionBUNon 21-44-4898Eapf nitrogen [Mass/Vol]22 mg/dLHigh5-21[facility] HospitalComment on above: Performed By: #### 2426411, 7562458, 4107593, 4331649, 75320099, 9598150 ####Saul [facility] [address] [place], [place] [address]NXH w/Indiceson 19-06-2068Vflavgahzbn distribution width (RBC) [Ratio]13.4 %Normal 10.9-14.2FThe Christ HospitalComment on above:Performed By: #### 5778400, 6070130, 7916796, 1789956, 26333091, 5594408 ####Saul [facility] [address] [place], [place] [address]Qlgxzuufmz (Bld) [Volume fraction] 41.9 %Eqxfbv02.0-46.0[facility] HospitalComment on above:Performed By: #### 9097216, 5497417, 4669032, 9094119, 20154043, 9106286 ####[facility] [address] [place], [place] [address]Guebqhchqe (Bld) [Mass/Vol]14.3 g/hWOqklud40.0-16.0[facility] North HospitalComment on above: Performed By: #### 4619389, 5970600, 7850263, 4574276, 52864372, 2795109 ####[facility] [address] [place], [place] [address]HOX (RBC) [Entitic mass]28.7 hpXekfiw02.0-34.0[facility] North HospitalComment on above:Performed By: #### 8081491, 8721354, 2883946, 6241590, 64256774, 5714651 ####[facility] [address] [place], [place] [address]FQEX (RBC) [Mass/Vol]34.1 g/cGQrqfvx09.4-36.0[facility] HospitalComment on above:Performed By: #### 3371594, 0052166, 8090831, 5559691, 11539289, 9581222 ####[facility] [address] [place], [place] [address]KKD (RBC) [Entitic vol]84.4 aRCsubhp13.0-100.0[facility] North HospitalComment on above:Performed By: #### 5584005, 6301707, 1804176, 5927598, 06690728, 4024605 ####[place] [address] [place] [address] Platelet mean volume (Bld) [Entitic vol]8.7 fLNormal6.4-10.8[facility] North HospitalComment on above:Performed By: #### 6886787, 8481312, 4149260, 4616383, 64405461, 4619318 ####[address] [address]Mgqwbcnne (Bld) [#/Vol]233.0 E9/WYueioz886.0-500.0[facility] North HospitalComment on above:Performed By: #### 1009933, 0454472, 2474238, 7849250, 07860784, 8346501 ####[address] [address]UXM (Bld) [#/Vol]5.0 E12/LNormal 4.3-5.9[facility] North HospitalComment on above:Performed By: #### 9170281, 7934233, 9091370, 2748003, 49963738, 8998409 ####[address] [address]AKQ corrected for nucl RBC Auto (Bld) [#/Vol]6.1 E9/LNormal4.0-11.0[facility] North HospitalComment on above: Performed By: #### 4374004, 8915267, 9160424, 7310741, 52286057, 9896363 ####[address] [address] CHEMISTRYOrdered By: SYSTEM SYSTEM on 74-01-8014Muqtf gap [Moles/Vol]13 mmol/L Normal6 - 16 mEq/LFTMC RemisolChloride [Moles/Vol]104 mmol/DKbnnvq424 - 111 mmol/LFTMC RemisolCO2 [Moles/Vol]25 mmol/WAwyrkv86 - 31 mmol/LFTMC Remisol Creatinine [Mass/Vol]0.8 mg/dLNormal0.5 - 1.3 mg/dLWAGONER [facility] RemisolGFR/1.73 sq M.predicted among blacks MDRD (S/P/Bld) [Vol rate/Area]mL/min/1.73 n1Mwuexv >=59mL/min/1.73 m2[facility] Chem SGFR/1.73 sq M.predicted among non-blacks MDRD (S/P/Bld) [Vol rate/Area]mL/min/1.73 z4Guffyp>=59mL/min/1.73 m2[facility] Chem S Glucose [Mass/Vol]97 mg/jJEoehpe42 - 199 mg/dLWAGONER COMMUNITY [facility]OS[facility] [place] RemisolPotassium [Moles/Vol] 4.0 mmol/LNormal3.5 - 5.3 mmol/LFTMC RemisolSodium [Moles/Vol]138 mmol/LNormal 135 - 145 mmol/LFTMC RemisolUrea nitrogen [Mass/Vol]22 mg/dLHigh5 - 21 mg/dLWAGONER COMMUNITY [facility]OSP[facility] [place] RemisolConsent for Treatmenton 38-57-6442Piiofgm for Treatment [id number]#1.00CD:127NormalTrihealth Bethesda North HospitalCreatinineon 78-17-1468Icmxjfljpl [Mass/Vol]0.8 mg/dLNormal0.5-1.3Fisher [facility] Medical CenterComment on above:Performed By: #### 7199890, 7992552, 8113890, 3098820, 47346096, 3916041 ####Kg [facility] [address] [place], [place] [address]Lhcskgdpg 57-68-7200Atcmztr [Mass/Vol]97 mg/vEOuznbu68-720JofdrhTrihealth Bethesda North HospitalComment on above: Performed By: #### 6282489, 4915162, 1200988, 9090730, 73047696, 3131338 #### Kg [facility] Laboratory [address] [place], [place] [address]RGBNKBHRXVJawpojz By: Jaclyn Mckeon on 44-22-2068Zdhxikocgci distribution width (RBC) [Ratio]13.4 %Dpsngw82.9 - 14.2 %[facility] HemeAutoSS Hematocrit (Bld) [Volume fraction]41.9 %Uwyxbr60.0 - 46.0 %[facility] HemeAutoSS Hemoglobin (Bld) [Mass/Vol]14.3 g/wHNojqrd86.0 - 16.0 gm/dLFTMC HemeAutoSSMCH (RBC) [Entitic mass]28.7 qhQhurgf03.0 - 34.0 pgFTMC HemeAutoSSMCHC (RBC) [Mass/Vol]34.1 g/uLXpybhl75.4 - 36.0 gm/dLFTMC HemeAutoSSMCV (RBC) [Entitic vol] 84.4 fRTykjnz98.0 - 100.0 fLFTMC HemeAutoSSPlatelet mean volume (Bld) [Entitic vol]8.7 fLNormal6.4 - 10.8 fLFTMC HemeAutoSSPlatelets (Bld) [#/Vol]233.0 E9/L Pjjsix925.0 - 500.0 E9/LFTMC HemeAutoSSRBC (Bld) [#/Vol]5.0 E12/LNormal4.3 - 5.9 E12/LFTMC HemeAutoSSWBC corrected for nucl RBC Auto (Bld) [#/Vol]6.1 E9/LNormal 4.0 - 11.0 E9/LFTMC HemeAutoSSLyteson 17-41-2394Wlbre gap [Moles/Vol]13 mmol/L Normal6-16[facility] North HospitalComment on above:Performed By: #### 0589814, 3077604, 4367697, 9347010, 07871256, 4684781 ####[facility]g [facility] [address] [place], [place] [address]Lymmbqti [Moles/Vol]104 mmol/L Mlketl494-432UalzwkTrihealth Bethesda North HospitalComment on above:Performed By: #### 7394244, 2743051, 2731743, 6853286, 06608678, 0918960 ####[facility] [address] [place], [place] [address]PB6 [Moles/Vol]25 mmol/LNormal 21-31[facility] North HospitalComment on above:Performed By: #### 7873538, 3831714, 1297816, 2895482, 86114869, 9018648 ####[facility] [address] [place], [place] [address]Qkihcnmlo [Moles/Vol]4.0 mmol/LNormal 3.5-5.3FThe Christ HospitalComment on above:Performed By: #### [id number], [id number], [id number], [id number], [id number], [id number] ####[id number] [place], [place] [address]Alksch [Moles/Vol]138 mmol/LNormal 135-145[facility] North HospitalComment on above:Performed By: #### [id number], [id number], [id number], [id number], [id number], [id number] ####[facility] [address] [place] [address] 13750RJ With Cult Reflexon 12-30-2021 Bilirubin Ql (U)NegativeNormalNegativeTrihealth Bethesda North HospitalComment on above:Performed By: #### [id number] #### [facility] [address] [place] [address] 42262Smnutxu (U)CLOUDYAbnormalClearFThe Christ Hospital Comment on above:Performed By: #### [id number] #### [facility] [address] [place] [address] 17601Hphpv (U)YELLOWNormalYellowTrihealth Bethesda North HospitalComment on above:Performed By: #### [id number] #### [facility] [address] [place], [place] [address]Jnjglfvr LM Ql (Urine sed)PresentNormalTrihealth Bethesda North HospitalComment on above:Performed By: #### [id number] #### [facility] [address] [place] [address] 61978Kckntcqbnq cells.squamous LM.HPF (Urine sed) [#/Area]0-2Normal 0-2FThe Christ HospitalComment on above:Performed By: #### [id number] #### [facility] [address] [place] [address] 67114Gquanvj Test strip (U) [Mass/Vol]NegativeNormalNegativeTrihealth Bethesda North HospitalComment on above:Performed By: #### [id number] #### [facility] [address] [place] [address] 36213Crtqxvvrct Ql (U)TRACEAbnormalNegVan Wert County HospitalComment on above:Performed By: #### [id number] #### [facility] [address] [place] [address] 95032Wmviezr (U) [Mass/Vol]NegativeNormalNegativeTrihealth Bethesda North HospitalComment on above:Performed By: #### [id number] #### [facility] [address] [place] [address] 52241Xmkoudq.plasma/Mahtomedi.RBC (Bld) [Mass ratio]9-5Vvkmfk3-1NrkouuThe Christ HospitalComment on above:Performed By: #### [id number] #### [facility] [address] [place] [address] 87920Wdzibrl Ql (U)NegativeNormalNegVan Wert County Hospital Comment on above:Performed By: #### [id number] #### [facility] [address] [place] [address] 39162oD (U)7.5 [pH]Invalid Interpretation Code5.0-9.0[facility] North HospitalComment on above:Performed By: #### [id number] #### [facility] [address] [place] [address] 98036Abcatyr (U) [Mass/Vol]NegativeNormalNegVan Wert County HospitalComment on above:Performed By: #### [id number] #### [facility] [address] [place] [address] 69286Zmygcrwx gravity (U) [Rel density]1.010Invalid Interpretation Code1.005-1.030[facility] North HospitalComment on above:Performed By: #### [id number] #### Saul [facility] [address] [place] [address] 06798Iczx of Urine collection methodClean CatchNormalTrihealth Bethesda North HospitalComment on above:Performed By: #### [id number] #### Saul [facility] [address] [place] [address] 35772Xdjbsksbjxpo Qn (U)0.2 {Emily'U}/dLNormal0.0-1.0[facility] North HospitalComment on above:Performed By: #### [id number] #### Saul [facility] [address] [place] [address] 84653YCU Auto Ql (U)NegativeNormalNegativeTrihealth Bethesda North HospitalComment on above:Performed By: #### [id number] #### Saul [facility] [address] [place] [address] 54387NBY LM.HPF (Urine sed) [#/Area]0-3Vfqsrw1-3Snmwjw [facility] CenterComment on above:Performed By: #### [id number] #### Kg [facility] [address] [place] [address] 50934UWAJCOPYIHPkoskhd By: Elida Thomas on 23-68-9270Vkprtbywa Ql (U)Negative (12/30/21 10:06 AM)NormalNegativeWAGONER [facility] [place] Auto SSClarity (U)Cloudy *ABN* (12/30/21 10:06 AM)Invalid Interpretation CodeClearFINTEGRIS GROVE [facility] U[facility] Auto SSColor (U)Yellow (12/30/21 10:06 AM)NormalYellowWAGONER COMMUNITY [facility] [place] UA Auto SSCrystals LM Ql (Urine sed)Present (12/30/21 10:06 AM)NormalWAGONER COMMUNITY [facility]OSP[facility] [place] UA Auto SSEpithelial cells.squamous LM.HPF (Urine sed) [#/Area]0-2 /HPFNormal0-2/HPFWAGONER COMMUNITY [facility]OS[facility] [place] UA Auto SSGlucose Test strip (U) [Mass/Vol]Negative (12/30/21 10:06 AM)NormalNegativeWAGONER COMM[facility]ITY [facility] [place] UA Auto SSHemoglobin Ql (U)Trace *ABN* (12/30/21 10:06 AM)Invalid Interpretation CodeNegativeWAGONER [facility]ITY [facility] [place] [facility] Auto SSKetones (U) [Mass/Vol]Negative (12/30/21 10:06 AM)NormalNegativeWAGONER [facility]ITY [facility] [place] UA Auto SSLithium.plasma/Mahtomedi.RBC (Bld) [Mass ratio]0-3 /HPFNormal0-3/HPFWAGONER COMMUNITY [facility]OSP[facility] [place] UA Auto SSNitrite Ql (U)Negative (12/30/21 10:06 AM)NormalNegativeWAGONER COMM[facility]ITY [facility] [place] UA Auto SSpH (U)7.5 *NA* (12/30/21 10:06 AM)Invalid Interpretation Code5.0 - 9.0[facility] Auto SSProtein (U) [Mass/Vol]Negative (12/30/21 10:06 AM)NormalNegativeWAGONER [facility] [place] UA Auto SSSpecific gravity (U) [Rel density] 1.010 *NA* (12/30/21 10:06 AM)Invalid Interpretation Code1.005 - 1.030[facility] Auto SSUA Spec DescClean Catch (12/30/21 10:06 AM)NormalWAGONER COMMUNITY HOSPITAL [facility] [place] UA Auto SSUrobilinogen Qn (U)0.7374388 {Emily'U}/dLNormal0.0 - 1.0 EU/dLWAGONER COMMUNITY [facility]OSPITAL [facility] [place] UA Auto SSWBC Auto Ql (U)Negative (12/30/21 10:06 AM)NormalNegativeWAGONER [facility] [place] UA Auto SSWBC LM.HPF (Urine sed) [#/Area]0-5 /HPFNormal0-5/HPFWAGONER COMMUNITY HOSPITAL [facility] [place] UA Auto SSXR Chest 2 Viewson [id number] Chest 2 Views Exam Date/Time: 12/30/2021 10:31 [...] intact. FINAL REPORT Dictated: 12/30/2021 11:30 am Will STEVE, Luis Shi Signed (Electronic Signature): 12/30/2021 11:30 am Signed by: Luis Solis MD Transcribed by: WENDY Technologist: MATTIRegency Hospital CompanyeGFRon 74-45-5656BSB/1.73 sq M.predicted among blacks MDRD (S/P/Bld) [Vol rate/Area] mL/min/{1.73_m2}Normal>=59[facility] North HospitalComment on above:Order Comment: Order added by Discern Expert.Result Comment: eGFR is race adjusted. AA=.Performed By: #### [id number], [id number], [id number], [id number], [id number], [id number] ####[facility] [address] [place], [place] [address]HVS/1.73 sq M.predicted among non-blacks MDRD (S/P/Bld) [Vol rate/Area]mL/min/{1.73_m2}Normal>=59[facility] North HospitalComment on above:Order Comment: Order added by Discern Expert.Result Comment: Chronic kidney disease could be indicated at eGFR's of less than 60 mL/min/1.73m2. K idney failure is indicated at less than 15 mL/min/1.73m2.Performed By: #### [id number], [id number], [id number], [id number], [id number], [id number] ####[facility] [address] [place], [place] [address]Ujosipyvo Orderon 12-02-2021 Physician [id number]#1.00CD:[address] [place], [place] [address]MG MAMM SCREEN 3D REINA CADon 49-21-0456CL MAMM SCREEN 3D REINA CADPatient: OSIRIS MORALES Exam Date: 11/16/2021 : 1950 Gender:F Ordering : DR PERLA PURI PA Admission #: [id number] Family : Order #: [id number] CLICK HERE TO VIEW EXAM RADIOLOGY REPORT [...] No Treatments None Family Cancers None LOCATION: [facility] BREAST COMPOSITION: Extremely dense, which lowers the [...] by: Jaron Gallardo M.D. on 11/16/2021 at 10:16[facility] Vital Signs Date TimeVital SignValuePerforming QxlcmegduXknifvby95-09-6644 09:10-0400Body ezqtzm673.8 cmPerla Hemmer PA Work Phone: [phone] SnapKindred HospitalEamkamzwrf54-72-8845 09:10-0400Body mass index (BMI) [Ratio]31.5 kg/i7Hsjgd Hemmer PA Work Phone: [phone] SnapKindred HospitalIyqdthwjsx04-81-8898 09:10-0400Body ylfmck04.55 kgPerla Hemmer PA Work Phone: [phone] SnapKindred HospitalHhbgsfxyjq69-79-4740 09:10-0400Diastolic blood dpoidirp90 mm[Hg]Perla Hemmer PA Work Phone: [phone]-Karma SnapKindred HospitalKkemrxrfmv67-25-3100 09:10-0400Heart rate96 /min Perla Hemmer PA Work Phone: [phone].S. FiduciaryLakeland Regional HospitalSiisbjxotx53-23-7339 09:10-0400Respiratory rate16 /minLebronen Hemmer PA Work Phone: [phone]-[facility] HospitalNtkejlsspk01-67-6387 09:10-0692AhJ6% (BldA) [Mass fraction]97 %Perla Hemmer PA Work Phone: [phone] SnapKindred HospitalMzohgbgpbm60-67-5485 09:10-0400Systolic blood aaffczfu093 mm[Hg]Perla Hemmer PA Work Phone: [facility] HospitalAcchoznmxn97-80-2523 15:42-0400Body .8 cmKaren Hemmer PA Work Phone: [facility] HospitalKescydwgns61-49-8268 15:42-0400Body mass index (BMI) [Ratio]31.23 kg/t5Bgnoa Hemmer PA Work Phone: [facility] HospitalQstkdfmqsd79-36-1666 15:42-0400Body ohfxef91.83 kgKaren Hemmer PA Work Phone: [facility] HospitalRwhrwhzbyx33-64-5862 15:42-0400Diastolic blood mokmrdun05 mm[Hg]Perla Hemmer PA Work Phone: [facility] HospitalUewnqgtswh19-96-4741 15:42-0400Heart rate71 /min Perla Hemmer PA Work Phone: [facility] HospitalNvlcsftgux46-56-8791 15:42-0400Respiratory rate16 /minKaren Hemmer PA Work Phone: [facility] HospitalPnozxegvfr18-52-3636 15:42-7352XdS4% (BldA) [Mass fraction]97 %Perla Hemmer PA Work Phone: [facility] HospitalErymkxpdfv16-85-6482 15:42-0400Systolic blood eqoxmmrn426 mm[Hg]Perla Hemmer PA Work Phone: [facility] HospitalAhwclqjdxs79-36-0943 09:02-0400Body .8 cmKaren Hemmer PA Work Phone: [facility] HospitalHronngotgh62-87-4070 09:02-0400Body mass index (BMI) [Ratio]32.99 kg/a7Fvjyt Hemmer PA Work Phone: [facility] HospitalRfmqpmvhds50-82-8412 09:02-0400Body gnysdc28.54 kgKaren Hemmer PA Work Phone: [facility] HospitalGarqgkjlde86-13-3980 09:02-0400Diastolic blood xikoeail58 mm[Hg]Perla Hemmer PA Work Phone: noLakeland Regional HospitalUzeumtiliu86-50-8024 09:02-0400Heart rate63 /min Perla Hemmer PA Work Phone: BHLakeland Regional HospitalVghjapclez32-27-5082 09:02-0400Respiratory rate16 /minLebronen Hemmer PA Work Phone: NMLakeland Regional HospitalJqwdwfmuuv86-58-1798 09:02-8849SfY0% (BldA) [Mass fraction]99 %Perla Hemmer PA Work Phone: CRLakeland Regional HospitalKxtzxkevzf18-60-9882 09:02-0400Systolic blood mm[Hg]Perla Hemmer PA Work Phone: UZLakeland Regional HospitalWrglouqbcc82-32-5687 08:54-0500Body .8 cmMichael Garcia DO Work Phone: noLakeland Regional HospitalPowcntrtae40-63-8594 08:54-0500Body mass index (BMI) [Ratio]32.95 kg/j0Uvihxma Garcia DO Work Phone: noLakeland Regional HospitalYadhjaiwcy43-96-0397 08:54-0500Body .45 kgMichael Garcia DO Work Phone: XCLakeland Regional HospitalHivxzsptie40-35-9469 09:32-0400Body nmhpvi998.8 cmKaren Hemmer PA Work Phone: [facility] HospitalYczllpfrim95-92-5547 09:32-0400Body mass index (BMI) [Ratio]33.02 kg/h0Uxwbt Hemmer PA Work Phone: [facility] HospitalOfyvxxluuf68-75-6089 09:32-0400Body asvipd79.63 kgKaren Hemmer PA Work Phone: ICLakeland Regional HospitalTrxupnkhin49-72-8126 09:32-0400Diastolic blood omngwtoo21 mm[Hg]Perla Hemmer PA Work Phone: noLakeland Regional HospitalThuojcqtry91-96-0719 09:32-0400Heart rate69 /min Perla Hemmer PA Work Phone: [facility] HospitalKswtyycpzw28-62-0351 09:32-0400Respiratory rate16 /minKaren Hemmer PA Work Phone: [facility] HospitalHhjefxhmhy02-35-1176 09:32-9722LyG7% (BldA) [Mass fraction]96 %Perla Hemmer PA Work Phone: [facility] HospitalIrxjxjbwxz04-29-0884 09:32-0400Systolic blood rczjtzfi054 mm[Hg]Perla Hemmer PA Work Phone: [facility] HospitalUmnuqlqqkc84-82-5621 09:10-0400Body hsxjyu981.8 cmKaren Hemmer PA Work Phone: [facility] HospitalHcmadguxyj03-18-6208 09:10-0400Body mass index (BMI) [Ratio]32.82 kg/g9Joirj Hemmer PA Work Phone: [facility] HospitalGdvrtrhmoz68-36-6987 09:10-0400Body ouotew65.09 kgKaren Hemmer PA Work Phone: [facility] HospitalOuqupdnykl54-42-1653 09:10-0400Diastolic blood lbyxjwry45 mm[Hg]Perla Hemmer PA Work Phone: [facility] HospitalKkytefzlgn37-12-8722 09:10-0400Heart rate86 /min Perla Hemmer PA Work Phone: [facility] HospitalXtaosizfsd33-84-3400 09:10-0400Respiratory rate16 /minKaren Hemmer PA Work Phone: [facility] HospitalMgtwgelqpn93-82-3707 09:10-2427LaC4% (BldA) [Mass fraction]96 %Perla Hemmer PA Work Phone: [facility] HospitalOmrzafnwoa72-49-1307 09:10-0400Systolic blood urmyihrl398 mm[Hg]Perla Hemmer PA Work Phone: Kindred HospitalBmxrpwhvvp79-33-8953 13:22-0500Heart rate87 /min Paulino Garcia [facility]01-02-2023 13:22-4742VdX7% (BldA) [Mass fraction]98 %Paulino Garcia [address] [place], [place] 7797001-02-2023 13:21-0500Body spztljaiywj99.06 [degF]Paulino Jose [address]01-02-2023 13:21-0500 Diastolic blood nigbpemd95 mm[Hg]Paulino Jose [address] [place], [place] 3361001-02-2023 13:21-0500Mean blood guyyjeks64 mm[Hg]Paulino Jose [address] [place], [place] 3361001-02-2023 13:21-0500 Systolic blood tctlavgo711 mm[Hg]Paulino Jose [address] [place], [place] 3361001-02-2023 13:21-0500 Respiratory rate16 /minMichael Garcia [address] [place], [place] 3361001-02-2023 10:55-0500Blood Pressure LocationMichael Garcia [address] [place], [place] 7797001-02-2023 10:55-0500Body nxufvqvwmse77.16 [degF]Paulino Jose [address]01-02-2023 10:55-0500 Diastolic blood pnpauqep51 mm[Hg]Paulino Jose [address] [place], [place] 7797001-02-2023 10:55-0500Heart rate83 /minMichael Garcia [address] [place], [place] 7797001-02-2023 10:55-0500Mean blood xuvziylm94 mm[Hg]Paulino Jose [address] [place], [place] 7797001-02-2023 10:55-0500 Respiratory rate16 /minMichael Garcia [address] [place], [place] 7797001-02-2023 10:55-9279YoG6% (BldA) [Mass fraction]97 %Paulino Garcia [address] [place], [place] 7797001-02-2023 10:55-0500 Systolic blood bkxgjaqe890 mm[Hg]Paulino Garcia [address] [place], [place] 7797001-02-2023 10:46-0500Body naboylkjhje41.7 [degF]Paulino Garcia [address] [place], [place] 7797001-02-2023 10:46-0500 Diastolic blood uebzrrvo68 mm[Hg]Paulino Garcia [address] [place], [place] 7797001-02-2023 10:46-0500Heart rate80 /minMichael Garcia [address] [place], [place] 7797001-02-2023 10:46-0500Mean blood njhaytwc78 mm[Hg]Paulino Garcia [address]01-02-2023 10:46-0500 Respiratory rate11 /minMichael Garcia [address] [place], [place] 7797001-02-2023 10:46-6831MbJ9% (BldA) [Mass fraction]99 %Paulino Jose [address] [place], [place] 7797001-02-2023 10:46-0500 Systolic blood yqprmdmw101 mm[Hg]Paulino Garcia [address] [place], [place] 7797001-02-2023 10:45-0500 Respiratory rate13 /minMichael Garcia [address] [place], [place] 7797001-02-2023 10:40-0500Mean blood mhtydwju80 mm[Hg]Paulino Garcia [address] [place], [place] 7797001-02-2023 10:40-0500 Respiratory rate12 /minMichael Garcia [address] [place], [place] 7797001-02-2023 09:59-0500Blood Pressure LocationMichael Garcia [address] [place], [place] 7797001-02-2023 09:59-0500Body syxfoixftkc24.7 [degF]Paulino Garcia [address] [place], [place] 7797001-02-2023 09:55-0500 Respiratory rate10 /minMichael Garcia [address] [place], [place] 7797001-02-2023 06:29-0500Mean blood exmwfchg74 mm[Hg]Paulino Garcia [address]01-02-2023 06:29-0500Heart rate84 /minMichael Garcia [address] [place], [place] 3361001-02-2023 06:27-0500Mean blood cnxrswug96 mm[Hg]Paulino Garcia [address] [place], [place] 3361001-02-2023 06:27-0500Body snrrcwzydxo64.7 [degF]Paulino Garcia [address] [place], [place] 3361006-20-2022 17:45-0400Body jqobldhxqtw97.98 [degF]Paulino Garcia [address]06-20-2022 17:45-0400 Diastolic blood uqqbpsjy28 mm[Hg]Paulino Garcia [address]06-20-2022 17:45-0400Heart rate68 /minMichael Garcia [address] [place], [place] 7797006-20-2022 17:45-0400 Respiratory rate16 /minMichael Garcia [address] [place], [place] 7797006-20-2022 17:45-4628FgD2% (BldA) [Mass fraction]99 %Paulino Garcia [address] [place], [place] 7797006-20-2022 17:45-0400 Systolic blood ixwiijpl588 mm[Hg]Paulino Garcia [address]06-20-2022 14:35-0400Body imcqwogwfkk28.98 [degF]Paulino Garcia [address]06-20-2022 14:35-0400 Diastolic blood hxhnzmuf83 mm[Hg]Paulino Garcia [address] [place], [place] 7797006-20-2022 14:35-0400Heart rate68 /minMichael Garcia [address] [place], [place] 7797006-20-2022 14:35-0400 Respiratory rate16 /minMichael Garcia [address]06-20-2022 14:35-4124SvV5% (BldA) [Mass fraction]99 %Paulino Jose [address]06-20-2022 14:35-0400 Systolic blood pyqmbazy415 mm[Hg]Paulino Garcia [address]06-20-2022 12:35-0400Body yeufrgvejkg88.98 [degF]Paulino Jose [address]06-20-2022 12:35-0400 Diastolic blood tlhihnbc03 mm[Hg]Paulino Jose [address]06-20-2022 12:35-0400Heart rate53 /minMichael Garcia [address] [place], [place] 7797006-20-2022 12:35-0400 Respiratory rate16 /minMichael Garcia [address] [place], [place] 7797006-20-2022 12:35-0751ZwS6% (BldA) [Mass fraction]99 %Paulino Jose [address] [place], [place] 7797006-20-2022 12:35-0400 Systolic blood vtzqklyp88 mm[Hg]Paulino Garcia [address]06-20-2022 11:10-0400 Respiratory rate12 /minMichael Garcia [address] [place], [place] 3361006-20-2022 11:05-0400 Respiratory rate11 /minMichael Garcia [address] [place], [place] 3361006-20-2022 07:09-0400Blood Pressure LocationMichael Garcia [address]06-20-2022 07:09-0400Mean blood ytgqveqj64 mm[Hg]Paulino Garcia [address]06-20-2022 07:07-0400Blood Pressure LocationMichael Garcia [address] [place], [place] 3361006-20-2022 07:07-0400Body fqfcqysuhny94.88 [degF]Paulino Garcia [address] [place], [place] 3361006-20-2022 07:07-0400Mean blood nuvumkcw93 mm[Hg]Paulino Garcia [address] [place], [place] 3361006-20-2022 07:07-0400Heart rate80 /minMichael Garcia [address] [place], [place] 3361006-01-2022 09:29-0400Blood Pressure LocationMicgerman Garcia [address]06-01-2022 09:29-0400 BP/Pulse Patient PositionMichael Garcia [address] [place], [place] 3361006-01-2022 09:29-0400 Diastolic blood zrzpniog88 mm[Hg]Paulino Garcia [address]06-01-2022 09:29-0400Heart rate99 /minMichael Garcia [address] [place], [place] 7797006-01-2022 09:29-0400Mean blood bozixrfh974 mm[Hg]Paulino Garcia [address] [place], [place] 7797006-01-2022 09:29-0400 Systolic blood cnrvwpbi819 mm[Hg]Paulino Garcia [address]06-01-2022 09:28-0400Blood Pressure LocationMicgerman Garcia [address]06-01-2022 09:28-0400 BP/Pulse Patient PositionMicnidaseth Garcia [address] [place], [place] 7797006-01-2022 09:28-0400 Diastolic blood mm[Hg]Paulino Garcia [address] [place], [place] 7797006-01-2022 09:28-0400Heart rate99 /minJosegerman [employer] [address] [place], [place] 7797006-01-2022 09:28-0400Mean blood eakoecbt740 mm[Hg]Paulino Garcia [address]06-01-2022 09:28-0553SmU1% (BldA) [Mass fraction]98 %Paulino Garcia [address] [place], [place] 7797006-01-2022 09:28-0400 Systolic blood dalguikw947 mm[Hg]Paulino Garcia [address] [place], [place] 7797006-01-2022 09:28-0400Body cyojlcgzpri81.06 [degF]Paulino Garcia [address] [place], [place] 7797006-01-2022 09:28-0400 Respiratory rate16 /minPaulino [employer] [address] [place] [address] Encounters Encounter DateEncounter TypeCare ProviderFacilityStart: 04-30-2025 End: 54-22-5207Aknqup flowsColby RAMSAY Work Phone: NOFE Steven Tian MedinceStart: 04-30-2025 End: 16-95-3800Xlwdqf flowsColby RAMSAY Work Phone: NOXF Steven Tian MedinceStart: 04-30-2025 End: 23-22-8032Zzjmhlc encounter Georgia RAMSAY Work Phone: [facility] Steven Tian MedinceComment on above:Medicare annual wellness visit, subsequent (Primary Dx); ACP (advance care planning); Estrogen deficiency; Acquired absence of both cervix and uterus; Presence of both artificial knee joints; Benign hypertension ; Difficulty walking; Hypercholesteremia ; Osteopenia of multiple sites; Other chronic pain; Other primary ovarian failure; Paresthesias in right hand; Primary osteoarthritis of both knees; Class 1 obesity without serious comorbidity with body mass index (BMI) of 31.0 to 31.9 in adult, unspecified obesity type; Weight gainStart: 04-30-2025 End: 64-70-0268jpyvquwwbeTCKOW M HEMMERNot AvailableStart: 04-02-2025 End: 36-24-4593Mxslgw outpatient visit 25 minutesPerla RAMSAY Work Phone: [facility] MedinceComment on above:Acute cystitis with hematuria (Primary Dx); Urine frequency; Hypercholesteremia ; Benign hypertensionStart: 04-02-2025 End: 98-28-5913dihapbjwygMQQMT M HEMMERNot AvailableStart: 03-29-2025 End: 10-71-9851Ikhlvvcpe Result EncounterPerla RAMSAY Work Phone: noms External Department UnsolicitedStart: 03-29-2025 End: 50-56-6123Zxrwgnlwh Result EncounterPerla RAMSAY Work Phone: noms External Department UnsolicitedStart: 02-27-2025 End: 04-65-4531Wedbvu flowsJosefina NGUYENM Work Phone: noms Steve PodiatryStart: 02-27-2025 End: 28-77-9643Scvvsl flowsJosefina NGUYENM Work Phone: noms Steve PodiatryStart: 02-27-2025 End: 99-93-8093Tmotlt outpatient visit 10 minutesHazel Fallon DPM Work Phone: noms Steve PodiatryComment on above:Onychomycosis (Primary Dx); Pain in both feetStart: 02-27-2025 End: 89-14-9666qnlxplutnuTGEISHMNK H SMITHNot AvailableStart: 11-26-2024 End: 29-06-5769Epxxlt flowsJosefina Fallon DPM Work Phone: noms SWS PODIATRYStart: 11-26-2024 End: 88-50-5424Pswudk Jasper Fallon DPM Work Phone: noms SWS PODIATRYStart: 11-26-2024 End: 21-03-7254Vjsbdy outpatient visit 15 minutesHazel Fallon DPM Work Phone: noms SWS PODIATRYComment on above:Onychomycosis (Primary Dx); Pain in both feetStart: 11-26-2024 End: 26-74-3403keesvxzkjkBTSVATDFF H SMITHNot AvailableStart: 10-29-2024 End: 00-52-4711Uzbzak Virginie Puri PA Work Phone: [facility] CI FMStart: 10-29-2024 End: 86-76-1091Nnfcxp Virginie Puri PA Work Phone: [facility] CI FMStart: 10-29-2024 End: 18-59-9524Hqkypy outpatient visit 15 minutesPerla Puri PA Work Phone: [facility] CI FMComment on above:Benign hypertension (CMS/HCC) (Primary Dx)Start: 10-29-2024 End: 79-03-1966hrobsebtvvTWGOJ M HEMMERNot AvailableStart: 08-27-2024 End: 43-07-6249Fabfty Jasper Fallon DPM Work Phone: noms SWS PODIATRYStart: 08-27-2024 End: 84-88-2784Vwzpmj Jasper Fallon DPM Work Phone: noms SWS PODIATRYStart: 08-27-2024 End: 41-51-0874Edzirs outpatient visit 15 minutesHazel Fallon DPM Work Phone: noms SWS PODIATRYComment on above:Onychomycosis (Primary Dx); Pain in both feet; Hammer toe of right foot; Neuroma digital nerve; Capsulitis of foot; Hallux valgus of right footStart: 08-27-2024 End: 43-71-1881cvoumjyptwKEBPGDFDI H SMITHNot AvailableStart: 08-15-2024 End: 59-89-3144Nubuimd encounter procedureMicgerman Leos Garcia DO Work Phone: [facility] ORTHOAOComment on above:Presence of both artificial knee joints (Primary Dx)Start: 08-15-2024 End: 70-24-4710qcfqzbsirrSQXHJBU T POWERSNot AvailableStart: 06-01-2024 End: 50-68-6770Hsfeuux encounter statusPerla RAMSAY Work Phone: [facility] HealthcareStart: 06-01-2024 End: 57-56-7984Ollqlobxv encounterPerla RAMSAY Work Phone: [facility] FMStart: 05-24-2024 End: 37-61-6643Ujzjyd Jasper Fallon DPM Work Phone: [facility] PODIATRYStart: 05-24-2024 End: 51-02-1866Wrwixj Jasper Fallon DPM Work Phone: [facility] PODIATRYStart: 05-24-2024 End: 13-28-5324Pkhjoo outpatient visit 15 minutesCarobb Fallon DPM Work Phone: [facility] PODIATRYComment on above:Onychomycosis (Primary Dx); Pain in both feetStart: 05-24-2024 End: 73-96-2428fljqodmyypYASCLIFIL Mary Lou SMITHNot AvailableStart: 05-14-2024 End: 40-25-6211Mihdij Virginie RAMSAY Work Phone: [facility] FMStart: 05-14-2024 End: 18-47-9712Absvdw Virginie RAMSAY Work Phone: [facility] FMStart: 05-14-2024 End: 16-62-4121Kxcrnak encounter procedureePrla RAMSAY Work Phone: [facility] FMComment on above:Bilateral impacted cerumen (Primary Dx)Start: 05-14-2024 End: 62-04-4908vyrlyzcedbRDWHB M HEMMERNot AvailableStart: 04-30-2024 End: 32-98-9749Tjmbgh Virginie RAMSAY Work Phone: [facility] FMStart: 04-30-2024 End: 16-23-8730Gmwtzv Virginie RAMSAY Work Phone: [facility] FMStart: 04-30-2024 End: 60-51-3405Jggghiv encounter procedurePerla RAMSAY Work Phone: [facility] FMComment on above:Medicare annual wellness visit, subsequent (Primary Dx); ACP (advance care [...] failure; Difficulty walking; Hypercholesteremia (CMS/HCC); Bilateral impacted cerumenStart: 08-02-2022 End: 29-70-2720tovrsbuausUahsqqs T PowersFacility:FTMCStart: 08-02-2022 End: 83-56-0857Gdtemsbqt to same day surgery centerMichael T Garcia [facility] Start: 06-28-2022 End: 56-56-3225kyeifmlzdwFbpijaq T PowersFacility:FTMCStart: 06-28-2022 End: 33-29-1538Mxkpoxk encounter procedureMichael T [facility] Start: 01-18-2022 End: 04-65-8344vdgeyowskgKzhinnv T PowersFacility:FTMCStart: 01-18-2022 End: 82-06-0257Vgtntwhci to same day surgery centerMichael T Garcia [facility] Start: 12-30-2021 End: 38-76-6159yyqnyjzmeoIcgviua T PowersFacility:63102Vmowv: 12-30-2021 End: 30-95-9253Zpwhxzz encounter procedureMichael Deric Garcia [facility] Start: 11-16-2021 End: 59-41-0212focpseujadMY PERLA PURIFacility:H1 Procedures DateProcedureProcedure DetailPerforming ClinicianStart: 09-16-9612Mmcek dip stick/tablet rgnt non-auto w/o micrscpPerla RAMSAY Work Phone: Start: 43-88-7291PH TOMOSYNTHESIS SCREENING Edna RAMSAY Work Phone: Start: 25-07-2604XmwxeksfdqbXesab Hemmer PA Work Phone: Start: 08-15-2024 End: 24-85-6871Dbroohhjlp examination knee 3 viewsMichael T Garcia DO Work Phone: Start: 67-40-3698Pdqhvdg impacted cerumen instrumentation unilStefanie RAMSAY Work Phone: Start: 16-63-3708KyjtdgjhayhIixia Hemmer PA Work Phone: Start: 04-25-2023 End: 04-30-2024H/O: artificial jointAftercare following joint replacement surgeryPerla RAMSAY Work Phone: Start: 63-59-3112Ynnme knee replacementMichael Garcia Start: 22-61-7651Zjrjt knee replacementMichael Garcia H/O: hysterectomyMicnidal [facility] Plan of Treatment DateCare ActivityDetailAuthorStart: 09-30-2026Medicare Annual Wellness (AWV) Medicare Annual Wellness (AWV)[facility] HealthcareStart: 89-85-3696Qmoopunoylzh Vaccine: 65+ Years (1 of 1 - PCV)Pneumococcal Vaccine: 65+ Years (1 of 1 - PCV) [facility] HealthcareComment on above:Postponed from 2002 (Patient Refused) Start: 84-22-9504Cffxgtoya for malignant neoplasm of breastMammogramNOMS HealthcareStart: 37-49-4833Zuawggmfl vaccinationInfluenza Vaccine (#1)[facility] HealthcareComment on above:Postponed from 04/01/2025 (Patient Refused)Start: 03-99-3673Nwtjfblrw for malignant neoplasm of colonColorectal Cancer Screening [facility] HealthcareComment on above:Postponed from 1952 (Patient Refused) Start: 10-24-2025 End: 62-85-8918Bweccdw encounter lnehqaiif51/26/2026 8:30 AM EDT [facility] [address] [facility] [place] [address] [place] [phone] Perla Puri PA [address] [facility] [address] [place] [address] [facility]nceStart: 06-07-2025 End: 28-98-5965GHA Skeletal system Views for bone densityDEXA bone density Imaging Routine Estrogen deficiency Expected: 06/07/2025, Expires: 04/30/2026 [facility] Work Phone: Comment on above:Expected: 06/07/2025, Expires: 04/30/2026Start: 06-05-2025 End: 58-44-5768Yqfhixc encounter agtpmgizd58/05/2025 8:30 AM EST Office Visit [facility] [address] [place] [address] Hazel Fallon, DPM [address] [place] [address] [facility]ryStart: 06-03-2025 End: 71-00-5380GEI W Auto Differential panel - BloodCBC and differential Lab Routine Medicare annual wellness visit, subsequent Benign hypertension Hype rcholesteremia Expected: 06/03/2025 (Approximate), Expires: 04/30/2026NONM HealthcareComment on above:Expected: 06/03/2025 (Approximate), Expires: 04/30/2026Start: 06-03-2025 End: 94-33-4095Vdxzrmktlipcx metabolic 2000 panel - Serum or PlasmaComprehensive metabolic panel Lab Routine Medicare annual wellness visit, subsequent Benign hypertension Hypercholesteremia Expected: 06/03/2025 (Approximate), Expires: 04/30/2026NONM HealthcareComment on above:Expected: 06/03/2025 (Approximate), Expires: 04/30/2026Start: 06-03-2025 End: 69-12-4125Qvgmz 1996 panel - Serum or PlasmaLipid panel Lab Routine Medicare annual wellness visit, subsequent Benign hypertension Hypercholeste remia Expected: 06/03/2025 (Approximate), Expires: 04/30/2026[facility] Comment on above:Expected: 06/03/2025 (Approximate), Expires: 04/30/2026Start: 06-03-2025 End: 26-43-5735KCR W/REFLEX TO FT4TSH W/REFLEX TO FT4 Lab Routine Medicare annual wellness visit, subsequent Paresthesias in right hand Weight gain Expected: 06/03/2025 (Approximate), Expires: 04/30/2026[facility] HealthcareComment on above:Expected: 06/03/2025 (Approximate), Expires: 04/30/2026Start: 04-30-2025 Medicare Annual Wellness (AWV)Medicare Annual Wellness (AWV)[facility] Start: 04-30-2025 End: 95-33-0251Dsgbjuw encounter procedureNOMS CI FMComment on above:Arrived Start: 04-02-2025 End: 51-85-1644LFBAKID TRACT INFECTION (HTRX)URINARY TRACT INFECTION (HTRX) Lab Routine Acute cystitis with hematuria Expected: 04/02/2025 (Approximate), Expires: 04/02/2026[facility] Work Phone: Comment on above:Expected: 04/02/2025 (Approximate), Expires: 04/02/2026Start: 40-30-9137Ocitrwtzl vaccinationNOMS HealthcareStart: 02-27-2025 End: 49-06-8681Cdiwjga encounter procedureNOMS SWS PODIATRYComment on above: ArrivedStart: 11-26-2024 End: 77-03-8576Mpmyasr encounter procedureNOMS SWS PODIATRYComment on above: ArrivedStart: 10-29-2024 End: 17-94-7704Vagbqvg encounter procedureNOMS CI FMComment on above:Arrived Start: 08-27-2024 End: 22-67-9424Eohnlnm encounter procedureNOMS SWS PODIATRYComment on above: ArrivedStart: 08-08-2024 End: 31-19-4005Ajvbxcj encounter oerplvnka71/08/2025 9:15 AM EST [facility] [address] [facility] [place] [address] [place] [address] Paulino Garcia, DO [address] [place] [address] [facility]Start: 06-07-2024 End: 71-27-6872NTZ Breast - bilateral screeningBilateral screening mammogram with tomosynthesis Imaging Routine Encounter for screening mammogram for malignant neoplasm of breast Expected: 06/07/2024, Expires: 06/30/2025[facility] Work Phone: Comment on above:Expected: 06/07/2024, Expires: 06/30/2025Start: 50-90-1254Hdgmnqztd for malignant neoplasm of breastMammogram [facility] HealthcareStart: 06-01-2024 End: 19-88-7372AWR W Auto Differential panel - BloodCBC and differential Lab Routine Benign hypertension (CMS/HCC) Hypercholesteremia (CMS/HCC) Wellness examination Expected: 06/01/2024 (Approximate), Expires: 06/01/2025[facility] Work Phone: Comment on above:Expected: 06/01/2024 (Approximate), Expires: 06/01/2025Start: 06-01-2024 End: 21-80-1633Plnqonbyfdtqh metabolic 2000 panel - Serum or PlasmaComprehensive metabolic panel Lab Routine Benign hypertension (CMS/HCC) Hypercholesteremia (CMS/HCC) Wellness examination Expected: 06/01/2024 (Approximate), Expires: 06/01/2025NONM HealthcareComment on above:Expected: 06/01/2024 (Approximate), Expires: 06/01/2025Start: 06-01-2024 End: 13-20-2978Mpoxs 1996 panel - Serum or PlasmaLipid panel Lab Routine Benign hypertension (CMS/HCC) Hypercholesteremia (CMS/HCC) Wellness examination Expected: 06/01/2024 (Approximate), Expires: 06/01/2025NONM HealthcareComment on above:Expected: 06/01/2024 (Approximate), Expires: 06/01/2025Start: 05-30-2024 Screening for malignant neoplasm of colonColorectal Cancer ScreeningNOMS HealthcareComment on above:Postponed from 1952 (Other Medical Reasons) Start: 83-36-8928Bkasgfugtzwc Vaccine: 65+ Years (1 of 1 - PCV)Pneumococcal Vaccine: 65+ Years (1 of 1 - PCV)NOMS HealthcareComment on above:Postponed from 2017 (Patient Refused)Start: 05-24-2024 End: 65-32-8459Cgediff encounter procedureNOMS SWS PODIATRYComment on above: ArrivedStart: 05-14-2024 End: 60-46-9928Ejpxmvp encounter procedureNOMS CI FMComment on above:Arrived Start: 04-30-2024 End: 85-05-8619Qctsjnw encounter apmucwldr01/30/2024 9:00 AM EDT Office Visit [facility] [address] [place] [phone] Perla Puri PA [address] [place] [address] [facility] FMComment on above:ArrivedStart: 09-26-2024Medicare Annual Wellness (AWV)Medicare Annual Wellness (AWV)[facility] HealthcareStart: 82-75-0337Yrgxdrrfg vaccinationInfluenza Vaccine (#1)[facility] HealthcareStart: 79-59-9430Fccdvrjphgwl Vaccine: 65+ Years (1 of 1 - PCV) Pneumococcal Vaccine: 65+ Years (1 of 1 - PCV)[facility] HealthcareStart: 2002 Pneumococcal Vaccine: 65+ Years (1 of 1 - PCV)Pneumococcal Vaccine: 65+ Years (1 of 1 - PCV)[facility] HealthcareStart: 43-54-8684Jcsrmlitr for malignant neoplasm of colonK[facility] Immunizations Immunization DateImmunizationNotesCare LtlubhhfYeximfex61-75-8545UWFB-XMZ-0 (COVID-19) vaccine, mRNA, spike protein, LNP, bivalent, preservative free, 30 mcg/0.3 mLdose, alia-sucrose formulationPerla RAMSAY Work Phone: [facility] Payers DatePayer CategoryPayerPolicy [id number] Health InsuranceMEDICAL MUTUAL [id number] [place] [employer] [id number] 2021-Present [address] [place] [id number] 2018Medicare [id number] [id number] [id number] 2.16.840.1.529848.3.57[id number] 2.16.840.1.599315.3.57[id number] 2.16.840.1.715549.3.57[id number] 2.16.840.1.598517.3.57[id number] 2.16.840.1.365070.3.57[id number] 2.16.840.1.237134.3.57[id number] 2.16.840.1.285679.3.57[id number] 2.16.840.1.143840.3.57[id number] 2.16.840.1.807787.3.57[id number] 2.16.840.1.813109.3.57[id number] 2.16.840.1.539186.3.57[id number] 2.16.840.1.056393.3.57[id number] 2.16.840.1.660129.3.57[id number] 2..840.1.082899.3.57[id number] 2..840.1.373373.3.57[id number] 2..0.1.487786.3.57[id number] 2..840.1.315779.3.579.2.1259 Social History DateTypeDetailFacilityTobacco smoking statusNever smokerTrinity Health Systemtart: 05-17-2023 End: 12-69-5758Lun Assigned At BirthFemalMercy Health Willard HospitalTobacco smoking statusNo Smoking Status EnteredLima Memorial HospitalTobacco smoking statusNo Smoking Status EnteredTrinity Health Systemtart: 53-73-3870Pbpklfu smoking status NHISNever smoked tobaccoNOMS HealthcareStart: 62-23-2222Rbfpxat use and exposureSmokeless tobacco non-userNOMS Healthcare Start: 04-30-2024 End: 82-16-6944Mliaptudp beverage intakeCurrent drinker of alcohol (finding)[facility] HealthcareStart: 05-17-2023 End: 77-47-0021Mcjxaawrd beverage intakeNOMS Healthcare Work Phone: How often do you need to have someone help you when you read instructions, pamphlets, or other written material from your doctor or pharmacy [SILS]NeverN[facility] Healthcare Work Phone: Within the last year, have you been afraid of your partner or ex-partner?NoNOMS HealthcareAre you now , , , , never or living with a partner?MarriedNOMS HealthcareHow often to you have a drink containing alcohol?2-4 times a monthNOMS HealthcareHow often do you have 6 or more drinks on 1 occasion?NeverNOMS HealthcareDo you feel stress - tense, restless, nervous, or anxious, or unable to sleep at night because yourmind is troubled all the time - these days [OSQ]Only a little[facility](I/We) worried whether (my/our) food would run out before (I/we) got money to buy more.Never trueKindred HospitalStart: 21-68-4040Iosumqg Comment caffeine intake:1-2 cups per day coffee, teaKindred HospitalStart: 63-08-0114Lay assigned at birthNot on [facility] Medical Equipment Procedure CodeEquipment CodeEquipment Original TextEquipment IdentifierDatesKNEE TOTAL ARTHROPLASTY Paulino Garcia DO 01/18/22 Non Biological Knee R {01}[id number]{10}[id number]{17}[id number] FDAStart: 5787NLFK TOTAL ARTHROPLASTY Paulino Garcia DO 08/02/22 Non Biological Knee R {01}[id number]{10}[id number]{17}[id number] FDAStart: 08-02-2022 Functional Status EymuLtjzammjtpBbdxfqMexpnwvv28-34-1756Exzpxup Health Questionnaire 2 item (PHQ- 2) [Reported]Kindred HospitalTnskmhkydj40-29-6000Dvepvfv Health Questionnaire 2 item (PHQ- 2) [Reported]Kindred HospitalVvhkigwvsc47-90-1938Sxhbunrdbt StatusNoFayette [facility] Clinical Notes 01-14-2022 to 04-30-2025 Note Date & JmusKiavLvhjmwsr27-01-1390 History of Present illness Narrative* DEVENDRA Castro - 04/30/2025 9:00 AM EDT Images from the original note were not included. Subjective Patient ID: Osiris Morales is a 74 y.o. female who presents for Medicare Annual Wellness Visit Subsequent. HPI Medicare Wellness Over the past 2 weeks, how often [...] minutes 3 or more days a week?: No How confident are you that you can control and manage most of your health problems?: Very confident Can you mange your money, credit cards and accounts, pay bills and taxes?: Yes Vision Screening: Yes, no gross abnormalities Hearing Screening: Yes, no gross abnormalities Cognitive Screening Self Assessment: No overt cognitive deficiency is apparent by direct observation Three Word Registration: Village, Kitchen, Baby Clock Drawing: Normal Clock - 2 Three Word Recall: 2/3 words correct - 2 Total Score (0-5 Points): 4 Pain Assessment Pain Score: 0 - No pain Advance Care Planning Do you have a living will?: Yes Do you have a medical power of employment attorney?: Yes Current Outpatient Medications on File Prior to Visit Medication Sig Dispense Refill acetaminophen (Tylenol Extra Strength) 500 MG tablet Take 1 tablet by mouth every 4 (four) hours ifneeded for mild pain. alendronate (Fosamax) 70 MG tablet Take 1 tablet (70 mg) by mouth every 7 (seven) days 12 tablet 3 alpha tocopherol (Vitamin E) 400 units capsule Take 1 capsule by mouth 1 (one) time each day at thesame time. amLODIPine (Norvasc) 5 MG tablet Take 1 tablet (5 mg) by mouth Daily 100 tablet 3 Ascorbic Acid (Vitamin C) 500 MG capsule Take 1 capsule by mouth 1 (one) time each day. BABY ASPIRIN PO Take 1 tablet by mouth 1 (one) time each day. calcium citrate 600 mg and vitamin D3 (Citrical & Minerals + Vit D) 600-200 MG- UNIT tablet Take1 tablet by mouth every 12 (twelve) hours. [...] 1989 OA (osteoarthritis) Secondary hypertension Thyroid disease Past Surgical History: Procedure Laterality Date JOINT REPLACEMENT Bilateral knees MI TOTAL ABDOM HYSTERECTOMY 1989 TONSILLECTOMY 1971 TOTAL KNEE ARTHROPLASTY Left 12/2021 TOTAL KNEE ARTHROPLASTY Right 08/02/2022 Visit Vitals BP 138/86 Pulse 96 Resp 16 Ht 5' 4.5 Wt 186 lb 6.4 oz SpO2 97% BMI 31.50 kg/m Smoking Status Never BSA 1.96 m Review of Systems Constitutional: Negative for [...] sleep disturbance. The patient is not nervous/anxious. Objective Physical Exam Constitutional: General: She is not in acute distress. Appearance: She is well-developed. She is obese. HENT: Head: Normocephalic and atraumatic. Right Ear: Tympanic membrane and ear canal normal. Left Ear: Tympanic membrane and ear canal normal. Nose: Nose normal. Mouth/Throat: Mouth: Mucous membranes [...] Content: Thought content normal. Judgment: Judgment normal. Assessment & Plan 1. Medicare annual wellness visit, subsequent (Primary) Reviewed all relevant preventative screenings with the patient in detail. Medicare Wellness form completed and will be scanned into patient's chart. All needed testing was ordered. Will continue withyearly Medicare Wellness exams. Recommend yearly skin checks. - CBC and differential; Future - Comprehensive metabolic panel; Future - Lipid panel; Future - TSH W/REFLEX TO FT4; Future 2. ACP (advance care planning) Patient willing to discuss ACP. Pt has Living Will and DPOA in place. 3. Estrogen deficiency Provided pt with order to have updated DEXA. Plan would be to repeat every two years. - DEXA bone density; Future 4. Acquired absence of both cervix and uterus Pt is s/p Hysterectomy. Denies concerns at this time. 5. Presence of both artificial knee joints The patient is seeing a health care / medical job titles for this condition, treatment is deferred to that specialist. Correspondence from that specialist and any available testing were reviewed during today's visit. 6. Benign hypertension Patient's blood pressure is currently stable. Continue with current medications and I will continueto monitor. Goal BP remains less than 130/80. - CBC and differential; Future - Comprehensive metabolic panel; Future - Lipid panel; Future 7. Difficulty walking This is a chronic medical condition that is stable since last assessment. Will continue to monitor. 8. Hypercholesteremia This is a chronic medical condition that is stable since last assessment. No changes in treatment are suggested at this time. Continue rosuvastatin as prescribed. Will continue to monitor with routine labs. - CBC and differential; Future - Comprehensive metabolic panel; Future - Lipid panel; Future 9. Osteopenia of multiple sites Provided pt with order to have updated DEXA. Plan would be to repeat every two years. Continue Fosamax as prescribed. Continue Vitamin D and Calcium supplement. 10. Other chronic pain This is a chronic medical condition that is stable since last assessment. No changes in treatment are suggested at this time. Continue Tylenol prn. 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 DEXA's and Mammograms kept up to date. 12. Paresthesias in right hand This is a chronic medical condition that is stable since last assessment. Will continue to monitor. - TSH W/REFLEX TO FT4; Future 13. Primary osteoarthritis of both knees This is a chronic medical condition that is stable since last assessment. No changes in treatment are suggested at this time. Continue Tylenol prn. 14. Class 1 obesity without serious comorbidity with body mass index (BMI) of 31.0 to 31.9 in adult, unspecified obesity type Encouraged portion control, decrease simple sugars and carbohydrates, gradually increase activity level. Aim for gradual steady weight loss. 15. Weight gain Will check TSH with November labs. Continue to stay active. - TSH W/REFLEX TO FT4; Future Follow up in about 6 months (around 10/28/2025) for Hypertension. Perla RAMOS PA-C documented in this encounterKindred HospitalNtznjlfrpt26-35-0726 History of Present illness Narrative* DEVENDRA Castro - 04/02/2025 3:30 PM EDT Images from the original note were not included. HPI Med Refill Additional comments: Amlodipine, Lisinopril, Rosuvastatin Last edited by Bindu Messer LPN on 04/02/2025 3:42 PM. Subjective Patient ID: Osiris Morales is a 74 y.o. female who presents for bowel issues. Osiris is present today for evaluation of pressure in anal and urethral area. She has had some issueswith going frequently (urine and bowel) for a few months. But on Tuesday she started have the pressure in urethral area and anal area especially when she was standing. Denies dysuria but sometimes hassome pink when she wipes after she urinates. Does use fiber powder once a day. Over the past 2 weeks, how often have you been bothered by any of the following problems? Little interest or pleasure in doing things: Not at all Feeling down, depressed, or hopeless: Not at all Patient Health Questionnaire-2 Score: 0 Current Outpatient Medications on File Prior to Visit Medication Sig Dispense Refill acetaminophen (Tylenol Extra Strength) 500 MG tablet Take 1 tablet by mouth every 4 (four) hours ifneeded for mild pain. alendronate (Fosamax) 70 MG tablet Take 1 tablet (70 mg) by mouth every 7 (seven) days 12 tablet 3 alpha tocopherol (Vitamin E) 400 units capsule Take 1 capsule by mouth 1 (one) time each day at thesame time. Ascorbic Acid (Vitamin C) 500 MG capsule Take 1 capsule by mouth 1 (one) time each day. BABY ASPIRIN PO Take 1 tablet by mouth 1 (one) time each day. calcium citrate 600 mg and vitamin D3 (Citrical & Minerals + Vit D) 600-200 MG- UNIT tablet Take1 tablet by mouth every 12 (twelve) hours. cephalexin (Keflex) 500 MG capsule Take two caps evening prior to appointment, take two caps one hour prior to appointment 4 capsule 2 cyanocobalamin (Vitamin B-12) 100 MCG tablet Take 1 tablet by mouth 1 (one) time each day. omega-3 (Fish Oil) 1000 MG capsule Take 2 capsules by mouth 1 (one) time each day at the same time. Pyridoxine HCl (Vitamin B6) 100 MG tablet Take 1 tablet by mouth every 12 (twelve) hours. [DISCONTINUED] amLODIPine (Norvasc) 5 MG tablet Take 1 tablet (5 mg) by mouth Daily 90 tablet 0 [DISCONTINUED] lisinopril 10 MG tablet Take 1 tablet (10 mg) by mouth Daily 100 tablet 3 [DISCONTINUED] rosuvastatin (Crestor) 20 MG tablet Take 1 [...] 1989 OA (osteoarthritis) Secondary hypertension Thyroid disease Past Surgical History: Procedure Laterality Date JOINT REPLACEMENT Bilateral knees MI TOTAL ABDOM HYSTERECTOMY 1989 TONSILLECTOMY 1972 TOTAL KNEE ARTHROPLASTY Left 12/2021 TOTAL KNEE ARTHROPLASTY Right 08/02/2022 Visit Vitals BP 138/84 Pulse 71 Resp 16 Ht 5' 4.5 Wt 184 lb 12.8 oz SpO2 97% BMI 31.23 kg/m Smoking Status Never BSA 1.95 m Review of Systems Constitutional: Negative for chills, fatigue and fever. Respiratory: Negative for cough, shortness of breath and wheezing. Cardiovascular: Negative for chest pain, palpitations and leg swelling. Gastrointestinal: Negative for abdominal pain, constipation, diarrhea, nausea and vomiting. Frequent soft stools Genitourinary: Positive for hematuria and urgency. Negative for dysuria. Skin: Negative for rash. Objective Physical Exam Constitutional: General: She is not in acute distress. Appearance: Normal appearance. She is well-developed. HENT: Head: Normocephalic and atraumatic. Eyes: General: No scleral icterus. Conjunctiva/sclera: Conjunctivae normal. Neck: Thyroid: No thyromegaly. Cardiovascular: Rate and Rhythm: Normal rate and regular rhythm. Heart sounds: Normal heart sounds. No murmur heard. Pulmonary: Effort: Pulmonary effort is normal. No respiratory distress. Breath sounds: Normal breath sounds. No wheezing, rhonchi or rales. Abdominal: General: There is no distension. Palpations: Abdomen is soft. Tenderness: There is no abdominal tenderness. There is no right CVA tenderness or left CVA tenderness. Skin: General: Skin is warm and dry. Neurological: General: No focal deficit present. Mental Status: She is alert and oriented to person, place, and time. Psychiatric: Mood and Affect: Mood normal. Behavior: Behavior normal. Office Visit on 04/02/2025 Component Date Value Ref Range Status Color, 04/02/2025 Light Yellow Final Clarity, 04/02/2025 Cloudy Final Glucose, UA 04/02/2025 Negative Negative - 1999(110) ++++ mg/dL Final Bilirubin, UA 04/02/2025 Negative Negative - 4(70) +++ mg/dL Final Ketones, UA 04/02/2025 Negative Negative - 160(16) ++++ mg/dL Final Spec Grav, UA 04/02/2025 1.010 1 - 1.03 Final Blood, 04/02/2025 Positive Negative - 50 Navin/mcL Final large pH, UA 04/02/2025 6.0 5 - 9 Final Protein, UA 04/02/2025 3+ Negative - 2000(20) ++++ mg/dL Final Urobilinogen, UA 04/02/2025 1.0 0.2 - 12 mg/dL Final Leukocytes, UA 04/02/2025 Positive Negative - 500+++ Milvia/mcL Final large Nitrite, UA 04/02/2025 Positive Negative - Positive Final Assessment/Plan Diagnoses and all orders for this visit: Acute cystitis with hematuria - URINARY TRACT INFECTION (HTRX); Future - cephalexin (Keflex) 500 MG capsule; Take 1 capsule (500 mg) by mouth in the morning and 1 capsule(500 mg) before bedtime. Do all this for 7 days. - phenazopyridine (Pyridium) 200 MG tablet; Take 1 tablet (200 mg) by mouth 3 (three) times a day as needed for bladder spasms for up to 2 days Start the above medications as directed. Provided patient with prescription for Pyridium for symptomatic relief. Advised of potential side effects including discoloration of urine. Increase water intake, get plenty of rest. Advised patient that the urine will be sent out for culture. May need to change the antibiotic based on the culture results. If patient develops any N/V, fever/chills, or symptoms dramatically increase, the patient is to go to the ER. Otherwise follow up at our office if no improvement in one week. Urine frequency - POCT Urinalysis dipstick UA abnormal today. Hypercholesteremia - rosuvastatin (Crestor) 20 MG tablet; Take 1 tablet (20 mg) by mouth Daily Refill provided on the above. Will continue to monitor with routine labs. Benign hypertension - amLODIPine (Norvasc) 5 MG tablet; Take 1 tablet (5 mg) by mouth Daily - lisinopril 10 MG tablet; Take 1 tablet (10 mg) by mouth Daily BP mildly elevated today. Refills provided on the above. Will continue to monitor. Goal remains < 130/80. Informed patient that her recent Mammogram was negative. Continue routine yearly screenings. Follow up for Appointment As Scheduled. documented in this encounterKindred [id number] History of Present illness Narrative* Hazel Fallon DPM - 02/27/2025 8:30 AM EDT Images from the original note were not [...] pain and problems developing from the overgrowth ofthe toenails. documented in this encounterKindred [id number] History of Present illness Narrative* Hazel Fallon DPM - 11/26/2024 1:45 PM EDT Images from the original note were not [...] counter medications PCP and last visit: HEMMER 10/13/24 Patient is also mentioning that she has been having in pain in the right 2nd digit on and off sincelast fall. No other complaints. Exam: General Examination: [...] has grown out. Patient can start using themedication on an intermittent or once weekly basis to prevent recurrent fungal infections chcf. 3. Advised patient on continued use of the topical medication once a week to the affected toenails and conservative treatment options discussed to prevent recurrence. 4. RTC: 3-4 months for recheck. documented in this encounterKindred [id number] History of Present illness Narrative* DEVENDRA Castro - 10/29/2024 9:00 AM EDT Images from the original note were not included. Subjective Patient ID: Osiris Morales is a 73 y.o. female who presents for hypertension. Osiris is present today for follow up hypertension. Denies chest pain, SOB, blurry vision, headaches.Does not check BP's at home. Currently on [...] tablet by mouth every 4 (four) hours ifneeded for mild pain. alendronate (Fosamax) 70 MG tablet Take 1 tablet (70 mg) by mouth every 7 (seven) days 12 tablet 3 alpha tocopherol (Vitamin E) 400 units capsule Take 1 capsule by mouth 1 (one) time each day at thesame time. amLODIPine (Norvasc) 5 MG tablet Take 1 tablet (5 mg) by mouth Daily 90 tablet 3 Ascorbic Acid (Vitamin C) 500 MG capsule Take 1 capsule by mouth 1 (one) time each day. BABY ASPIRIN PO Take 1 tablet by mouth 1 (one) time each day. calcium citrate 600 mg and vitamin D3 (Citrical & Minerals + Vit D) 600-200 MG- UNIT tablet Take1 tablet by mouth every 12 (twelve) hours. [...] Procedure Laterality Date JOINT REPLACEMENT Bilateral knees MI TOTAL ABDOM HYSTERECTOMY 1989 TONSILLECTOMY 1971 TOTAL [...] Continue with current medications and I will continueto monitor. Advised hyperpigmentation appears to be normal age-related skin changes. Would recommend she followup with Dermatology, has seen Diana Hammonds CNP, yearly for skin checks. She has seen Diana in the past. Follow up in about 6 months (around 04/30/2025) for Medicare Wellness Visit. documented in this encounterKindred [id number] History of Present illness Narrative* Hazel Fallon DPM - 08/27/2024 8:45 AM [...] the right 2nd digit on and off sincelast fall. No other complaints. Exam: General Examination: [...] has grown out. Patient can start using themedication on an intermittent or once weekly basis to prevent recurrent fungal infections chcf. 3. Advised patient on continued use of [...] the possibility of further treatment with steroid injectionsor more aggressive immobilization and definitive treatment with surgery if further deformity in thetoe occurs. documented in this encounterKindred [id number] Instructions* Patient Instructions* Hazel Fallon DPM - 08/27/2024 8:45 AM [...] a person prone to experiencing excessive pressure onthe ball of the foot. These most commonly include a severe bunion deformity, a second toe longer than the big toe, an arch that is structurally unstable, and a tight calf muscle. Symptoms Because capsulitis is a progressive disorder and usually worsens if left untreated, early recognition and treatment are important. In the earlier stages--the best time to seek treatment--the symptomsmay include: Pain, particularly on the ball of the foot. It can feel like there's a marble in the shoe or a sockis bunched up Swelling in the area of [...] stages. Although the crossing over of the toeusually occurs over a period of time, it [...] Use ice for 20 minutes and then waitat least 40 minutes before icing again. Oral medications. Nonsteroidal anti-inflammatory drugs (NSAIDs), such as ibuprofen, may help relieve the pain and inflammation. Taping/splinting. It may be necessary to tape the toe so that it will stay in the correct position.This helps relieve the pain and prevent further [...] they only occur occasionally, when wearing narrow-toed shoesor performing certain aggravating activities. The symptoms may [...] for the metatarsal arch, thereby lessening the pressureon the nerve and decreasing the compression when [...] patients who have not responded adequately to non- surgical treatments.The length of the recovery period will vary, depending on the procedure performed. Regardless of whether you've undergone surgical or non- surgical treatment, your surgeon will recommend long-term measures to help keep your symptoms from returning. These include appropriate footwear and modificationof activities to reduce the repetitive pressure on the foot. documented in this encounterKindred [id number] Telephone encounter Note* Telephone Encounter - DEVENDRA Castro - 06/01/2024 8:24 AM EDT Lab order. [facility] [id number] Miscellaneous Notes* Telephone Encounter - DEVENDRA Castro - 06/01/2024 8:24 AM EDT Lab order. documented in this encounterKindred [id number] History of Present illness Narrative* Hazel Fallon DPM - 05/24/2024 9:15 AM EDT Images from the original note were not [...] has grown out. Patient can start using themedication on an intermittent or once weekly basis to prevent recurrent fungal infections chcf. 3. Advised patient on continued use of the topical medication once a week to the affected toenails and conservative treatment options discussed to prevent recurrence. 4. RTC: 3-4 months for recheck. documented in this encounterKindred [id number] History of Present illness Narrative* DEVENDRA Castro - 05/14/2024 9:30 AM EDTAssociated Order(s): Ear Cerumen Removal Images from the original note were not included. Subjective Patient ID: Osiris Morales is a 73 y.o. female who presents for bilateral ear irrigation. Osiris is present today for follow up ear irrigation. She has been using debrox for about 2 weeks. Current Outpatient Medications on File Prior to Visit Medication Sig Dispense Refill acetaminophen (Tylenol Extra Strength) 500 MG tablet Take 1 tablet by mouth every 4 (four) hours ifneeded for mild pain. alendronate (Fosamax) 70 MG tablet Take 1 tablet (70 mg) by mouth every 7 (seven) days 12 tablet 3 alpha tocopherol (Vitamin E) 400 units capsule Take 1 capsule by mouth 1 (one) time each day at thesame time. amLODIPine (Norvasc) 5 MG tablet Take 1 tablet (5 mg) by mouth Daily 90 tablet 3 Ascorbic Acid (Vitamin C) 500 MG capsule Take 1 capsule by mouth 1 (one) time each day. BABY ASPIRIN PO Take 1 tablet by mouth 1 (one) time each day. calcium citrate 600 mg and vitamin D3 (Citrical & Minerals + Vit D) 600-200 MG- UNIT tablet Take1 tablet by mouth every 12 (twelve) hours. [...] Procedure Laterality Date JOINT REPLACEMENT Bilateral knees MI TOTAL ABDOM HYSTERECTOMY 1989 TONSILLECTOMY 1972 TOTAL [...] for Appointment As Scheduled. documented in this encounterKindred [id number] History of Present illness Narrative* DEVENDRA Castro - 04/30/2024 9:00 AM EDT Images from the original note were not included. Subjective : Chief Complaint: Osiris Morales is an 73 y.o. female here for an annual wellness visit. I have reviewed and reconciled the history and medication list with the patient today. Current Outpatient Medications on File Prior to Visit Medication Sig Dispense Refill acetaminophen (Tylenol Extra Strength) 500 MG tablet Take 1 tablet by mouth every 4 (four) hours ifneeded for mild pain. alendronate (Fosamax) 70 MG tablet Take 1 tablet (70 mg) by mouth every 7 (seven) days 12 tablet 3 alpha tocopherol (Vitamin E) 400 units capsule Take 1 capsule by mouth 1 (one) time each day at thesame time. amLODIPine (Norvasc) 5 MG tablet Take 1 tablet (5 mg) by mouth Daily 90 tablet 3 Ascorbic Acid (Vitamin C) 500 MG capsule Take 1 capsule by mouth 1 (one) time each day. BABY ASPIRIN PO Take 1 tablet by mouth 1 (one) time each day. calcium citrate 600 mg and vitamin D3 (Citrical & Minerals + Vit D) 600-200 MG- UNIT tablet Take1 tablet by mouth every 12 (twelve) hours. [...] (CMS/HCC) Past Surgical History: Procedure Laterality Date MI TOTAL ABDOM HYSTERECTOMY 1989 TONSILLECTOMY 1972 TOTAL [...] Medicine) Randy Richard [facility] PCP [facility] QUILLER OPERATOR as Licensed Practical Nurse (Family Medicine) Medicare [...] Do you have a medical power of employment attorney?: Yes Objective : BP 132/80 Pulse [...] All needed testing was ordered. Will continue withyearly Medicare Wellness exams. 2. ACP (advance care [...] controlled. Continue with current medications and I willcontinue to monitor. Goal BP remains less than 130/80. 7. Acquired absence of both cervix and uterus Pt is s/p Hysterectomy. Denies concerns at this time. 8. Presence of both artificial knee joints The patient is seeing a health care / medical job titles for this condition, treatment is deferred to that specialist. Correspondence from that specialist and any available testing were reviewed during today's visit. 9. Osteopenia of multiple sites This is a chronic medical condition that is stable since last assessment. No changes in treatment are suggested at this time. 10. Primary osteoarthritis of both knees The patient is seeing a health care / medical job titles for this condition, treatment is deferred to [...] on April 30, 2024 documented in this encounterKindred [id number] NotePT evaluation completed with an AM-PAC six clicks score of 18/24. Pt. requires min A for bed mobility of R LE positioning. Pt. able to complete transfers and level surface ambulation x63 ft. with CGAprogressing to close supervision. No loss of balance or safety concerns noted. Pt. able to negotiate 4 stairs with single hand rail and SPC with CGA. No knee buckling noted with this. Pt. would be functionally safe to return home once medically stable with family support and ortho 360 to follow.[facility]01-02-2023 Evaluation + Plan noteExtracted from:Title:ANES Pre-operative NoteAuthor:Chivo Paredes MDDate:08/02/22 Patient: OSIRIS MORALES Age: 71 years Sex: Female : 1950 [...] 6:30:00 EST, Start AM postop day 1, :30:00 EST Colace 100 mg Cap: 100 mg [...] Routine, Start date 08/02/22 8:45:00 EST, 08/02/22 8:45:00EST Lactated Ringers IV Cate 1000 mL 1,000 [...] Soln-Nasal, Nasal, BID, Routine, Start date 08/02/22 21:00:00EST Pantoprazole [address] Tab: 40 mg [...] mL: 2 gram = 1 EA, Powder-Inj, IVPiggyback, PREOP, Routine, Start date 08/02/22 6:00:00 EST, [...] BID, # 20 cap(s), Refills(s) 0, Pharmacy: [facility], 160, cm, 12/30/21 12:25:00 EDT, Height/Length Dosing, 81.5, kg, 12/30/21 12:25:00 EDT, Weight Dosing Keflex 500 mg Cap: 500 mg = 1 cap(s), Oral, QID, X 10 day(s), # 40 cap(s), Refills(s) 0, Pharmacy: [facility], 160, cm, 12/30/21 12:25:00 EDT, Height/Length Dosing, 81.5, kg, 12/30/21 12:25:00 EDT, Weight Dosing Percocet 5 mg-325 mg oral tablet: See Instructions, 50 tab(s), Refill(s) 0, Take one to two every 4hours for major orthopedic knee replacement surgical pain Z96/M17.11, [facility], 160, cm, 12/30/21 12:25:00 EDT, Height/Length Dosing, 81.5, kg, 12/30/21 12:25:00 EDT, W... aspirin 325 mg Tab: 325 mg = 1 tab(s), Oral, BID, X 30 day(s), # 60 tab(s), Refills(s) 0, Pharmacy:[facility], 160, cm, 12/30/21 12:25:00 [...] mg 0.5 mL, SubCutaneous, qAM Nozin Nasal Jet Worker Bottle - POSTOP [F] 6 drop(s), Nasal, [...] list: All Problems Hypercholesteremia / SNOMED CT 85486122 / Confirmed Hypertension / SNOMED CT 1632222391 / Confirmed Knee pain, left / SNOMED CT 2283827965 / Confirmed, Active Problems (3) Hypercholesteremia Hypertension Knee pain, left Histories Past Medical History: No active or resolved past medical history items have been selected or recorded. Family History: No family history items have been selected or recorded. Procedure history: Total knee arthroplasty ([id number]) on 07/23/2022 at 71 Years. History of hysterectomy (5170261595). Social History Social & Psychosocial Habits Alcohol [...] Signs (last 24 hrs) Last Charted Temp Oeyqdvnq41.5 DegC (AUG 02:) Heart Rate Subdoa08 bpm (AUG 02) OPM771 mmHg (AUG 02) DBP75 mmHg (AUG 02) XvH817 % (AUG 02:) Tudkjj37.7 kg (AUG 02) BMI30.54 (AUG 02) Measurements from flowsheet : Measurements 08/02/2022 6:43 EST Height/Length Measured 159.5 cm Height/Length Dosing 159.5 cm Weight Dosing 77.7 kg [place] Body Weight Calculated 51.929 kg BSA Measured 1.86 m2 Body Mass Index Measured 30.54 kg/m2 Weight Measured 77.7 kg Review / Management Results review: No qualifying data available . Plan [place] [employer]esthesi[employer] (ASA) physical status classification: Class III. general block for pain controlAddendum by Chivo Paredes MD on August 02, 2022 15:33 ESTchanged work [facility]12-29-2022 Hospital Discharge instructions Patient Education 07/29/2022 17:40:35 Garcia - Total Knee Arthroplasty (CUSTOM) [place], [place] [facility] DISCHARGE INSTRUCTIONS TOTAL KNEE [...] will continue at home, possible with the merchandising assistant of Home Health Physical Therapy or [...] Driving too soon, you are considered animpaired service parts driver, and this could be a problem. It is therefore advised not to drive until after yourfirst office visit following surgery FOLLOW-UP OFFICE VISIT: Paulino Garcia, DO [facility] [address] [place] [id number] [phone] Reviewed: 11-0608/02/2022 09:51:53 Knee Cryocuff Patient Instructions - FT [...] as possible. If the spirometer includes a public speaking coach indicator, use this to guide you [...] 11/28/2007 Document Revised: 08/10/2018 Document Reviewed: 05/31/2018 [employer] Patient Education 2020 Cloudy.fr. Follow Up Care 05/31/2022 10:02:51 With:Paulino Garcia Address: [address] [place], [place] [id number] [facility] (1) When:09/02/2022 09:00:00 Comments:Keep scheduled appointmentAppointment has already been scheduledCall for any problems. [facility]12-28-2022 Note [id number]:127[facility] 01-18-2022 NotePT Evaluation completed with an [facility] 6 clicks score of 18/24. Pt was able to perform bed mobility with Min A and transfers with CGA. Pt was able to ambulate 80 feet with FWW and CGA to perform stepswith CGA Pt would be functionally safe to return home with caregiver assist and Ortho 360 to follow [facility]06-20-2022 Evaluation + Plan noteExtracted from: Title:ZZZpostop GAAuthor:Herberth Elizabeth MDate:01/18/22 Plan Transfer/ Discharge: Patient can be discharged from PACU when criteria met, Patient can be discharged from anesthesia care. Condition stable. Extracted from:Title:Anesthesia Pre-Op GA/blockAuthor:Herberth Elizabeth MDate: 01/18/22 Plan [place] [employer]esthesiologists (ASA) physical status classification: [...] allergic reactions, failed block and .. Extracted from:Title:Op Note skeletonAuthor:Paulino Garcia DO TDate:01/18/22 Impression and Plan Diagnosis Pre-op dx-lt knee oa/pain Post-op dx-same Procedure-lt tka Uuwijvhbxt-fha-lohhl EBL-0 TT-0 To Recovery Room in stable and satisfactory condition..[facility]06-20-2022 Hospital Discharge instructions Patient Education 01/18/2022 11:24:16 Knee Cryocuff Patient Instructions - FT (Custom) 01/18/2022 11:24:16 Post Op Patient Instructions - FT (Custom) 01/15/2022 12:53:13 Jose - Total Knee Arthroplasty (CUSTOM) [place], [place] [facility] DISCHARGE INSTRUCTIONS TOTAL KNEE [...] will continue at home, possible with the merchandising assistant of Home Health Physical Therapy or [...] Driving too soon, you are considered animpaired service parts driver, and this could be a problem. It is therefore advised not to drive until after yourfirst office visit following surgery FOLLOW-UP OFFICE VISIT: Paulino Garcia, DO [facility] [address] [place] [address] Reviewed: 11-06 Follow Up Care 12/02/2021 09:27:31 With:Paulino Garcia Address: [address] [place] [id number]- Business (1) When: Unknown Comments:Keep scheduled appointment [facility]06-16-2022 Note [id number]:127[facility] Evaluation + Plan note Future Appointments Appointment Date:01/18/2022 10:00:00 AM Scheduled Provider: Location:[facility] App[facility] Future Appointments Appointment Date:08/02/2022 08:45:00 AM Scheduled Provider: Location:[facility]* Diagnosis Bilateral impacted cerumen- Primary Impacted cerumen [facility]* Diagnosis Onychomycosis- Primary Dermatophytosis of nail Pain in both feet documented [facility]* Diagnosis Benign hypertension (CMS/HCC)- Primary Essential hypertension, benign Hypercholesteremia (CMS/HCC) Pure hypercholesterolemia Wellness examination documented [facility] this [facility]* Diagnosis Medicare annual wellness visit, [...] cerumen Impacted cerumen documented [facility]* Diagnosis Presence of both artificial knee joints- Primary [facility]* Diagnosis Onychomycosis- Primary Dermatophytosis of nail Pain in both feet Hammer toe of right foot Neuroma digital nerve Capsulitis of foot Hallux valgus of right foot documented [facility]* Diagnosis Benign hypertension (CMS/HCC)- Primary Essential hypertension, benign documented [facility]* Diagnosis Onychomycosis- Primary Dermatophytosis of nail Pain in both feet documented [facility]* Diagnosis Acute cystitis with hematuria- Primary Urine frequency Hypercholesteremia Pure hypercholesterolemia Benign hypertension Essential hypertension, benign documented [facility]* Diagnosis Medicare annual wellness visit, subsequent- Primary ACP (advance care planning) Other specified counseling Estrogen deficiency Other ovarian failure Acquired absence of both cervix and uterus Presence of both artificial knee joints Benign hypertension Essential hypertension, benign Difficulty walking Difficulty in walking Hypercholesteremia Pure hypercholesterolemia Osteopenia of multiple sites Other chronic pain Other primary ovarian failure Paresthesias in right hand Disturbance of skin sensation Primary osteoarthritis of both knees Class 1 obesity without serious comorbidity with body mass index (BMI) of 31.0 to 31.9 in adult, unspecified obesity type Weight gain Other symptoms concerning nutrition, metabolism, and development documented in this encounter [facility] HealthcareHistory of Present illness Narrative* Paulino Garcia [...] exercise, weight management and fall precautions reviewed. jail antibiotic prophylaxis for dental or invasive work were reviewed. Numerous questions were answered. Follow-up in 1 year for repeat xray and exam, sooner if concerned. The patient is discharged in stable condition. documented in this encounterNOMS HealthcareHospital course Narrative No data available for this section [facility] No data available for this section [facility] HospitalProgress note No data available for this section [facility] Summary Purpose Family History No Family History Records FoundNo Family History Records FoundNo Family History Records FoundNo Family History Records FoundNo Family History Records Found Advance Directives No Advanced Directives Records FoundNo Advanced Directives Records FoundNo Advanced Directives Records FoundNo Advanced Directives Records FoundNo Advanced Directives Records Found Additional Source Comments INFORMATION SOURCE (unrecogn ized section and content) DATE CREATED AUTHOR 11/20/2021 [facility] DATE CREATED AUTHOR AUTHOR'S ORGANIZ ATION 07/07/2022 [facility] DATE CREATED AUTHOR AUTHOR'S ORGANIZ ATION 08/12/2022 [facility] DATE CREATED AUTHOR AUTHOR'S ORGANIZ ATION 06/04/2024 [facility] DATE CREATED AUTHOR AUTHOR'S ORGANIZ ATION 05/05/2025 [facility] EPIC Care Team (unrecognized sect ion and content) Team MemberRelationshipSpecialtyStart DateEnd Date Randy Richard MD [address] [place] [address] PCP - GeneralFamily Medicine02/02/23 Randy Richard MD [address] [place] [address] PCP - ACO Reach11/30/23TuesdayChristine LPN [address] [place] [address] Licensed Practical NurseUnitypoint Health-Trinity Regional Medical Centerly Dyeitrrk52/17/23Team MemberRelationshipSpecialty Start DateEnd Date Randy Richard MD [address] [place] [address] PCP - GeneralFamily Medicine02/02/23 Randy Richard MD [address] [place] [address] PCP - ACO Reach11/30/23Tuesday, SALVATORE KingN [address] [place] [address] Licensed Practical NurseFamily Birkkvuo65/17/23Te MemberRelationshipSpecialty Start DateEnd Date Randy Richard MD [address] [place] [address] PCP - GeneralFamily Medicine02/02/23 Randy Richard MD [address] [place] [address] PCP - ACO Reach11/30/23Tuesday, Christine QUILLER OPERATOR [address] [place] [address] Licensed Practical NurseH[facility]ham [facility]05/17/23Te MemberRelationshipSpecialty Start DateEnd Date Randy Richard MD [address] [place] [address] [facility] - [facility]02/02/23 Randy Richard MD [address] [place] [address] PCP - ACO Reach11/30/23Tuesday, SALVATORE KingN [address] [place] [address] Licensed [facility] NurseRos[facility] Qqijjvpx86/17/23Te MemberRelationshipSpecialty Start DateEnd Date Randy Richard MD [address] [place] [address] PCP - GeneralFacoly Medicine02/02/23 Randy Richard MD [address] [place] [address] PCP - ACO Reach11/30/23Tuesday, Christine, QUILLER OPERATOR [address] [place] [address] Licensed P[facility] NurseRos[facility]ale [facility] Hospital Iyqoftsr18/17/23Te MemberRelationshipSpecialty Start DateEnd Date Randy Richard MD [address] [place] [address] [facility] - [facility]02/02/23 Randy Richard MD [address] [place] [address] [facility]11/30/23Tuesday, Chrsitine, QUILLER OPERATOR [address] [place] [address] Licensed [facility]Ros[facility] Rwssuzsd00/17/23Te MemberRelationshipSpecialty Start DateEnd Date Randy Richard MD [address] [place] [address] PCP - [facility] Medicine02/02/23 Randy Richard MD [address] [place] [address] [facility]11/30/23Tuesday, Christine, QUILLER OPERATOR [address] [place] [address] [facility] Urzzucqe30/17/23Te MemberRelationshipSpecialty Start DateEnd Date Rnady Richard MD [address] [place] [address] [facility] - [facility] Medicine02/02/23 Randy Richard MD [address] [place] [address] PCP - [facility]11/30/23TueZayChristine still LPN [address] [place] [address] [facility]05/17/23Team MemberRelationshipSpecialty Start DateEnd Date Randy Richard MD [address] [place] [address] PCP - Generalmi Medicine02/02/23 Randy Richard MD [address] [place] [address] PCP - ACO [facility]11/30/23 Regina Matt LPN 10/19/24Te MemberRelationshipSpecialtyStart DateEnd Date Randy Richard MD [address] [place] [address] [facility] - [facility]02/02/23 Randy Richard MD [address] [place] [address] PCP - ACO [facility]11/30/23 Regina Matt QUILLER OPERATOR 10/19/24Te MemberRelationshipSpecialtyStart DateEnd Date Randy Richard MD [address] [place] [address] [facility] - [facility]02/02/23 Randy Richard MD [address] [place] [address] PCP - [facility]CO [facility]11/30/23 Regina Matt LPN 10/19/24Team MemberRelationshipSpecialtyStart DateEnd Date Randy Richard MD [address] [place] [address] [facility] - [facility] Medicine02/02/23 Randy Richard MD [address] [place] [address] PCP - ACO [facility]11/30/23 Regina Matt LPN [address] [place] [address] 10/19/24Team MemberRelationshipSpecialtyStart DateEnd Date Randy Richard MD [address] [place] [address] [facility] - [facility] Medicine02/02/23 Randy Richard MD [address] [place] [address] PCP - ACO [facility]11/30/23 Regina Matt LPN [address] [place] [address] 10/19/24Team MemberRelationshipSpecialtyStart DateEnd Date Randy Richard MD [address] [place] [address] PCP - Generalmily Medicine02/02/23 Randy Richard MD [address] [place] [address] PCP - ACO [facility]11/30/23 Regina Matt LPN [address] [place] [address] 10/19/24Team MemberRelationshipSpecialtyStart DateEnd Date Randy Richard MD [address] [facility] [place] [address] PCP - GeneralFamily Medicine02/02/23 Randy Richard MD [address] [facility] [address] [place] [address] PCP - ACO [facility]11/30/23 Regina Matt LPN [address] [facility] [address] [place] [address] 10/19/24 Reason for Visit (unrecogniz ed section and content) ReasonCommentsFollow-upReasonCommentsMed RefillAmlodipine, Lisinopril, RosuvastatinReasonCommentsMedicare Annual Wellness Visit Subsequent FOR RECORDS PERTAINING TO PATIENTS WHO ARE [...] BE BASED ON THE PRIMARY CLINICAL RECORDS. [employer] provides no warranty or guarantee of the accuracy or completeness of information in this document.
--- OUTSIDE RECORDS SUMMARY | 2025-06-02 12:57 | XMS_ITS | Clinical Summary ---
Author Organization [facility] Address [address] [place] [address] Care Team Providers Care Battery Tester Name Role Phone Tessa Shelton MD Primary Care Provider [phone] Tessa Shelton MD Unavailable Regina Matt CLERICAL CAR CHECKER Unavailable Allergies Active AllergyReactionsCriticalityNoted DateCommentsSulfa AntibioticsOther 02/02/2023 Medications MedicationSigDispense QuantityRefillsLast FilledStart DateEnd DateStatus calcium citrate 600 mg and vitamin D3 (Citrical & Minerals + Vit D) 600-200 MG- UNIT tablet Take 1 tablet by mouth every 12 (twelve) hours.Active BABY ASPIRIN PO Take 1 tablet by mouth 1 (one) time each day.Active acetaminophen (Tylenol Extra Strength) 500 MG tablet Take 1 tablet by mouth every 4 (four) hours if needed for mild pain.Active Ascorbic Acid (Vitamin C) 500 MG capsule Take 1 capsule by mouth 1 (one) time each day.Active cyanocobalamin (Vitamin B-12) 100 MCG tablet Take 1 tablet by mouth 1 (one) time each day.Active omega-3 (Fish Oil) 1000 MG capsule Take 2 capsules by mouth 1 (one) time each day at the same time.Active Pyridoxine HCl (Vitamin B6) 100 MG tablet Take 1 tablet by mouth every 12 (twelve) hours.Active alpha tocopherol (Vitamin E) 400 units capsule Take 1 capsule by mouth 1 (one) time each day at the same time.Active alendronate (Fosamax) 70 MG tablet Indications:Osteopenia of multiple sitesTake 1 tablet (70 mg) by mouth every 7 (seven) days 12 tablet 506Active rosuvastatin (Crestor) 20 MG tablet Indications:HypercholesteremiaTake 1 tablet (20 mg) by mouth Daily 100 tablet 5Active amLODIPine (Norvasc) 5 MG tablet Indications:Benign hypertensionTake 1 tablet (5 mg) by mouth Daily 100 tablet 5Active lisinopril 10 MG tablet Indications:Benign hypertensionTake 1 tablet (10 mg) by mouth Daily 100 tablet 5Active Active Problems ProblemNoted DateDiagnosed DateClass 1 obesity without serious comorbidity with body mass index (BMI) of 31.0 to 31.9 in adult4Acquired absence of both cervix and csleze8604/25/2023rtificial knee joint vaivdgg2004/25/2023enign ewixuetengdp57/25/2023ifficulty uasizpp5704/25/20238337Wtcgmnpiekmhqjbhsp55/25/2023 Osteopenia of multiple sites04/25/2023Other chronic pain04/25/2023Other primary ovarian wipnafl0204/25/2023aresthesias in right hand04/25/2023rimary osteoarthritis of both knees04/25/2023 Resolved Problems ProblemNoted DateDiagnosed DateResolved DateAcute urinary tract infection Feverftercare following joint replacement gnnmthz69Overweight (BMI 25.0-29.9)04/25/2023 4Pain in left kneeain in right knee04/25/2023 04/26/2023 Encounters DateTypeDepartmentCare QybjByycwdwiqeo08/21/2025Patient Outreach [facility] [address] [place] [address] Regina Matt LPN 05/07/2025Patient Outreach [facility] [address] [place] [phone] Regina Matt LPN 05/06/2025bstract [facility] [address] [facility] [address] [place] [address] Tessa Shelton MD 04/30/2025 9:00 AM EDTOffice Visit [facility] [place] [address] Perla Lang PA Medicare annual wellness visit, subsequent (Primary Dx); ACP [...] 31.9 in adult, unspecified obesity type; Weight gain04/30/2025amboo flowsheet [facility] [place] [address] [place] [address] Perla Lang PA 04/30/20253806Mdsazx52/04/2025Results Follow-Up [facility] [place] [address] Tessa Shelton MD POCT Urinalysis dipstick, URINARY TRACT INFECTION (HTRX)04/04/2025bstract [facility] [place] [address] Tessa Shelton MD 04/02/2025 3:30 PM EDTOffice Visit [facility] [place] [place] [address] Perla Lang PA Acute cystitis with hematuria (Primary Dx); Urine frequency; Hypercholesteremia ; Benign ragwjhpcngfo39/02/8000Kzjyti78/02/2025bstract [facility] [place] [place] [address] Tessa Shelton MD 03/29/2025linisync Result Encounter [facility] Unsolicited Perla Lang PA 03/11/2025Patient Outreach [facility] [address] [place] [address] Regina Matt LPN from Last 3 Months Immunizations ImmunizationAdministration DatesNext OeoSPRK-MMQ-9 (COVID-19) vaccine, mRNA, spike protein, LNP, bivalent, preservative free, 30 mcg/0.3 mLdose, alia-sucrose gdlzhqfnvce66/02/2022 Family History Medical HistoryRelationNameCommentsNo Known ProblemsBrotherNo Known Problems DaughterHeart diseaseFatherHypertensionFatherHypertensionMotherOsteoporosis Motherpassed away 05/2023No Known ProblemsSonRelationNameStatusCommentsBrother2 brothersDaughterAlive1 daughterFatherDeceasedMotherDeceasedSonAlive2 sons Social History Tobacco UseTypesPacks/DayYears UsedDateSmoking Tobacco: NeverSmokeless Tobacco: Never Tobacco Cessation:Counseling Given: Not Answered Alcohol UseStandard Drinks/WeekCommentsYes1 (1 standard drink = 0.6 oz pure alcohol)caffeine intake:1-2 cups per day coffee, [id number] Health LiteracyAnswer Date RecordedHow often do you need to have someone help you when you read instructions, pamphlets, or other written material from your doctor or pharmacy? Never02/16/2024Humiliation, Afraid, Rape, and Kick questionnaireAnswerDate RecordedWithin the last year, have you been afraid of your partner or ex-partner?No05/17/2023Within the last year, have you been humiliated or emotionally abused in other ways by your partner or ex-partner?No05/17/2023 Within the last year, have you been kicked, hit, slapped, or otherwise physically hurt by your partner or ex-partner?No05/17/2023Within the last year, have you been raped or forced to have any kind of sexual activity by your part ner or ex-partner?No05/17/2023Social Connection and Isolation PanelAnswerDate RecordedIn a typical week, how many times do you talk on the phone with family, friends, or neighbors?Three times a week05/17/2023How often do you get together with friends or relatives?Twice a week05/17/2023How often do you attend denominational or yazdanism services?1 to 4 times per year05/17/2023o you belong to any clubs or organizations such as denominational groups, unions, fraternal or athletic groups, or school groups?No05/17/2023How often do you attend meetings of the clubs or organizations you belong to?Never05/17/2023re you , , , , never , or living with a partner?Ukggnjq1905/17/2023UDIT-C AnswerDate RecordedQ1: How often do you have a drink containing alcohol?2-4 times a month05/24/2023verage Number of DrinksNot on file05/24/2023Frequency of Binge DrinkingNot on file05/24/2023Overall Financial Resource Strain (CARDIA) AnswerDate RecordedHow hard is it for you to pay for the very basics like food, housing, medical care, and heating?Not hard at all05/17/2023HQ-2AnswerDate RecordedPatient Health Questionnaire-2 Areln496[place] [facility] Occupational [facility] - Occupational Stress QuestionnaireAnswerDate RecordedDo you feel stress - tense, restless, nervous, or anxious, or unable to sleep at night because yourmind is troubled all the time - these days?Only a sbwsjj8905/17/2023 Exercise Vital SignAnswerDate RecordedOn average, how many days per week do you engage in moderate to strenuous exercise (like a brisk walk)?7 days02/16/2024On average, how many minutes do you engage in exercise at this level?20 min 02/16/2024Hunger Vital SignAnswerDate RecordedWithin the past 12 months, you worried that your food would run out before you got the money to buymore.Never true05/17/2023Within the past 12 months, the food you bought just didn't last and you didn't have money to get more.Never true05/17/2023RAPARE - TransportationAnswerDate RecordedIn the past 12 months, has lack of transportation kept you from medical appointments or from getting medications?No 05/17/2023In the past 12 months, has lack of transportation kept you from meetings, work, or from getting things needed for daily living?No05/17/2023 Housing Stability Vital SignAnswerDate RecordedIn the last 12 months, was there a time when you were not able to pay the mortgage or rent on time?No05/17/2023In the last 12 months, how many places have you lived?In the last 12 months, was there a time when you did not have a steady place to sleep or slept in ashelter (including now)?No05/17/2023CommentsUnknownSex and Gender InformationValueDate RecordedSex Assigned at BirthNot on fileLegal SexFemale 10/13/2022 6:38 PM EDTGender IdentityNot on fileSexual OrientationNot on file Last Filed Vital Signs Vital SignReadingTime TakenCommentsBlood Jkbatmtt750/8609 9:10 AM EDT Ljwiv698804/30/2025 9:10 AM PRAHqfvxepkmbt98.7 ??C (98.1 ??F)03/08/2024 8:25 AM EDTRespiratory Blcy034204/30/2025 9:10 AM EDTOxygen Twdvcescts22%04/30/2025 9:10 AM EDTInhaled Oxygen Concentration--Mzwxme56.6 kg (186 lb 6.4 oz)04/30/2025 9:10 AM PFWQtnlll731.8 cm (5' 4.5 )04/30/2025 9:10 AM EDTBody Mass Index31.5 04/30/2025 9:10 AM EDT Plan of Treatment DateTypeDepartmentCare Team (Latest Contact Info)Rivphojzflo56/05/2025 8:30 AM ESTOffice Visit [facility] [address] [place] [address] Reema Fallon DPM [address] [place] [address] 06/12/2025 1:30 PM ESTAncillary Procedure [facility] [address] [place] [address] 10/24/2025 8:30 AM EDTOffice Visit [facility] [address] [facility] [address] [place] [address] Perla Lang PA [address] [facility] [address] [place] [address] Health MaintenanceDue DateLast DoneCommentsCT Apmflavsatbv73/01/1953olonoscopy 1950FIT-DNA1952FIT1950FOBT1950 6989Iezeewnxencwu42/01/1951 DTaP/Tdap/Td Vaccines (1 - Tdap)11/30/1959COVID-19 Vaccine (4 - season) /, 03/31/2021, 03/03/2021olorectal Cancer Screening 10/29/2025Postponed from 1950 (Patient Refused)Influenza Vaccine (#1) 2026Postponed from 04/01/2025 (Patient Refused)Knvajcvxf53/29/2026 03/29/2025, 06/07/2023, 11/16/2021, Additional history existsMedicare Annual Wellness (AWV), 04/30/2024, 04/26/2023, Additional history existsPneumococcal Vaccine: 65+ Years (1 of 1 - PCV)04/30/2026Postponed from 2002 (Patient Refused)HIB VaccinesAged OutNo longer eligible based on patient's age to complete this topicHPV VaccinesAged OutNo longer eligible based on patient's age to complete this topicHepatitis A VaccinesAged OutNo longer eligible based on patient's age to complete this topicHepatitis B VaccinesAged OutNo longer eligible based on patient's age to complete this topicIPV Vaccines Aged OutNo longer eligible based on patient's age to complete this topic Meningococcal B VaccineAged OutNo longer eligible based on patient's age to complete this topicMeningococcal VaccineAged OutNo longer eligible based on patient's age to complete this topicRotavirus VaccinesAged OutNo longer eligible based on patient's age to complete this topic Procedures Procedure NamePriorityDate/TimeAssociated DiagnosisCommentsPOCT URINALYSIS NLVFSQTWNnkbgyv63/02/2025 3:55 PM EDT Urine frequency URINARY TRACT INFECTION (HTRX)Ycvnxob0404/02/2025 3:52 PM EDT Acute cystitis with hematuria MM TOMOSYNTHESIS SCREENING BI03/29/2025 3:40 PM EDT from Last 3 Months Results * (ABNORMAL) POCT Urinalysis dipstick (04/02/2025 3:55 PM EDT)ComponentValueRef RangeTest MethodAnalysis TimePerformed AtPathologist SignatureColor, UALight YellowClarity, UACloudyGlucose, UANegativeNegative - 2000(110) ++++ mg/dL Bilirubin, UANegativeNegative - 4(70) +++ mg/dLKetones, UANegativeNegative - 160(16) ++++ mg/dLSpec Grav, UA1.0101 - 1.03Blood, UAPositiveNegative - 50 Navin/mcLComment:largepH, UA6.05 - 9Protein, UA3+Negative - 2000(20) ++++ mg/dL Urobilinogen, UA1.00.2 - 12 mg/dLLeukocytes, UAPositiveNegative - 500+++ Milvia/mcLComment:largeNitrite, UAPositiveNegative - PositiveSpecimen (Source) Anatomical Location / LateralityCollection Method / VolumeCollection Time Received WkioTmpmf74/02/2025 3:55 PM EDT Narrative Authorizing ProviderResult TypeResult StatusPerla Lang [facility] TEST ENTER/EDIT ORDERABLESFinal Result * (ABNORMAL) URINARY TRACT INFECTION (HTRX) (04/02/2025 3:52 PM EDT)Component ValueRef RangeTest MethodAnalysis TimePerformed AtPathologist SignatureDFR (A1, A5), SUL (1,2)26.454(A)23.000 - 27.000 ppm04/04/2025 8:37 AM EDT [facility] LabPortDFR (A1, A5), SUL (1,2)Detected(A)23.000 - 27.000 ppm 04/04/2025 8:37 AM EDTHealthTrackRx at LhwNtduSPUT32.501(A)23.000 - 30.920 ppm 04/04/2025 8:37 AM EDTHealthTrackRx at LabPortMECADetected(A)23.000 - 30.920 ppm04/04/2025 8:37 AM EDTHealthTrackRx at LabPortTET B, TET M25.497(A)23.000 - 27.500 ppm04/04/2025 8:37 AM EDTHealthTrackRx at LabPortTET B, TET MDetected (A)23.000 - 27.500 ppm04/04/2025 8:37 AM EDT[facility] at [facility]Port ACINETOBACTER IAZCYPZR856.961 - 24.689 ppm04/04/2025 8:38 AM EDTHealthTrackRx at LabPortACINETOBACTER BAUMANIINot Mlygcnjc34.961 - 24.689 ppm04/04/2025 8:38 AM EDTHealthTrackRx at LabPortCITROBACTER UOJTTWTB647.000 - 32.015 ppm 04/04/2025 8:37 AM EDTHealthTrackRx at LabPortCITROBACTER FREUNDIINot Detected 23.000 - 32.015 ppm04/04/2025 8:37 AM EDTHealthTrackRx at LabPortENTEROBACTER AEROGENES, SBIYKTB099.000 - 32.290 ppm04/04/2025 8:37 AM EDTHealthTrackRx at LabPortENTEROBACTER AEROGENES, CLOACAENot Lxfyjmpw46.000 - 32.290 ppm 04/04/2025 8:37 AM EDTHealthTrackRx at LabPortENTEROCOCCUS FAECALIS, FAECIUM0 26.000 - 33.043 ppm04/04/2025 8:37 AM EDTHealthTrackRx at LabPortENTEROCOCCUS FAECALIS, FAECIUMNot Qgrblics06.000 - 33.043 ppm04/04/2025 8:37 AM EDT [facility] at LabPortESCHERICHIA COLI15.995(A)23.000 - 28.500 ppm04/04/2025 8:37 AM EDTHealthTrackRx at LabPortESCHERICHIA COLIDetected(A)23.000 - 28.500 ppm04/04/2025 8:37 AM EDTHealthTrackRx at LabPortKLEBSIELLA PNEUMONIAE, UTYKDTA523.000 - 31.865 ppm04/04/2025 8:37 AM EDT[facility] at [facility] KLEBSIELLA PNEUMONIAE, OXYTOCANot Bymdquut71.000 - 31.865 ppm04/04/2025 8:37 AM EDTHealthTrackRx at LabPortMORGANELLA JKTFTWOS746.961 - 24.689 ppm 04/04/2025 8:38 AM EDTHealthTrackRx at LabPortMORGANELLA MORGANIINot Detected 19.961 - 24.689 ppm04/04/2025 8:38 AM EDTHealthTrackRx at LabPortPROTEUS MIRABILIS, PMVSDJES039.000 - 28.500 ppm04/04/2025 8:37 AM EDTHealthTrackRx at LabPortPROTEUS MIRABILIS, VULGARISNot Earajdqt11.000 - 28.500 ppm04/04/2025 8:37 AM EDTHealthTrackRx at LabPortPSEUDOMONAS AUELTIXHDJ698.000 - 31.801 ppm 04/04/2025 8:38 AM EDTHealthTrackRx at LabPortPSEUDOMONAS AERUGINOSANot Istfcvue93.000 - 31.801 ppm04/04/2025 8:38 AM EDT[facility] STAPHYLOCOCCUS CGQWKT554.000 - 31.595 ppm04/04/2025 8:38 AM EDTHealthTrackRx at LabPortSTAPHYLOCOCCUS AUREUSNot Chdgmxix73.000 - 31.595 ppm04/04/2025 8:38 AM EDTHealthTrackRx at LabPortSTREPTOCOCCUS AGALACTIAE (GROUP B STREP)026.000 - 32.435 ppm04/04/2025 8:38 AM EDTHealthTrackRx at LabPortSTREPTOCOCCUS AGALACTIAE (GROUP B STREP)Not Pvyscnrt84.000 - 32.435 ppm04/04/2025 8:38 AM EDTHealthTrackRx at LabPortCANDIDA ALBICANS, PARAPSILOSIS, BFFOABFMNN178.000 - 30.347 ppm04/04/2025 8:37 AM EDTHealth[facility] at LabPortCANDIDA ALBICANS, PARAPSILOSIS, TROPICALISNot Hdaxxibh68.000 - 30.347 ppm04/04/2025 8:37 AM EDT [facility] LabPortCANDIDA LYORYQPK968.000 - 31.618 ppm04/04/2025 8:37 AM EDTHealthTrackRx at LabPortCANDIDA GLABRATANot Jegakmjl79.000 - 31.618 ppm 04/04/2025 8:37 AM EDTHealthTrackRx at LabPortCANDIDA JJHSDR585.000 - 30.873 ppm04/04/2025 8:37 AM EDTHealthTrackRx at LabPortCANDIDA KRUSEINot Detected 23.000 - 30.873 ppm04/04/2025 8:37 AM EDTHealthTrackRx at LabPortSERRATIA VONXPNBYQU257.000 - 31.581 ppm04/04/2025 8:37 AM EDTHealth[facility]Rx at LabPort SERRATIA MARCESCENSNot Yzvvxgpa24.000 - 31.581 ppm04/04/2025 8:37 AM EDT [facility] LabPortSTREPTOCOCCUS PYOGENES (GROUP A STREP)019.961 - 24.689 ppm04/04/2025 8:37 AM EDTHealthTrackRx at LabPortSTREPTOCOCCUS PYOGENES (GROUP A STREP)Not Suozesgc05.961 - 24.689 ppm04/04/2025 8:37 AM EDTHealthTrackRx at LabPortSTAPHYLOCOCCUS EPIDERMIDIS, HAEMOLYTICUS, LUGDUNENSIS, SAPROPHYTICUS (NDOVH205.961 - 24.689 ppm04/04/2025 8:37 AM EDT[facility] STAPHYLOCOCCUS EPIDERMIDIS, HAEMOLYTICUS, LUGDUNENSIS, SAPROPHYTICUS (URINANot Jxoxcivz17.961 - 24.689 ppm04/04/2025 8:37 [facility] STAPHYLOCOCCUS EPIDERMIDIS, HAEMOLYTICUS, LUGDUNENSIS, SAPROPHYTICUS (URINA 26.6(A)19.961 - 24.689 ppm04/04/2025 8:37 AM EDT[facility] STAPHYLOCOCCUS EPIDERMIDIS, HAEMOLYTICUS, LUGDUNENSIS, SAPROPHYTICUS (URINA Detected(A)19.961 - 24.689 ppm04/04/2025 8:37 AM EDT[facility] Specimen (Source)Anatomical Location / LateralityCollection Method / Volume Collection TimeReceived UyolVhflz29/02/2025 3:52 PM EDT04/04/2025 1:56 AM EDT Narrative Authorizing ProviderResult TypeResult StatusPerla Lang PALAB BLOOD ORDERABLESFinal ResultPerforming OrganizationAddressCity/State/ZIP CodePhone Number [facility] [address] [place] [address] * MM TOMOSYNTHESIS SCREENING BI (03/29/2025 3:40 PM EDT)Anatomical Region LateralityModalityOtherSpecimen (Source)Anatomical Location / Laterality Collection Method / VolumeCollection TimeReceived Time03/29/2025 3:40 PM EDT Narrative 03/29/2025 3:41 PM EDT [facility] ?[address] ? [place] [address] ? Mammography Report ? Signed ? Patient: OSIRIS MORALES ?MR#: [id number] ?? : 1950 ?Acct:[id number] ?? Age/Sex: 74 / F ?ADM Date: 03/29/ ?? Loc: MAMMO ? Attending Dr: PERLA Chiu HEMMER ? Ordering Physician: DEJANMER,PERLA M ? Results: ? Date of Service: 03/29/ ?Follow Up: ? Procedure(s): MM tomosynthesis screening BI ?? Accession Number(s): [id number] ? cc: PERLA LANG ? Patient Name: ? OSIRIS MORALES ? MR#: [id number] ? : 1950 ? Exam Date: 03/29/2025 ?? Ordering Doctor: DR PERLA RAMSAY ? RADIOLOGY REPORT ? PROCEDURE: ? MM TOMOSYNTHESIS SCREENING BI ? COMPARISON: ? MM TOMOSYNTHESIS SCREENING BI, 06/07/2023. ??MG MAMM SCREEN 3D ?? REINA CAD, 11/16/2021. ??MG MAMM SCREEN 3D REINA CAD, 11/13/2020. ??MG MAMM SCREEN REINA ?? W CAD, 10/05/2016. ? INDICATIONS: ? Screening ? Calculator Name ? NCI Breast Cancer Risk Assessment Tool ?? 5 Year Breast Cancer Risk ? Not Reported. ?? Lifetime Breast Cancer Risk ? Not Reported. ?? Personal Breast Cancer ?No ?? Personal Ovarian Cancer ? No ?? Treatments ? None ?? Family Cancers ? None ? LOCATION: ? [facility] ? BREAST COMPOSITION: ? The breasts are extremely dense, which lowers the ?? sensitivity of mammography. ? FINDINGS: ? DIAGNOSTIC CATEGORY 1--NEGATIVE. ? RIGHT BREAST: ??No significant suspicious finding. ? LEFT BREAST: ??No significant suspicious finding. ? RECOMMENDATIONS: ? ROUTINE MAMMOGRAM AND CLINICAL EVALUATION IN 12 MONTHS. ? Dictated by: Haile Pearson DO on 03/29/2025 at 15:38 ? Approved by: Haile Pearson DO on 03/29/2025 at 15:40 ? Dictated By: ?Haile Pearson M.D. ? Signed By: ?03/29/ 1541 ? DD/DT: 03/29/ 1540 ? TD/TT: ? Conventions Reservationist: Procedure Note Radiology, Radiologist, MD - 03/29/2025 [place] [address] Mammography Report Signed Patient: OSIRIS MORALES SMR#: [id number] : 1950cct:[id number] Age/Sex: 74 / FADM Date: 03/29/25 Loc: MAMMO Attending Dr: PERLA LANG Ordering Physician: PERLA LANG MResults: Date of Service: 03/29/25Follow Up: Procedure(s): MM tomosynthesis screening BI Accession Number(s): [id number] cc: PERLA LANG Patient Name: OSIRIS MORALES MR#: [id number] : 1950 Exam Date: 03/29/2025 Ordering Doctor: DR PERLA LANG PA RADIOLOGY REPORT PROCEDURE: MM TOMOSYNTHESIS SCREENING BI COMPARISON: MM TOMOSYNTHESIS SCREENING BI, 06/07/2023. MG MAMM VMSVCH9M REINA CAD, 11/16/2021. MG MAMM SCREEN 3D REINA CAD, 11/13/2020. MG MAMM SCREENBIL W CAD, 10/05/2016. INDICATIONS: Screening Calculator Name NCI Breast Cancer Risk Assessment Tool 5 Year Breast Cancer Risk Not Reported. Lifetime Breast Cancer Risk Not Reported. Personal Breast Cancer No Personal Ovarian Cancer No Treatments None Family Cancers None LOCATION: [facility] BREAST COMPOSITION: The breasts are extremely dense, which lowers the sensitivity of mammography. FINDINGS: DIAGNOSTIC CATEGORY 1--NEGATIVE. RIGHT BREAST: No significant suspicious finding. LEFT BREAST: No significant suspicious finding. RECOMMENDATIONS: ROUTINE MAMMOGRAM AND CLINICAL EVALUATION IN 12 MONTHS. Dictated by: Haile Pearson DO on 03/29/2025 at 15:38 Approved by: Haile Pearson DO on 03/29/2025 at 15:40 Dictated By: Haile Pearson M.D. Signed By:03/29/25 1541 DD/ 1540 TD/TT: Conventions Reservationist: Authorizing ProviderResult TypeResult StatusKaren M Hemmer [facility] Final Result from Last 3 Months Insurance Care Teams Team MemberRelationshipSpecialtyStart DateEnd Date Tessa Shelton MD [address] [facility] [address] [place] [address] [facility] - [facility] Tessa Shelton MD [address] [facility] [address] [place] [address] PCP - [facility]11/30/23 Regina Matt LPN [address] [facility] [address] [place] [address] 10/19/24
--- OUTSIDE RECORDS SUMMARY | 2025-06-02 12:57 | XMS_ITS | Clinical Summary ---
Author Organization [facility] Address [address] [place] [address] Phone Care Team Providers Care Bilingual Case Manager Name Role Phone Unavailable Primary Care Provider Unavailabl e Social History Tobacco UseTypesPacks/DayYears UsedDateSmoking Tobacco: Never Assessed CommentsUnknownSex and Gender InformationValueDate RecordedSex Assigned at Not on fileLegal EinRhcysf92/25/2022 11:58 PM ESTGender IdentityNot on file Sexual OrientationNot on file Plan of Treatment Not on file
--- OUTSIDE RECORDS SUMMARY | 2025-06-02 12:57 | XMS_ITS | Encounter Summary ---
Author Organization [facility] Healthcare Address [address] [place] [address] Care Team Providers Care Welding Process Specialist Name Role Phone Tessa Shelton MD Primary Care Provider [phone] Tessa Shelton MD Unavailable Regina Matt LPN Unavailable Encounter Details DateTypeDepartmentCare Team (Latest Contact Info)Vchnjzhbkxf11/21/2025Patient Outreach [facility] [address] [place] [phone] Regina Mtat LPN [address] [place] [address] Social History Tobacco UseTypesPacks/DayYears UsedDateSmoking Tobacco: NeverSmokeless Tobacco: NeverAlcohol UseStandard Drinks/WeekCommentsYes1 (1 standard drink = 0.6 oz pure alcohol)caffeine intake:1-2 cups per day coffee, [id number] Health LiteracyAnswer Date RecordedHow often do you [...] relatives?Twice a week05/17/2023How often do you attend lutheran or anabaptist services?1 to 4 times per year05/17/2023o you belong to any clubs or organizations such as lutheran groups, unions, [employer] or athletic groups, or school groups?No05/17/2023How often do you attend meetings of the clubs or organizations you belong to?Never05/17/2023re you , , , , never , or living with a partner?Xrqytra9105/17/2023UDIT-C AnswerDate RecordedQ1: How often do you have a drink containing alcohol?2-4 times a month05/24/2023verage Number of DrinksNot on file05/24/2023Frequency of Binge DrinkingNot on file05/24/2023Overall Financial Resource Strain (CARDIA) AnswerDate RecordedHow hard is it for you to pay for the very basics like food, housing, medical care, and heating?Not hard at all05/17/2023HQ-2AnswerDate RecordedPatient Health Questionnaire-2 [id number] hospital [place] of Occupational [facility] - Occupational Stress QuestionnaireAnswerDate RecordedDo you feel stress - tense, restless, nervous, or anxious, or unable to sleep at night because yourmind is troubled all the time - these days?Only a ynbcug4105/17/2023 Exercise Vital SignAnswerDate RecordedOn average, how many [...] EDTGender IdentityNot on fileSexual OrientationNot on file documented as of this encounter Progress Notes * Regina Matt LPN - 05/21/2025 11:27 AM EDT Pt calls and talks to film writer about email spouse received regarding patient assistance re- enrollment for [employer]. Pts spouse has appt 06/06 with muriel polanco in [place] so I let pts know we can meet before or after this appt to fill out all patient assistance forms needed for this upcoming year. Pt agreeable to this and reminded to bring income verification so a copy can be made to send with applications. documented in this encounter Plan of Treatment DateTypeDepartmentCare Team (Latest Contact Info)Vlaatpavvcu41/05/2025 8:30 AM ESTOffice Visit [facility] [address] [place] [address] Reema Fallon, DPM [address] [place] [address] 06/12/2025 1:30 PM ESTAncillary Procedure [facility] [place] [facility] [address] [place] [phone] 10/24/2025 8:30 AM EDTOffice Visit [facility] [place] [facility] [address] [place] [address] Perla Lang, PA [address] [place] [address] documented as of this encounter Visit Diagnoses Diagnosis Benign hypertension- Primary Essential hypertension, benign Other chronic pain documented in this encounter Additional Health Concerns AssessmentNoted TimePHQ-9 Depression Total Score: 8:00 AM EDT documented as of this encounter Care Teams Team MemberRelationshipSpecialtyStart DateEnd Date Tessa Shelton MD [address] [place] [address] PCP - GeneralFami Medicine02/02/23 Tessa Shelton MD [address] [place] [address] PCP - ACO Reach11/30/23 Regina Matt LPN [address] [place] [address] 10/19/24documented as of this encounter
--- NOTE | 2025-06-02 13:05 | XR_ITS ---
The [address] [address] Patient Name: FLOR[place] NGO MRN: [id number] date: 1950 Sex: F Assigned Patient Location: ER Current Patient Location: ER Accession/Order Number: [id number] Exam Date: 06/02/2025 13:20 Report Date: 06/02/2025 14:02 At the request of: SREEDHAR BARRY Procedure: XR chest 2V PA AND LATERAL CHEST: CLINICAL HISTORY: cough COMPARISON: None FINDINGS: Unremarkable cardiomediastinal silhouette. Lungs clear. No effusion or pneumothorax. XR/XR chest 2V IMPRESSION: NO ACUTE CARDIOPULMONARY ABNORMALITY. Impression dictated by: Sebas Nunez M.D. 06/02/2025 2:02 PM Dictation Location: [place] [address] Electronically authenticated by: [id number] Y Date: 06/02/2025 14:02
--- NOTE | 2025-06-02 13:11 | ED.GENADUL1 ---
HPI HPI - General Adult General Chief complaint: Back Pain/Injury Stated complaint: CONGESTION W BACK PAIN Time Seen by Provider: 06/02/25 13:05 Source: patient Mode of arrival: walk-in Limitations: no limitations History of Present Illness HPI narrative: cc - nasal congestion, cough Pt developed cough, nasal congestion and chest pains when coughing two days ago. Overall she said that she is feeling better. But she went to a breakfast event this morning and when she mentioned it to her friend who s a fire adjuster, he had one of the medics listen to her. They told the pt that they heard wheezing and recommended that the patient go to the Emergency Department. She compains that when she coughs she feels pain around the back No fever or chills. No GI or symptoms. No recent travel and no known ill contacts. Related Data Home Medications ?Medication ?Instructions ?Recorded ?Confirmed alendronate 70 mg tablet 70 mg PO .q7 days 06/02/25 06/02/25 amlodipine 5 mg tablet 5 mg PO QDAY 06/02/25 06/02/25 lisinopril 10 mg tablet 10 mg PO QDAY 06/02/25 06/02/25 rosuvastatin 20 mg tablet 20 mg PO QDAY 06/02/25 06/02/25 Allergies Allergy/AdvReac Type Severity Reaction Status Date / Time Sulfa (Sulfonamide AdvReac Headache Verified 06/02/25 12:54 Antibiotics) Opioid HPI Opioid Management Most Recent Opioid Data: Last Pain Scale 6 Today, 12:54 PFSH PFSH Social History Little interest or pleasure in doing things: not at all Feeling down, depressed, or hopeless: not at all Exam Narrative Exam Narrative: Nurses notes and vital signs reviewed and patient is not hypoxic. afebrile General: Well-appearing and in no apparent distress. Skin: Warm, dry, no pallor noted. Neck: Supple, non-tender. No cervical lymphadenopathy. Eye: Pupils are equal, round and EOMI. No scleral icterus. Ears, Nose, Mouth, and Throat: TM are clear, no posterior oropharynx erythema, uvula is mid-line. Oral mucosa is moist. Minimal nasal mucosal hypertrophy Cardiovascular: Regular Rate and Rhythm without murmur, gallop or rub. Respiratory: No accessory muscle use or respiratory distress. Lungs are clear to auscultation, no wheezing, rales or rhonchi Chest Wall: no tenderness, crepitus or subcutaneous emphysema Back: No CVA tenderness Musculoskeletal: normal ROM, no calf or popliteal tenderness, no lower extremity edema/swelling Neurological: A&O x4. No cranial nerve dysfunction observed. No truncal ataxia. Moves all extremities. Sensation intact. Psychiatric: Cooperative and interactive. Normal mood and affect. Constitutional Vital Signs, click to edit/add: Last Vital Signs Temp 98 F 06/02/25 12:54 Pulse 93 H 06/02/25 12:54 Resp 16 06/02/25 12:54 BP 140/87 06/02/25 12:54 Pulse Ox 96 06/02/25 12:54 O2 Del Method Room Air 06/02/25 12:54 Course Vital Signs Vital signs: Vital Signs Temperature 98 F 06/02/25 12:54 Pulse Rate 93 H 06/02/25 12:54 Respiratory Rate 16 06/02/25 12:54 Blood Pressure 140/87 06/02/25 12:54 Pulse Oximetry 96 06/02/25 12:54 Oxygen Delivery Method Room Air 06/02/25 12:54 Temperature 98 F 06/02/25 12:54 Pulse Rate 93 H 06/02/25 12:54 Respiratory Rate 16 06/02/25 12:54 Blood Pressure 140/87 06/02/25 12:54 Pulse Oximetry 96 06/02/25 12:54 Oxygen Delivery Method Room Air 06/02/25 12:54 Medical Decision Making MDM Narrative Medical decision making narrative: 2 view Chest x-ray ordered. I also ordered the patient to receive a COVID swab and influenza swab but she was reluctant. She told me if I have 1 of those that I cannot be around anybody else -so I think I would rather not know . Swabs for influenza and COVID were negative. Chest x-ray = no acute cardiopulmonary abnormality Patient informed of results and given reassurance. We discussed her diagnosis of viral URI. She will continue use her tyuk-yfn-nnsokge nasal spray as needed -Tylenol and Motrin for the back pain. Lab Data Lab results reviewed: Yes I reviewed the patient's lab results Labs: Lab Results 06/02/25 Range/Units 13:15 Influenza Type A Ag Negative Influenza Type B Ag Negative SARS-CoV-2 Ag (CV2AG) Negative (NEGATIVE) Imaging Data Chest x-ray: Attestation: I have reviewed the pertinent imaging results. Radiologist's impression: ITS Impressions Chest X-Ray 06/02/25 13:05 IMPRESSION: NO ACUTE CARDIOPULMONARY ABNORMALITY. Impression dictated by: Sebas Nunez M.D. 06/02/2025 2:02 PM [facility]ictation [facility] Electron[facility] authenticated by: [id number] Y Date: 06/02/2025 14:02 Discharge Plan Discharge Chief Complaint: Back Pain/Injury Clinical Impression: URI (upper respiratory infection), Thoracic back pain Patient Disposition: Home, Self-Care Time of Disposition Decision: 14:07 Prescriptions / Home Meds: No Action alendronate 70 mg tablet 70 mg PO .q7 days amlodipine 5 mg tablet 5 mg PO QDAY lisinopril 10 mg tablet 10 mg PO QDAY rosuvastatin 20 mg tablet 20 mg PO QDAY Print Language: Malawian Instructions: Upper Respiratory Infection (ED), Back Pain (ED) Referrals: SUHAS PURI [Primary Care Provider, Family Practice] - 1 week
[2025-06-02 13:30] LABS: SARS-CoV-2 Ag NEGATIVE (NEGATIVE)
[2025-06-02 14:19] VITALS: BP 138/81; PULSE 88; O2SAT 99
== END 2025-06-02 14:20 | disposition home or self-care (01) ==
PROVIDERS: Emergency Provider Emergency Medicine; PCP Physician Assistant
DX: J06.9 Acute upper respiratory infection, unspecified (principal); M54.6 Pain in thoracic spine
CPT/HCPCS: 71046; 87804; 87811; 99284

== ENCOUNTER 2025-07-29 13:51 | Outpatient (OUT) | payer MEDICARE, OTHER, SELFPAY ==
--- OUTSIDE RECORDS SUMMARY | 2025-07-22 15:00 | XMS_ITS | Encounter Summary ---
Author Organization [facility] Address [address] [place] [address] Care Team Providers Care Hammer Driver Name Role Phone Tessa Shelton MD Primary Care Provider [phone] Tessa Shelton MD Unavailable Regina Matt LPN Unavailable Reason for Referral * Consultation (Routine) - Pending ReviewSpecialtyDiagnoses / ProceduresReferred By ContactReferred To ContactEndocrinology Diagnoses Abnormal thyroid function test Hyperthyroidism Procedures NC OFFICE/OUTPATIENT NEW HIGH MDM 60 MINUTES Perla Lang PA [address] [place] [address] Phone: tel: fax: Vashti Ybarra MD [address] [place] [address] Phone: tel: fax: Referral IDStatusReasonStart DateExpiration DateVisits RequestedVisits [id number] Review Specialty Services Required / Scheduling Instructions Please call pt to schedule Encounter Details DateTypeDepartmentCare Team (Latest Contact Info)Cpfgfjgrjrf86/22/2025 3:00 PM ESTOffice Visit [facility] [place] [facility] [address] [place] [address] Perla Lang PA [address] [place] [address] Abnormal thyroid function test (Primary Dx); Hyperthyroidism Social History Tobacco UseTypesPacks/DayYears UsedDateSmoking Tobacco: NeverSmokeless Tobacco: Never Tobacco Cessation:Counseling Given: Yes Alcohol UseStandard Drinks/WeekCommentsYes1 (1 standard drink = 0.6 oz pure alcohol)caffeine intake:1-2 cups per day coffee, [id number] Health LiteracyAnswer Date RecordedHow often do you [...] relatives?Twice a week05/17/2023How often do you attend jain or taoist services?1 to 4 times per year05/17/2023o you belong to any clubs or organizations such as jain groups, unions, fraternal or athletic groups, or school groups?No05/17/2023How often do you attend meetings of the clubs or organizations you belong to?Never05/17/2023re you , , , , never , or living with a partner?Uwgswcj0405/17/2023UDIT-C AnswerDate RecordedQ1: How often do you have a drink containing alcohol?2-4 times a month05/24/2023verage Number of DrinksNot on file05/24/2023Frequency of Binge DrinkingNot on file05/24/2023Overall Financial Resource Strain (CARDIA) AnswerDate RecordedHow hard is it for you to pay for the very basics like food, housing, medical care, and heating?Not hard at all05/17/2023HQ-2AnswerDate RecordedPatient Health Questionnaire-2 Nmtvd477Finacad[facility] [place] of Occupational Health - Occupational Stress QuestionnaireAnswerDate RecordedDo you feel stress - tense, restless, nervous, or anxious, or unable to sleep at night because yourmind is troubled all the time - these days?Only a cpddqj0705/17/2023 Exercise Vital SignAnswerDate RecordedOn average, how many [...] steady place to sleep or slept in grand viewelter (including now)?No05/17/2023CommentsUnknownSex and Gender InformationValueDate RecordedSex Assigned at BirthNot on fileLegal SexFemale 10/13/2022 6:38 PM EDTGender IdentityNot on fileSexual OrientationNot on file documented as of this encounter Last Filed Vital Signs Vital SignReadingTime TakenCommentsBlood Gjhtvwtw683/7007/22/2025 3:02 PM EST Ctfti831107/22/2025 3:02 PM ESTTemperature--Respiratory Yjrt238709/22/2024 3:02 PM ESTOxygen Gsoqcwcyxf62%07/22/2025 3:02 PM ESTInhaled Oxygen Concentration-- Tegvfs93.7 kg (189 lb)07/22/2025 3:02 PM TEKIxwooe678 cm (5' 3 )07/22/2025 3:02 PM ESTBody Mass Index33.4807/22/2025 3:02 PM ESTdocumented in this encounter Functional Status * Over the past 2 weeks, how often have you been bothered by any of the following problems?QuestionAnswerDate of AssessmentAuthorLittle interest or pleasure in doing thingsSeveral days07/22/2025 2:57 PM Robinson MAYeling down, depressed, or hopelessNot at all07/22/2025 2:57 PM ADDY MAY Patient Health Questionnaire-2 Efeyc275 2:57 PM ADDY MAY documented as of this encounter Progress Notes * DEVENDRA Castro - 07/22/2025 3:00 PM EST Images from the original note were not included. Subjective Patient ID: Osiris Morales is a 74 y.o. female who presents for test results. Osiris presents today for her lab results of her thyroid. Over the past 2 weeks, how often have you been bothered by any of the following problems? Little interest or pleasure in doing things: Several days Feeling down, depressed, or hopeless: Not at all Patient Health Questionnaire-2 Score: 1 Current Outpatient Medications on File Prior to [...] Procedure Laterality Date JOINT REPLACEMENT Bilateral knees NC TOTAL ABDOM HYSTERECTOMY 1989 TONSILLECTOMY 1971 TOTAL KNEE ARTHROPLASTY Left 12/2021 TOTAL KNEE ARTHROPLASTY Right 08/02/2022 Visit Vitals BP 128/70 Pulse 79 Resp 16 Ht 5' 3 Wt 189 lb SpO2 97% BMI 33.48 kg/m?? Smoking Status Never BSA 1.95 m?? Review of Systems Constitutional: Positive for fatigue (Mild). Negative for chills and fever. Respiratory: Negative for cough, shortness of breath and wheezing. Cardiovascular: Negative for chest pain, palpitations and leg swelling. Gastrointestinal: Negative for abdominal pain, constipation, diarrhea, nausea and vomiting. Skin: Negative for rash. Psychiatric/Behavioral: Positive for dysphoric mood. Objective Physical Exam Constitutional: General: She is not in acute distress. Appearance: She is well-developed. She is obese. HENT: Head: Normocephalic and atraumatic. Eyes: General: No scleral icterus. Conjunctiva/sclera: Conjunctivae normal. Neck: Thyroid: No thyroid mass, thyromegaly or thyroid tenderness. Cardiovascular: Rate and Rhythm: Normal rate and [...] and Affect: Mood normal. Behavior: Behavior normal. No visits with results within 1 Day(s) from this visit. Latest known visit with results is: Office Visit on 07/04/2025 Component Date Value Ref Range Status TRAB 07/04/2025 <1.00 <=2.00 IU/L Final Comment: This test was performed using the TRAb Antibody RUTHY method which is standardized against the 1st International Standard 90/672 and is reported in International Units (IU/L). The reference range reported was established specifically for this test method. T3, TOTAL 07/04/2025 96 76 - 181 ng/dL Final THYROID PEROXIDASE ANTIBODIES 07/04/2025 50 (H) <9 IU/mL Final Assessment/Plan Diagnoses and all orders for this visit: Abnormal thyroid function test - Ambulatory referral to Endocrinology; Future - US thyroid; Future Reviewed blood work results with the patient. Discussed hyper vs hypothyroidism. Pt is not overly symptomatic at this time. Only complaint is mild fatigue. Will obtain a thyroid US for further evaluation at this time. R/o thyroid nodules. Will notify pt of the results once received. She would like to complete it at [facility]. Hyperthyroidism - Ambulatory referral to Endocrinology; Future - US thyroid; Future Provided pt with referral to Endocrinology. Due to absence of tachycardia, will hold off on Metoprolol at this time. Will defer and treatment if indicated to Endocrinology. Follow up with DEVENDRA Cohen in 3 months (on 10/24/2025 Appointment as scheduled). documented in this encounter Plan of Treatment DateTypeDepartmentCare Team (Latest Contact Info)Dhkkkrhmjpg23/05/2026 8:30 AM ESTOffice Visit [facility] [place] [facility] [address] [place] [address] Reema Fallon DPM [address] [place] [address] 10/24/2025 8:30 AM EDTOffice Visit [facility] [place] [facility] [address] [place] [address] Perla Lang PA [address] [place] [address] NameTypePriorityAssociated DiagnosesOrder ScheduleUS thyroidImagingRoutine Abnormal thyroid function test Hyperthyroidism Expected: 07/22/2025, Expires: 07/22/2026NameTypePriorityAssociated Diagnoses Order ScheduleAmbulatory referral to EndocrinologyOutpatient ReferralRoutine Abnormal thyroid function test Hyperthyroidism Expected: 07/22/2025 (Approximate), Expires: 01/20/2026documented as of this encounter Visit Diagnoses Diagnosis Abnormal thyroid function test- Primary Nonspecific abnormal results of thyroid function study Hyperthyroidism Thyrotoxicosis without mention of goiter or other cause, without mention of thyrotoxic crisis or storm documented in this encounter Additional Health Concerns AssessmentNoted TimePHQ-9 Depression Total Score: 8:00 AM EDT documented as of this encounter Care Teams Team MemberRelationshipSpecialtyStart DateEnd Date Tessa Shelton MD [address] [place] [address] PCP - GeneralFamily Medicine02/02/23 Tessa Shelton MD [address] [facility] [address] [place] [address] PCP - ACO Reach11/30/23 Regina Matt LPN [address] [place] [address] 10/19/24documented as of this encounter
--- NOTE | 2025-07-29 13:53 | US_ITS ---
The [address] [address] Patient Name: [place] NGO MRN: [id number] date: 1950 Sex: F Assigned Patient Location: US Current Patient Location: Accession/Order Number: [id number] Exam Date: 07/29/2025 14:00 Report Date: 07/30/2025 00:44 At the request of: SUHAS PURI Procedure: US thyroid US thyroid 07/29/2025 2:28 PM SIGNS AND SYMPTOMS: ^Abnormal Thyroid Function Test COMPARISON: None. FINDINGS: Right and left thyroid lobes are normal in size but heterogeneous in echotexture. The right thyroid lobe measures 4.0 x 1.8 x 1.6 cm and the left thyroid lobe measures 4.5 x 1.7 x 1.7 cm cm. The isthmus measures 5 mm in thickness. There is a 0.3 x 0.2 x 0.3 cm nodule within the interpolar region on the left. This is wider than tall, well-circumscribed, and peripherally hypoechoic. There are no accompanying calcifications. No cervical lymphadenopathy is noted. US/US thyroid IMPRESSION: TIRADS: 4 (moderately suspicious) There is a 3 mm nodule at the interpolar region on the left. Recommendation: No further ultrasound follow-up is recommended. Impression dictated by: Tom Mackenzie M.D. 07/30/2025 12:44 AM Dictation Location: [place] [address] Electronically authenticated by: [id number] Y Date: 07/30/2025 00:44
--- OUTSIDE RECORDS SUMMARY | 2025-07-29 13:54 | XMS_ITS | Clinical Summary ---
Author Organization [facility] Address [address] [place] [address] Care Team Providers Care Inventory Analyst Name Role Phone Tessa Shelton MD Primary Care Provider [phone] Tessa Shelton MD Unavailable Regina Matt REPLENISHMENT MERCHANDISING ASSOCIATE Unavailable Allergies Active AllergyReactionsCriticalityNoted DateCommentsSulfa AntibioticsOther 02/02/2023 [...] 100 tablet 5Active Active Problems ProblemNoted DateDiagnosed DateAbnormal thyroid function test07/22/2025 Repvktvmybbjyrg65/22/2025lass 1 obesity without serious comorbidity with body mass index (BMI) of 31.0 to 31.9 in adult10/25/2023cquired absence of both cervix and qmbbrm0704/25/2023rtificial knee joint sstdmpz7904/25/2023enign qvpetwnmqozl41/25/2023ifficulty znxlohm6104/25/20232452Pgbvgkifftnfgfqmna47/25/2023 Osteopenia of multiple sites04/25/2023Other chronic pain04/25/2023Other primary ovarian iajgner3604/25/2023aresthesias in right hand04/25/2023rimary osteoarthritis of both knees04/25/2023 Resolved Problems ProblemNoted DateDiagnosed DateResolved DateAnti-TPO antibodies present 515Acute urinary tract xqyctxnjv35/Fever 4Aftercare following joint replacement gonkcdo8104/25/2023 04/30/2024Overweight (BMI 25.0-29.9)/4Pain in left knee /ain in right knee Encounters DateTypeDepartmentCare JpjsIrasjhmgvtd40/22/2025 3:00 PM ESTOffice Visit [facility] [address] [place] [address] [place] [address] Perla Puri, PA Abnormal thyroid function test (Primary Dx); Jniurqeroxnjjkl54/22/2025amboo flowsheet [facility] [address] [facility] [address] [place] [address] Perla Puri, PA 07/22/20257196Rjyzla71/09/2025Results Follow-Up [facility] [address] [place] [address] Tessa Shelton MD Thyrotropin receptor antibody, T3, Thyroid peroxidase fejhvlcm58/04/2025 1:30 PM ESTOffice Visit [facility] [place] [facility] [address] [place] [address] Perla Puri, PA Low TSH level (Primary Dx)07/04/2025amboo flowsheet [facility] [place] [address] [place] [address] Perla Puri PA 07/04/20256795Kgbgrn60/14/2025Results Follow-Up [facility] [address] [place] [address] Perla Puri, PA DEXA bone density, CBC and differential, Comprehensive metabolic panel, Additional followed-up results: 1:30 PM ESTAncillary Procedure [facility] [address] [place] [address] Estrogen oelzdniizh33/12/2981Sgshzf46/05/2025 8:30 AM ESTOffice Visit [facility] [address] [place] [address] Reema Fallon, DPM Onychomycosis (Primary Dx); Pain in both feet06/05/2025amboo flowsheet [facility] [address] [place] [address] Reema Fallon DPM 06/05/20255719Rsmwuu27/03/2025bstract [facility] [place] [address] [place] [address] Tessa Shelton MD 06/03/2025bstract [address] [address] [place] [address] Tessa Shelton MD 05/21/2025Patient Outreach [facility] [address] [place] [address] Regina Matt LPN 05/07/2025Patient Outreach [facility] [address] [place] [address] Regina Matt LPN 05/06/2025bstract [address] [address] [address] [place] [address] Tessa Shelton MD 04/30/2025 9:00 AM EDTOffice Visit [address] [place] [address] Perla Puri PA Medicare annual wellness visit, subsequent (Primary [...] adult, unspecified obesity type; Weight gain04/30/2025amboo flowsheet [facility] [address] [address] [place] [address] Perla Puri PA 04/30/2025Travelfrom Last 3 Months Immunizations ImmunizationAdministration DatesNext WkpBVKG-PZJ-7 (COVID-19) vaccine, mRNA, spike protein, LNP, bivalent, preservative free, 30 mcg/0.3 mLdose, alia-sucrose egjsfaddebo38/02/2022 Family History Medical HistoryRelationNameCommentsNo Known ProblemsBrotherNo Known Problems DaughterHeart diseaseFatherHypertensionFatherHypertensionMotherOsteoporosis Motherpassed away 05/2023No Known ProblemsSonRelationNameStatusCommentsBrother2 brothersDaughterAlive1 daughterFatherDeceasedMotherDeceasedSonAlive2 sons Social History Tobacco UseTypesPacks/DayYears UsedDateSmoking Tobacco: NeverSmokeless Tobacco: Never Tobacco Cessation:Counseling Given: Yes Alcohol UseStandard Drinks/WeekCommentsYes1 (1 standard drink = 0.6 oz pure alcohol)caffeine intake:1-2 cups per day coffee, [id number] Health LiteracyAnswer Date RecordedHow often do you [...] relatives?Twice a week05/17/2023How often do you attend anglican or taoism services?1 to 4 times per year05/17/2023o you belong to any clubs or organizations such as anglican groups, unions, fraternal or athletic groups, or school groups?No05/17/2023How often do you attend meetings of the clubs or organizations you belong to?Never05/17/2023re you , , , , never , or living with a partner?Gvxhehz4905/17/2023UDIT-C AnswerDate RecordedQ1: How often do you have a drink containing alcohol?2-4 times a month05/24/2023verage Number of DrinksNot on file05/24/2023Frequency of Binge DrinkingNot on file05/24/2023Overall Financial Resource Strain (CARDIA) AnswerDate RecordedHow hard is it for you to pay for the very basics like food, housing, medical care, and heating?Not hard at all05/17/2023HQ-2AnswerDate RecordedPatient Health Questionnaire-2 Gdnlv005[facility] [place] of Occupational Health - Occupational Stress QuestionnaireAnswerDate RecordedDo you feel stress - tense, restless, nervous, or anxious, or unable to sleep at night because yourmind is troubled all the time - these days?Only a rnaseu5705/17/2023 Exercise Vital SignAnswerDate RecordedOn average, how many [...] Last Filed Vital Signs Vital SignReadingTime TakenCommentsBlood Dpwwbcxn249/7007/22/2025 3:02 PM EST Oyjps087807/22/2025 3:02 PM RAYBqdsetmxkku20.7 ??C (98.1 ??F)03/08/2024 8:25 AM EDTRespiratory Tblk754509/22/2024 3:02 PM ESTOxygen Dgnxwxjyfb92%07/22/2025 3:02 PM ESTInhaled Oxygen Concentration--Tffqjq12.7 kg (189 lb)07/22/2025 3:02 PM EST Poiokg205 cm (5' 3 )07/22/2025 3:02 PM ESTBody Mass Index33.4807/22/2025 3:02 PM EST Plan of Treatment DateTypeDepartmentCare Team (Latest Contact Info)Oxemtkcqefr55/05/2026 8:30 AM ESTOffice Visit [facility] [address] [place] [address] Reema Fallon DPM [address] [place] [address] 10/24/2025 8:30 AM EDTOffice Visit [facility] [facility] [address] [facility] [address] [place] [address] Perla Puri PA [address] [facility] [address] [place] [address] Health MaintenanceDue DateLast DoneCommentsCT Ainddoeisglk66/01/1953olonoscopy 1952FIT-DNA1950FIT1950FOBT1952Bzipupdvysprh54/01/1951 Colorectal Cancer Oajtnqkve92/31/2026Postponed from 1952 (Patient Refused) Influenza Vaccine (#1)2026Postponed from 04/01/2025 (Patient Refused) Zwabpgnfo64/29/687035/, 06/07/2023, 11/16/2021, Additional history exists Medicare Annual Wellness (AWV)/, 04/30/2024, 04/26/2023, Additional history existsPneumococcal Vaccine: 65+ Years (1 of 1 - PCV) 04/30/2026Postponed from 2002 (Patient Refused) Procedures Procedure NamePriorityDate/TimeAssociated DiagnosisCommentsTHYROID PEROXIDASE PHRLWGSAZLHfiticy35/04/2025 2:01 PM EST Low TSH level T3, IYRMISsqrzbi29/04/2025 2:01 PM EST Low TSH level THYROTROPIN RECEPTOR AHUMAVEOCcxzlho91/04/2025 2:01 PM EST Low TSH level T4, AZCOMxzblnx12/24/2025 8:04 AM EST TSH W/REFLEX TO TE4Lycnbbm52/24/2025 8:04 AM EST Medicare annual wellness visit, subsequent Paresthesias in right hand Weight gain LIPID TQBTPAhuswdx10/24/2025 8:04 AM EST Medicare annual wellness visit, subsequent Benign hypertension Hypercholesteremia COMPREHENSIVE METABOLIC HVOYVNeiexff11/24/2025 8:04 AM EST Medicare annual wellness visit, subsequent Benign hypertension Hypercholesteremia CBC (INCLUDES DIFF/PLT)Mkycaql9806/24/2025 8:04 AM EST Medicare annual wellness visit, subsequent Benign hypertension Hypercholesteremia DEXA BONE JBGCGCKMvsrksx65/12/2025 1:35 PM EST Estrogen deficiency MM TOMOSYNTHESIS SCREENING BI03/29/2025 3:40 PM EDT from Last 3 Months or Most Recently Relevant to Health Maintenance Results * (ABNORMAL) Thyroid peroxidase antibody (07/04/2025 2:01 PM EST)ComponentValue Ref RangeTest MethodAnalysis TimePerformed AtPathologist SignatureTHYROID PEROXIDASE BFXGXPDHBM47(H)<9 IU/mLQUESTSpecimen (Source)Anatomical Location / LateralityCollection Method / VolumeCollection TimeReceived TimeBloodVenous blood specimen / Rucqqqg3007/04/2025 2:01 PM EST07/04/2025 2:01 PM EST Narrative Resulting Agency Comment Performing Organization Information ?Site ID: QPT ?Name: [facility] ?Address: [address] [place] [address], [address] [place] [phone] ?Director: Hosea Madrigal MD Authorizing ProviderResult TypeResult StatusPerla Puri [facility] BLOOD ORDERABLESFinal ResultPerforming [facility] CodePhone Number QUEST * Thyrotropin receptor antibody (07/04/2025 2:01 PM EST)ComponentValueRef Range Test MethodAnalysis TimePerformed AtPathologist SignatureTRAB<1.00<=2.00 IU/L QUESTComment: This test was performed using the TRAb Antibody RUTHY method which is standardized against the 1st International Standard 90/672 and is reported in International Units (IU/L). The reference range reported was established specifically for this test method. ? Specimen (Source)Anatomical Location / LateralityCollection Method / Volume Collection TimeReceived TimeBloodVenous blood specimen / Gkcqvif6307/04/2025 2:01 PM EST07/04/2025 2:01 PM EST Narrative Resulting Agency Comment Performing Organization Information ?Site ID: AMD ?Name: [facility] ?Address: [address] [place] [address] [address] [place] ?Director: Dennis Burroughs M.D.,PhD Authorizing ProviderResult TypeResult [facility] HospitalPerla Chiu [facility] BLOOD ORDERABLESFinal ResultPerforming [facility] CodePhone Number [facility] * T3 (07/04/2025 2:01 PM EST)ComponentValueRef RangeTest MethodAnalysis Time Performed AtPathologist SignatureT3, KTVLU6020 - 181 ng/dLQUESTSpecimen (Source)Anatomical Location / LateralityCollection Method / VolumeCollection TimeReceived TimeBloodVenous blood specimen / Gdadlcn6607/04/2025 2:01 PM EST 07/04/2025 2:01 PM EST Narrative Resulting Agency Comment Performing Organization Information ?Site ID: QPT ?Name: [facility] ?Address: [address] [place] [address] ?Director: Hosea Madrigal MD Authorizing ProviderResult TypeResult StatusPerla Chiu [employer] BLOOD ORDERABLESFinal ResultPerforming OrganizationAddressCity/State/ZIP CodePhone Number [facility]ST * (ABNORMAL) TSH W/REFLEX TO FT4 (06/24/2025 8:04 AM EST)ComponentValueRef Range Test MethodAnalysis TimePerformed AtPathologist SignatureTSH W/REFLEX TO FT4 0.14(L)0.40 - 4.50 mIU/LQUESTSpecimen (Source)Anatomical Location / Laterality Collection Method / VolumeCollection TimeReceived Time06/24/2025 8:04 AM EST 06/24/2025 3:30 PM EST Narrative [facility] - 06/25/2025 10:30 AM EST FASTING:YES FASTING: YES Resulting Agency Comment Performing Organization Information ?Site ID: QPT ?Name: [facility] ?Address: [address] [place] [address], [address] [place] [address] ?Director: Hosea Madrigal MD Authorizing ProviderResult TypeResult StatusPerla Chiu [facility] BLOOD ORDERABLESFinal ResultPerforming OrganizationAddressCity/State/ZIP CodePhone Number QUEST * (ABNORMAL) CBC and differential (06/24/2025 8:04 AM EST)ComponentValueRef RangeTest MethodAnalysis TimePerformed AtPathologist SignatureWHITE BLOOD CELL COUNT5.13.8 - 10.8 Thousand/uLQUESTRED BLOOD CELL COUNT5.22(H)3.80 - 5.10 Million/yPAEVJZXVBLZRQBLL32.811.7 - 15.5 g/pDPKWQXNPKIGCMSFN04.935.9 - 46.0 % HRLMIXHB45.081.4 - 101.7 mGICYMFGIT20.427.0 - 33.0 bfIYTHTDFJV88.031.6 - 35.4 g/dLQUESTComment: For adults, a slight decrease in the calculated MCHC value (in the range of 30 to 32 g/dL) is most likely not clinically significant; however, it should be interpreted with caution in correlation with other red cell parameters and the patient's clinical condition. RDW14.211.0 - 15.0 %QUESTPLATELET HOWVD733487 - 400 Thousand/jJEAQPQRFR24.17.5 - 12.5 fLQUESTABSOLUTE NEUTROPHILS3,3711,500 - 7,800 cells/uLQUESTABSOLUTE LYMPHOCYTES1,289083 - 3,900 cells/uLQUESTABSOLUTE TCUDMWTTU852678 - 950 cells/uL QUESTABSOLUTE JCVVUIMCHAP63056 - 500 cells/uLQUESTABSOLUTE MSQCIORCV259 - 200 cells/bFNYXWYIGQIACBTORE98.1%FEYGUVZQKCCINAWT53.7%QUESTMONOCYTES7.6%QUEST EOSINOPHILS2.4%QUESTBASOPHILS0.2%QUESTSpecimen (Source)Anatomical Location / LateralityCollection Method / VolumeCollection TimeReceived TimeBloodVenous blood specimen / Yhpavbm3206/24/2025 8:04 AM EST06/24/2025 3:30 PM EST Narrative QUEST - 06/25/2025 10:30 AM EST FASTING:YES FASTING: YES Resulting Agency Comment Performing Organization Information ?Site ID: QTW ?Name: [facility] ?Address: [address] [place] [phone] ?Director: Indira Chan Authorizing ProviderResult TypeResult StatusPerla Chiu Hemmagdiel [facility] BLOOD ORDERABLESFinal ResultPerforming OrganizationAddressCity/State/ZIP CodePhone Number QUEST * T4, free (06/24/2025 8:04 AM EST)ComponentValueRef RangeTest MethodAnalysis TimePerformed AtPathologist SignatureT4, FREE1.10.8 - 1.8 ng/dLQUESTSpecimen (Source)Anatomical Location / LateralityCollection Method / VolumeCollection TimeReceived Time06/24/2025 8:04 AM EST06/24/2025 3:30 PM EST Narrative [facility]ST - 06/25/2025 10:30 AM EST FASTING:YES FASTING: YES Resulting Agency Comment Performing Organization Information ?Site ID: QPT ?Name: [facility] ?Address: [address] [place] [address], [address] [place] [phone] ?Director: Hosea Madrigal MD Authorizing ProviderResult TypeResult StatusPerla Puri [facility] BLOOD ORDERABLESFinal ResultPerforming OrganizationAddressCity/State/ZIP CodePhone Number QUEST * Lipid panel (06/24/2025 8:04 AM EST)ComponentValueRef RangeTest MethodAnalysis TimePerformed AtPathologist SignatureCHOLESTEROL, ATFYO015<200 mg/dLQUESTHDL RORKBKGONPV48> OR = 50 mg/yELXCZJJRKBRDHICCFHO88<150 mg/dLQUESTLDL CHOLESTEROL 83mg/dL (calc)QUESTComment: Reference range: <100 Desirable range <100 mg/dL for primary prevention; <70 mg/dL for patients with CHD or diabetic patients with > or = 2 CHD risk factors. LDL-C is now calculated using the Kojo-Home calculation, which is a validated novel method providing better accuracy than the Friedewald equation in the estimation of LDL-C. Kojo SS et al. GEOVANNY. 2013;310(19): 8978-7604 (http://education.Med.ly.[employer]/faq/JGW483) CHOL/HDLC RATIO2.4<5.0 (calc)QUESTNON HDL CCWPXVGVIQM469<130 mg/dL (calc)QUEST Comment: For patients with diabetes plus 1 major ASCVD risk factor, treating to a non-HDL-C goal of <100 mg/dL (LDL-C of <70 mg/dL) is considered a therapeutic option. Specimen (Source)Anatomical Location / LateralityCollection Method / Volume Collection TimeReceived TimeBloodVenous blood specimen / Fqdauxg2006/24/2025 8:04 AM EST06/24/2025 3:30 PM EST Narrative QUEST - 06/25/2025 10:30 AM EST FASTING:YES FASTING: YES Resulting Agency Comment Performing Organization Information ?Site ID: QPT ?Name: [facility] ?Address: [facility] [address] [place] [address] ?Director: Hosea Madrigal MD Authorizing ProviderResult TypeResult StatusPerla Puri [place] BLOOD ORDERABLESFinal ResultPerforming OrganizationAddressCity/State/ZIP CodePhone Number QUEST * Comprehensive metabolic panel (06/24/2025 8:04 AM EST)ComponentValueRef Range Test MethodAnalysis TimePerformed AtPathologist SrptaqwjqRymqzjw0904 - 99 mg/dLQUESTComment: ? Fasting reference interval MOE180 - 25 mg/dLQUESTCreatinine0.870.60 - 1.00 mg/rJXNRQMCGTX96> OR = 60 mL/min/1.46k7MXJLSPXO/CREATININE RATIOSEE NOTE: (calc)QUESTComment: ?? Not Reported: BUN and Creatinine are within ?? reference range. ? Yozend230663 - 146 mmol/LQUESTPotassium, Bld4.33.5 - 5.3 mmol/CPKCOTMuncqhuy664 98 - 110 mmol/LQUESTCarbon Czuzpev6241 - 32 mmol/LQUESTCalcium9.48.6 - 10.4 mg/dLQUESTPROTEIN, TOTAL6.66.1 - 8.1 g/dLQUESTALBUMIN4.13.6 - 5.1 g/dLQUEST GLOBULIN2.51.9 - 3.7 g/dL (calc)QUESTALBUMIN/GLOBULIN RATIO1.61.0 - 2.5 (calc) QUESTBILIRUBIN, TOTAL0.50.2 - 1.2 mg/dLQUESTALKALINE BZTWRKUBKMG9558 - 153 U/L WIWMUIPG6460 - 35 U/MTNPFESNN604 - 29 U/LQUESTSpecimen (Source)Anatomical Location / LateralityCollection Method / VolumeCollection TimeReceived TimeBlood Venous blood specimen / Zecmezr0806/24/2025 8:04 AM EST06/24/2025 3:30 PM EST Narrative QUEST - 06/25/2025 10:30 AM EST FASTING:YES FASTING: YES Resulting Agency Comment Performing Organization Information ?Site ID: QTW ?Name: [facility] ?Address: [address] [place] [address] ?Director: Indira Chan Authorizing ProviderResult TypeResult StatusPerla Puri [facility] BLOOD ORDERABLESFinal ResultPerforming OrganizationAddressCity/State/ZIP CodePhone Number QUEST * DEXA bone density (06/12/2025 1:35 PM EST)Anatomical RegionLateralityModality BodyDigital RadiographySpecimen (Source)Anatomical Location / Laterality Collection Method / VolumeCollection TimeReceived Time06/13/2025 10:29 AM EST Impressions 06/13/2025 10:32 AM EST Impression: Findings compatible with moderate osteopenia with moderate increased fracture risk. ELECTRONICALLY SIGNED BY: Fan Hussein M.D. Narrative 06/13/2025 10:32 AM EST Examination: DEXA BONE DENSITY Clinical History: screening Technique: Bone density study was performed. T score values for the lumbar spine, right femoral neck and left femoral neck were obtained. Comparison: None Findings: Value for the lumbar spine from L1-L4 is -0.4. Value for the right femoral neck is -1.2. Value for the left femoral neck is -1.6. Findings are compatible with moderate osteopenia with moderate increased fracture risk. No evidence of osteoporosis. Procedure Note Fan Hussein MD - 06/13/2025 Examination: DEXA BONE DENSITY Clinical History: screening Technique: Bone density study was performed. T score values for the lumbarspine, right femoral neck and left femoral neck were obtained. Comparison: None Findings: Value for the lumbar spine from L1-L4 is -0.4. Value for theright femoral neck is -1.2. Value for the left femoral neck is -1.6.Findings are compatible with moderate osteopenia with moderate increasedfracture risk. No evidence of osteoporosis. IMPRESSION: Impression: Findings compatible with moderate osteopenia with moderateincreased fracture risk. ELECTRONICALLY SIGNED BY: Fan Hussein M.D. Authorizing ProviderResult TypeResult StatusPerla Puri PAI DXA PROCEDURES Final Result * MM TOMOSYNTHESIS SCREENING BI (03/29/2025 3:40 PM EDT)Anatomical Region LateralityModalityOtherSpecimen (Source)Anatomical Location / Laterality Collection Method / VolumeCollection TimeReceived Time03/29/2025 3:40 PM EDT Narrative 03/29/2025 3:41 PM EDT [facility] ?[address] ? [place] [address] ? Mammography Report ? Signed ? Patient: OSIRIS NGO S ?MR#: [id number] ?? : 1950 ?Acct:[id number] ?? Age/Sex: 74 / F ?ADM Date: 03/29/25 ?? Loc: MAMMO ? Attending Dr: PERLA PURI ? Ordering Physician: PERLA PURI ? Results: ? Date of Service: 03/29/25 ?Follow Up: ? Procedure(s): MM tomosynthesis screening BI ?? Accession Number(s): [id number] ? cc: PERLA PURI ? Patient Name: ? OSIRIS NGO ? MR#: [id number] ? : 1950 ? Exam Date: 03/29/2025 [...] Cancers ? None ? LOCATION: ? [facility] ? BREAST COMPOSITION: ? The breasts are [...] By: ?Haile Pearson M.D. ? Signed By: ?03/29/25 1541 ? DD/ 1540 ? TD/TT: ? Airplane Coverer: Procedure Note Radiology, Radiologist, MD - 03/29/2025 [place] [address] Mammography Report Signed Patient: OSIRIS NGO SMR#: [id number] : 1950cct:[id number] Age/Sex: 74 / FADM Date: 03/29/25 Loc: MAMMO Attending Dr: PERLA PURI Ordering Physician: PERLA PURI MResults: Date of Service: 03/29/25Follow Up: Procedure(s): MM tomosynthesis screening BI Accession Number(s): [id number] cc: PERLA PURI Patient Name: OSIRIS NGO MR#: [id number] : 1950 Exam Date: 03/29/2025 Ordering Doctor: DR PERLA PURI PA RADIOLOGY REPORT PROCEDURE: MM TOMOSYNTHESIS SCREENING BI COMPARISON: MM TOMOSYNTHESIS SCREENING BI, 06/07/2023. MG MAMM PHBEVP9K REINA CAD, 11/16/2021. MG MAMM SCREEN 3D REINA CAD, 11/13/2020. MG MAMM SCREENBIL W CAD, 10/05/2016. INDICATIONS: Screening Calculator Name NCI Breast Cancer Risk Assessment Tool 5 Year Breast Cancer Risk Not Reported. Lifetime Breast Cancer Risk Not Reported. Personal Breast Cancer No Personal Ovarian Cancer No Treatments None Family Cancers None LOCATION: [facility] BREAST COMPOSITION: The breasts are extremely dense, [...] M.D. Signed By:03/29/25 1541 DD/ 1540 TD/TT: Airplane Coverer: Authorizing ProviderResult TypeResult Kristian Puri [facility] Final Result from Last 3 Months or Most Recently Relevant to Health Maintenance Insurance Care Teams Team MemberRelationshipSpecialtyStart DateEnd Date Tessa Shelton MD [address] [facility] [address] [place] [address] PCP - [facility]02/02/23 Tessa Shelton MD [address] [facility] [address] [place] [address] PCP - [facility]11/30/23 Regina Matt LPN [address] [facility] [address] [place] [address] 10/19/24
--- OUTSIDE RECORDS SUMMARY | 2025-07-29 13:54 | XMS_ITS | Clinical Summary ---
Author Organization [facility] Address [address] [place] [address] Phone Care Team Providers Care Textiles And Clothing Teacher Name Role Phone Unavailable Primary Care Provider Unavailabl e Social History Tobacco UseTypesPacks/DayYears UsedDateSmoking Tobacco: Never Assessed CommentsUnknownSex and Gender InformationValueDate RecordedSex Assigned at Not on fileLegal PpjYdabbp26/25/2022 11:58 PM ESTGender IdentityNot on file Sexual OrientationNot on file Plan of Treatment Not on file
--- OUTSIDE RECORDS SUMMARY | 2025-07-29 13:54 | XMS_ITS | Encounter Summary ---
Author Organization [facility] Address [address] [place] [address] Care Team Providers Care Manager Vehicle Name Role Phone Tessa Shelton MD Primary Care Provider [phone] Tessa Shelton MD Unavailable Regina Matt LPN Unavailable Encounter Details DateTypeDepartmentCare Team (Latest Contact Info)Nukabpjkcbn81/22/2025Travel Social History Tobacco UseTypesPacks/DayYears UsedDateSmoking Tobacco: NeverSmokeless Tobacco: NeverAlcohol UseStandard Drinks/WeekCommentsYes1 (1 standard drink = 0.6 oz pure alcohol)caffeine intake:1-2 cups per day coffee, [id number] Health LiteracyAnswer Date RecordedHow often do you [...] relatives?Twice a week05/17/2023How often do you attend nondenominational or mormonism services?1 to 4 times per year05/17/2023o you belong to any clubs or organizations such as nondenominational groups, unions, fraternal or athletic groups, or school groups?No05/17/2023How often do you attend meetings of the clubs or organizations you belong to?Never05/17/2023re you , , , , never , or living with a partner?Kjubgve7405/17/2023UDIT-C AnswerDate RecordedQ1: How often do you have a drink containing alcohol?2-4 times a month05/24/2023verage Number of DrinksNot on file05/24/2023Frequency of Binge DrinkingNot on file05/24/2023Overall Financial Resource Strain (CARDIA) AnswerDate RecordedHow hard is it for you to pay for the very basics like food, housing, medical care, and heating?Not hard at all05/17/2023HQ-2AnswerDate RecordedPatient Health Questionnaire-2 [id number] [place] [facility] - Occupational Stress QuestionnaireAnswerDate RecordedDo you feel stress - tense, restless, nervous, or anxious, or unable to sleep at night because yourmind is troubled all the time - these days?Only a urgsgs0405/17/2023 Exercise Vital SignAnswerDate RecordedOn average, how many [...] on file documented as of this encounter Plan of Treatment DateTypeDepartmentCare Team (Latest Contact Info)Qykgliggvvb14/05/2026 8:30 AM ESTOffice Visit [facility] [address] [place] [phone] Reema Fallon DPApple [address] [place] [address] 10/24/2025 8:30 AM EDTOffice Visit [facility] [place] [facility] [address] [place] [address] Perla Lang PA [address] [place] [address] documented as of this encounter Visit Diagnoses Not on filedocumented in this encounter Additional Health Concerns AssessmentNoted TimePHQ-9 Depression Total Score: 8:00 AM EDT documented as of this encounter Care Teams Team MemberRelationshipSpecialtyStart DateEnd Date Tessa Shelton MD [address] [place] [address] PCP - GeneralFamily Medicine02/02/23 Tessa Shelton MD [address] [address] [place] [address] PCP - ACO [place]11/30/23 Regina Matt LPN [address] [place] [address] 10/19/24documented as of this encounter
--- OUTSIDE RECORDS SUMMARY | 2025-07-29 13:54 | XMS_ITS | Encounter Summary ---
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 Name Role Phone Tessa Shelton MD Primary Care Provider [phone] Tessa Shelton MD Unavailable Regina Matt LPN Unavailable Encounter Details DateTypeDepartmentCare Team (Latest Contact Info)Fzfaqdkvpqs07/22/2025amboo flowsheet [facility] [place] [facility] [address] [place] [phone] Perla Lang, PA [address] [facility] [address] [place] [address] Social History Tobacco UseTypesPacks/DayYears UsedDateSmoking Tobacco: NeverSmokeless Tobacco: NeverAlcohol UseStandard Drinks/WeekCommentsYes1 (1 standard drink = 0.6 oz pure alcohol)caffeine intake:1-2 cups per day coffee, [id number] Health LiteracyAnswer Date RecordedHow often do you [...] relatives?Twice a week05/17/2023How often do you attend islam or mormon services?1 to 4 times per year05/17/2023o you belong to any clubs or organizations such as islam groups, unions, fraCuipo or athletic groups, or school groups?No05/17/2023How often do you attend meetings of the clubs or organizations you belong to?Never05/17/2023re you , , , , never , or living with a partner?Dagedsi0005/17/2023UDIT-C AnswerDate RecordedQ1: How often do you have a drink containing alcohol?2-4 times a month05/24/2023verage Number of DrinksNot on file05/24/2023Frequency of Binge DrinkingNot on file05/24/2023Overall Financial Resource Strain (CARDIA) AnswerDate RecordedHow hard is it for you to pay for the very basics like food, housing, medical care, and heating?Not hard at all05/17/2023HQ-2AnswerDate RecordedPatient Health Questionnaire-2 [id number] [place] of Occupational Health - Occupational Stress QuestionnaireAnswerDate RecordedDo you feel stress - tense, restless, nervous, or anxious, or unable to sleep at night because yourmind is troubled all the time - these days?Only a imkbbv8905/17/2023 Exercise Vital SignAnswerDate RecordedOn average, how many days per week do you engage in moderate to strenuous exercise (like a brisk walk)?7 days02/16/2024On average, how many minutes do you engage in exercise at this level?20 min 07/18/2024Hunger Vital SignAnswerDate RecordedWithin the past 12 months, [...] steady place to sleep or slept in armourelter (including now)?No05/17/2023CommentsUnknownSex and Gender InformationValueDate RecordedSex Assigned at BirthNot on fileLegal SexFemale 10/13/2022 6:38 PM EDTGender IdentityNot on fileSexual OrientationNot on file documented as of this encounter Plan of Treatment DateTypeDepartmentCare Team (Latest Contact Info)Dmogqxmkzsz48/05/2026 8:30 AM ESTOffice Visit [facility] [address] [place] [phone] Reema Fallon DPM [address] [place] [address] 10/24/2025 8:30 AM EDTOffice Visit [facility] [place] [facility] [address] [place] [phone] Perla Lang PA [address] [place] [address] documented as of this encounter Visit Diagnoses Not on filedocumented in this encounter Additional Health Concerns AssessmentNoted TimePHQ-9 Depression Total Score: 8:00 AM EDT documented as of this encounter Care Teams Team MemberRelationshipSpecialtyStart DateEnd Date Tessa Shelton MD [address] [facility] [address] [place] [address] [facility] - [facility] Medicine02/02/23 Tessa Shelton MD [address] [facility] [address] [place] [address] PCP - [facility]CO [facility]11/30/23 Regina Matt LPN [address] [facility] [address] [place] [address] 10/19/24documented as of this encounter
== END 2025-07-29 13:52 | disposition home or self-care (01) ==
LOC: US 13:51
PROVIDERS: PCP Physician Assistant; Visit Provider Physician Assistant
DX: R94.6 Abnormal results of thyroid function studies (principal); E05.90 Thyrotoxicosis, unspecified without thyrotoxic crisis or storm; E04.1 Nontoxic single thyroid nodule
CPT/HCPCS: 76536